=== PATIENT | male | born 1975 | race Asian ===

== ENCOUNTER 2018-01-18 01:51 | Emergency (ER) | payer OTHER ==
--- OUTSIDE RECORDS SUMMARY | 2018-01-18 01:53 | XMS REPORT | Clinical Summary ---
:1975 Author Organization [facility] Address [address] [place] [address] Phone Care Team Providers Name Role Phone Unavailable Primary Care Provider Unavailable Allergies Not on File Current Medications Not on file Active Problems Not on file Encounters Date Type Specialty Care Team Description 05/14/2017 Abstract Transplant Leslie Barrera MA after 01/17/2017 Social History Tobacco Use Types Packs/Day Years Used Date Never Assessed Sex Assigned at Date Recorded Not on file Last Filed Vital Signs Not on file Plan of Treatment Not on file Results Not on fileafter 01/17/2017
--- OUTSIDE RECORDS SUMMARY | 2018-01-18 01:54 | XMS REPORT ---
:1975 Author Organization [facility] Address [address] [place] [phone] Phone Allergies, Adverse Reactions, Alerts Allergy Name Reaction Description Start Date Severity Status Provider [id number] NEGATIVE Critical No Longer Fred Root MD Active [id number] NEGATIVE Critical Inactive Fred Root MD Conditions or Problems Problem Name Problem Onset Status Entry Provider Comment Standard Annotate Code Date Date Description Balanitis 607.1 Active Fred Balanoposthitis 12/14 12/14 Ivett MCADAMS Folliculitis 704.8 Active Fred Other specified 12/14 12/14 Ivett diseases of MD hair and hair follicles Preventive V70.0 Active Fred Routine general health care 11/30 11/30 Ivett medical examination at a health care facility Allergic 692.9 Active Fred Contact dermatitis 04/28 04/28 Ivett dermatitis and MD other eczema, unspecified cause Dietary V65.3 Active Anibal Dietary surveillance 12/08 12/[address] and counseling counseling SEBACEOUS 706.2 Active Fred Sebaceous cyst left CYST 11/07 11/07 Ivett occipital scalp BLEPHARITIS 373.00 Active Jose S Blepharitis, 09/26 09/26 Brandon MCADAMS unspecified 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 Jose 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, unspecified History of 305.90 01/23/ Active Randy Other, mixed, Ecstasy SUBSTANCE 2010 Kwan or unspecified ABUSE drug abuse, unspecified use DEPRESSION 311 01/08/ Active Shari Depressive change in 2011 0/12 Mckenzie disorder, not sleep, elsewhere loss of classified interest HEPATITIS C 070.51 12/2010 Active Fred Acute hepatitis GENOTYPE 1A 10/10 Ivett C without MD mention of hepatic coma History of 097.9 12/2010 Active Shari Syphilis, SYPHILIS 0 Mckenzie unspecified HIV 042 12/2010 Active Fred 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 HEPATITIS C 070.51 12/2010 Correction Shari Acute hepatitis 0 Mckenzie C without mention of hepatic coma HIV 042 12/2010 Correction Shari Human INFECTION Mckenzie immunodeficienc y virus [HIV] disease Pharyngitis 462 Inactive Fred Acute 10/11 12/14 Ivett pharyngitis Pharyngitis ICD-462 Inactive Fred Root MD 12/14 Penile ulcer ICD-607.89 Inactive Fred Root MD SPECIAL V73.89 Inactive Jose Omalley Screening SCREENING Brandon MCADAMS examination for EXAMINATION OTH other specified SPEC VIRAL DZ viral diseases SPECIAL SCREENING ICD-V73.89 Inactive Jose Omalley 2014 EXAMINATION OTH Brandon MCADAMS SPEC VIRAL DZ ASTIGMATISM 367.20 Inactive Fred Metz MD unspecified ASTIGMATISM ICD-367.20 Inactive Fred Root MD MYOPIA 367.1 Inactive Fred Root MD Myopia MYOPIA ICD-367.1 Inactive Fred Root MD HEALTH SCREENING ICD-V70.0 Inactive Fred Root CONJUNCTIVITIS ICD-372.30 Inactive Fred Root Penile ulcer 607.89 Resolved Fred rogers MD disorders of penis HEALTH SCREENING V70.0 Resolved Fred nunez MD medical examination at a health care facility CONJUNCTIVITIS 372.30 05/04/2012 Resolved Fred Conjunctivit ? Allergic Ivett is, - Prob unspecified Bacterial Medication List Medication Instructions Start Stop Generic NDC Status Provider Patient Date Date Name Instruction DOXYCYCLINE 1 by DOXYCYCLINE [id number] Active Fred Active HYCLATE 100 MG mouth HYCLATE [place] ORAL CAPSULE twice a MD day LOTRISONE apply to CLOTRIMAZOLE-B 65436172342 Active Fred Active 1-0.05 % affected ETAMETHASONE [place] EXTERNAL CREAM area twice a day TRIAMCINOLONE apply to TRIAMCINOLONE 87184485950 Active Fred Active ACETONIDE 0.1 % affected ACETONIDE [place] EXTERNAL CREAM area MD twice a day ISENTRESS 400 1 By RALTEGRAVIR 01228239865 Active Nadia Active MG ORAL TABLET Mouth POTASSIUM Abreu Twice a Day NORVIR 100 MG 1 By RITONAVIR 39111469565 Active Nadia Active ORAL TABLET Mouth Abreu Every Day PREZISTA 800 MG 1 by DARUNAVIR 16820824920 Active Nadia Active ORAL TABLET mouth ETHANOLATE Abreu once a day with food TRUVADA 200-300 1 by EMTRICITABINE- [id number] Active Nadia Active MG ORAL TABLET mouth TENOFOVIR Abreu daily ZITHROMAX 250 2 by ZITHROMAX [id number] AZITHROMYCIN Inactive MG ORAL mouth 250 MG ORAL TABLET now, TABLET then 1 by mouth every day for 4 more days HARVONI Take 1 HARVONI LEDIPASVIR-SO Inactive 90-400 MG tablet 90-400 MG FOSBUVIR ORAL TABLET orally ORAL TABLET once daily VALTREX 1 GM 1 by VALTREX 1 GM 956255 VALACYCLOVIR Inactive ORAL TABLET mouth 2 ORAL TABLET HCL times a day for 7 days AUGMENTIN 1 by AUGMENTIN 015280 AMOXICILLIN-P Inactive 875-125 MG mouth 875-125 MG OT ORAL TABLET twice a ORAL TABLET CLAVULANATE day for 1 week PREDNISOLONE 1 drop PREDNISOLONE 4037016 PREDNISOLONE Inactive ACETATE 1 % in both ACETATE 1 % ACETATE OPHTHALMIC eyes OPHTHALMIC SUSPENSION Four SUSPENSION Times a Day for 7 days ATRIPLA 1 tablet ATRIPLA EFAVIRENZ-EMT Inactive 600-200-300 by mouth 600-200-300 RICITAB-TENOF MG ORAL at MG ORAL OVIR TABLET bedtime TABLET on empty stomach ZITHROMAX 2 by AZITHROMYCIN 79461884564 No Fred Active 250 MG mouth Longer Nem[place] ORAL now, Active MD TABLET then 1 by mouth every day for 4 more days HARVONI Take 1 LEDIPASVIR-SO 08502166233 No Kitty Active 90-400 MG tablet FOSBUVIR Longer Hunter ORAL orally Active h MD TABLET once daily VALTREX 1 1 by VALACYCLOVIR 81272496211 No Fred Active GM ORAL mouth HCL Longer [place] TABLET 2 Active MD times a day for 7 days AUGMENTIN 1 by AMOXICILLIN-P 73839520848 No Fred Active 875-125 MG mouth OT Longer Nemecek ORAL twice CLAVULANATE Active MD TABLET a day for 1 week PREDNISOLO 1 drop PREDNISOLONE 82559064382 No Jose Inman NE ACETATE in ACETATE Longer Taylor 1 % both Active MD OPHTHALMIC eyes SUSPENSION Four Times a Day for 7 days ATRIPLA 1 EFAVIRENZ-EMT 33975917316 No Fred Active 600-200-30 tablet RICITAB-TENOF Longer Nemecek 0 MG ORAL by OVIR Active MD TABLET mouth at bedtim e on empty stomac h Advance Directives Directive Description Start Date DISCUSSED - NO DECISION MADE Immunizations Vaccine Administration Date Value Standard Description influenza immunization given influenza virus (Flu Vax) has been vaccine, unspecified administered formulation pneumococcal given pneumococcal immunization polysaccharide administered vaccine, 23 valent influenza immunization given influenza virus (Flu Vax) has been vaccine, unspecified administered formulation influenza immunization given elsewhere influenza virus (Flu Vax) has been vaccine, unspecified administered formulation PEDIATRIC PNEUMOCOCCAL given pneumococcal conjugate VACCINE ([id number]) #2 vaccine, 13 valent influenza immunization given influenza virus (Flu Vax) has been vaccine, unspecified administered formulation TB-PPD, interpretation negative of results influenza immunization given influenza virus (Flu Vax) has been vaccine, unspecified administered formulation influenza immunization transcribed from influenza virus (Flu Vax) has been official record vaccine, unspecified administered formulation dT (Diphtheria and transcribed from Td(adult) unspecified Tetanus) immunization official record formulation for children, #1 PEDIATRIC PNEUMOCOCCAL transcribed from pneumococcal conjugate VACCINE ([id number]) #1 official record vaccine, 13 valent pneumococcal given pneumococcal immunization polysaccharide administered vaccine, 23 valent Vital Signs Date Name Value Unit Range Description blood pressure, diastolic 87 mm[Hg] BP mauro blood pressure, systolic 132 mm[Hg] BP sys height E&M 67 [in_us] Bdy height pulse rate E&M 68 /min Heart rate respiratory rate E&M 16 /min Resp rate temperature E&M 97.1 [degF] Body temperature weight E&M 168 [lb_av] Weight Measured blood pressure, diastolic 87 mm[Hg] BP mauro blood pressure, systolic 125 mm[Hg] BP sys height E&M 67 [in_us] Bdy height pulse rate E&M 69 /min Heart rate respiratory rate E&M 16 /min Resp rate temperature E&M 97 [degF] Body temperature weight E&M 168 [lb_av] Weight Measured blood pressure, diastolic 83 mm[Hg] BP mauro blood pressure, systolic 111 mm[Hg] BP sys height E&M 67 [in_us] Bdy height pulse rate E&M 74 /min Heart rate respiratory rate E&M 16 /min Resp rate temperature E&M 98.1 [degF] Body temperature weight E&M 173 [lb_av] Weight Measured blood pressure, diastolic 82 mm[Hg] BP mauro blood pressure, systolic 131 mm[Hg] BP sys height E&M 67 [in_us] Bdy height pulse rate E&M 78 /min Heart rate respiratory rate E&M 16 /min Resp rate temperature E&M 98.2 [degF] Body temperature weight E&M 167 [lb_av] Weight Measured Diagnostic Results Date Name Value Unit Range Description Lab Report: CD4/CD8 Ratio Profile, Comp. Metabolic Panel (14), Lipid Wu ... - Serology hepatitis C antibody, serum >11.0 0.0-0.9 Lab Report: CD4/CD8 Ratio Profile, Comp. Metabolic Panel (14), HCV RT-PC ... - Hematology lymphocyte count, blood, automated 3.3 X10E3/UL 10*3/mm3 0.7- 3.1 Lab Report: CD4/CD8 Ratio Profile, Comp. Metabolic Panel (14), HCV RT-PC ... - Chemistry urea nitrogen, blood 21 mg/dL 6-24 Lab Report: Iron and TIBC, Ferritin, Serum, Written Authorization - Chemistry ferritin, serum 306 ng/mL 30-400 Lab Report: CD4/CD8 Ratio Profile, Comp. Metabolic Panel (14), HCV RT-PC ... - Hematology T-helper cells (CD4) as percent of blood lymphocytes 28.1 % 30.8 -58.5 Lab Report: CD4/CD8 Ratio Profile, Comp. Metabolic Panel (14), HCV RT-PC ... - Serology HIV-1RNA, serum, by PCR, quantitative 50 {Copies}/mL Office Visit: Adult Followup #13 - Toxicology tricyclic antidrepressants, urine Negative Lab Report: CD4/CD8 Ratio Profile, Comp. Metabolic Panel (14), HCV RT-PC ... - Chemistry creatinine, serum 1.06 mg/dL 0.76-1.27 chloride, serum 101 mmol/L 96-106 Lab Report: CD4/CD8 Ratio Profile, Comp. Metabolic Panel (14), HCV RT-PC ... - Hematology mean corpuscular volume, RBC 91 fL 79-97 Lab Report: CD4/CD8 Ratio Profile, Comp. Metabolic Panel (14), Lipid Wu ... - Chemistry triglyceride, serum, fasting 108 mg/dL 0-149 Lab Report: CD4/CD8 Ratio Profile, Comp. Metabolic Panel (14), HCV RT-PC ... - Hematology erythrocyte (RBC) count 4.94 X10E6/UL 10*6/mm3 4.14-5.80 Lab Report: CD4/CD8 Ratio Profile, Comp. Metabolic Panel (14), HCV RT-PC ... - Chemistry Estimated Glomerular Filtration Rate (calc) 85 mL/min/1.73m2 &gt ;59 Lab Report: CD4/CD8 Ratio Profile, Comp. Metabolic Panel (14), HCV RT-PC ... - Hematology platelet count 175 X10E3/UL 10*3/mm3 180-467 6987/01/08 red blood cell distribution width 13.3 % 12.3-15.4 Lab Report: CD4/CD8 Ratio Profile, Comp. Metabolic Panel (14), Lipid Wu ... - Lab Treponema pallidum antibodies, by particle Positive Negative agglutination Lab Report: CD4/CD8 Ratio Profile, Comp. Metabolic Panel (14), HCV RT-PC ... - Chemistry protein, total, serum 7.1 g/dL 6.0-8.5 Lab Report: CD4/CD8 Ratio Profile, Comp. Metabolic Panel (14), HCV RT-PC ... - Serology Hepatitis C virus (HCV) RNA, PCR, HCV Not Detected IU/mL [iU]/mL quantitative Lab Report: CD4/CD8 Ratio Profile, Comp. Metabolic Panel (14), Lipid Wu ... - Chemistry HDL cholesterol, serum 36 mg/dL >39 Lab Report: CD4/CD8 Ratio Profile, Comp. Metabolic Panel (14), Lipid Wu ... - Microbiology hepatitis A antibody, total Positive Negative Lab Report: HSV Culture and Typing - Microbiology HERPES SIMPLEX VIRUS IDENTIFIED (PT; XXX; QL; ) HSVN Lab Report: CD4/CD8 Ratio Profile, Comp. Metabolic Panel (14), HCV RT-PC ... - Chemistry albumin/globulin ratio, serum 1.5 1.2-2.2 Lab Report: CD4/CD8 Ratio Profile, Comp. Metabolic Panel (14), HCV RT-PC ... - Hematology eosinophils as percent of blood leukocytes 2 % Not Estab. Lab Report: CD4/CD8 Ratio Profile, Comp. Metabolic Panel (14), HCV RT-PC ... - Chemistry Absolute Neutrophils 3.4 X10E3/UL 10*3/uL 1.4-7.0 Lab Report: [id number] 7+Alc-Unbund - Toxicology amphetamine screen, urine Negative [id number] Lab Report: CD4/CD8 Ratio Profile, Comp. Metabolic Panel (14), HCV RT-PC ... - Hematology basophil count, absolute 0.0 x10E3/uL 0.0-0.2 Lab Report: CD4/CD8 Ratio Profile, Comp. Metabolic Panel (14), Lipid Wu ... - Chemistry hepatitis B surface antigen Negative Negative Lab Report: Iron and TIBC, Ferritin, Serum, Written Authorization - Chemistry iron saturation percent, serum 41 % 15-55 Lab Report: CD4/CD8 Ratio Profile, Comp. Metabolic Panel (14), HCV RT-PC ... - Chemistry alanine aminotransferase (SGPT), serum 28 U/L 0-44 Lab Report: CD4/CD8 Ratio Profile, Comp. Metabolic Panel (14), Lipid Wu ... - Chemistry LDL cholesterol, serum 97 mg/dL 0-99 Office Visit: Adult Followup #13 - Toxicology phencyclidine screen, urine Negative ng/mL Lab Report: CD4/CD8 Ratio Profile, Comp. Metabolic Panel (14), HCV RT-PC ... - Hematology monocytes as percent of blood leukocytes 4 % Not Estab. Lab Report: [id number] 7+Alc-Unbund - Toxicology opiate screen, urine Negative [id number] Lab Report: CD4/CD8 Ratio Profile, Comp. Metabolic Panel (14), HCV RT-PC ... - Chemistry CD4/CD8 ratio 0.84 0.92-3.72 Office Visit: Adult Followup #13 - Urinalysis morphine drug screen, urine Negative Lab Report: CD4/CD8 Ratio Profile, Comp. Metabolic Panel (14), Lipid Wu ... - Chemistry cholesterol, serum 155 mg/dL 100-199 Lab Report: CD4/CD8 Ratio Profile, Comp. Metabolic Panel (14), HCV RT-PC ... - Hematology mean corpuscular hemoglobin 35.0 G/DL % 31.5-35.7 concentration, RBC hemoglobin, blood 15.7 g/dL 13.0-17.7 leukocyte count, blood 7.1 X10E3/UL 10*3/mm3 3.4-10.8 Lab Report: CD4/CD8 Ratio Profile, Comp. Metabolic Panel (14), RNA, Real ... - Hematology Quantiferon Gold TB blood test for tuberculosis Negative Negative screening Office Visit: Adult Followup #13 - Urinalysis Oxycodone urine screening Negative Lab Report: CD4/CD8 Ratio Profile, Comp. Metabolic Panel (14), HCV RT-PC ... - Hematology hematocrit, blood 44.9 % 37.5-51.0 T-suppressor cells (CD8) as percent of blood 33.3 % 12.0-35.5 lymphocytes Lab Report: CD4/CD8 Ratio Profile, Comp. Metabolic Panel (14), HCV RT-PC ... - Chemistry globulin, serum 2.8 1.5-4.5 Office Visit: Adult Followup #13 - Toxicology barbiturates screen, urine Negative Lab Report: CD4/CD8 Ratio Profile, Comp. Metabolic Panel (14), HCV RT-PC ... - Chemistry albumin, serum 4.3 g/dL 3.5-5.5 Office Visit: Adult Followup #13 - Urinalysis Ecstasy (MDMA) Screen, urine Negative Internal Correspondence: Pre-Visit Planning=Latia 01/15/15 @ 10:45am CONFIRMED - Other List of providers caring for Christopher Bridges MD, Fred Root MD, patient Raimundo Mandel NP-C, Rachel Chambers MA, Christian Lvoelace MA, Maame Pacheco M.A, Darlin Lagos CTA, Lab Report: CD4/CD8 Ratio Profile, Comp. Metabolic Panel (14), Lipid Wu ... - Chemistry very low density lipoproteins 22 mg/dL 5-40 Lab Report: CD4/CD8 Ratio Profile, Comp. Metabolic Panel (14), HCV RT-PC ... - Chemistry calcium, serum 9.1 mg/dL 8.7-10.2 Lab Report: CD4/CD8 Ratio Profile, Comp. Metabolic Panel (14), HCV RT-PC ... - Hematology basophils as percent of blood leukocytes 0 % Not Estab. 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 Metabolic Panel (14), HCV RT-PC ... - Chemistry immature granulocytes, percentage of total cells, blood 0 % Not Estab. urea nitrogen/creatinine ratio, serum 20 9-20 Lab Report: Iron and TIBC, Ferritin, Serum, Written Authorization - Chemistry iron, serum 121 ug/dL 40-155 Lab Report: CD4/CD8 Ratio Profile, Comp. Metabolic Panel (14), HCV RT-PC ... - Genetics/fertility eGFR if 98 mL/min/1.73m2 >59 Lab Report: Iron and TIBC, Ferritin, Serum, Written Authorization - Chemistry iron binding capacity, total 296 ug/dL 250-450 Office Visit: Adult Followup #13 - Toxicology opiates, urine, semiquantitative Negative Lab Report: CD4/CD8 Ratio Profile, Comp. Metabolic Panel (14), HCV RT-PC ... - Hematology lymphocytes as percent of blood leukocytes 46 % Not Estab. Lab Report: CD4/CD8 Ratio Profile, Comp. Metabolic Panel (14), HCV RT-PC ... - Chemistry carbon dioxide, venous blood 26 mmol/L 18-29 Lab Report: RPR, Rfx Qn RPR/Confirm TP - Serology rapid plasma reagin antibody, serum Non Reactive Non Reactive Office Visit: Adult Followup tx room - Serology HIV genotype result done Lab Report: Chlamydia/GC Amplification - Lab chlamydia DNA probe Negative Negative Lab Report: Chlamydia/GC Amplification - Microbiology Neisseria gonorrhoeae DNA probe Negative Negative Lab Report: CD4/CD8 Ratio Profile, Comp. Metabolic Panel (14), HCV RT-PC ... - Chemistry sodium, serum 138 mmol/L 134-144 Lab Report: CD4/CD8 Ratio Profile, Comp. Metabolic Panel (14), Lipid Wu ... - Serology hepatitis B core antibody, total Positive Negative Lab Report: Iron and TIBC, Ferritin, Serum, Written Authorization - Chemistry iron binding capacity, unsaturated 175 ug/dL 150-375 Lab Report: CD4/CD8 Ratio Profile, Comp. Metabolic Panel (14), HCV RT-PC ... - Chemistry alkaline phosphatase, serum 78 U/L 39-117 Office Visit: Adult Followup #13 - Urinalysis Methadone screen, urine Negative Lab Report: CD4/CD8 Ratio Profile, Comp. Metabolic Panel (14), HCV RT-PC ... - Hematology Eosinophil Absolute Count 0.1 X10E3/UL 10*3/uL 0.0-0.4 Lab Report: Anal(Rectal) Cytology, LBP - Chemistry source ANAL Lab Report: CD4/CD8 Ratio Profile, Comp. Metabolic Panel (14), Lipid Wu ... - Coagulation prothrombin time (patient) 10.6 s 9.1-12.0 Lab Report: CD4/CD8 Ratio Profile, Comp. Metabolic Panel (14), HCV RT-PC ... - Hematology T-helper cells (CD4) count 927 /UL uL [phone] Office Visit: Adult Followup #13 - Toxicology benzodiazepine screen, urine Negative Office Visit: Adult Followup #13 - Chemistry cannabinoid screen, urine Negative ng/mL Lab Report: CD4/CD8 Ratio Profile, Comp. Metabolic Panel (14), HCV RT-PC ... - Hematology mean corpuscular hemoglobin, RBC 31.8 pg 26.6-33.0 Lab Report: CD4/CD8 Ratio Profile, Comp. Metabolic Panel (14), HCV RT-PC ... - Chemistry bilirubin, serum, total 0.3 mg/dL 0.0-1.2 Lab Report: CD4/CD8 Ratio Profile, Comp. Metabolic Panel (14), HCV RT-PC ... - Hematology neutrophils as percent of blood leukocytes 48 % Not Estab. Office Visit: Adult Followup - Serology human leukocyte antigen B57 negative Lab Report: RNA, Real Time PCR (Graph) - Chemistry HIV-1 RNA (log 10) 1.699 ufz26kiow/mL Lab Report: CD4/CD8 Ratio Profile, Comp. Metabolic Panel (14), Lipid Wu ... - Coagulation international normalized ratio (INR) 1.0 0.8-1.2 Lab Report: CD4/CD8 Ratio Profile, Comp. Metabolic Panel (14), HCV RT-PC ... - Chemistry blood glucose, random 106 mg/dL 65-99 potassium, serum 4.2 mmol/L 3.5-5.2 Lab Report: HCV RT-PCR, Quant (Graph), HCV RNA (International Units), HC ... - Serology hepatitis C virus, RNA, quantitative See Final Results IU/mL [iU] /mL Lab Report: CD4/CD8 Ratio Profile, Comp. Metabolic Panel (14), Lipid Wu ... - Serology hepatitis B surface antibody Reactive Lab Report: [id number] 7+Alc-Unbund - Urinalysis Ethanol screen urine Negative Cutoff=0.020 Lab Report: CD4/CD8 Ratio Profile, Comp. Metabolic Panel (14), Lipid Uw ... - Serology toxoplasma gondii antibody, IgG <6.5 (0.0-6.4) Lab Report: CD4/CD8 Ratio Profile, Comp. Metabolic Panel (14), HCV RT-PC ... - Chemistry aspartate aminotransferase (SGOT), serum 28 U/L 0-40 absolute CD8 [phone] Encounters Date Encounter Provider Code Facility Ofc Vst, Est Level Fred Root MD [facility]-[id number] [facility] 09:08:14 CDT IV Ofc Vst, Est Level Fred Root MD [facility]-35869 [facility] 11:46:20 [facility] IV Ofc Vst, Est Level Fred Root MD [facility]-[id number] [facility] 11:00:51 CDT IV Ofc Vst, Est Level Fred Root MD [facility]-07011 [facility] 11:34:05 CDT IV Ofc Vst, Est Level Fred Root MD [facility]-06350 [facility] 12:23:30 CDT IV Ofc Vst, Est Level Fred Root MD [facility]-29704 [facility] 11:26:42 [facility] IV Est Patient Detailed Kitty Wu MD [facility]-51249 [facility] 09:33:42 [facility] - 08537 Est Patient Exp Kitty Wu MD [facility]-64309 [facility] 13:14:53 CDT Problem - 84450 Est Patient Exp Kitty Wu MD [facility]-15913 [facility] 11:20:05 CDT Problem - 36010 Ofc Vst, Est Level Fred Root MD CPT-63915 [facility] 11:57:49 CDT IV Ofc Vst, Est Level Fred Root MD CPT-12511 [facility] 09:06:01 CDT IV Ofc Vst, Est Level Fred Root MD CPT-26509 [facility] 10:04:07 CDT III Ofc Vst, Est Level Fred Root MD CPT-59229 [facility] 12:51:10 CDT III Ofc Vst, Est Level Fred Root MD CPT-29043 [facility] 14:14:02 [facility] III Est Patient Exp Fred Root MD CPT-48580 [facility] 11:57:31 [facility] Problem - 76607 Ofc Vst, Est Level Fred Root MD [facility]-27119 [facility] 09:55:12 CDT III Ofc Vst, Est Level Fred Root MD [facility]-82278 [facility] 11:11:26 CDT III Ofc Vst, Est Level Fred Root MD [facility]-73484 [facility] 09:20:06 [facility] III Ofc Vst, Est Level Fred Root MD [facility]-00421 [facility] 12:13:29 [facility] III Est Patient Nurse - Windy Ch RN [facility]-80765 [facility] 16:13:42 [facility] Only Visit - 52489 Ofc Vst, Est Level Fred Root MD CPT-73890 [facility] 14:31:48 CDT III Ofc Vst, Est Level Fred Root MD CPT-12704 [facility] 11:13:23 [facility] III Ofc Vst, Est Level Fred Root MD CPT-61159 [facility] 11:45:45 CDT III Ofc Vst, Est Level Fred Root MD CPT-75733 [facility] 12:51:50 CDT III Ofc Vst, Est Level Fred Root MD CPT-54750 [facility] 14:34:00 [facility] III Procedures Code Procedure Name Date Entry Date Standard Description CPT-61276 INFLUENZA VACCINE QUADRIVALENT 3 YRS PLUS IM 10:49:27 CDT CPT-14264 Pneumovax Vaccine PPSV23 12:22:28 CDT CPT-37635 Urine Drug Screen - In House 11:22:44 [facility] CPT-J0561 Injection, penicillin g benzathine, 1.2 mu 12:20:51 CDT CPT-27241 Nutrition Re-assessment Ind (15 Min) - 62262 07:55:35 CDT CPT-24722 Nutrition Initial Assessment Ind (15 Min) - 91852 07:55:41 CDT CPT-71696 Dispensing Visit (UNLIVSTED OPHTHALMOLOGICAL 14:38:07 CDT SERVICE/PROCEDURE) CPT-45014 Est Patient Intermediate Opt - 44549 09:29:54 CDT CPT-29840 New Patient Intermediate Opth - 94227 09:46:44 CDT CPT-01216 Prevnar (PCV13) IM 14:26:48 CDT CPT-64716 Handling of specimen for transfer 14:59:18 CDT CPT-51890 Venipuncture 14:59:18 CDT CPT-40234 Est Patient Intermediate Opth - 06843 12:13:39 [facility] CPT-81631 Influenza - Adult - Injection 11:09:23 [facility] CPT-73961 Influenza - Adult - Injection 14:28:30 [facility] CPT-93498 PPD - InHouse 14:28:30 [facility]
[2018-01-18] MEDS ORDERED: SILVER NITRATE 1 APPL TOP ONE ×3 (02:22→02:40)
--- NOTE | 2018-01-18 03:18 | EDPHYS ---
Physician Documentation [facility] Name: Clifford Age: 42 yrs Sex: Male : 1975 Arrival Date: 01/18/2018 Time: 01:55 Bed 8 Private MD: ED Physician Jeremías Moncada HPI: 01/18 03:06 This 42 yrs old Male presents to ER via Ambulatory with complaints of Post pkl Surgical Bleeding. 03:06 Bleeding from hair lutheran sites right occipital scalp. . Onset: The pkl symptoms/episode began/occurred just prior to arrival, 1 hour(s) ago. Patient hair lutheran done yesterday. has follow up appt. tomorrow. Historical: - Allergies: 02:07 No Known Allergies; aa1 - Home Meds: 02:07 None [Active]; aa1 - PMHx: 02:07 None; aa1 - PSHx: 02:07 None; aa1 - Immunization history:: Last tetanus immunization: unknown. - Social history:: Smoking status: Patient/guardian denies using tobacco. ROS: 03:06 Eyes: Negative for injury, pain, redness, and discharge, ENT: Negative for injury, pkl pain, and discharge, Neck: Negative for injury, pain, and swelling, Cardiovascular: Negative for chest pain, palpitations, and edema, Respiratory: Negative for shortness of breath, cough, wheezing, and pleuritic chest pain, Abdomen/GI: Negative for abdominal pain, nausea, vomiting, diarrhea, and constipation, Back: Negative for injury and pain, : Negative for injury, bleeding, discharge, and swelling, MS/Extremity: Negative for injury and deformity, Neuro: Negative for headache, weakness, numbness, tingling, and seizure. 03:06 Skin: Positive for bleeding from multiple hair lutheran sites ( 4 ) right occipital scalp.. Exam: 03:06 Head/face: Noted is Bleeding from hair lutheran sites ( 4 ) from right pkl occipital scalp. 03:06 Eyes: Exam is negative for acute changes. 03:06 ENT: Exam is negative for acute changes. 03:06 Neck: Exam negative for nuchal rigidity. 03:06 Chest/axilla: Exam negative for acute changes. 03:06 Cardiovascular: Rate: normal, Rhythm: regular. 03:06 Respiratory: Exam negative for acute changes, the patient does not display signs of respiratory distress, Respirations: normal. 03:06 Abdomen/GI: Bowel sounds: normal, Palpation: abdomen is soft and non-tender, in all quadrants. 03:06 Back: Exam negative for acute changes. 03:06 : Exam negative for acute changes. 03:06 Musculoskeletal/extremity: Exam is negative for acute changes. 03:06 Skin: Exam negative for rash. 03:06 Neuro: Orientation: is normal, Mentation: is normal, Cranial nerves: grossly normal, Motor: is normal. 03:18 Eyes: Pupils equal round and reactive to light, extra-ocular motions intact. Lids and pkl lashes normal. Conjunctiva and sclera are non-icteric and not injected. Cornea within normal limits. Periorbital areas with no swelling, redness, or edema. Vital Signs: 02:07 BP 147 / 99; Pulse 87; Resp 16; Temp 97.5; Pulse Ox 98% on R/A; Weight 73.48 kg; Height aa1 5 ft. 7 in. (170.18 cm); Pain 0/10; 02:48 BP 140 / 95; Pulse 86; Resp 16; Temp 97.5; Pulse Ox 98% on R/A; ak1 02:07 Body Mass Index 25.37 (73.48 kg, 170.18 cm) aa1 Procedures: 03:06 Bleeding sites right occipital scalp stopped using silver nitrate sticks. Area dressed pkl with surgicel.. MDM: 02:27 Patient medically screened. pkl 03:06 Data reviewed: vital signs, nurses notes. pkl Administered Medications: 02:45 Drug: Silver Nitrate Applicators 1 application {Note: verbal orders for a total of 6 ak1 sticks to control bleeding for ERP use..} Route: Topical; Site: scalp; Disposition: 01/18/18 03:18 Discharged to Home. Impression: Bleeding from hair lutheran sites right occipital scalp. - Condition is Stable. - Medication Reconciliation Form, Thank You Letter, Antibiotic Education, Prescription Opioid Use form. - Follow up: Private Physician; When: Tomorrow; Reason: Re-evaluation by your physician. - Problem is new. - Symptoms have improved. Signatures: Angle Pryor RN RN aa1 Jeremías Moncada MD MD pkl Ginna Covington RN RN ak1
--- NOTE | 2018-01-18 03:18 | ER ---
Nurse's Notes [facility] Name: Clifford Age: 42 yrs Sex: Male : 1975 Arrival Date: 01/18/2018 Time: 01:55 Bed 8 Private MD: Diagnosis: Bleeding from hair scientologist sites right occipital scalp Presentation: 01/18 02:03 Presenting complaint: Patient states: he had hair scientologist done yesterday and is now aa1 bleeding from the site his hair was harvested from. Transition of care: patient was not received from another setting of care. Onset of symptoms was January 18, 2018. Initial Sepsis Screen: Does the patient meet any 2 criteria? No. Patient's initial sepsis screen is negative. Does the patient have a suspected source of infection? No. Patient's initial sepsis screen is negative. Care prior to arrival: None. 02:03 Method Of Arrival: Ambulatory aa1 02:03 Acuity: WENDI 4 aa1 Triage Assessment: 02:07 General: Appears in no apparent distress. comfortable, Behavior is calm, cooperative, aa1 appropriate for age. Pain: Denies pain. Historical: - Allergies: 02:07 No Known Allergies; aa1 - Home Meds: 02:07 None [Active]; aa1 - PMHx: 02:07 None; aa1 - PSHx: 02:07 None; aa1 - Immunization history:: Last tetanus immunization: unknown. - Social history:: Smoking status: Patient/guardian denies using tobacco. Screenin:11 Abuse screen: Denies threats or abuse. Denies injuries from another. Nutritional ak1 screening: No deficits noted. Tuberculosis screening: No symptoms or risk factors identified. Fall Risk None identified. Assessment: 02:08 General: Appears in no apparent distress. Behavior is calm, cooperative. Pain: Denies ak1 pain. Neuro: No deficits noted. Cardiovascular: No deficits noted. Respiratory: No deficits noted. GI: No signs and/or symptoms were reported involving the gastrointestinal system. : No signs and/or symptoms were reported regarding the genitourinary system. EENT: No signs and/or symptoms were reported regarding the EENT system. Derm: pt with multiple hair harvest sites to scalp. pt with one harvest location to the right side that has continued bleeding even after leaving his doctor's office at 1700. wound sites are clean otherwise. Musculoskeletal: No signs and/or symptoms reported regarding the musculoskeletal system. 02:24 Reassessment: bleeding uncontrolled with surgisil. ERP notified and silver nitrate at ak1 the bedside for ERP use. 02:46 Reassessment: bleeding controlled with 6 silver nitrate sticks used by ERP. pt head ak1 wrapped with non adherent 4X4's and Kerlix dressing as what was applied [employer]. pt verbalized understanding to follow up with his doctor first thing Wednesday. . 03:09 Reassessment: ERP notified bleeding is controlled.. ak1 Vital Signs: 02:07 BP 147 / 99; Pulse 87; Resp 16; Temp 97.5; Pulse Ox 98% on R/A; Weight 73.48 kg; Height aa1 5 ft. 7 in. (170.18 cm); Pain 0/10; 02:48 BP 140 / 95; Pulse 86; Resp 16; Temp 97.5; Pulse Ox 98% on R/A; ak1 02:07 Body Mass Index 25.37 (73.48 kg, 170.18 cm) aa1 ED Course: 01:55 Patient arrived in ED. al2 02:07 Triage completed. aa1 02:07 Arm band placed on right wrist. Patient placed in an exam room, on a stretcher. aa1 02:11 Patient has correct armband on for positive identification. Bed in low position. Call ak1 light in reach. Side rails up X 1. Pulse ox on. NIBP on. 02:23 Ginna Covington RN is Primary Nurse. ak1 02:27 Jeremías Moncada MD is Attending Physician. pkl 02:46 silver nitrate application and wound bandage. Patient did not have IV access during ak1 this emergency room visit. Administered Medications: 02:45 Drug: Silver Nitrate Applicators 1 application {Note: verbal orders for a total of 6 ak1 sticks to control bleeding for ERP use..} Route: Topical; Site: scalp; Outcome: 03:18 Discharge ordered by . pksincere 03:20 Discharged to home ambulatory. ak1 03:20 Condition: good 03:20 Discharge instructions given to patient, Instructed on discharge instructions, follow up and referral plans. Demonstrated understanding of instructions, follow-up care. 03:21 Patient left the ED. ak1 Signatures: Angle Pryor RN RN aa1 Jeremías Moncada MD MD pksincere Covington Ginna, RN RN ak1 Millicent Renae
== END 2018-01-18 03:21 | disposition home or self-care (01) ==
LOC: ER 01:51
DX: L76.22 Postprocedural hemorrhage of skin and subcutaneous tissue following other procedure (principal); Y83.8 Other surgical procedures as the cause of abnormal reaction of the patient, or of later complication, without mention of misadventure at the time of the procedure; Y92.9 Unspecified place or not applicable
CPT/HCPCS: 99283

== ENCOUNTER 2022-10-28 20:13 | Emergency (ER) | payer OTHER ==
[2022-10-28] MEDS ORDERED: NA CHLORIDE 0.9% 1,000 ML ONE ×4 (20:47→23:21)
[2022-10-28 21:04] LABS: Absolute Lymphocytes (CBC) 5.7 K/uL (0.7-4.9); Hematocrit 41.6 % (39.6-49.0); Lymphocytes % 42.3 % (15.3-44.8); MPV 8.3 fL (7.6-11.3); RBC Red Blood Cell Count 4.47 M/uL (4.33-5.43)
--- OUTSIDE RECORDS SUMMARY | 2022-10-28 21:15 | XMS REPORT | Continuity of Care Document ---
:1975 Author Organization [facility] t Address [address] [place] [address] Care Team Providers Name Role Phone .[email or web address] Attending Clinician Unavailable Jovanny Vogel Attending Clinician [phone] Millicent Hsu Attending Clinician Unavailable Jose Taylor Attending Clinician [phone] Mis Loza Attending Clinician Unavailable Millicent Barker Attending Clinician Unavailable Fred Root Attending Clinician [phone] Chayito Rodríguez Attending Clinician Unavailable Latia Mai Attending Clinician Unavailable Angel Hendrickson Attending Clinician Unavailable Latia Mai Attending Clinician Unavailable Marilee Pope Attending Clinician Unavailable Chayito Rodríguez Attending Clinician Unavailable Angel Hendrickson Attending Clinician Unavailable Ariel Fagan Attending Clinician [phone] Tracy Santiago Attending Clinician Unavailable Danika Cordero Attending Clinician Unavailable Rosa Hodges Attending Clinician Unavailable Millicent Hsu Attending Clinician Unavailable Mis Loza Attending Clinician Unavailable Ami Meadows Attending Clinician Unavailable Long Wagner Attending Clinician Unavailable Deniz Black Attending Clinician Unavailable Xiomara Kate Attending Clinician Unavailable Maria Guadalupe Shah Attending Clinician Unavailable Luiza Dickinson Attending Clinician Unavailable Desktop, [facility] Coordination Attending Clinician UnavailRaffaele Mckinney Attending Clinician Unavailable Kelsie MedAdherence,, Nadia Attending Clinician Unavailable Dianne MedHailey Beach Attending Clinician UnavailNaya Enamorado Attending Clinician Unavailable Nadia Abreu Attending Clinician Unavailable Miguel Yu Attending Clinician Unavailable Clarita Carmona Attending Clinician Unavailable Edda Tello Attending Clinician Unavailable Renata Cabrera Attending Clinician Unavailable Rosa Trejo Attending Clinician Unavailable Cherelle Modi Attending Clinician [phone] Kathryn Chapman Attending Clinician Unavailable Kitty Wu Attending Clinician [phone] Yulisa Starks Attending Clinician Unavailable Aditi Kim Attending Clinician Unavailable Danika Worthington Attending Clinician Unavailable Magdalena Kim Attending Clinician Unavailable Kathryn Jiménez Attending Clinician Unavailable Desktop, Referrals [facility] Attending Clinician Unavailable Ricardo Casanova Attending Clinician Unavailable Carlos Enrique Finch Attending Clinician Unavailable Svetlana Kim Attending Clinician Unavailable Cecilia Tee Attending Clinician [phone] Mo Jackson Attending Clinician Unavailable Teetee Ward Attending Clinician Unavailable Jonelle Mejia Attending Clinician Unavailable Nehal Hodges Attending Clinician [phone] Anibal Triana Attending Clinician Unavailable Elysia Ortiz Attending Clinician [phone] Clifton Cisneros Attending Clinician Unavailable Kassandra Barrientos Attending Clinician Unavailable Shaun Almonte Attending Clinician Unavailable Rachel Chambers Attending Clinician Unavailable Darlin Galdamez Attending Clinician Unavailable Sveta Siegel Attending Clinician [phone] Nadia Rivas Attending Clinician Unavailable Angélica Franz Attending Clinician [phone] Alisa Dillon Attending Clinician Unavailable Windy Ch Attending Clinician Unavailable Dorie Ochoa Attending Clinician Unavailable Alisson Hudson Attending Clinician Unavailable Dallin Marin Attending Clinician Unavailable Haydee Gutierrez Attending Clinician Unavailable Mariza Meade Attending Clinician [phone] Ame Castillo Attending Clinician Unavailable Franca Smith Attending Clinician [phone] Lindsay Rodriguez Attending Clinician [phone] Josefina Xiao Attending Clinician [phone] Norma Guerra Attending Clinician Unavailable Danika Levine Attending Clinician Unavailable Randy Kwan Attending Clinician [phone] Shari Mckenzie Attending Clinician Unavailable Acosta Alaniz Attending Clinician [phone] Brandon MCADAMS, Jose Porras Unavailable [phone] Fred Root MD Unavailable [phone] Ariel Coy Unavailable [phone] Unavailable Unavailable Jaspreet OD, Jovanny Unavailable [phone] Payers Payer Name Policy Type Policy Number Effective Date Expiration Date S indiana VUMINERVA [id number] 2020 TPLACE 00:00:00 PEDRO 11 [id number] 2011 2017 Legacy TPLACE 00:00:00 00:00:00 [facility] [id number] 2014 2016 [facility] TPLACE 00:00:00 00:00:00 [facility] [id number] 2014 2015 [facility] TPLACE 00:00:00 00:00:00 [facility] Problems Condition Condition Condition Status Onset Resolution Last Treating Co mments Source Name Details Category Date Date Treatment Clinician Date VITREOUS Condition Active 2022-04-15 VIJAY Taylor FLOATERS 04-15 20:02:26 Jose Porras Adul t 00:00: Medicin 00 e Screening, Condition Active 2022-04-01 VIJAY Root colon 7 12:40:48 Fred Adult cancer 00:00: Medicin 00 e Vitamin D Condition Active 2019-092020-09-04 EKATERINA RootC deficiency 11-05 22:03:21 Fred Adul ruth 00:00: Medicin 00 e Hand pain, Condition Active 2019-092021-03-19 EKATERINA Root right 11-05 12:28:35 Fred Adult 00:00: Medicin 00 e Arthralgia Condition Active 2019-092020-09-04 [facility], [facility] 0 11:11:05 Ariel Adult 00:00: Medicin 00 e Chest wall Condition Active 2019-092020-09-04 [facility], [facility] pain 0 11:11:05 Ariel Adult 00:00: Medicin 00 e NONSPEC Condition Active 2022-04-01 [facility] RXN CMI 1- 12:36:35 Fred Adult MSR G-IFN 00:00: Medicin ANTIG RSPN 00 e NO ACT TB Screening Condition Active 2017-092020-09-04 [facility] for 0 11:21:26 Fred Adult hyperlipid 00:00: Medici n emia 00 e Preventive Condition Active 2022-04-01 [facility] health 11-30 12:36:35 Fred Adult care 00:00: Medicin 00 e Allergic Condition Active 2020-09-04 [facility] dermatitis 04-28 11:11:05 Fred Adul t 00:00: Medicin 00 e Hepatitis Hepatitis Disease Active Saleem ris C virus C virus 03-02 Health infection infection 00:00: without without 00 hepatic hepatic coma coma Human Human Disease Active [facility] immunodefi 03-02 He alth ciency ciency 00:00: virus virus 00 (HIV) (HIV) disease disease Dietary Condition [facility] 12-08 11:52:52 Anibal miranda ce and 00:00: Medicin counseling 00 e SEBACEOUS Condition Active 2013-092016-05-11 Ivett, left [facility] CYST 11-07 11:52:51 Fred occipital Adult 00:00: scalp Medicin 00 e DRY EYE Condition Active 2016-05-11 Shelby Taylor [facility] SYNDROME 09-26 11:52:52 Jose S Adul t 00:00: Medicin 00 e BLEPHARITI Condition Active 2016-05-11 Brandon [facility] S 09-26 11:52:52 Jose S Adult 00:00: Medicin 00 e CONJUNCTIV Condition Inactiv 2012-09-27 Ivett, [facility] ITIS e 16:07:53 Fred Allergic Adult - Prob Medicin Bacterial e HIV Condition Active 2022-04-01 Shelby Root [facility] INFECTION 12:36:35 Fred Adult A2 Medicin e Encounter Condition Active 2019-092020-09-04 2022-04-15 VIJAY Vogel for exam 0-07 00:00:00 13:15:51 Jovanny Adul t of eyes 00:00: Medicin and 00 e vision- abnormal findings Presbyopia Condition Active 2019-092020-09-04 2022-04-15 VIJAY Vogel - OU 0-07 00:00:00 13:15:51 Jovanny Adult 00:00: Medicin 00 e Regular Condition Active 2019-092020-09-04 2022-04-15 VIJAY Vogel astigmatis 0-07 00:00:00 13:15:51 Jovanny Ad ult m, 00:00: Medicin bilateral 00 e History of Past Illness Condition Condition Condition Status Onset Resolution Last Treating Co mments Source Name Details Category Date Date Treatment Clinician Date Myopia - Condition Inactiv 2019-092020-09-04 2020-09-04 VIJAY Root OU e 0-07 00:00:00 11:27:37 Fred Adult 00:00: Medicin 00 e VITREOUS Condition Inactiv 2019-092020-09-04 2020-09-04 VIJAY Root FLOATERS e 0-07 00:00:00 11:27:37 Fred Adul t 00:00: Medicin 00 e Folliculit Condition Inactiv 2018-07-11 2018-07-11 EKATERINA Root is e 12-14 00:00:00 11:55:49 Fred Adult 00:00: Medicin 00 e Balanitis Condition Inactiv 2018-07-11 2018-07-11 EKATERINA Root e 12-14 00:00:00 11:55:49 Fred Adult 00:00: Medicin 00 e Pharyngiti Condition Inactiv 2017-12-14 2017-12-14 VIJAY Root s e 10-11 00:00:00 09:09:12 Fred Adult 00:00: Medicin 00 e Penile Condition Inactiv 2017-07-19 2017-07-19 VIJAY Root ulcer e 04-28 00:00:00 11:39:14 Fred Adult 00:00: Medicin 00 e MYOPIA Condition Inactiv 2015-01-15 2015-01-15 [place], [facility] e 12-14 00:00:00 11:11:43 Fred Adult 00:00: Medicin 00 e ASTIGMATIS Condition Inactiv 2015-01-15 2015-01-15 [facility] M e 12-14 00:00:00 11:11:43 Fred Adult 00:00: Medicin 00 e SPECIAL Condition Inactiv 2014-12-19 2014-12-17 Brandon [facility] SCREENING e 12-17 00:00:00 09:29:44 Jose sadler EXAMINATIO 00:00: Medici n N OTH SPEC 00 e VIRAL DZ HEALTH Condition Inactiv 2013-092014-09-06 2014-09-06 Ivett, [facility] SCREENING e 11-06 00:00:00 12:13:49 Fred Didier lt 00:00: Medicin 00 e Allergies, Adverse Reactions, Alerts Allergy Allergy Status Severity Reaction(s) Onset Inactive Treating Comm ents Source Name Type Date Date Clinician [id number] Drug Inactiv High NEGATIVE [facility] allergy e Criticali Adult (disorde ty Medicin r) e Family History Family Member Diagnosis Comments Start Date Stop Date Source Natural father Hypertension [facility] Social History Social Habit Start Date Stop Date Quantity Comments Source albumin, serum 2022-07-29 2022-07-29 4.5 g/dL [facility] 13:00:00 13:00:00 Health sexual orientation 2022-04-15 2022-04-15 [facility] 13:19:30 13:19:30 Health time of call 2022-04-14 2022-04-14 04/14/2022 10:00 [facility] 10:00:21 10:00:21 AM Health drug use 2022-04-01 2022-04-01 Previously [facility] 12:20:36 12:20:36 Health alcohol use 2022-04-01 2022-04-01 Currently [facility] 12:20:36 12:20:36 Health passive cigarette 2022-04-01 2022-04-01 No [facility] smoke exposure 12:20:36 12:20:36 Health if the patient is 2022-04-01 2022-04-01 No [facility] using/has used a 12:20:36 12:20:36 Health vaping item, Current, Former, Never Used, Not asked social history 2022-04-01 2022-04-01 reviewed today [facility] reviewed E&M 12:20:36 12:20:36 Health social history E&M 2022-04-01 2022-04-01 Single. Not [facility] 12:20:36 12:20:36 homeless. Born in [facility]. 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 Highest education level: high school graduate . Gender of partner(s): male. Age of first sexual intercourse: 17. Sexually Active: Yes. Sex at : male. drove is there any chance 2022-04-01 2022-04-01 No [facility] that you could be 12:20:36 12:20:36 Health ? assessment of health 2022-04-01 2022-04-01 Adequate [facility] literacy (NCQA [facility] 12:20:36 12[facility]20:[facility] Standards, 3C10) PHQ2 Questionairre 2022-04-01 2022-04-01 [facility] Score 12:20:36 12:20:36 Health Alcohol intake 2022-01-14 2022-01-14 Current drinker Morelia porras Health 00:00:00 00:00:00 of alcohol (finding) alcohol use, 2012-09-27 2012-09-27 few times per [facility] frequency 14:07:22 14:07:22 month Health Occupation #1 2012-09-27 2012-09-27 Hairstyle [facility] 14:07:22 14:07:22 Health What type of drug 2012-09-27 2012-09-27 ecstasy [facility] was used 14:07:22 14:07:22 Health patient considered 2012-09-27 2012-09-27 No [facility] to be homeless 14:07:22 14:07:22 Health Sex [birth year] At [birth year] [place] alth 00:00:00 00:00:00 Smoking Status Start Date Stop Date Source Never smoked tobacco (finding) [facility] Medications Ordered Filled Start Stop Current Ordering Indication Dosage Frequency Signature Comments Components Source Medication Medication Date Date Medication? Clinician (SIG) Name Name NICOLE 2019-09 No Ariel 1{Capsu [id number] one By [facility] (ERGOCALCIF 03-19 Cupit le} Mouth Adult ARPAN) 1.25 00:00: 00:00 weekly Medi yobani MG ( 00 :00 e UT) CAPS IBUPROFEN 2019-09- No 1 1 by mouth [facility] 600 MG TABS 04-01 every Adult 00:00: 00:00 eight Medicin 00 :00 hours as e needed BIKTARVY Yes Fred 1{Table 1xD Take 1 [facility] (BICTEGRAVI 10-10 Ivett MCADAMS t} tablet by Adult R-EMTRICITA 00:00: mouth once Medicin B-TENOFOV) 00 a day e 50-200-25 MG TABS (PYRIDOXINE 2020- No Fred 1{Table 1xD 1 By Mouth [facility] HCL) 50 MG 10-10 Nemyonis t} Every Day Adult TABS 00:00: 00:00 Medicin 00 :00 e (ISONIAZID) 2019- No Fred 1{Table 1xD one tablet [facility] 300 MG TABS 10-10 Ivett MCADAMS t} by mouth Adult 00:00: 00:00 daily Medicin 00 :00 e LOTRISONE 2021- No Fred Apply [facility] 1-0.05 % 12-14 Nemecek twice a Adul t EXTERNAL 00:00: 00:00 day Medicin CREAM 00 :00 e (DOXYCYCLIN 2018- No 1 by mouth [facility] E HYCLATE) 12-14 06-04 twice a Adult 100 MG CAPS 00:00: 00:00 day Medic in 00 :00 e ZITHROMAX 2018- No 2 by mouth [facility] (AZITHROMYC 10-11 now, then Ad ult IN) 250 MG 00:00: 00:00 1 by mouth Medicin TABS 00 :00 every day e for 4 more days emtricitabi Yes 1{tbl} QD Take 1 Pena rris ne-tenofovi 3-13 tablet by [facility] radhika (TRUVADA) 15:08: mouth 200-300 mg 58 daily. per tablet RITONavir Yes 100mg QD Take 100 Saleem ris (NORVIR) 3-13 mg by Health 100 mg Tab 15:08: mouth 58 daily. raltegravir Yes 400mg Q.5D Take 400 H arris (ISENTRESS) 3-13 mg by Health 400 mg 15:08: mouth 2 tablet 58 times daily. HARVONI 2015- No Kitty Take 1 [facility] (LEDIPASVIR 06-08 Shrikanth tablet Adult -SOFOSBUVIR 00:00: 00:00 MD orally Med icin ) 90-400 MG 00 :00 once daily e TABS (TRIAMCINOL Yes Fred Apply [facility] ONE 04-28 [place] twice a Adult ACETONIDE) 00:00: day Medicin 0.1 % CREA 00 e VALTREX 2015- No 1 by mouth [facility] (VALACYCLOV 04-28 2 times a Ad ult IR HCL) 1 00:00: 00:00 day for 7 Me dicin GM TABS 00 :00 days e ISENTRESS 2020- No Fred 1 By Mouth [facility] (RALTEGRAVI 10-28 Ivett MCADAMS Twice a Adult R 00:00: 00:00 Day Medicin POTASSIUM) 00 :00 e 400 MG TABS PREZISTA 2020- No Fred 1 by mouth LM C (DARUNAVIR) 10-02 Ivett MCADAMS once a day Adult 800 MG TABS 00:00: 00:00 with food Medicin 00 :00 e NORVIR 2020- No Fred 1 By Mouth [facility] (RITONAVIR) 10-02 Ivett MCADAMS Every Day Adult 100 MG TABS 00:00: 00:00 Medic in 00 :00 e TRUVADA 2020- No Fred 1 by mouth [facility] (EMTRICITAB 10-02 Ivett MCADAMS daily Adult INE-TENOFOV 00:00: 00:00 Medic in IR DF) 00 :00 e 200-300 MG TABS AUGMENTIN 2013-09 2015- No 1 by mouth [facility] 875-125 MG 11-07 twice a Adult ORAL TABLET 00:00: 00:00 day for 1 Medicin 00 :00 week e (PREDNISOLO 2013- No Jose S 1 drop in [facility] NE ACETATE) 09-26 Brandon MCADAMS both eyes Adult 1 % SUSP 00:00: 00:00 Four Times Me dicin 00 :00 a Day for e 7 days ATRIPLA 2014- No 1 tablet [facility] (EFAVIRENZ- 09-27 by mouth Didier lt EMTRICITAB- 00:00: 00:00 at bedtime Medicin TENOFOVIR) 00 :00 on empty e 600-200-300 stomach MG TABS Immunizations Ordered Immunization Filled Immunization Date Status Commen ts Source Name Name Adacel IM 2021-07-09 Completed [facility] [id number] 12:41:00 Health Fluzone Quadrivalent 2021-07-09 Completed [facility] IM Prefilled Syringe 12:40:00 Heal th 0.5 ML (PF) [id number] Pfizer COVID-19 2021-07-04 Completed [facility] Dinesh-sucrose 30 00:00:00 Health mcg/0.3 mL Dose 2 Pfizer COVID-19 2021-06-06 Completed [facility] Dinesh-sucrose 30 00:00:00 Health mcg/0.3 mL Dose 1 influenza, 2020-06-04 Completed [facility] unspecified 00:00:00 Health formulation flu vax 2018-07-07 Completed [facility] 14:37:04 Health flu vax 2017-07-19 Completed [facility] 10:36:45 Health pneumovax 2016-11-30 Completed [facility] 11:55:22 Health flu vax 2016-06-23 Completed [facility] 12:42:14 Health flu vax 2015-06-20 Completed [facility] 11:40:01 Health pneumped2 2014-04-18 Completed [facility] 14:10:11 Health flu vax 2013-08-23 Completed [facility] 10:53:50 Health flu vax 2012-09-27 Completed [facility] 14:07:22 Health flu vax 2011-06-16 Completed [facility] 12:40:18 Health pneumovax 2011-01-23 Completed [facility] 15:53:05 [facility] td #[facility] 12[facility] pneumped1 2011-01-23 [facility] 12:[facility] Health Vital Signs Vital Name Observation Time Observation Value Comments Source blood pressure, 2022-04-15 13:19:30 73 mm[Hg] [facility] blood pressure, 2022-04-15 13:19:30 128 mm[Hg] [facility] systolic Health pulse rate 2022-04-15 13:19:30 78 /min [facility] blood pressure, 2022-04-15 13:05:44 73 mm[Hg] [facility] Health blood pressure, 2022-04-15 13:05:44 128 mm[Hg] [facility] systolic Health pulse rate 2022-04-15 13:05:44 78 /min [facility] blood pressure, 2022-04-01 12:20:36 80 mm[Hg] [facility] diastolic, second Health observation blood pressure, 2022-04-01 12:20:36 118 mm[Hg] [facility] systolic, second Health observation oxygen saturation, 2022-04-01 12:20:36 97 /min [facility] oximetry Health respiratory rate E&M 2022-04-01 12:20:36 16 /min [facility] pulse rate 2022-04-01 12:20:36 75 /min [facility] temperature E&M 2022-04-01 12:20:36 98.0 [degF] [facility] temperature site 2022-04-01 12:20:36 oral Lega [facility] weight E&M 2022-04-01 12:20:36 180 [lb_av] [facility] weight in kilograms 2022-04-01 12:20:36 81.[facility] height in 2022-04-01 12:20:36 [facility] temperature site 2022-04-01 12:20:36 oral Lega [facility] Health BMI (body mass 2022-04-01 12:20:36 n/a [facility] index) percentile Health Body Mass Index 2022-04-01 12:20:36 28.29 kg/m2 [facility] (Ratio) Health blood pressure, 2021-11-19 11:39:24 76 mm[Hg] [facility] diastolic, second Health observation blood pressure, 2021-11-19 11:39:24 110 mm[Hg] [facility] systolic, second Health observation oxygen saturation, 2021-11-19 11:39:24 98 /min [facility] oximetry Health pulse rate 2021-11-19 11:39:24 80 /min [facility] Health temperature E&M 2021-11-19 11:39:24 98.1 [degF] [facility] Health weight E&M 2021-11-19 11:39:24 181 [lb_av] [facility] Health weight in kilograms 2021-11-19 11:39:24 82.27 kg L [facility] E&M Health height in 2021-11-19 11:39:24 170.18 cm [facility] centimeters E&M Health BMI (body mass 2021-11-19 11:39:24 n/a [facility] index) percentile Health Body Mass Index 2021-11-19 11:39:24 28.45 kg/m2 [facility] (Ratio) Health oxygen saturation, 2021-07-09 11:58:44 98 /min [facility] oximetry Health blood pressure, 2021-07-09 11:58:44 70 mm[Hg] [facility] diastolic Health blood pressure, 2021-07-09 11:58:44 119 mm[Hg] [facility] systolic Health pulse rate 2021-07-09 11:58:44 81 /min [facility] temperature E&M 2021-07-09 11:58:44 97.1 [degF] [facility] Health weight E&M 2021-07-09 11:58:44 180.60 [lb_av] [facility] weight in kilograms 2021-07-09 11:58:44 82.09 kg L [facility] E&M Health height in 2021-07-09 11:58:44 170.18 cm [facility] centimeters E&M Health BMI (body mass 2021-07-09 11:58:44 n/a [facility] index[facility] percentile Health Body Mass Index 2021-07-09 11:58:44 28.39 kg/m2 [facility] (Ratio[facility] Health BMI (body mass 2021-03-19 09:05:41 n[facility]a [facility] index[facility] percentile Health Body Mass Index 2021-03-19 09:05:41 27.98 kg/m2 [facility] temperature site 2021-03-19 09:05:41 oral [facility] blood pressure, 2021-03-19 09:05:41 78 mm[Hg] [facility] diastolic Health blood pressure, 2021-03-19 09:05:41 120 mm[Hg] [facility] systolic Health pulse rate 2021-03-19 09:05:41 67 /min [facility] Health oxygen saturation, 2021-03-19 09:05:41 96 /min [facility] oximetry Health temperature E&M 2021-03-19 09:05:41 98.0 [degF] [facility] Health weight E&M 2021-03-19 09:05:41 178 [lb_av] [facility] weight in kilograms 2021-03-19 09:05:41 80.91 kg L [facility] E&M [facility] temperature site 2021-03-19 09:05:41 oral Lega cy [facility] height in 2021-03-19 09:05:41 170.18 cm [facility] centimeters E&M Health oxygen saturation, 2020-09-04 10:59:07 98 /min [facility] blood pressure, 2020-09-04 10:59:07 97 mm[Hg] [facility] diastolic Health blood pressure, 2020-09-04 10:59:07 142 mm[Hg] [facility] systolic Health pulse rate 2020-09-04 10:59:07 78 /min [facility] Health temperature E&M 2020-09-04 10:59:07 98.7 [degF] [facility] weight E&M 2020-09-04 10:59:07 184 [lb_av] [facility] Health weight in kilograms 2020-09-04 10:59:07 83.64 kg L [facility] E& Health height in 2020-09-04 10:59:[address] [facility] centimeters E&M Health temperature site 2020-09-04 10:59:07 oral Lega cy [facility] BMI (body mass 2020-09-04 10:59:07 n/a [facility] index) percentile Health Body Mass Index 2020-09-04 10:59:07 28.92 kg/m2 [facility] (Ratio[facility] temperature site 2020-09-04 10:59:07 oral Lega cy [facility] respiratory rate E&M 2020-07-17 15:30:41 20 /min [facility] blood pressure, 2020-07-17 15:30:41 80 mm[Hg] [facility] diastolic [facility] blood pressure, 2020-07-17 15:30:41 135 mm[Hg] [facility] systolic Health oxygen saturation, 2020-07-17 15:30:41 96 /min [facility] oximetry Health pulse rate 2020-07-17 15:30:41 87 /min [facility] Health temperature E&M 2020-07-17 15:30:41 98.5 [degF] [facility] Health weight E&M 2020-07-17 15:30:41 184.13 [lb_av] [facility] weight in kilograms 2020-07-17 15:30:41 83.70 kg L [facility] E& Health height in 2020-07-17 15:30:41 170.18 cm [facility] centimeters E&M [facility] temperature site 2020-07-17 15:30:41 oral Lega cy [facility] BMI (body mass 2020-07-17 15:30:41 n/a [facility] index) percentile Health Body Mass Index 2020-07-17 15:30:41 28.94 kg/m2 [facility] (Ratio) [facility] site 2020-07-17 15:30:41 oral Lega cy [facility] oxygen saturation, 2020-02-14 10:00:13 98 /min [facility] oximetry Health blood pressure, 2020-02-14 10:00:13 81 mm[Hg] [facility] diastolic Health blood pressure, 2020-02-14 10:00:13 136 mm[Hg] [facility] systolic Health respiratory rate E&M 2020-02-14 10:00:13 16 /min [facility] pulse rate 2020-02-14 10:00:13 80 [facility] 2020-02-14 10:00:13 98.4 [facility]degF] [facility] 2020-02-14 10:00:13 175 [facility]lb_av] [facility] weight in kilograms 2020-02-14 10:00:13 79.55 kg L [facility] E&M Health height in 2020-02-14 10:00:[address] [facility] centimeters E&M Health Body Mass Index 2020-02-14 10:00:13 27.51 kg[facility]2 [facility] BMI (body mass 2020-02-14 10:00:13 n[facility]a [facility] Health temperature site 2020-02-14 10:00:13 oral Lega [facility] temperature site 2020-02-14 10:00:13 oral Lega [facility] Health oxygen saturation, 2019-10-10 11:19:25 97 /min [facility] oximetry Health blood pressure, 2019-10-10 11:19:25 90 mm[Hg] [facility] diastolic Health blood pressure, 2019-10-10 11:19:25 142 mm[Hg] [facility] systolic Health respiratory rate E&M 2019-10-10 11:19:25 12 /min [facility] Health pulse rate 2019-10-10 11:19:25 71 /min [facility] Health temperature E&M 2019-10-10 11:19:25 98.5 [degF] [facility] weight E&M 2019-10-10 11:19:25 170 [lb_av] [facility] weight in kilograms 2019-10-10 11:19:25 77.27 kg L [facility] E& Health height in 2019-10-10 11:19:25 [address] [facility] om[facility]ity centimeters E&M Health Body Mass Index 2019-10-10 11:19:25 26.72 kg/m2 [facility] BMI (body mass 2019-10-10 11:19:25 n/a [facility] index) percentile Health blood pressure, 2019-06-19 08:41:14 78 mm[Hg] [facility] diastolic, second Health observation blood pressure, 2019-06-19 08:41:14 120 mm[Hg] [facility] systolic, second Health observation oxygen saturation, 2019-06-19 08:41:14 94 /min [facility] oximetry Health respiratory rate E&M 2019-06-19 08:41:14 12 /min [facility] Health weight E&M 2019-06-19 08:41:14 164.25 [lb_av] [facility] Health pulse rate 2019-06-19 08:41:14 72 /[facility] temperature E&M 2019-06-19 08:41:14 98.4 [degF] [facility] weight in kilograms 2019-06-19 08:41:14 74.66 kg L [facility] E&M Health height in 2019-06-19 08:41:14 170.18 cm [facility] centimeters E&M Health BMI (body mass 2019-06-19 08:41:14 n/a [facility] index) percentile Health Body Mass Index 2019-06-19 08:41:14 25.82 kg/m2 [facility] ([facility] Health temperature site 2019-06-19 08:41:14 oral Lega [facility] Health temperature site 2019-06-19 08:41:14 oral Lega [facility] Health blood pressure, 2018-12-05 10:31:19 86 mm[Hg] [facility] diastolic Health blood pressure, 2018-12-05 10:31:19 128 mm[Hg] [facility] systolic Health oxygen saturation, 2018-12-05 10:31:19 97 /min [facility] oximetry Health pulse rate 2018-12-05 10:31:19 63 /min [facility] Health temperature E&M 2018-12-05 10:31:19 98.0 [degF] [facility] E&M 2018-12-05 10:31:19 172 [lb_av] [facility] weight in kilograms 2018-12-05 10:31:19 78.18 kg L [facility] E&M Health height in 2018-12-05 10:31:19 170.18 [facility] centimeters E&M Health BMI (body mass 2018-12-05 10:31:19 n[facility] index[facility] percentile Health Body Mass Index 2018-12-05 10:31:19 27.04 kg/m2 [facility] ([facility] temperature site 2018-12-05 10:31:19 oral Lega [facility] temperature site 2018-12-05 10:31:19 oral Lega [facility] Health blood pressure, 2018-07-11 11:27:37 89 mm[Hg] [facility] diastolic Health blood pressure, 2018-07-11 11:27:37 138 mm[Hg] [facility] systolic Health oxygen saturation, 2018-07-11 11:27:37 96 /min [facility] oximetry Health respiratory rate E&M 2018-07-11 11:27:37 16 /min [facility] pulse rate 2018-07-11 11:27:37 90 /[facility] E&M 2018-07-11 11:27:37 97.1 [degF] [facility] weight E&M 2018-07-11 11:27:37 172 [lb_av] [facility] weight in kilograms 2018-07-11 11:27:37 78.18 kg L [facility] E&M Health height in 2018-07-11 11:27:37 170.18 cm [facility] centimeters E&M Health Body Mass Index 2018-07-11 11:27:37 27.04 kg/m2 [facility] ([facility]) [facility] site 2018-07-11 11:27:37 oral Lega [facility] temperature site 2018-07-11 11:27:37 oral Lega [facility] Health oxygen saturation, 2018-02-21 10:16:25 98 /min [facility] oximetry Health blood pressure, 2018-02-21 10:16:25 89 mm[Hg] [facility] diastolic Health blood pressure, 2018-02-21 10:16:25 138 mm[Hg] [facility] systolic Health respiratory rate E&M 2018-02-21 10:16:25 16 /min [facility] Health pulse rate 2018-02-21 10:16:25 78 /min [facility] temperature E&M 2018-02-21 10:16:25 98.5 [degF] [facility] Health weight E&M 2018-02-21 10:16:25 166 [lb_av] [facility] Health weight in kilograms 2018-02-21 10:16:25 75.45 kg L [facility] E& Health height in 2018-02-21 10:16:25 170.18 cm [facility] centimeters E&M Health Body Mass Index 2018-02-21 10:16:25 26.09 kg/m2 [facility] ([facility]) Health temperature site 2018-02-21 10:16:25 tympanic Lega [facility] temperature site 2018-02-21 10:16:25 tympanic Lega [facility] Health oxygen saturation, 2017-12-14 08:15:45 98 /min [facility] oximetry Health blood pressure, 2017-12-14 08:15:45 87 mm[Hg] [facility] blood pressure, 2017-12-14 08:15:45 132 mm[Hg] [facility] systolic Health respiratory rate E&M 2017-12-14 08:15:45 16 /min [facility] Health pulse rate 2017-12-14 08:15:45 68 /min [facility] temperature E&M 2017-12-14 08:15:45 97.1 [degF] [facility] weight E&M 2017-12-14 08:15:45 168 [lb_av] [facility] Health weight in kilograms 2017-12-14 08:15:45 76.36 kg L [facility] E& Health height in 2017-12-14 08:15:45 170.18 cm [facility] centimeters E&M Health Body Mass Index 2017-12-14 08:15:45 26.41 kg/m2 [facility] ([facility]) Health temperature site 2017-12-14 08:15:45 tympanic Lega [facility] temperature site 2017-12-14 08:15:45 tympanic Lega [facility] Health pulse rate 2017-10-11 10:54:27 69 /min [facility] Health blood pressure, 2017-10-11 10:54:27 87 mm[Hg] [facility] diastolic Health blood pressure, 2017-10-11 10:54:27 125 mm[Hg] [facility] systolic Health respiratory rate E&M 2017-10-11 10:54:27 16 /min [facility] oxygen saturation, 2017-10-11 10:54:27 98 /min [facility] oximetry Health temperature E&M 2017-10-11 10:54:27 97 [degF] [facility] Health weight E&M 2017-10-11 10:54:27 168 [lb_av] [facility] weight in kilograms 2017-10-11 10:54:27 76.36 kg L [facility] E&M Health height in 2017-10-11 10:54:27 170.18 cm [facility] centimeters E&M Health Body Mass Index 2017-10-11 10:54:27 26.41 kg/m2 [facility] Health temperature site 2017-10-11 10:54:27 tympanic Lega [facility] Health temperature site 2017-10-11 10:54:27 tympanic Lega [facility] Health blood pressure, 2017-07-19 10:36:45 83 mm[Hg] [facility] diastolic Health blood pressure, 2017-07-19 10:36:45 111 mm[Hg] [facility] systolic Health pulse rate 2017-07-19 10:36:45 74 /min [facility] respiratory rate E&M 2017-07-19 10:36:45 16 /min [facility] oxygen saturation, 2017-07-19 10:36:45 95 /[facility] 2017-07-19 10:36:45 98.1 [degF] [facility] Health weight E&M 2017-07-19 10:36:45 173 [lb_av] [facility] Health weight in kilograms 2017-07-19 10:36:45 78.64 kg L [facility] E& Health height in 2017-07-19 10:36:45 170.18 cm [facility] centimeters E&M Health Body Mass Index 2017-07-19 10:36:45 27.19 kg/m2 [facility] ([facility]) Health temperature site 2017-07-19 10:36:45 tympanic Lega cy [facility] Health temperature site 2017-07-19 10:36:45 tympanic Lega [facility] Health blood pressure, 2017-03-08 10:58:13 82 mm[Hg] [facility] diastolic Health blood pressure, 2017-03-08 10:58:13 131 mm[Hg] [facility] systolic Health pulse rate 2017-03-08 10:58:13 78 /min [facility] Health respiratory rate E&M 2017-03-08 10:58:13 16 /min [facility] oxygen saturation, 2017-03-08 10:58:13 97 /min [facility] oximetry Health temperature E&M 2017-03-08 10:58:13 98.2 [degF] [facility] weight E&M 2017-03-08 10:58:13 167 [lb_av] [facility] weight in kilograms 2017-03-08 10:58:13 75.[facility] height in 2017-03-08 10:58:13 170.18 cm [facility] centimeters E&M Health Body Mass Index 2017-03-08 10:58:13 26.25 kg/m2 [facility] ([facility]) [facility] temperature site 2017-03-08 10:58:13 tympanic Lega [facility] temperature site 2017-03-08 10:58:13 tympanic Lega [facility] Health pulse rate 2016-11-30 11:55:22 75 /min [facility] Health blood pressure, 2016-11-30 11:55:22 92 mm[Hg] [facility] diastolic Health blood pressure, 2016-11-30 11:55:22 132 mm[Hg] [facility] systolic Health oxygen saturation, 2016-11-30 11:55:22 98 /min [facility] oximetry Health temperature E&M 2016-11-30 11:55:22 97.6 [degF] [facility] weight E&M 2016-11-30 11:55:22 167.50 [lb_av] [facility] Health weight in kilograms 2016-11-30 11:55:22 76.14 kg L [facility] E& Health height in 2016-11-30 11:55:22 170.18 cm [facility] centimeters E&M Health Body Mass Index 2016-11-30 11:55:22 26.33 kg/m2 [facility] ([facility]) [facility] temperature site 2016-11-30 11:55:22 tympanic Lega cy [facility] temperature site 2016-11-30 11:55:22 tympanic Lega [facility] Health blood pressure, 2016-10-19 10:57:42 81 mm[Hg] [facility] diastolic Health blood pressure, 2016-10-19 10:57:42 132 mm[Hg] [facility] systolic Health pulse rate 2016-10-19 10:57:42 70 /min [facility] oxygen saturation, 2016-10-19 10:57:42 98 /min [facility] oximetry Health temperature E&M 2016-10-19 10:57:42 97.6 [degF] [facility] Health weight E&M 2016-10-19 10:57:42 167 [lb_av] [facility] Health weight in kilograms 2016-10-19 10:57:42 75.91 kg L [facility] E& Health height in 2016-10-19 10:57:42 170.18 cm [facility] centimeters E&M Health Body Mass Index 2016-10-19 10:57:42 26.25 kg/m2 [facility] ([facility]) [facility] temperature site 2016-10-19 10:57:42 tympanic Lega [facility] temperature site 2016-10-19 10:57:42 tympanic Lega [facility] Health blood pressure, 2016-10-08 08:55:49 91 mm[Hg] [facility] diastolic Health blood pressure, 2016-10-08 08:55:49 131 mm[Hg] [facility] systolic Health oxygen saturation, 2016-10-08 08:55:49 98 /min [facility] oximetry Health pulse rate 2016-10-08 08:55:49 85 /min [facility] Health temperature E&M 2016-10-08 08:55:49 96.7 [degF] [facility] Health weight E&M 2016-10-08 08:55:49 169.13 [lb_av] [facility] Health weight in kilograms 2016-10-08 08:55:49 76.88 kg L [facility] E& Health height in 2016-10-08 08:55:[address] [facility] centimeters E&M Health Body Mass Index 2016-10-08 08:55:49 26.59 kg/m2 [facility] ([facility]) [facility] temperature site 2016-10-08 08:55:49 tympanic Lega cy [facility] temperature site 2016-10-08 08:55:49 tympanic Lega [facility] Health weight E&M 2016-07-06 12:34:02 166.13 [lb_av] [facility] Health weight in kilograms 2016-07-06 12:34:02 75.51 kg L [facility] E& Health blood pressure, 2016-07-06 12:34:02 77 mm[Hg] [facility] diastolic Health blood pressure, 2016-07-06 12:34:02 122 mm[Hg] [facility] systolic Health oxygen saturation, 2016-07-06 12:34:02 98 /min [facility] oximetry Health pulse rate 2016-07-06 12:34:02 72 /min [facility] temperature E&M 2016-07-06 12:34:02 95.9 [degF] [facility] Health height in 2016-07-06 12:34:02 170.18 [facility] Body Mass Index 2016-07-06 12:34:02 26.11 kg/m2 [facility] ([facility]) [facility] site 2016-07-06 12:34:02 tympanic Lega cy [facility] temperature site 2016-07-06 12:34:02 tympanic Lega [facility] Health blood pressure, 2016-06-08 10:29:32 88 mm[Hg] [facility] diastolic Health blood pressure, 2016-06-08 10:29:32 162 mm[Hg] [facility] systolic Health oxygen saturation, 2016-06-08 10:29:32 95 /min [facility] oximetry Health pulse rate 2016-06-08 10:29:32 84 /min [facility] Health temperature E&M 2016-06-08 10:29:32 96.4 [degF] [facility] weight E&M 2016-06-08 10:29:32 164 [lb_av] [facility] Health weight in kilograms 2016-06-08 10:29:32 74.55 kg L [facility] E&M Health height in 2016-06-08 10:29:32 170.18 cm [facility] centimeters E&M Health Body Mass Index 2016-06-08 10:29:32 25.78 kg/m2 [facility] ([facility]) Health temperature site 2016-06-08 10:29:32 tympanic Lega cy [facility] Health temperature site 2016-06-08 10:29:32 tympanic Lega [facility] Health blood pressure, 2016-05-11 11:33:26 82 mm[Hg] [facility] diastolic Health blood pressure, 2016-05-11 11:33:26 131 mm[Hg] [facility] systolic Health pulse rate 2016-05-11 11:33:26 80 /min [facility] Health oxygen saturation, 2016-05-11 11:33:26 98 /min [facility] oximetry Health temperature E&M 2016-05-11 11:33:26 96.6 [degF] [facility] weight E&M 2016-05-11 11:33:26 164 [lb_av] [facility] Health weight in kilograms 2016-05-11 11:33:26 74.55 kg L [facility] E&M Health height in 2016-05-11 11:33:26 170.18 cm [facility] centimeters E&M Health Body Mass Index 2016-05-11 11:33:26 25.78 kg/m2 [facility] ([facility]) Health temperature site 2016-05-11 11:33:26 tympanic Lega cy [facility] Health temperature site 2016-05-11 11:33:26 tympanic Lega cy [facility] Health blood pressure, 2016-04-28 08:34:45 80 mm[Hg] [facility] diastolic Health blood pressure, 2016-04-28 08:34:45 119 mm[Hg] [facility] systolic Health pulse rate 2016-04-28 08:34:45 79 /min [facility] Health oxygen saturation, 2016-04-28 08:34:45 96 /min [facility] oximetry Health temperature E&M 2016-04-28 08:34:45 96.9 [degF] [facility] weight E&M 2016-04-28 08:34:45 164 [lb_av] [facility] Health weight in kilograms 2016-04-28 08:34:45 74.55 kg L [facility] E&M Health height in 2016-04-28 08:34:45 170.18 cm [facility] centimeters [facility]M Health Body Mass Index 2016-04-28 08:34:45 25.78 kg/m2 [facility] ([facility]) Health temperature site 2016-04-28 08:34:45 tympanic Lega [facility] Health temperature site 2016-04-28 08:34:45 tympanic Lega [facility] Health height in 2016-03-09 12:57:47 170.18 cm [facility] centimeters E&M Health weight E&M 2016-03-09 12:57:47 159.40 [lb_av] [facility] weight [facility] 2016-03-09 12:57:47 72.45 kg L [facility] E& Health Body Mass Index 2016-03-09 12:57:47 25.06 kg/m2 [facility] ([facility]) Health blood pressure, 2016-03-04 09:26:36 74 mm[Hg] [facility] diastolic Health blood pressure, 2016-03-04 09:26:36 110 mm[Hg] [facility] pulse rate 2016-03-04 09:26:36 89 /min [facility] Health temperature E&M 2016-03-04 09:26:36 96.8 [degF] [facility] Health oxygen saturation, 2016-03-04 09:26:36 98 /min [facility] oximetry Health weight E&M 2016-03-04 09:26:36 162.40 [lb_av] [facility] weight in [facility] 2016-03-04 09:26:36 73.82 kg L [facility] E&M Health height in 2016-03-04 09:26:36 170.18 cm [facility] centimeters E&M Health Body Mass Index 2016-03-04 09:26:36 25.53 kg/m2 [facility] ([facility]) Health temperature site 2016-03-04 09:26:36 tympanic Lega cy [facility] Health temperature site 2016-03-04 09:26:36 tympanic Lega [facility] Health blood pressure, 2016-01-13 11:45:36 75 mm[Hg] [facility] diastolic Health blood pressure, 2016-01-13 11:45:36 109 mm[Hg] [facility] systolic Health pulse rate 2016-01-13 11:45:36 73 /min [facility] temperature E&M 2016-01-13 11:45:36 97.3 [degF] [facility], 2016-01-13 11:45:36 97 /min [facility] oximetry Health weight E&M 2016-01-13 11:45:36 163.60 [lb_av] [facility] Health weight in kilograms 2016-01-13 11:45:36 74.36 kg L [facility] E&M Health height in 2016-01-13 11:45:36 170.18 cm [facility] ommunity centimeters E&M Health Body Mass Index 2016-01-13 11:45:36 25.72 kg/m2 [facility] ([facility]) Health temperature site 2016-01-13 11:45:36 tympanic Lega cy [facility] temperature site 2016-01-13 11:45:36 tympanic Lega [facility] Health weight E&M 2015-12-09 13:19:17 162.40 [lb_av] [facility] Health weight in kilograms 2015-12-09 13:19:17 73.82 kg L [facility] E& Health height in 2015-12-09 13:19:17 170.18 cm [facility] ommunity centimeters E&M Health Body Mass Index 2015-12-09 13:19:17 25.53 kg/m2 [facility] ([facility]) Health blood pressure, 2015-10-28 13:51:29 83 mm[Hg] [facility] diastolic Health blood pressure, 2015-10-28 13:51:29 131 mm[Hg] [facility] systolic Health pulse rate 2015-10-28 13:51:29 73 /min [facility] temperature E&M 2015-10-28 13:51:29 98.9 [degF] [facility] oxygen saturation, 2015-10-28 13:51:29 98 /min [facility] oximetry Health weight E&M 2015-10-28 13:51:29 166 [lb_av] [facility] weight in kilograms 2015-10-28 13:51:29 75.45 kg L [facility] E& Health height in 2015-10-28 13:51:29 170.18 cm [facility] E[facility]M [facility] temperature site 2015-10-28 13:51:29 tympanic Lega [facility] Body Mass Index 2015-10-28 13:51:29 26.09 kg/m2 [facility] (Ratio) [facility] temperature site 2015-10-28 13:51:29 tympanic Lega [facility] Health blood pressure, 2015-08-26 11:35:01 79 mm[Hg] [facility] Health blood pressure, 2015-08-26 11:35:01 123 mm[Hg] [facility] systolic Health pulse rate 2015-08-26 11:35:01 82 /min [facility] temperature E&M 2015-08-26 11:35:01 97.6 [degF] [facility] oxygen saturation, 2015-08-26 11:35:01 97 /min [facility] oximetry Health weight E&M 2015-08-26 11:35:01 166.80 [lb_av] [facility] Health weight in kilograms 2015-08-26 11:35:01 75.82 kg L [facility] E& Health height in 2015-08-26 11:35:01 170.18 cm [facility] E& Health Body Mass Index 2015-08-26 11:35:01 26.22 kg/m2 [facility] ([facility]) Health temperature site 2015-08-26 11:35:01 tympanic Lega [facility] temperature site 2015-08-26 11:35:01 tympanic Lega [facility] Health blood pressure, 2015-04-23 09:28:30 86 mm[Hg] [facility] diastolic Health blood pressure, 2015-04-23 09:28:30 128 mm[Hg] [facility] systolic Health temperature E&M 2015-04-23 09:28:30 96.9 [degF] [facility] Health pulse rate 2015-04-23 09:28:30 80 /min [facility], 2015-04-23 09:28:30 98 /min [facility] oximetry Health weight E&M 2015-04-23 09:28:30 164 [lb_av] [facility] weight in kilograms 2015-04-23 09:28:30 74.55 kg L [facility] E&M Health height in 2015-04-23 09:28:[address] [facility] centimeters E&M Health Body Mass Index 2015-04-23 09:28:30 25.78 kg/m2 [facility] ([facility]) Health temperature site 2015-04-23 09:28:30 oral Lega cy [facility] Health temperature site 2015-04-23 09:28:30 oral Lega [facility] Health blood pressure, 2015-01-15 10:42:23 80 mm[Hg] [facility] diastolic Health blood pressure, 2015-01-15 10:42:23 114 mm[Hg] [facility] No.1 systolic Health temperature E&M 2015-01-15 10:42:23 97.4 [degF] [facility] saturation, 2015-01-15 10:42:23 98 /min [facility] oximetry Health pulse rate 2015-01-15 10:42:23 78 /min [facility] weight E&M 2015-01-15 10:42:23 161.40 [lb_av] [facility] weight in kilograms 2015-01-15 10:42:23 73.36 kg L [facility] E&M Health height in 2015-01-15 10:42:[address] [facility] centimeters E& Health Body Mass Index 2015-01-15 10:42:23 25.37 kg/m2 [facility] Health temperature site 2015-01-15 10:42:23 oral Lega [facility] Health temperature site 2015-01-15 10:42:23 oral Lega [facility] Health blood pressure, 2014-10-02 09:01:02 78 mm[Hg] [facility] diastolic Health blood pressure, 2014-10-02 09:01:02 112 mm[Hg] Legac y [facility] systolic Health oxygen saturation, 2014-10-02 09:01:02 97 /min [facility] oximetry Health pulse rate 2014-10-02 09:01:02 103 /[facility] E&M 2014-10-02 09:01:02 97.7 [degF] [facility] Health weight E&M 2014-10-02 09:01:02 168 [lb_av] [facility] weight in kilograms 2014-10-02 09:01:02 76.36 kg L [facility] E&M Health height in 2014-10-02 09:01:02 170.18 [facility] centimeters E&M Health Body Mass Index 2014-10-02 09:01:02 26.41 kg/m2 [facility] temperature site 2014-10-02 09:01:02 oral Lega cy [facility] temperature site 2014-10-02 09:01:02 oral Lega [facility] Health blood pressure, 2014-09-06 11:49:47 68 mm[Hg] [facility] diastolic Health blood pressure, 2014-09-06 11:49:47 112 mm[Hg] Leg[facility] systolic Health oxygen saturation, 2014-09-06 11:49:47 97 /min [facility] oximetry Health pulse rate 2014-09-06 11:49:47 89 /min [facility] temperature E&M 2014-09-06 11:49:47 97.9 [degF] [facility] weight E&M 2014-09-06 11:49:47 166.20 [lb_av] [facility] weight in kilograms 2014-09-06 11:49:47 75.55 kg L [facility] E&M Health height in 2014-09-06 11:49:47 170.18 [facility] centimeters E& Health Body Mass Index 2014-09-06 11:49:47 26.12 kg/m2 [facility] temperature site 2014-09-06 11:49:47 oral Lega [facility] temperature site 2014-09-06 11:49:47 oral Lega [facility] Health blood pressure, 2014-04-18 14:10:11 64 mm[Hg] Legac y [facility] diastolic Health blood pressure, 2014-04-18 14:10:11 102 mm[Hg] Leg[facility] systolic Health oxygen saturation, 2014-04-18 14:10:11 97 /min [facility] oximetry Health pulse rate 2014-04-18 14:10:11 95 /min [facility] temperature E&M 2014-04-18 14:10:11 98.6 [degF] Leg[facility] Health weight E&M 2014-04-18 14:10:11 164.60 [lb_av] [facility] Health weight in kilograms 2014-04-18 14:10:11 74.82 kg L [facility] E&M Health height in 2014-04-18 14:10:11 170.18 cm [facility] E[facility]M Health Body Mass Index 2014-04-18 14:10:11 25.87 kg/m2 [facility] temperature site 2014-04-18 14:10:11 tympanic Lega [facility] temperature site 2014-04-18 14:10:11 tympanic Lega [facility] Health blood pressure, 2013-08-23 10:53:50 80 mm[Hg] Leg[facility] diastolic Health blood pressure, 2013-08-23 10:53:50 110 mm[Hg] Leg[facility] systolic Health oxygen saturation, 2013-08-23 10:53:50 97 /min [facility] oximetry Health pulse rate 2013-08-23 10:53:50 97 /min [facility] Health temperature E&M 2013-08-23 10:53:50 98.7 [degF] [facility] weight E&M 2013-08-23 10:53:50 166.20 [lb_av] [facility] Health weight in kilograms 2013-08-23 10:53:50 75.55 kg L [facility] E&M Health height in 2013-08-23 10:53:50 170.18 cm [facility] E[facility]M Health Body Mass Index 2013-08-23 10:53:50 26.12 kg/m2 [facility] Health temperature site 2013-08-23 10:53:50 oral Lega cy [facility] temperature site 2013-08-23 10:53:50 oral Lega cy [facility] Health blood pressure, 2013-05-10 10:49:47 84 mm[Hg] Legac y [facility] diastolic Health blood pressure, 2013-05-10 10:49:47 122 mm[Hg] Legac y [facility] systolic Health oxygen saturation, 2013-05-10 10:49:47 95 /min [facility] oximetry Health pulse rate 2013-05-10 10:49:47 101 /[facility] Health temperature E&M 2013-05-10 10:49:47 97.9 [degF] Leg[facility] Health weight E&M 2013-05-10 10:49:47 166.20 [lb_av] [facility] weight in kilograms 2013-05-10 10:49:47 75.55 kg L [facility] E&M Health height in 2013-05-10 10:49:47 170.18 cm [facility] centimeters E&M Health Body Mass Index 2013-05-10 10:49:47 26.12 kg/m2 [facility] ([facility]) [facility] site 2013-05-10 10:49:47 oral Lega cy [facility] temperature site 2013-05-10 10:49:47 oral Lega [facility] Health oxygen saturation, 2013-02-23 12:28:56 97 /min [facility] oximetry Health blood pressure, 2013-02-23 12:28:56 80 mm[Hg] Legac y [facility] diastolic Health blood pressure, 2013-02-23 12:28:56 124 mm[Hg] Legac y [facility] systolic Health pulse rate 2013-02-23 12:28:56 82 /min [facility] temperature E&M 2013-02-23 12:28:56 99.1 [degF] Leg[facility] Health weight E&M 2013-02-23 12:28:56 168.25 [lb_av] [facility] Health weight in kilograms 2013-02-23 12:28:56 76.48 kg L [facility] E&M Health height in 2013-02-23 12:28:56 170.18 cm [facility] centimeters E&M Health Body Mass Index 2013-02-23 12:28:56 26.45 kg/m2 [facility] Health temperature site 2013-02-23 12:28:56 oral Lega cy [facility] Health temperature site 2013-02-23 12:28:56 oral Lega cy [facility] Health blood pressure, 2012-09-27 14:07:22 78 mm[Hg] Leg[facility] diastolic Health blood pressure, 2012-09-27 14:07:22 120 mm[Hg] Legac y [facility] systolic Health oxygen saturation, 2012-09-27 14:07:22 99 /min [facility] oximetry Health pulse rate 2012-09-27 14:07:22 113 /min [facility] Health temperature E&M 2012-09-27 14:07:22 98.1 [degF] Leg[facility] Health weight E&M 2012-09-27 14:07:22 167.38 [lb_av] [facility] Health weight in kilograms 2012-09-27 14:07:22 76.08 kg [facility] E[facility]M Health height in 2012-09-27 14:07:22 170.18 cm [facility] centimeters E&M Health Body Mass Index 2012-09-27 14:07:22 26.31 kg/m2 [facility] ([facility]) [facility] temperature site 2012-09-27 14:07:22 oral Lega cy [facility] temperature site 2012-09-27 14:07:22 oral Lega cy [facility] Health oxygen saturation, 2012-05-27 10:41:24 97 /min [facility] oximetry Health pulse rate 2012-05-27 10:41:24 79 /min [facility] Health temperature E&M 2012-05-27 10:41:24 97.7 [degF] Legac y [facility] Health blood pressure, 2012-05-27 10:41:24 78 mm[Hg] Legac [facility] diastolic Health blood pressure, 2012-05-27 10:41:24 108 mm[Hg] Legac [facility] systolic Health weight E&M 2012-05-27 10:41:24 166 [lb_av] [facility] height E&M 2012-05-27 10:41:24 67 [in_i] [facility] Health Body Mass Index 2012-05-27 10:41:24 26 kg/m2 [facility] (Ratio) Health oxygen saturation, 2011-06-16 12:39:18 98 /min [facility] pulse rate 2011-06-16 12:39:18 91 /min [facility] Health blood pressure, 2011-06-16 12:39:18 82 mm[Hg] [facility] diastolic Health blood pressure, 2011-06-16 12:39:18 116 mm[Hg] [facility] systolic Health weight E&M 2011-06-16 12:38:48 164 [lb_av] [facility] Health height E&M 2011-06-16 12:38:48 67 [in_i] [facility] Health Body Mass Index 2011-06-16 12:38:48 26 kg/m2 [facility] Procedures Procedure Date / Time Performing Clinician Source Performed Est Patient Comprehensive 2022-04-15 13:45:49 Jose Taylor [facility] Opt - [id number] Health Routine ophthalmological 2022-04-15 13:13:36 Jovanny Vogel [facility] examination including Health refraction; established patient Addl Ix admin via ID IM or 2021-07-09 12:39:01 Fred Root [facility] jet injects with counseling Heal th by physician for adult Adacel Intramuscular 2021-07-09 12:39:01 [facility] Suspension 5-2-15.5 Health First Ix admin via ID IM or 2021-07-09 12:39:01 Fred Root [facility] jet injects with counseling Heal th by physician for adult Fluzone Quadrivalent IM 2021-07-09 12:39:01 Fred Root [facility] Prefilled Syringe 0.5 mL Health (PF) Vaccines Ordered - Print 2021-07-09 12:18:48 Fred Root [facility] Consent/Declination Forms Health Spherocyl, SV, plano to +/- 2020-06-26 16:20:34 Aim [facility] 4.00d sphere, 0.12 to 2.00d Heal th cyl, per lens Frames, purchases 2020-06-26 16:20:19 Dori Amiisreal Yates [facility] munity Health Est Patient Comprehensive 2020-06-26 14:05:41 Jose Taylor [facility] [id number] Health Routine ophthalmological 2020-06-26 13:21:22 Jovanny Vogel [facility] examination including Health refraction; new patient Urine Drug Screen - In 2016-10-19 11:22:18 Fred Root y [facility] House Health Injection, penicillin g 2016-05-11 12:13:37 Fred Root [facility] benzathine, 1.2 mu Health Nutrition Re-assessment Ind 2016-03-10 07:54:30 Anibal Triana [facility] (15 Min) 04995 Health Nutrition - Internal 2015-12-10 08:32:10 Fred Root [facility] Nutrition Initial 2015-12-10 07:53:33 Anibal Triana [facility] munity Assessment Ind (15 Min) - Health 00186 Nutrition - Internal 2015-12-09 13:47:44 Anibal Triana [facility] Health Dispensing Visit (UNLIVSTED 2014-12-31 14:38:07 Sveta Siegel [facility] OPHTHALMOLOGICAL Health SERVICE/PROCEDURE) Frames, purchases 2014-12-18 08:52:45 Sveta Siegel [facility] Spherocyl, SV, plano to +/- 2014-12-18 08:52:45 Sveta Siegel [facility] 4.00d sphere, 0.12 to 2.00d Heal th cyl, per lens Est Patient Intermediate 2014-12-17 09:28:54 [facility] [address] Health New Patient Intermediate 2014-12-14 09:46:[address] [facility] [address] [facility] Primary Care Medical Case 2014-09-10 10:50:08 [facility] Health Primary Care - 2014-09-10 08:58:38 Angélica Franz [facility] Assesment-Brief - [facility] Primary Care Service 2014-09-10 08:58:38 Angélica Franz [facility] Linkage Health Venipuncture 2014-04-04 14:58:48 Fred Root [facility] Est Patient Intermediate 2013-09-26 12:12:09 Jose Taylor [facility] [address] [facility] 2012-09-27 14:28:30 Ivett Fred Mansoorrahel [facility] Plan of Care Planned Activity Planned Date Details Comments Source Future Scheduled Test 2022-06-20 00:00:00 IMM Influenza [facility] Seasonal (>/= 19 yrs) [code = IMM Influenza Seasonal (>/= 19 yrs)] Future Scheduled Test 1976-01-29 00:00:00 COVID-19 Vaccine (#1) [facility] [code = COVID-19 Vaccine (#1)] Encounters Start End Encounter Admission Attending Care Care Encounter Source Date/Time Date/Time Type Type Clinicians Facility Department ID 2022-08-20 Outpatient angelika [facility] [id number] - [facility] 10:51:02 [id number] On license of [facility] 2022-08-04 Outpatient angelika [facility] [id number] - [facility] 10:13:02 [id number] On license of [facility] 2022-04-15 2022-04-15 Office Jovanny Vogel [facility] Encoun ter/ [facility] 00:00:00 00:00:00 Visit Millicent Hsu [id number] Communi [id number] [facility] 2022-04-15 2022-04-15 Office Jose Taylor [facility] E ncounter/ [facility] 00:00:00 00:00:00 Visit Mis Loza [id number] Communi [id number] [facility] 2022-04-15 2022-04-15 In-person Jovanny Vogel [facility] Vision 1 [id number] [facility] 00:00:00 00:00:00 encounter Millicent Hsu [id number] On license of [facility] 2022-04-01 2022-04-01 Office Fred Root [facility] Enco unter/ [facility] 00:00:00 00:00:00 Visit Chayito Rodríguez [id number] Communi [id number] [facility] 2022-04-01 2022-04-01 In-person Fred Root [facility] Adult [id number] Legacy 00:00:00 00:00:00 encounter Jory Ahmadi Medicine [id number] [facility] Chayito Rodríguez Health 2021-11-19 2021-11-19 [facility] [id number] [facility] 00:00:00 00:00:00 encounter Latia Mai Medicine 203 02 Angel Dudley Health 2021-11-19 2021-11-19 Office Fred Root Enco unter/ [facility] 00:00:00 00:00:00 Visit PauLatia [id number] [facility] [id number] [facility] 2021-07-09 2021-07-09 Office Fred Root Isidoroo unter/ [facility] 00:00:00 00:00:00 Visit Latia Mai [id number] [facility] [id number] [facility] 2021-07-09 2021-07-09 [facility] [id number] [facility] 00:00:00 00:00:00 encounter Latia Mai Medicine [id number] On license of [facility] 2021-03-19 2021-03-19 [facility]-person [facility] Adult [id number] [facility] 00:00:00 00:00:00 encounter Chayito Rodríguez Medicine [id number] On license of [facility] 2021-03-19 2021-03-19 Office Fred Root Enco unter/ [facility] 00:00:00 00:00:00 Visit Chayito Rodríguez [id number] [facility] [id number] Health 2020-09-10 2020-09-10 Office Speedy Maiucena [facility] En counter/ [facility] 00:00:00 00:00:00 Visit Marilee Pope [id number] [facility] Chayito Rodríguez [id number] Health 2020-09-04 2020-09-04 Office TYRESE Root Encounter / [facility] 00:00:00 00:00:00 Visit Fred [id number] [facility] alicia [id number] Health 2020-09-04 2020-09-04 Office Fred Root Enco unter/ [facility] 00:00:00 00:00:00 Visit Angel Hendrickson [id number] Chayito Sanchez 019819 ty Health 2020-09-04 2020-09-04 Office Fred Root Enco unter/ [facility] 00:00:00 00:00:00 Visit Angel Hendrickson [id number] Communi 249431 ty Health 2020-09-04 2020-09-04 Office NemTYRESE somers Encounter / [facility] 00:00:00 00:00:00 Visit Fred [id number] Com alicia 788421 ty Health 2020-09-04 2020-09-04 In-person Fred Root [facility] Adult [id number] [facility] 00:00:00 00:00:00 encounter Angel Hendrickson Medicine 97068 Chayito Sanchez ty Health 2020-08-07 2020-08-07 Office TYRESE Root Encounter / [facility] 00:00:00 00:00:00 Visit Fred [id number] Com alicia 478131 ty Health 2020-07-18 2020-07-18 Office TYRESE Fagan Encounter/ [facility] 00:00:00 00:00:00 Visit Ariel [id number] Com alicia 605001 ty Health 2020-07-18 2020-07-18 Office Tracy Santiago En counter/ [facility] 00:00:00 00:00:00 Visit Ariel Fagan [id number] Communi 243389 ty Health 2020-07-18 2020-07-18 Office Danika CorderoH Encounter/ [facility] 00:00:00 00:00:00 Visit Ariel Fagan [id number] 2 Rosa Meade 40500 0 ty Health 2020-07-17 2020-07-18 In-person Ariel Fagan LM Adult 1 [id number] [facility] 00:00:00 00:00:00 encounter Tracy Santiago 010 28 Communi ty Health 2020-07-17 2020-07-17 Office TYRESE Fagan Encounter/ [facility] 00:00:00 00:00:00 Visit Ariel [id number] Com alicia 790891 ty Health 2020-07-17 2020-07-17 Office Rylan [facility] Encounter/ [facility] 00:00:00 00:00:00 Visit Ariel [id number] Com alicia 311532 ty Health 2020-07-17 2020-07-17 Office Rylan [facility] Encounter/ [facility] 00:00:00 00:00:00 Visit Ariel [id number] Com alicia 069466 ty Health 2020-07-17 2020-07-17 Office Ariel Fagan [facility] Encou nter/ [facility] 00:00:00 00:00:00 Visit JackTracy [id number] Communi 225049 ty Health 2020-07-10 2020-07-10 Office Shadi [facility] Encounter/ [facility] 00:00:00 00:00:00 Visit Millicent [id number] Co mmuni 541456 ty Health 2020-07-10 2020-07-10 Office Jovanny Vogel [facility] Encoun ter/ Legacy 00:00:00 00:00:00 Visit [id number] Com alicia 847692 ty Health 2020-07-09 2020-07-09 Office Shadi [facility] Encounter/ [facility] 00:00:00 00:00:00 Visit Millicent [id number] Co mmuni 214197 ty Health 2020-06-26 2020-06-26 Office Jose Taylor [facility] E ncounter/ Legacy 00:00:00 00:00:00 Visit Mis Loza [id number] Communi 959158 ty Health 2020-06-26 2020-06-26 Office Jovanny Vogel [facility] Encoun ter/ Legacy 00:00:00 00:00:00 Visit [id number] Com alicia 745725 ty Health 2020-06-26 2020-06-26 Office Jovanny Vogel [facility] Encoun ter/ [facility] 00:00:00 00:00:00 Visit [id number] Com alicia 553666 ty Health 2020-06-26 2020-06-26 Office Jovanny Vogel [facility] Encoun ter/ [facility] 00:00:00 00:00:00 Visit [id number] Com alicia 163841 ty Health 2020-06-26 2020-06-26 [facility] 00:00:00 00:00:00 Visit Ami Meadows [id number] Communi 825129 ty Health 2020-06-26 2020-06-26 Office TYRESE Taylor Encounter/ [facility] 00:00:00 00:00:00 Visit Jose Porras [id number] Co mmuni 531460 ty Health 2020-06-26 2020-06-26 Office TYRESE Taylor Encounter/ [facility] 00:00:00 00:00:00 Visit Jose Porras [id number] Co mmuni 621009 ty Health 2020-06-26 2020-06-26 Office TYRESE Meadows Encounter / [facility] 00:00:00 00:00:00 Visit Ami [id number] Com alicia 791375 ty Health 2020-06-26 2020-06-26 In-person Jovanny Vogel [facility] Vision 1 [id number] Legacy 00:00:00 00:00:00 encounter Ami Meadows 0100 7 Communi ty Health 2020-06-12 2020-06-[address] [facility] Encounter / [facility] 00:00:00 00:00:00 Visit Fred [id number] Com alicia 011757 ty Health 2020-02-14 2020-02-[address] [facility] Encounter / Legacy 00:00:00 00:00:00 Visit Fred [id number] Com alicia 886137 ty Health 2020-02-14 2020-02-14 Office Fred Root [facility] Enco unter/ Legacy 00:00:00 00:00:00 Visit Latia Mai [id number] Communi 479998 ty Health 2020-02-14 2020-02-14 In-person Fred Root [facility] Adult [id number] Legacy 00:00:00 00:00:00 encounter Latia Mai Medicine 005 27 Communi ty Health 2020-02-13 2020-02-13 Office TYRESE Wagner Encounter/ [facility] 00:00:00 00:00:00 Visit Long Miller [id number] Com alicia 413713 ty Health 2020-02-06 2020-02-06 Office JENNIFER RootH LCMissy Encounter / [facility] 00:00:00 00:00:00 Visit Fred [id number] Com alicia 610803 ty Health 2019-10-10 2019-10-10 Office Ivett TYRESE RODRIGUEZMissy Encounter / [facility] 00:00:00 00:00:00 Visit Fred [id number] Com alicia 947711 ty Health 2019-10-10 2019-10-10 Office Fred Root JENNIFERMissy JENNIFERMissy Enco unter/ [facility] 00:00:00 00:00:00 Visit Angel Hendrickson [id number] Communi 248390 ty Health 2019-10-10 2019-10-10 Office Nemyonis JENNIFERMissy JENNIFER Encounter / [facility] 00:00:00 00:00:00 Visit Fred [id number] Com alicia 013488 ty Health 2019-10-10 2019-10-10 Office Fred Root JENNIFERMissy JENNIFER Enco unter/ [facility] 00:00:00 00:00:00 Visit Angel Hendrickson [id number] Tracy Patel 010446 ty Health 2019-10-10 2019-10-10 In-person Nemyonis [facility] [id number] [facility] 00:00:00 00:00:00 encounter Angel Hendrickson Medicine 07040 Tracy Patel ty Health 2019-09-29 2019-09-29 Office Nemyonis TYRESE RODRIGUEZMissy Encounter / [facility] 00:00:00 00:00:00 Visit Fred [id number] Com alicia 001861 ty Health 2019-09-26 2019-09-26 Office Nemyonis TYRESE RODRIGUEZ Encounter / [facility] 00:00:00 00:00:00 Visit Fred [id number] Com alicia 149277 ty Health 2019-09-26 2019-09-26 Office Nemyonis JENNIFERMissy JENNIFERMissy Encounter / [facility] 00:00:00 00:00:00 Visit Fred [id number] Com alicia 905680 ty Health 2019-06-19 2019-06-19 Office TYRESE Root JENNIFERMissy Encounter / [facility] 00:00:00 00:00:00 Visit Fred [id number] Com alicia 852617 ty Health 2019-06-19 2019-06-19 Office Fred Root Enco unter/ [facility] 00:00:00 00:00:00 Visit Deniz Black [id number] Xiomara Danielle 585488 ty Health 2019-06-19 2019-06-19 In-person Fred Root [facility] Adult [id number] Legacy 00:00:00 00:00:00 encounter Deniz Black [facility] 17[address] Xiomara Danielle ty Health 2019-06-12 2019-06-12 Office Deniz Black Enco unter/ [facility] 00:00:00 00:00:00 Visit Maria Guadalupe Shah [id number] [facility] 352440 ty Health 2019-04-11 2019-04-11 Office TYRESE Root Encounter / [facility] 00:00:00 00:00:00 Visit Fred [id number] Com alicia 043389 ty Health 2019-03-20 2019-03-20 Office TYRESE Root Encounter / [facility] 00:00:00 00:00:00 Visit Fred [id number] Com alicia 153868 ty Health 2019-03-20 2019-03-20 Office TYRESE Root Encounter / [facility] 00:00:00 00:00:00 Visit Fred [id number] Com alicia 369278 ty Health 2019-02-03 2019-02-03 Office DickinsonTYRESE moran Encounte r/ [facility] 00:00:00 00:00:00 Visit Luiza [id number] Com alicia 077749 ty Health 2018-12-05 2018-12-05 Office TYRESE Root Encounter / [facility] 00:00:00 00:00:00 Visit Fred [id number] Com alicia 989779 ty Health 2018-12-05 2018-12-05 Office TYRESE Root Encounter / [facility] 00:00:00 00:00:00 Visit Fred [id number] Com alicia 476166 ty Health 2018-12-05 2018-12-05 Office Fred Root Enco unter/ [facility] 00:00:00 00:00:00 Visit Deniz Black [id number] [address] [place], [place] [address]i 344559 Health 2018-12-05 2018-12-05 In-person Fred Root LM Adult [id number] [facility] 00:00:00 00:00:00 encounter Deniz Black [facility] [address] [facility] 2018-11-28 2018-11-28 Office Desktop, [facility] Care Coordination [facility] Encounter/ [facility] 00:00:00 00:00:00 Visit Raffaele Berumen [id number] 990 [facility] Darshanberna MedAdherence,, Nadia 821577 ty Health 2018-10-24 2018-10-24 Office MartligiaJENNIFER fernandez JENNIFER Encounter / [facility] 00:00:00 00:00:00 Visit Fred [id number] Com alicia [id number] ty Health 2018-10-24 2018-10-24 Office Kelsie MedAdherence,, Nad[facility] Encounter/ Legacy 00:00:00 00:00:00 Visit Hailey Mendoza [id number] [facility] [id number] Health 2018-08-24 2018-08-24 Office EscimeldaJENNIFER [facility] Encounter / Legacy 00:00:00 00:00:00 Visit Naya [id number] Com alicia 796993 ty Health 2018-07-11 2018-07-11 Office TYRESE Root Encounter / Legacy 00:00:00 00:00:00 Visit Fred [id number] Com alicia 745219 Health 2018-07-11 2018-07-[address] [facility] Enco unter/ Legacy 00:00:00 00:00:00 Visit Latia Mai [id number] [facility] [id number] Health 2018-07-11 2018-07-11 In-person Fred Root [facility] Adult [id number] Legacy 00:00:00 00:00:00 encounter Latia Mai Medicine 810 22 Communi ty Health 2018-06-20 2018-06-20 Office TYRESE Root Encounter / Legacy 00:00:00 00:00:00 Visit Fred [id number] Com alicia 410334 ty Health 2018-06-20 2018-06-20 Office Nemyonis TYRESE LC Encounter / Legacy 00:00:00 00:00:00 Visit Fred [id number] Com alicia 974826 ty Health 2018-02-21 2018-02-21 Office Nemyonis TYRESE LC Encounter / Legacy 00:00:00 00:00:00 Visit Fred [id number] Com alicia 924841 ty Health 2018-02-21 2018-02-21 Office VíctorFred fernandez Enco unter/ Legacy 00:00:00 00:00:00 Visit Latia Mai [id number] 7411 Communi 535570 ty Health 2018-02-21 2018-02-21 In-person Fred Root [facility] Adult [id number] Legacy 00:00:00 00:00:00 encounter Latia Mai Medicine 806 04 Communi ty Health 2018-02-07 2018-02-07 Office IvettTYRESE Encounter / Legacy 00:00:00 00:00:00 Visit Fred [id number] Com alicia 844560 ty Health 2018-02-07 2018-02-07 Office Nemyonis JENNIFER LC Encounter / Legacy 00:00:00 00:00:00 Visit Fred [id number] Com alicia 078798 ty Health 2018-02-07 2018-02-07 Office NemyonisTYRESE LC Encounter / Legacy 00:00:00 00:00:00 Visit Fred [id number] Com alicia 081236 ty Health 2017-12-14 2017-12-14 Office NemyonisTYRESE Encounter / Legacy 00:00:00 00:00:00 Visit Fred [id number] Com alicia 512241 ty Health 2017-12-14 2017-12-14 Office NemyonisTYRESE Encounter / Legacy 00:00:00 00:00:00 Visit Fred [id number] Com alicia 314403 ty Health 2017-12-14 2017-12-14 Office MartFred somers Enco unter/ Legacy 00:00:00 00:00:00 Visit Latia Mai 775429 4332 Communi 114414 ty Health 2017-12-14 2017-12-14 In-person Fred RootH [facility] Adult [id number] Legacy 00:00:00 00:00:00 encounter Latia Mai Medicine 803 27 On license of [facility] 2017-12-06 2017-12-06 Office NemJENNIFER [facility] Encounter / Legacy 00:00:00 00:00:00 Visit Fred [id number] Com alicia [id number] [facility] 2017-10-13 2017-10-13 Office Nemligiak, Fred [facility] Enco unter/ Legacy 00:00:00 00:00:00 Visit Nadia Abreu [id number] Miguel Conde 212204 [facility] 2017-10-11 2017-10-11 Office Nemyonis, Fred [facility] Enco unter/ Legacy 00:00:00 00:00:00 Visit Nadia Abreu [id number] Clarita Amezquita [id number] Miguel Yu [facility] 2017-10-11 2017-10-11 Office Nemecek [facility] Encounter / Legacy 00:00:00 00:00:00 Visit Fred [id number] Com alicia [id number] [facility] 2017-10-11 2017-10-11 Office Nemyonis, Fred [facility] Enco unter/ Legacy 00:00:00 00:00:00 Visit Latia Mai [id number] 8875 [facility] Omer Edda 979351 [facility] 2017-10-11 2017-10-11 Office Nemyonis, Fred [facility] Enco unter/ Legacy 00:00:00 00:00:00 Visit Nadia Abreu [id number] [facility] [id number] [facility] 2017-10-11 2017-10-11 In-person Nemyonis, Fred [facility] [id number] Legacy 00:00:00 00:00:00 encounter Latia Mai Medicine 801 22 [facility] 2017-09-28 2017-09-28 Office [place], Fred [facility] Enco unter/ Legacy 00:00:00 00:00:00 Visit Nadia Abreu [id number] Miguel Conde [id number] [facility] 2017-09-27 2017-09-27 Office TYRESE Root JENNIFER Encounter / Legacy 00:00:00 00:00:00 Visit Fred [id number] Com alicia 572064 ty Health 2017-07-19 2017-07-19 Office TYRESE Root JENNIFER Encounter / Legacy 00:00:00 00:00:00 Visit Fred [id number] Com alicia 664498 ty Health 2017-07-19 2017-07-19 Office JENNIFER Root LC Encounter / Legacy 00:00:00 00:00:00 Visit Fred [id number] Com alicia 589025 ty Health 2017-07-19 2017-07-19 Office Fred Root JENNIFER JENNIFER Enco unter/ Legacy 00:00:00 00:00:00 Visit Latia Mai [id number] 9905 Communi 594677 Health 2017-07-19 2017-07-19 In-person Fred Root [facility] [id number] Legacy 00:00:00 00:00:00 encounter Latia Mai Medicine 710 30 Communi ty Health 2017-07-05 2017-07-05 Office Ivett JENNIFERMissy JENNIFER Encounter / Legacy 00:00:00 00:00:00 Visit Fred [id number] Com alicia 904815 ty Health 2017-03-30 2017-03-30 Office Pau Latia EJNNIFER [facility] En counter/ Legacy 00:00:00 00:00:00 Visit Renata Cabrera [id number] Communi 931670 ty Health 2017-03-08 2017-03-08 Office Ivett TYRESE RODRIGUEZ Encounter / Legacy 00:00:00 00:00:00 Visit Fred [id number] Com alicia 286173 ty Health 2017-03-08 2017-03-08 Office Fred Root JENNIFER JENNIFER Enco unter/ Legacy 00:00:00 00:00:00 Visit Latia Mai [id number] 9583 Communi 829492 ty Health 2017-03-08 2017-03-08 In-person Fred Root [facility] [id number] Legacy 00:00:00 00:00:00 encounter Latia Mai Medicine 706 19 Communi ty Health 2017-02-23 2017-02-23 Office Pau Latia [facility] En counter/ Legacy 00:00:00 00:00:00 Visit Trejo Rosa 29854 80675 Communi 031222 ty Health 2017-02-22 2017-02-22 Office VíctorTYRESE fernandez Encounter / Legacy 00:00:00 00:00:00 Visit Fred [id number] Com alicia 852156 ty Health 2017-02-04 2017-02-04 Office MartJENNIFER somers JENNIFER Encounter / Legacy 00:00:00 00:00:00 Visit Fred [id number] Com alicia 261857 ty Health 2017-02-01 2017-02-01 Office TYRESE Modi Encounter/ Legacy 00:00:00 00:00:00 Visit Cherelle [id number] Com alicia 502339 ty Health 2016-11-30 2016-11-30 Office TYRESE Root Encounter / Legacy 00:00:00 00:00:00 Visit Fred [id number] Com alicia 204013 ty Health 2016-11-30 2016-11-30 Office JENNIFER Root JENNIFER Encounter / Legacy 00:00:00 00:00:00 Visit Fred [id number] Com alicia 545167 ty Health 2016-11-30 2016-11-30 Office Fred Root JENNIFER Enco unter/ Legacy 00:00:00 00:00:00 Visit Kathryn Chapman 26327 59329 Communi 972029 ty Health 2016-11-30 2016-11-30 [facility] [id number] Legacy 00:00:00 00:00:00 encounter Kathryn Chapman Medicine 70 313 Communi ty Health 2016-10-19 2016-10-19 Office TYRESE Wu Encount er/ Legacy 00:00:00 00:00:00 Visit Kitty [id number] Com alicia 848183 ty Health 2016-10-19 2016-10-19 Office Kitty Wu Encounter/ Legacy 00:00:00 00:00:00 Visit Yulisa Starks [id number] 59 [facility] Aditi Kim 87251 0 ty Health 2016-10-19 2016-10-19 Office TYRESE Root Encounter / Legacy 00:00:00 00:00:00 Visit Fred [id number] Com alicia 957065 ty Health 2016-10-19 2016-10-19 Office MartligiajimTYRESE Encounter / Legacy 00:00:00 00:00:00 Visit Fred [id number] Com alicia 829584 ty Health 2016-10-19 2016-10-19 [facility] Enco unter/ Legacy 00:00:00 00:00:00 Visit Latia Mai 099020 2111 Communi 409552 Health 2016-10-19 2016-10-19 [facility] Adult [id number] Legacy 00:00:00 00:00:00 encounter Latia Mai Medicine 701 30 [facility] Health 2016-10-08 2016-10-[address] [facility] Encount er/ Legacy 00:00:00 00:00:00 Visit Kitty [id number] Com alicia 027704 ty Health 2016-10-08 2016-10-[address] [facility] Encounter / Legacy 00:00:00 00:00:00 Visit Danika [id number] Com alicia 843907 ty Health 2016-10-08 2016-10-08 Office TYRESE Wu Encount er/ Legacy 00:00:00 00:00:00 Visit Kitty [id number] Com alicia 731504 ty Health 2016-10-08 2016-10-[address] [facility] Encounter/ Legacy 00:00:00 00:00:00 Visit Magdalena Kim 1800 124049 Communi 374460 ty Health 2016-10-08 2016-10-08 [facility]-person [facility] A dult [id number] Legacy 00:00:00 00:00:00 encounter Magdalena Kim Medicine 7 0119 [facility] ty Health 2016-10-01 2016-10-01 Office [facility]/ Legacy 00:00:00 00:00:00 Visit Kathryn Jiménez 91600 45924 Communi 416671 ty Health 2016-08-20 2016-08-20 Office TYRESE Starks Encounter/ Legacy 00:00:00 00:00:00 Visit Yulisa [id number] Com alicia 563136 ty Health 2016-07-06 2016-07-10 In-person Kitty Wu [facility] A dult [id number] Legacy 00:00:00 00:00:00 encounter Magdalena Kim [facility] 6 1017 Communi ty Health 2016-07-06 2016-07-06 Office TYRESE Wu Encoun er/ Legacy 00:00:00 00:00:00 Visit Kitty [id number] Com alicia 971377 ty Health 2016-07-06 2016-07-06 Office [facility]/ Legacy 00:00:00 00:00:00 Visit Magdalena Kim 1792 [id number] Communi 255119 ty Health 2016-07-06 2016-07-06 Office [facility]IF[facility] En[facility] / Legacy 00:00:00 00:00:00 Visit Fred [id number] Com alicia 218042 ty Health 2016-06-22 2016-06-22 Office [facility] Encounter/ Legacy 00:00:00 00:00:00 Visit Yulisa Starks [id number] Communi 887655 Health 2016-06-18 2016-06-18 Office Desktop, [facility] Encounter/ Legacy 00:00:00 00:00:00 Visit Fred Root [id number] 78 Communi Kitty Wu 85490 0 ty Ricardo Casanova Marlon Cupit, David Burney, Rosaria 2016-06-12 2016-06-12 Office [facility] Encounter / Legacy 00:00:00 00:00:00 Visit Fred [id number] Com alicia 826314 ty Health 2016-06-10 2016-06-10 Office TYRESE KimMissy Encount er/ Legacy 00:00:00 00:00:00 Visit Svetlana [id number] Com alicia 941146 ty Health 2016-06-09 2016-06-09 Office [facility] Encounter/ Legacy 00:00:00 00:00:00 Visit Cecilia Tee 39347 36699 Communi 250421 ty Health 2016-06-08 2016-06-09 [facility]-person [facility] A dult [id number] Legacy 00:00:00 00:00:00 encounter Magdalena Kim [facility] 6 19 [facility] ty Health 2016-06-08 2016-06-[address] [facility] Encount er/ Legacy 00:00:00 00:00:00 Visit Kitty [id number] Com alicia 251867 ty Health 2016-06-08 2016-06-08 Office TYRESE Wu Encount er/ Legacy 00:00:00 00:00:00 Visit Kitty [id number] Com alicia 433898 ty Health 2016-06-08 2016-06-08 Office [facility] Encount er/ Legacy 00:00:00 00:00:00 Visit Kitty [id number] Com alicia 736529 ty Health 2016-06-08 2016-06-[address] [facility] Encounter/ Legacy 00:00:00 00:00:00 Visit Latia [id number] Com alicia 299088 ty Health 2016-06-08 2016-06-[address] [facility] Encount er/ Legacy 00:00:00 00:00:00 Visit Kitty [id number] Com alicia 983486 ty Health 2016-06-08 2016-06-08 Office [facility] Encounter/ Legacy 00:00:00 00:00:00 Visit Magdalena Kim [id number] Communi 404727 ty Health 2016-06-02 2016-06-[address] [facility] Encounter / Legacy 00:00:00 00:00:00 Visit Mo [id number] Com alicia 611953 ty Health 2016-05-27 2016-05-27 Office EdTYRESE Encount er/ Legacy 00:00:00 00:00:00 Visit Teetee [id number] Com alicia 740633 ty Health 2016-05-18 2016-05-18 Office BryceTYRESE Encount er/ Legacy 00:00:00 00:00:00 Visit Kitty [id number] Com alicia 642574 ty Health 2016-05-11 2016-05-11 Office TYRESE Root Encounter / Legacy 00:00:00 00:00:00 Visit Fred [id number] Com alicia 980759 ty Health 2016-05-11 2016-05-11 Office TYRESE Root Encounter / Legacy 00:00:00 00:00:00 Visit Fred [id number] Com alicia 607200 ty Health 2016-05-11 2016-05-11 Office Fred Root Enco unter/ Legacy 00:00:00 00:00:00 Visit Latia Mai 076685 1860 [facility] 383540 ty Health 2016-05-11 2016-05-11 [facility] Adult [id number] Legacy 00:00:00 00:00:00 encounter Latia Mai [facility] 608 22 [facility] Health 2016-05-05 2016-05-05 Office JulioTYRESE Encount er/ Legacy 00:00:00 00:00:00 Visit Magdalena [id number] Com alicia 111807 ty Health 2016-04-30 2016-04-30 Office TYRESE Mejia Encounter / Legacy 00:00:00 00:00:00 Visit Jonelle [id number] Com alicia 783876 ty Health 2016-04-28 2016-04-28 Office TYRESE Root Encounter / Legacy 00:00:00 00:00:00 Visit Fred [id number] Com alicia 874097 ty Health 2016-04-28 2016-04-28 Office TYRESE Root Encounter / Legacy 00:00:00 00:00:00 Visit Fred [id number] Com alicia 844303 ty Health 2016-04-28 2016-04-28 Office Fred Root Enco unter/ Legacy 00:00:00 00:00:00 Visit Latia Mai [id number] 6648 Communi 728406 ty Health 2016-04-28 2016-04-28 In-person Fred Root [facility] Adult [id number] Legacy 00:00:00 00:00:00 encounter Latia Mai [facility] 608 09 Communi ty Health 2016-04-27 2016-04-27 Office TYRESE Root Encounter / Legacy 00:00:00 00:00:00 Visit Fred [id number] Com alicia 320636 ty Health 2016-04-27 2016-04-27 Office TYRESE Root Encounter / Legacy 00:00:00 00:00:00 Visit Fred [id number] Com alicia 108892 ty Health 2016-04-27 2016-04-27 Office TYRESE Hodges Encounte r/ Legacy 00:00:00 00:00:00 Visit Nehal [id number] Com alicia 439807 ty Health 2016-03-10 2016-03-10 Office TYRESE Triana Encounter / Legacy 00:00:00 00:00:00 Visit Anibal [id number] Com alicia 091124 ty Health 2016-03-09 2016-03-09 Office TYRESE Triana Encounter / Legacy 00:00:00 00:00:00 Visit Anibal [id number] Com alicia 782528 ty Health 2016-03-09 2016-03-09 Office Anibal Triana Enco unter/ Legacy 00:00:00 00:00:00 Visit Mo Jackson [id number] 670 Communi 510007 ty Health 2016-03-04 2016-03-04 Office TYRESE Root Encounter / Legacy 00:00:00 00:00:00 Visit Fred [id number] Com alicia 361147 ty Health 2016-03-04 2016-03-04 Office Fred Root Enco unter/ Legacy 00:00:00 00:00:00 Visit Latia Mai 485238 1210 Communi 573325 ty Health 2016-03-04 2016-03-04 In-person Fred Root TYRESE [facility] Adult [id number] Legacy 00:00:00 00:00:00 encounter Mai, Latia Medicine 606 15 Communi Health 2016-01-13 2016-01-13 Office MartligiajimTYRESE Encounter / Legacy 00:00:00 00:00:00 Visit Fred [id number] Com alicia 562933 Health 2016-01-13 2016-01-[address] [facility] Enco unter/ Legacy 00:00:00 00:00:00 Visit Mai, Latia 622717 5827 [facility] Elysia [id number] [facility] 2016-01-13 2016-01-13 In-person Fred Root [facility] [id number] Legacy 00:00:00 00:00:00 encounter Mai, Latia Medicine 604 25 [facility] 2016-01-09 2016-01-09 Office Roberto [facility] Encounter / Legacy 00:00:00 00:00:00 Visit Jonelle [id number] Com alicia 883994 Health 2015-12-30 2015-12-30 Office TYRESE Root Encounter / Legacy 00:00:00 00:00:00 Visit Fred [id number] Com alicia 793580 Health 2015-12-10 2015-12-[address] [facility] Enco unter/ Legacy 00:00:00 00:00:00 Visit Anibal Triana [id number] Communi 554858 Health 2015-12-09 2015-12-09 Office TYRESE Triana Encounter / Legacy 00:00:00 00:00:00 Visit Anibal [id number] Com alicia 224206 Health 2015-12-09 2015-12-[address] [facility] Enco unter/ Legacy 00:00:00 00:00:00 Visit Fred Root [id number] Communi 880404 Health 2015-11-29 2015-11-29 Office Rian, [facility] Encounter/ Legacy 00:00:00 00:00:00 Visit Cherelle [id number] Com alicia 804053 ty Health 2015-11-28 2015-11-28 Office Ivett Fred RODRIGUEZ Enco unter/ Legacy 00:00:00 00:00:00 Visit Nadia Abreu [id number] Communi 808916 ty Health 2015-11-28 2015-11-28 Office Fred Root TYRESE RODRIGUEZ Enco unter/ Legacy 00:00:00 00:00:00 Visit Nadia Abreu [id number] Communi 129266 ty Health 2015-11-28 2015-11-28 Office Ivett Fred RODRIGUEZ JENNIFER Enco unter/ Legacy 00:00:00 00:00:00 Visit Nadia Abreu [id number] Communi 803083 ty Health 2015-11-28 2015-11-28 Office [place] RODRIGUEZ JENNIFER Enco unter/ Legacy 00:00:00 00:00:00 Visit Nadia Abreu [id number] Communi 269295 ty Health 2015-11-28 2015-11-28 Office [place] RODRIGUEZ JENNIFER Enco unter/ Legacy 00:00:00 00:00:00 Visit Nadia Abreu [id number] Communi 436725 ty Health 2015-11-28 2015-11-28 Office [place]o [place] RODRIGUEZ Enco unter/ Legacy 00:00:00 00:00:00 Visit Krista Abreui [id number] Communi 423201 ty Health 2015-10-28 2015-10-28 Office CisnerosTYRESE Encounte r/ Legacy 00:00:00 00:00:00 Visit Clifton [id number] Com alicia 622369 ty Health 2015-10-28 2015-10-28 Office TYRESE Root Encounter / Legacy 00:00:00 00:00:00 Visit Fred [id number] Com alicia 127213 ty Health 2015-10-28 2015-10-28 Office TYRESE Root Encounter / Legacy 00:00:00 00:00:00 Visit Fred [id number] Com alicia 687047 ty Health 2015-10-28 2015-10-28 Office Fred [facility] Enco unter/ Legacy 00:00:00 00:00:00 Visit Latia Mai 266297 9498 Communi 733986 ty Health 2015-10-28 2015-10-28 In-person Fred Root [facility] [id number] Legacy 00:00:00 00:00:00 encounter Speedy Maiucena Medicine 602 08 Commun ty Health 2015-10-02 2015-10-02 Office Fred Root [facility] Enco unter/ Legacy 00:00:00 00:00:00 Visit Nadia Abreu [id number] Markus Renata Cabrera 31634 0 ty Health 2015-10-02 2015-10-[address] [facility] Encount er/ Legacy 00:00:00 00:00:00 Visit Kassandra Barrientos [id number] [facility] 2015-08-26 2015-08-26 Office Ivett [facility] Encounter / Legacy 00:00:00 00:00:00 Visit Fred [id number] Com alicia 107319 ty Health 2015-08-26 2015-08-[address] [facility] Encounter / Legacy 00:00:00 00:00:00 Visit Fred [id number] Com alicia 163269 ty Health 2015-08-26 2015-08-[address] [facility] Encounter / Legacy 00:00:00 00:00:00 Visit Fred [id number] Com alicia 924527 ty Health 2015-08-26 2015-08-26 Office Fred Root [facility] Enco unter/ Legacy 00:00:00 00:00:00 Visit MaiSpeedy diazucena 649493 9312 Communi 305970 ty Health 2015-08-26 2015-08-26 Office Gage [facility] Encounter / Legacy 00:00:00 00:00:00 Visit Shaun [id number] Co mmuni 162419 ty Health 2015-08-26 2015-08-26 In-person Fred Root [facility] [id number] Legacy 00:00:00 00:00:00 encounter Mai, Latia Medicine 512 07 [facility] Health 2015-08-23 2015-08-23 Office Roberto TYRESE RODRIGUEZ Encounter / Legacy 00:00:00 00:00:00 Visit Jonelle [id number] Com alicia 340123 ty Health 2015-08-06 2015-08-06 Office MartligiajimTYRESE Encounter / Legacy 00:00:00 00:00:00 Visit Fred [id number] Com alicia 336391 ty Health 2015-05-15 2015-05-15 Office Víctorjim JENNIFER JENNIFER Encounter / Legacy 00:00:00 00:00:00 Visit Fred [id number] Com alicia 119244 ty Health 2015-04-23 2015-04-23 Office MartJENNIFER somers JENNIFER Encounter / Legacy 00:00:00 00:00:00 Visit Fred [id number] Com alicia 942663 ty Health 2015-04-23 2015-04-23 Office Fred Root Enco unter/ Legacy 00:00:00 00:00:00 Visit Mai, Latia 491691 6173 Communi 938232 ty Health 2015-04-23 2015-04-23 In-person Fred Root [facility] Adult [id number] Legacy 00:00:00 00:00:00 encounter Mai, Latia Medicine 508 04 [facility] Health 2015-04-08 2015-04-08 Office TYRESE Root Encounter / Legacy 00:00:00 00:00:00 Visit Fred [id number] Com alicia 419567 ty Health 2015-04-08 2015-04-08 Office Ivett JENNIFER JENNIFER Encounter / Legacy 00:00:00 00:00:00 Visit Fred [id number] Com alicia 494679 ty Health 2015-01-15 2015-01-15 Office Fred Root JENNIFER Enco unter/ Legacy 00:00:00 00:00:00 Visit Rachel Chambers 085074 9486 Communi 447106 ty Health 2015-01-15 2015-01-15 [facility] Adult [id number] Legacy 00:00:00 00:00:00 encounter Rachel Chambers 504 28 Communi ty Health 2015-01-09 2015-01-09 Office T[facility]q [facility]/ Legacy 00:00:00 00:00:00 Visit Darlin dwyer [id number] Co mmuni 555216 ty Health 2015-01-01 2015-01-01 Office JENNIFER Root JENNIFER Encounter / Legacy 00:00:00 00:00:00 Visit Fred [id number] Com alicia 861238 ty Health 2015-01-01 2015-01-01 Office JENNIFER Root JENNIFER Encounter / Legacy 00:00:00 00:00:00 Visit Fred [id number] Com alicia 654393 ty Health 2014-12-31 2014-12-31 Office Jovanny Vogel [facility] Encoun ter/ Legacy 00:00:00 00:00:00 Visit [id number] Com alicia 237432 ty Health 2014-12-31 2014-12-[address] [facility] Encounter / Legacy 00:00:00 00:00:00 Visit Sveta [id number] Com alicia 508633 ty Health 2014-12-17 2014-12-17 Office Jose Taylor [facility] E ncounter/ Legacy 00:00:00 00:00:00 Visit Sveta Siegel 05359 04888 Communi 722835 ty Health 2014-12-17 2014-12-17 Office TYRESE Rivas Encounter/ Legacy 00:00:00 00:00:00 Visit Nadia [id number] Com alicia 608123 ty Health 2014-12-17 2014-12-[address] [facility] Encounter/ Legacy 00:00:00 00:00:00 Visit Nadia [id number] Com alicia 051794 ty Health 2014-12-17 2014-12-17 In-person Jose Taylor [facility] Vis ion [id number] Legacy 00:00:00 00:00:00 encounter Sveta Siegel 503 30 [facility] ty Health 2014-12-14 2014-12-[address] [facility] Encounter / Legacy 00:00:00 00:00:00 Visit Sveta [id number] Com alicia [id number] [facility] 2014-12-14 2014-12-14 Office Jovanny Vogel [facility] Encoun ter/ Legacy 00:00:00 00:00:00 Visit [id number] Com alicia [id number] [facility] 2014-12-14 2014-12-14 Office Jovanny Vogel [facility] Encoun ter/ Legacy 00:00:00 00:00:00 Visit Sveta Siegel 84680 21929 Commun [id number] [facility] 2014-12-14 2014-12-14 In-person Jovanny Vogel [facility] Vision 1 [id number] Legacy 00:00:00 00:00:00 encounter Sveta Siegel 503 27 On license of [facility] 2014-10-02 2014-10-02 [facility] / Legacy 00:00:00 00:00:00 Visit Fred [id number] Com alicia [id number] [facility] 2014-10-02 2014-10-02 Office Fred Root [facility] Enco unter/ Legacy 00:00:00 00:00:00 Visit Rachel Chambers [id number] 4553 Communi 910333 [facility] 2014-10-02 2014-10-02 In-person Fred Root [facility] Adult [id number] Legacy 00:00:00 00:00:00 encounter Rachel Chambers Medicine 501 13 On license of [facility] 2014-10-01 2014-10-01 [facility] / Legacy 00:00:00 00:00:00 Visit Fred [id number] Com alicia [id number] [facility] 2014-09-27 2014-09-27 Office Tariq [facility] Encoun ter/ Legacy 00:00:00 00:00:00 Visit Darlin dwyer [id number] Co mmuni [id number] Health 2014-09-27 2014-09-27 Office [facility]/ Legacy 00:00:00 00:00:00 Visit Darlin dwyer [id number] Co mmuni [id number] [facility] 2014-09-10 2014-09-10 [facility] [facility] Encounter / Legacy 00:00:00 00:00:00 Visit Angélica [id number] C ommuni [id number] ty Health 2014-09-10 2014-09-10 Office Santana TYRESE XIONG Encounter / Legacy 00:00:00 00:00:00 Visit Alisa [id number] Com alicia [id number] ty Health 2014-09-06 2014-09-06 Office Ivett TYRESE XIONG Encounter / Legacy 00:00:00 00:00:00 Visit Fred [id number] Com alicia [id number] ty Health 2014-09-06 2014-09-06 Office Maria M JENNIFERMissy JENNIFER Encounter / Legacy 00:00:00 00:00:00 Visit Angélica [id number] C ommuni [id number] ty Health 2014-09-06 2014-09-06 Office MartFred somers Enco unter/ Legacy 00:00:00 00:00:00 Visit Rachel Chambers [id number] Communi [id number] ty Health 2014-09-06 2014-09-06 In-person Fred Root [facility] Adult [id number] Legacy 00:00:00 00:00:00 encounter Rachel Chambers Medicine 412 18 Communi ty Health 2014-09-05 2014-09-05 Office Dima TYRESE XIONG Encounte r/ Legacy 00:00:00 00:00:00 Visit Windy [id number] Com alicia [id number] ty Health 2014-08-10 2014-08-10 Office MartTYRESE somers Encounter / Legacy 00:00:00 00:00:00 Visit Fred [id number] Com alicia [id number] ty Health 2014 2014 Office MartTYRESE somers Encounter / Legacy 00:00:00 00:00:00 Visit Fred [id number] Com alicia [id number] ty Health 2014 2014 Office TYRESE Root Encounter / Legacy 00:00:00 00:00:00 Visit Fred [id number] Com alicia [id number] ty Health 2014 2014 Office TYRESE Root Encounter / Legacy 00:00:00 00:00:00 Visit Fred [id number] Com alicia 887045 ty Health 2014 2014 Office Ivett JENNIFERMissy JENNIFER Encounter / Legacy 00:00:00 00:00:00 Visit Fred [id number] Com alicia 979382 ty Health 2014 2014 Office Ivett JENNIFERMissy JENNIFER Encounter / Legacy 00:00:00 00:00:00 Visit Fred [id number] Com alicia [id number] ty Health 2014-07-20 2014-07-20 Office Gabriela TYRESE RODRIGUEZ Encounter/ Legacy 00:00:00 00:00:00 Visit Dorie [id number] Co mmuni [id number] ty Health 2014-04-18 2014-04-18 Office Ivett TYRESE RODRIGUEZ Encounter / Legacy 00:00:00 00:00:00 Visit Fred [id number] Com alicia [id number] ty Health 2014-04-18 2014-04-18 Office Ivett JENNIFERMissy JENNIFER Encounter / Legacy 00:00:00 00:00:00 Visit Fred [id number] Com alicia [id number] ty Health 2014-04-18 2014-04-18 Office Fred Root JENNIFERMissy JENNIFER Enco unter/ Legacy 00:00:00 00:00:00 Visit Rachel Chambers [id number] Communi [id number] ty Health 2014-04-18 2014-04-18 Office Ivett TYRESE RODRIGUEZ Encounter / Legacy 00:00:00 00:00:00 Visit Fred [id number] Com alicia 987645 ty Health 2014-04-18 2014-04-18 In-person Fred Root TY[facility]E [facility] Adult [id number] Legacy 00:00:00 00:00:00 encounter Rachel Chambers Medicine 407 30 Communi ty Health 2014-04-16 2014-04-16 Office MaiLatia En counter/ Legacy 00:00:00 00:00:00 Visit Alisson Hudson [id number] Communi [id number] ty Health 2014-04-04 2014-04-04 Office VíctorTYRESE fernandezH Encounter / Legacy 00:00:00 00:00:00 Visit Fred [id number] Com alicia 866799 ty Health 2014-04-04 2014-04-04 Office TYRESE Root Encounter / Legacy 00:00:00 00:00:00 Visit Fred [id number] Com alicia [id number] ty Health 2014-04-04 2014-04-04 Office Fred Root Enco unter/ Legacy 00:00:00 00:00:00 Visit Dallin Marin [id number] Communi 495364 ty Health 2014-04-04 2014-04-04 Office TYRESE Root Encounter / Legacy 00:00:00 00:00:00 Visit Fred [id number] Com alicia 933054 ty Health 2014-02-23 2014-02-23 Office JENNIFER Cisneros JENNIFER Encounte r/ Legacy 00:00:00 00:00:00 Visit Clifton [id number] Com alicia [id number] ty Health 2013-12-11 2013-12-11 Office TYRESE Root Encounter / Legacy 00:00:00 00:00:00 Visit Fred [id number] Com alicia [id number] ty Health 2013-12-11 2013-12-11 Office TYRESE Root Encounter / Legacy 00:00:00 00:00:00 Visit Fred [id number] Com alicia [id number] ty Health 2013-12-11 2013-12-11 Office TYRESE Root Encounter / Legacy 00:00:00 00:00:00 Visit Fred [id number] Com alicia 998027 ty Health 2013-12-11 2013-12-[address] [facility] Encounter / Legacy 00:00:00 00:00:00 Visit Fred [id number] Com alicia 474733 ty Health 2013-12-07 2013-12-07 Office TYRESE Cisneros JENNIFER Encounte r/ Legacy 00:00:00 00:00:00 Visit Clifton [id number] Com alicia [id number] ty Health 2013-11-17 2013-11-17 Office Fred Root JENNIFER Enco unter/ Legacy 00:00:00 00:00:00 Visit Haydee Gutierrez [id number] [facility] [id number] Health 2013-11-15 2013-11-15 Office Pollo Starkslie [facility] Enco unter/ Legacy 00:00:00 00:00:00 Visit Fred Root [id number] [address] [place] [address] Haydee Gutierrez 739191 Health 2013-09-26 2013-09-26 [facility] Legacy 00:00:00 00:00:00 Visit Jose Shahram [id number] Co mmuni [id number] Health 2013-09-26 2013-09-26 Office Jose Taylor [facility] E ncounter/ Legacy 00:00:00 00:00:00 Visit Mariza Meade [id number] [facility] [id number] Health 2013-09-26 2013-09-26 In-person Jose Taylor [facility] Vis ion [id number] Legacy 00:00:00 00:00:00 encounter MeadeMariza juan [id number] On license of [facility] 2013-08-23 2013-08-23 [facility] / Legacy 00:00:00 00:00:00 Visit Fred [id number] Com alicia [id number] Health 2013-08-23 2013-08-23 [facility]co unter/ Legacy 00:00:00 00:00:00 Visit Ame Castillo [id number] [facility] [id number] [facility] 2013-08-23 2013-08-23 In-person Fred Root [facility] Adult [id number] Legacy 00:00:00 00:00:00 encounter Ame Castillo Medicine 312 04 On license of [facility] 2013-08-09 2013-08-09 [facility] / Legacy 00:00:00 00:00:00 Visit Fred [id number] Com alicia [id number] [facility] 2013-08-09 2013-08-09 Office TYRESE Root Encounter / Legacy 00:00:00 00:00:00 Visit Fred [id number] Com alicia [id number] Health 2013-05-12 2013-05-[address] [facility] Encounte r/ Legacy 00:00:00 00:00:00 Visit Rachel [id number] Com alicia [id number] Health 2013-05-10 2013-05-[address] [facility] Enco unter/ Legacy 00:00:00 00:00:00 Visit Rachel Chambers [id number] [facility] [id number] Health 2013-05-10 2013-05-10 In-person Fred Root [facility] Adult [id number] Legacy 00:00:00 00:00:00 encounter Rachel Chambers Medicine 308 21 On license of [facility] 2013-04-25 2013-04-25 Office TYRESE Root Encounter / Legacy 00:00:00 00:00:00 Visit Fred [id number] Com alicia [id number] Health 2013-04-25 2013-04-25 Office TYRESE Root Encounter / Legacy 00:00:00 00:00:00 Visit Fred [id number] Com alicia [id number] [facility] 2013-03-16 2013-03-16 Office Franca Smith JENNIFER Enc ounter/ Legacy 00:00:00 00:00:00 Visit Lindsay Rodriguez [id number] [facility] DameonJosefina 755636 Health 2013-02-23 2013-02-23 Office TYRESE Root Encounter / Legacy 00:00:00 00:00:00 Visit Fred [id number] Com alicia [id number] Health 2013-02-23 2013-02-23 Office Fred Root Enco unter/ Legacy 00:00:00 00:00:00 Visit Norma Guerra [id number] [facility] [id number] Health 2013-02-23 2013-02-23 [facility] [id number] Legacy 00:00:00 00:00:00 encounter Norma Guerra Medicine 3060 6 On license of [facility] 2012-12-26 2012-12-26 Office TYRESE Root Encounter / Legacy 00:00:00 00:00:00 Visit Fred [id number] Com alicia [id number] Health 2012-12-26 2012-12-26 Office TYRESE Root Encounter / Legacy 00:00:00 00:00:00 Visit Fred [id number] Com alicia [id number] ty Health 2012-12-26 2012-12-26 Office TYRESE Root Encounter / Legacy 00:00:00 00:00:00 Visit Fred [id number] Com alicia 703268 ty Health 2012-09-29 2012-09-29 Office Abner TYRESE RODRIGUEZMissy Encounter/ Legacy 00:00:00 00:00:00 Visit Danika [id number] Com alicia [id number] ty Health 2012-09-27 2012-09-27 Office TYRESE Root Encounter / Legacy 00:00:00 00:00:00 Visit Fred [id number] Com alicia [id number] Health 2012-09-27 2012-09-27 Office Fred Root Enco unter/ Legacy 00:00:00 00:00:00 Visit Norma Guerra [id number] Danika Nelson [id number] [facility] 2012-09-27 2012-09-27 Office TYRESE Root Encounter / Legacy 00:00:00 00:00:00 Visit Fred [id number] Com alicia [id number] Health 2012-09-27 2012-09-27 In-person Fred Root JENNIFERMissy [facility] Adult [id number] Legacy 00:00:00 00:00:00 encounter Norma Guerra [facility] [phone] Danika Nelson [facility] 2012-09-16 2012-09-16 Office Fred Root Enco unter/ Legacy 00:00:00 00:00:00 Visit Yulisa Starks [id number] Communi [id number] Health 2012-09-15 2012-09-15 Office Tereza TYRESE RODRIGUEZ Encounter/ Legacy 00:00:00 00:00:00 Visit Yulisa [id number] Com alicia [id number] ty Health 2012-08-30 2012-08-30 Office TYRESE Root JENNIFER Encounter / Legacy 00:00:00 00:00:00 Visit Fred [id number] Com alicia 906625 ty Health 2012-08-30 2012-08-30 Office TYRESE Root LC Encounter / Legacy 00:00:00 00:00:00 Visit Fred [id number] Com alicia 677999 ty Health 2012-08-30 2012-08-30 Office TYRESE Root LC Encounter / Legacy 00:00:00 00:00:00 Visit Fred [id number] Com alicia 705076 ty Health 2012-08-30 2012-08-30 Office Fred Root Enco unter/ Legacy 00:00:00 00:00:00 Visit Danika Levine [id number] 361 Communi 465357 ty Health 2012-07-15 2012-07-15 Office Aquiles TYRESE RODRIGUEZ Encounter / Legacy 00:00:00 00:00:00 Visit Randy [id number] Com alicia [id number] ty Health 2012-05-04 2012-05-04 Office TYRESE Taylor LC Encounter/ Legacy 00:00:00 00:00:00 Visit Jose Porras [id number] Co mmuni 833322 ty Health 2012-01-04 2012-01-04 Office TYRESE Root LC Encounter / Legacy 00:00:00 00:00:00 Visit Fred [id number] Com alicia 070883 ty Health 2012-01-04 2012-01-04 Office TYRESE Root LC Encounter / Legacy 00:00:00 00:00:00 Visit Fred [id number] Com alicia 545985 ty Health 2011-09-15 2011-09-15 Office TYRESE Root LC Encounter / Legacy 00:00:00 00:00:00 Visit Fred [id number] Com alicia 424896 ty Health 2011-09-15 2011-09-15 Office TYRESE Root LC Encounter / Legacy 00:00:00 00:00:00 Visit Fred [id number] Com alicia 432111 ty Health 2011-07-01 2011-07-01 Office Shari Mckenzie JENNIFER LC Enco unter/ Legacy 00:00:00 00:00:00 Visit Randy Kwan [id number] 212 Communi 815247 ty Health 2011-06-02 2011-06-[address] [facility] Encounter / Legacy 00:00:00 00:00:00 Visit Fred [id number] Com alicia [id number] Health 2011-06-02 2011-06-[address] [facility] Encounter / Legacy 00:00:00 00:00:00 Visit Fred [id number] Com alicia [id number] Health 2011-02-12 2011-02-[address] [facility] Encounter / Legacy 00:00:00 00:00:00 Visit Fred [id number] Com alicia 920604 ty Health 2011-01-23 2011-01-[address] [facility] Encounter/ Legacy 00:00:00 00:00:00 Visit Acosta [id number] Com alicia [id number] Health 2011-01-23 2011-01-[address] [facility] Encounter/ Legacy 00:00:00 00:00:00 Visit Acosta [id number] Com alicia [id number] Health 2011-01-23 2011-01-[address] [facility] Encounter/ Legacy 00:00:00 00:00:00 Visit Acosta [id number] Com alicia [id number] Health 2011-01-23 2011-01-[address] [facility] Encounter/ Legacy 00:00:00 00:00:00 Visit Acosta [id number] Com alicia [id number] [facility] 2011-01-23 2011-01-[address] [facility] Encounter/ Legacy 00:00:00 00:00:00 Visit Acosta [id number] Com laicia [id number] [facility] 2011-01-08 2011-01-[address] [facility] Encounter/ Legacy 00:00:00 00:00:00 Visit Acosta [id number] Com alicia [id number] [facility] 2011-01-08 2011-01-[address] [facility] Encounter/ Legacy 00:00:00 00:00:00 Visit Acosta [id number] Com alicia [id number] [facility] Results Test Description Test Time Test Comments Results Result Comments Source rapid plasma reagin antibody, serum 2022-07-29 13:00:00 Test Item Value Reference Range Interpretation Comme nts rapid plasma reagin antibody, serum (test code = NON-REACTIVE NON-R EACTIVE N 5291-0) [facility], serum, by PCR, [id number] 13:00:00 Test Item Value Reference Range Interpretation Comments HIV-1RNA, serum, by PCR, NOT DETECTED NOT DETECTED N quantitative (test code = copies/mL 19783-3) [facility] Healthbasophils as percent of blood [id number] 13:00:00 Test Item Value Reference Range Interpretation Comments basophils as percent of blood 1.0 % N leukocytes (test code = 707-0) [facility] Healtheosinophils as percent of blood [id number] 13:00:00 Test Item Value Reference Range Interpretation Comments eosinophils as percent of blood 4.6 % N leukocytes (test code = 714-6) [facility] Healthmonocytes as percent of blood [id number] 13:00:00 Test Item Value Reference Range Interpretation Comments monocytes as percent of blood 6.8 % N leukocytes (test code = 5905-5) [facility] as percent of blood [id number] 13:00:00 Test Item Value Reference Range Interpretation Comments lymphocytes as percent of blood 36.2 % N leukocytes (test code = 736-9) [facility]rophils as percent of blood [id number] 13:00:00 Test Item Value Reference Range Interpretation Comments neutrophils as percent of blood 51.4 % N leukocytes (test code = 770-8) [facility]ee[facility]ophil count, [id number] 13:00:00 Test Item Value Reference Range Interpretation Comments basophil count, absolute (test 80 cells/uL 0-200 N code = 08233-5) [facility] Eosinophil [id number] 13:00:00 Test Item Value Reference Range Interpretation Comments Absolute Eosinophil count (test 368 cells/mcL 15-500 N code = 28052-2) [facility] Monocyte [id number] 13:00:00 Test Item Value Reference Range Interpretation Comments Absolute Monocyte count (test 544 cells/mcL 200-950 N code = 37020-3) [facility] Neutrophil [id number] 13:00:00 Test Item Value Reference Range Interpretation Comments Absolute Neutrophil count 4112 cells/mcL 0948-3807 N (test code = 03556-9) [facility] platelet [id number] 13:00:00 Test Item Value Reference Range Interpretation Comments mean platelet volume (test code = 10.3 fL 7.5-12.5 N 776-5) [facility]ee[facility]let [id number] 13:00:00 Test Item Value Reference Range Interpretation Comments platelet count (test code = 249 THOUSAND/UL 140-400 N 777-3) [facility] blood cell distribution [id number] 13:00:00 Test Item Value Reference Range Interpretation Comments red blood cell distribution width 12.2 % 11.0-15.0 N (test code = 788-0) [facility] corpuscular hemoglobin concentration, [id number] 13:00:00 Test Item Value Reference Range Interpretation Comments mean corpuscular hemoglobin 35.8 G/DL 32.0-36.0 N concentration, RBC (test code = 786-4) [facility] corpuscular hemoglobin, [id number] 13:00:00 Test Item Value Reference Range Interpretation Comments mean corpuscular hemoglobin, RBC 32.1 pg 27.0-33.0 N (test code = 785-6) [facility] corpuscular volume, [id number] 13:00:00 Test Item Value Reference Range Interpretation Comments mean corpuscular volume, RBC (test 89.9 fL 80.0-100.0 N code = 787-2) [facility]eehematocrit, [id number] 13:00:00 Test Item Value Reference Range Interpretation Comments hematocrit, blood (test code = 4544-3) 45.3 % 38.5-50.0 N [facility]eehemoglobin, [id number] 13:00:00 Test Item Value Reference Range Interpretation Comments hemoglobin, blood (test code = 16.2 g/dL 13.2-17.1 N 718-7) [facility]eeerythrocyte (RBC) [id number] 13:00:00 Test Item Value Reference Range Interpretation Comments erythrocyte (RBC) count (test 5.04 MILLION/UL 4.20-5.80 N code = 789-8) [facility]eeleukocyte count, [id number] 13:00:00 Test Item Value Reference Range Interpretation Comments leukocyte count, blood (test 8.0 THOUSAND/UL 3.8-10.8 N code = 6690-2) [facility]ardeelymphocytes, [id number] 13:00:00 Test Item Value Reference Range Interpretation Comments lymphocytes, absolute (test 2896 CELLS/UL 850-3900 N code = 25368-8) [facility]eeCD4/CD8 [id number] 13:00:00 Test Item Value Reference Range Interpretation Comments CD4/CD8 ratio (test code 0.97 (unknown unit) 0.86-5.00 N = 12406) [facility]eeabsolute [id number] 13:00:00 Test Item Value Reference Range Interpretation Comments absolute CD8 (test code = 884 (unknown unit) 180-1170 N 41371) [facility]eeT-suppressor cells (CD8) as percent of blood lymphocytes 2022-07-29 13:00:00 Test Item Value Reference Range Interpretation Comments T-suppressor cells (CD8) as percent of 29 % 12-42 N blood lymphocytes (test code = 3517) [facility]eeT-helper cells (CD4) [id number] 13:00:00 Test Item Value Reference Range Interpretation Comments T-helper cells (CD4) count (test 861 CELLS/UL 490-1740 N code = 00894-5) [facility]eeT-helper cells (CD4) as percent of blood lymphocytes 2022-07-29 13:00:00 Test Item Value Reference Range Interpretation Comments T-helper cells (CD4) as percent of 28 % 30-61 L blood lymphocytes (test code = 8123-2) [facility]ee[facility] aminotransferase (SGPT), [id number] 13:00:00 Test Item Value Reference Range Interpretation Comments alanine aminotransferase (SGPT), serum 29 1/L 9-46 N (test code = 1742-6) [facility]eeaspartate aminotransferase (SGOT), [id number] 13:00:00 Test Item Value Reference Range Interpretation Comments aspartate aminotransferase (SGOT), 26 1/L 10-40 N serum (test code = 1920-8) [facility]eealkaline phosphatase, [id number] 13:00:00 Test Item Value Reference Range Interpretation Comments alkaline phosphatase, serum (test code 77 1/L 36-130 N = 1783-0) [facility]bilirubin, serum, [id number] 13:00:00 Test Item Value Reference Range Interpretation Comments bilirubin, serum, total (test code 0.5 mg/dL 0.2-1.2 N = 1975-2) [facility]eealbumin/globulin ratio, [id number] 13:00:00 Test Item Value Reference Range Interpretation Comments albumin/globulin ratio, serum 1.6 (calc) 1.0-2.5 N (test code = 1759-0) [facility]eglobulins, serum, [id number] 13:00:00 Test Item Value Reference Range Interpretation Comments globulins, serum, total (test 2.9 G/DL (CALC) 1.9-3.7 N code = 2336-6) [facility]eealbumin, [id number] 13:00:00 Test Item Value Reference Range Interpretation Comments albumin, serum (test code = 1751-7) 4.5 g/dL 3.6-5.1 N [facility]ardeeprotein, total, [id number] 13:00:00 Test Item Value Reference Range Interpretation Comments protein, total, serum (test code = 7.4 g/dL 6.1-8.1 N 2885-2) [facility]ardeecalcium, [id number] 13:00:00 Test Item Value Reference Range Interpretation Comments calcium, serum (test code = 1999-8) 9.9 mg/dL 8.6-10.3 N [facility]ardeecarbon dioxide, venous [id number] 13:00:00 Test Item Value Reference Range Interpretation Comments carbon dioxide, venous blood (test 27 mmol/L 20-32 N code = 2026-1) [facility]ardeechloride, [id number] 13:00:00 Test Item Value Reference Range Interpretation Comments chloride, serum (test code = 100 mmol/L 98-110 N 5-0) [facility]ardeepotassium, [id number] 13:00:00 Test Item Value Reference Range Interpretation Comments potassium, serum (test code = 4.4 mmol/L 3.5-5.3 N 2823-3) [facility]ardeesodium, [id number] 13:00:00 Test Item Value Reference Range Interpretation Comments sodium, serum (test code = 2951-2) 138 mmol/L 135-146 N [facility] Pardeeurea nitrogen/creatinine ratio, [id number] 13:00:00 Test Item Value Reference Range Interpretation Comments urea nitrogen/creatinine ratio, 25 (calc) 6-22 H serum (test code = 3097-3) [facility]ardeeEstimated Glomerular Filtration Rate (calc)2022-07-29 13:00:00 Test Item Value Reference Range Interpretation Comments Estimated Glomerular 89 See_Comment N [Autom ated message] Filtration Rate mL/min/{1.73 The system w hich (calc) (test code = m2} generate d this 82396-9) result transmit pepe reference range : > OR = 60. The reference range was not used to interpret this result as normal/abnormal . [facility]ardeecreatinine, [id number] 13:00:00 Test Item Value Reference Range Interpretation Comments creatinine, serum (test code = 1.04 mg/dL 0.60-1.29 N 2160-0) [facility]eeurea nitrogen, [id number] 13:00:00 Test Item Value Reference Range Interpretation Comments urea nitrogen, blood (test code = 26 mg/dL 7-25 H 3094-0) [facility]eeblood glucose, [id number] 13:00:00 Test Item Value Reference Range Interpretation Comments blood glucose, random (test code = 101 mg/dL 65-99 H 2339-0) [facility] Pardeerapid plasma reagin antibody, [id number] 12:25:00 Test Item Value Reference Range Interpretation Comments rapid plasma reagin antibody, Non Reactive Non Reactive serum (test code = 5291-0) [facility]eeHIV-1RNA, serum, by PCR, [id number] 12:25:00 Test Item Value Reference Range Interpretation Comments HIV-1RNA, serum, by PCR, quantitative 30 /mL (test code = 07100) [facility]eealanine aminotransferase (SGPT), [id number] 12:25:00 Test Item Value Reference Range Interpretation Comments alanine aminotransferase (SGPT), serum 34 1/L 0-44 (test code = 1742-6) [facility]eeaspartate aminotransferase (SGOT), [id number] 12:25:00 Test Item Value Reference Range Interpretation Comments aspartate aminotransferase (SGOT), 28 1/L 0-40 serum (test code = 1920-8) [facility]eealkaline phosphatase, [id number] 12:25:00 Test Item Value Reference Range Interpretation Comments alkaline phosphatase, serum (test code 79 1/L 44-121 = 1783-0) [facility]eebilirubin, serum, [id number] 12:25:00 Test Item Value Reference Range Interpretation Comments bilirubin, serum, total (test code 0.5 mg/dL 0.0-1.2 = 1975-2) [facility] Healthalbumin/globulin ratio, [id number] 12:25:00 Test Item Value Reference Range Interpretation Comments albumin/globulin ratio, 1.9 (unknown unit) 1.2-2.2 serum (test code = 1759-0) [facility] Healthglobulin, [id number] 12:25:00 Test Item Value Reference Range Interpretation Comments globulin, serum (test code 2.6 (unknown unit) 1.5-4.5 = 2336-6) [facility] Healthalbumin, [id number] 12:25:00 Test Item Value Reference Range Interpretation Comments albumin, serum (test code = 1751-7) 4.9 g/dL 4.0-5.0 [facility]eprotein, total, [id number] 12:25:00 Test Item Value Reference Range Interpretation Comments protein, total, serum (test code = 7.5 g/dL 6.0-8.5 2885-2) [facility]ecal[facility], [id number] 12:25:00 Test Item Value Reference Range Interpretation Comments calcium, serum (test code = 1999-8) 9.6 mg/dL 8.7-10.2 [facility]ecar[facility] dioxide, venous [id number] 12:25:00 Test Item Value Reference Range Interpretation Comments carbon dioxide, venous blood (test 25 mmol/L 20-29 code = 2026-1) [facility] Healthchloride, [id number] 12:25:00 Test Item Value Reference Range Interpretation Comments chloride, serum (test code = 96 mmol/L 96-106 2075-0) [facility] Healthpotassium, [id number] 12:25:00 Test Item Value Reference Range Interpretation Comments potassium, serum (test code = 4.3 mmol/L 3.5-5.2 2823-3) [facility]eesodium, [id number] 12:25:00 Test Item Value Reference Range Interpretation Comments sodium, serum (test code = 2951-2) 137 mmol/L 134-144 [facility] Healthurea nitrogen/creatinine ratio, [id number] 12:25:00 Test Item Value Reference Range Interpretation Comments urea nitrogen/creatinine 21 (unknown unit) 9-20 H ratio, serum (test code = 3097-3) [facility]eeEstimated Glomerular Filtration Rate (calc)2022-03-18 12:25:00 Test Item Value Reference Range Interpretation Comments Estimated Glomerular 90 mL/min/{1.73 m2} >59 Filtration Rate (calc) (test code = 12849-2) [facility]ecreatinine, mliur4059-10-86 12:25:00 Test Item Value Reference Range Interpretation Comments creatinine, serum (test code = 1.03 mg/dL 0.76-1.27 2160-0) [facility] nitrogen, [id number] 12:25:00 Test Item Value Reference Range Interpretation Comments urea nitrogen, blood (test code = 22 mg/dL 6-24 3094-0) [facility] glucose, [id number] 12:25:00 Test Item Value Reference Range Interpretation Comments blood glucose, random (test code = 90 mg/dL 65-99 2339-0) [facility]eeimmature granulocytes, percentage of total cells, blood 2022-03-18 12:25:00 Test Item Value Reference Range Interpretation Comments immature granulocytes, percentage of 0 % total cells, blood (test code = 13820-9) [facility]eebasophil count, [id number] 12:25:00 Test Item Value Reference Range Interpretation Comments basophil count, absolute (test 0.0 x10E3/uL 0.0-0.2 code = 97659-9) [facility] HealthEosinophil Absolute Aacso2017-20-98 12:25:00 Test Item Value Reference Range Interpretation Comments Eosinophil Absolute Count (test 0.1 X10E3/UL 0.0-0.4 code = 86796-2) [facility] Healthmonocyte count, blood, jmtfikylh2710-01-98 12:25:00 Test Item Value Reference Range Interpretation Comments monocyte count, blood, automated 0.6 X10E3/UL 0.1-0.9 (test code = 742-7) [facility] Healthlymphocyte count, blood, hgzboqyys8931-18-37 12:25:00 Test Item Value Reference Range Interpretation Comments lymphocyte count, blood, 3.1 X10E3/UL 0.7-3.1 automated (test code = 731-0) [facility] HealthAbsolute Fienpmxbyqw7268-84-57 12:25:00 Test Item Value Reference Range Interpretation Comments Absolute Neutrophils (test code 3.6 X10E3/UL 1.4-7.0 = 66541-3) [facility] Healthbasophils as percent of blood slsmnrkypj6721-15-52 12:25:00 Test Item Value Reference Range Interpretation Comments basophils as percent of blood 0 % leukocytes (test code = 707-0) [facility] Healtheosinophils as percent of blood ceoshdkpve0371-71-66 12:25:00 Test Item Value Reference Range Interpretation Comments eosinophils as percent of blood 1 % leukocytes (test code = 713-8) [facility] Healthmonocytes as percent of blood yefqnpxidb8984-15-58 12:25:00 Test Item Value Reference Range Interpretation Comments monocytes as percent of blood 9 % leukocytes (test code = 5905-5) [facility] Healthlymphocytes as percent of blood pumuibifrp9847-66-40 12:25:00 Test Item Value Reference Range Interpretation Comments lymphocytes as percent of blood 41 % leukocytes (test code = 736-9) [facility] Healthneutrophils as percent of blood kqhhwsntvj7326-98-13 12:25:00 Test Item Value Reference Range Interpretation Comments neutrophils as percent of blood 49 % leukocytes (test code = 770-8) [facility] Healthplatelet kjiyb0888-97-32 12:25:00 Test Item Value Reference Range Interpretation Comments platelet count (test code = 244 X10E3/UL 150-450 777-3) [facility] cell distribution eqtbg9138-28-58 12:25:00 Test Item Value Reference Range Interpretation Comments red blood cell distribution width 12.0 % 11.6-15.4 (test code = 788-0) [facility] corpuscular hemoglobin concentration, [id number] 12:25:00 Test Item Value Reference Range Interpretation Comments mean corpuscular hemoglobin 33.9 G/DL 31.5-35.7 concentration, RBC (test code = 786-4) [facility] corpuscular hemoglobin, [id number] 12:25:00 Test Item Value Reference Range Interpretation Comments mean corpuscular hemoglobin, RBC 29.9 pg 26.6-33.0 (test code = 785-6) [facility] corpuscular volume, [id number] 12:25:00 Test Item Value Reference Range Interpretation Comments mean corpuscular volume, RBC (test code 88 fL 79-97 = 787-2) [facility]eehematocrit, jlmpx3388-26-34 12:25:00 Test Item Value Reference Range Interpretation Comments hematocrit, blood (test code = 4544-3) 47.5 % 37.5-51.0 [facility]eehemoglobin, [id number] 12:25:00 Test Item Value Reference Range Interpretation Comments hemoglobin, blood (test code = 16.1 g/dL 13.0-17.7 718-7) [facility]eeerythrocyte (RBC) [id number] 12:25:00 Test Item Value Reference Range Interpretation Comments erythrocyte (RBC) count (test 5.39 X10E6/UL 4.14-5.80 code = 789-8) [facility]eeleukocyte count, jvbrz1916-60-57 12:25:00 Test Item Value Reference Range Interpretation Comments leukocyte count, blood (test 7.5 X10E3/UL 3.4-10.8 code = 6690-2) [facility]eeCD4/CD8 spvwz9774-59-45 12:25:00 Test Item Value Reference Range Interpretation Comments CD4/CD8 ratio (test code 0.94 (unknown unit) 0.92-3.72 = 70380) [facility]eeT-suppressor cells (CD8) as percent of blood lymphocytes 2022-03-18 12:25:00 Test Item Value Reference Range Interpretation Comments T-suppressor cells (CD8) as percent of 29.7 % 12.0-35.5 blood lymphocytes (test code = 3517) [facility]eeabsolute [id number] 12:25:00 Test Item Value Reference Range Interpretation Comments absolute CD8 (test code = 921 (unknown unit) 109-897 H 90671) [facility]eeT-helper cells (CD4) as percent of blood lymphocytes 2022-03-18 12:25:00 Test Item Value Reference Range Interpretation Comments T-helper cells (CD4) as percent of 28.0 % 30.8-58.5 L blood lymphocytes (test code = 8123-2) [facility]eeT-helper cells (CD4) fkmro2729-50-61 12:25:00 Test Item Value Reference Range Interpretation Comments T-helper cells (CD4) count (test code 868 /UL 359-1519 = 74650-3) [facility]eeHIV-1RNA, serum, by PCR, iotvlvvkwyfg4850-31-28 12:25:00 Test Item Value Reference Range Interpretation Comments HIV-1RNA, serum, by PCR, quantitative 30 /mL (test code = 66874-0) [facility]eeCD4/CD8 arfnp4743-52-43 12:25:00 Test Item Value Reference Range Interpretation Comments CD4/CD8 ratio (test code 0.94 (unknown unit) 0.92-3.72 = 98119) [facility]eeT-suppressor cells (CD8) as percent of blood lymphocytes 2022-03-18 12:25:00 Test Item Value Reference Range Interpretation Comments T-suppressor cells (CD8) as percent of 29.7 % 12.0-35.5 blood lymphocytes (test code = 3517) [facility]ab[facility] [id number] 12:25:00 Test Item Value Reference Range Interpretation Comments absolute CD8 (test code = 921 (unknown unit) 109-897 H 54212) [facility]erapid plasma reagin antibody, [id number] 11:42:00 Test Item Value Reference Range Interpretation Comments rapid plasma reagin antibody, Non Reactive Non Reactive serum (test code = 5291-0) [facility]eeHIV-1RNA, serum, by PCR, pbcqhebffjjw6658-82-04 11:42:00 Test Item Value Reference Range Interpretation Comments HIV-1RNA, serum, by PCR, <20 copies/mL quantitative (test code = 90166) [facility]eeHepatitis C virus (HCV) RNA, PCR, xftzbglziudw6351-43-84 11:42:00 Test Item Value Reference Range Interpretation Comments Hepatitis C virus (HCV) HCV Not Detected RNA, PCR, quantitative IU/mL (test code = 77762) [facility]eealanine aminotransferase (SGPT), ynqsu8220-71-02 11:42:00 Test Item Value Reference Range Interpretation Comments alanine aminotransferase (SGPT), serum 30 1/L 0-44 (test code = 1742-6) [facility]eeaspartate aminotransferase (SGOT), wnuwx3045-32-23 11:42:00 Test Item Value Reference Range Interpretation Comments aspartate aminotransferase (SGOT), 24 1/L 0-40 serum (test code = 1920-8) [facility]eealkaline phosphatase, [id number] 11:42:00 Test Item Value Reference Range Interpretation Comments alkaline phosphatase, serum (test code 78 1/L 44-121 = 1783-0) [facility]eebilirubin, serum, [id number] 11:42:00 Test Item Value Reference Range Interpretation Comments bilirubin, serum, total (test code 0.4 mg/dL 0.0-1.2 = 1975-2) [facility]eealbumin/globulin ratio, tslzv7878-44-56 11:42:00 Test Item Value Reference Range Interpretation Comments albumin/globulin ratio, 1.7 (unknown unit) 1.2-2.2 serum (test code = 1759-0) [facility] Healthglobulin, ceeos2280-70-03 11:42:00 Test Item Value Reference Range Interpretation Comments globulin, serum (test code 2.7 (unknown unit) 1.5-4.5 = 2336-6) [facility]eealbumin, [id number] 11:42:00 Test Item Value Reference Range Interpretation Comments albumin, serum (test code = 1751-7) 4.6 g/dL 4.0-5.0 [facility] Healthprotein, total, lardh4733-67-60 11:42:00 Test Item Value Reference Range Interpretation Comments protein, total, serum (test code = 7.3 g/dL 6.0-8.5 2885-2) [facility]ecalcium, [id number] 11:42:00 Test Item Value Reference Range Interpretation Comments calcium, serum (test code = 2000-04) 9.7 mg/dL 8.7-10.2 [facility]ecarbon dioxide, venous hmrcb6259-47-76 11:42:00 Test Item Value Reference Range Interpretation Comments carbon dioxide, venous blood (test 21 mmol/L - code = 7-1) [facility]eechloride, olomf9232-39-83 11:42:00 Test Item Value Reference Range Interpretation Comments chloride, serum (test code = 99 mmol/L 96-106 2075-0) [facility]epotassium, qxbmu9253-88-04 11:42:00 Test Item Value Reference Range Interpretation Comments potassium, serum (test code = 4.1 mmol/L 3.5-5.2 2823-3) [facility]eesodium, lmgut2149-53-31 11:42:00 Test Item Value Reference Range Interpretation Comments sodium, serum (test code = 2951-2) 137 mmol/L 134-144 [facility]eeurea nitrogen/creatinine ratio, hvfqm7890-93-72 11:42:00 Test Item Value Reference Range Interpretation Comments urea nitrogen/creatinine 31 (unknown unit) 9-20 H ratio, serum (test code = 3097-3) [facility] HealtheGFR if Hfrpidux3216-78-77 11:42:00 Test Item Value Reference Range Interpretation Comments eGFR if 121 mL/min/{1.73 m2} >59 (test code = 10406-4) [facility]eeEstimated Glomerular Filtration Rate (calc)2021-11-05 11:42:00 Test Item Value Reference Range Interpretation Comments Estimated Glomerular 105 mL/min/{1.73 m2} >59 Filtration Rate (calc) (test code = 05381-9) [facility]ecreatinine, [id number] 11:42:00 Test Item Value Reference Range Interpretation Comments creatinine, serum (test code = 0.81 mg/dL 0.76-1.27 2160-0) [facility]eeurea nitrogen, [id number] 11:42:00 Test Item Value Reference Range Interpretation Comments urea nitrogen, blood (test code = 25 mg/dL 6-24 H 3094-0) [facility]eeblood glucose, [id number] 11:42:00 Test Item Value Reference Range Interpretation Comments blood glucose, random (test code = 87 mg/dL 65-99 2339-0) [facility]eeimmature granulocytes, percentage of total cells, blood 2021-11-05 11:42:00 Test Item Value Reference Range Interpretation Comments immature granulocytes, percentage of 0 % total cells, blood (test code = 41382-2) [facility]eebasophil count, kosxujdh1988-69-30 11:42:00 Test Item Value Reference Range Interpretation Comments basophil count, absolute (test 0.0 x10E3/uL 0.0-0.2 code = 58381-4) [facility]eeEosinophil Absolute Sxyrc6906-27-52 11:42:00 Test Item Value Reference Range Interpretation Comments Eosinophil Absolute Count (test 0.1 X10E3/UL 0.0-0.4 code = 57248-8) [facility]ardeemonocyte count, blood, nizzcezki1926-13-83 11:42:00 Test Item Value Reference Range Interpretation Comments monocyte count, blood, automated 0.5 X10E3/UL 0.1-0.9 (test code = 742-7) [facility]ardeelymphocyte count, blood, ihukezyqb9199-16-31 11:42:00 Test Item Value Reference Range Interpretation Comments lymphocyte count, blood, 3.1 X10E3/UL 0.7-3.1 automated (test code = 731-0) [facility]Absolute Fhllxmanwfm5610-84-20 11:42:00 Test Item Value Reference Range Interpretation Comments Absolute Neutrophils (test code 3.9 X10E3/UL 1.4-7.0 = 26363-0) [facility]eebasophils as percent of blood jqgnmwmcll0746-00-61 11:42:00 Test Item Value Reference Range Interpretation Comments basophils as percent of blood 1 % leukocytes (test code = 707-0) [facility]eeeosinophils as percent of blood xgtiktlswr9346-95-25 11:42:00 Test Item Value Reference Range Interpretation Comments eosinophils as percent of blood 1 % leukocytes (test code = 713-8) [facility] Healthmonocytes as percent of blood xlysjpoqut3114-24-01 11:42:00 Test Item Value Reference Range Interpretation Comments monocytes as percent of blood 7 % leukocytes (test code = 5905-5) [facility]ardeelymphocytes as percent of blood hplzxiaasc4889-43-84 11:42:00 Test Item Value Reference Range Interpretation Comments lymphocytes as percent of blood 41 % leukocytes (test code = 736-9) [facility]ardeeneutrophils as percent of blood rkqtjtwuye1037-12-81 11:42:00 Test Item Value Reference Range Interpretation Comments neutrophils as percent of blood 50 % leukocytes (test code = 770-8) [facility]ardeeplatelet vfrys8448-04-29 11:42:00 Test Item Value Reference Range Interpretation Comments platelet count (test code = 231 X10E3/UL 150-450 777-3) [facility] blood cell distribution faaal4638-32-49 11:42:00 Test Item Value Reference Range Interpretation Comments red blood cell distribution width 12.7 % 11.6-15.4 (test code = 788-0) [facility] corpuscular hemoglobin concentration, [id number] 11:42:00 Test Item Value Reference Range Interpretation Comments mean corpuscular hemoglobin 35.0 G/DL 31.5-35.7 concentration, RBC (test code = 786-4) [facility] corpuscular hemoglobin, [id number] 11:42:00 Test Item Value Reference Range Interpretation Comments mean corpuscular hemoglobin, RBC 31.0 pg 26.6-33.0 (test code = 785-6) [facility] corpuscular volume, [id number] 11:42:00 Test Item Value Reference Range Interpretation Comments mean corpuscular volume, RBC (test code 89 fL 79-97 = 787-2) [facility]eehematocrit, znhdk6761-01-07 11:42:00 Test Item Value Reference Range Interpretation Comments hematocrit, blood (test code = 4544-3) 46.0 % 37.5-51.0 [facility]eehemoglobin, [id number] 11:42:00 Test Item Value Reference Range Interpretation Comments hemoglobin, blood (test code = 16.1 g/dL 13.0-17.7 718-7) [facility]eeerythrocyte (RBC) nmpcz9659-23-61 11:42:00 Test Item Value Reference Range Interpretation Comments erythrocyte (RBC) count (test 5.20 X10E6/UL 4.14-5.80 code = 789-8) [facility]eeleukocyte count, ebzry2344-00-64 11:42:00 Test Item Value Reference Range Interpretation Comments leukocyte count, blood (test 7.6 X10E3/UL 3.4-10.8 code = 6690-2) [facility]eeCD4/CD8 etggr0961-00-28 11:42:00 Test Item Value Reference Range Interpretation Comments CD4/CD8 ratio (test code 0.88 (unknown unit) 0.92-3.72 L = 95788) [facility]eeT-suppressor cells (CD8) as percent of blood lymphocytes 2021-11-05 11:42:00 Test Item Value Reference Range Interpretation Comments T-suppressor cells (CD8) as percent of 32.4 % 12.0-35.5 blood lymphocytes (test code = 3517) [facility]eeabsolute [id number] 11:42:00 Test Item Value Reference Range Interpretation Comments absolute CD8 (test code = 1004 (unknown unit) 109-897 H 26666) [facility]eeT-helper cells (CD4) as percent of blood lymphocytes 2021-11-05 11:42:00 Test Item Value Reference Range Interpretation Comments T-helper cells (CD4) as percent of 28.5 % 30.8-58.5 L blood lymphocytes (test code = 8123-2) [facility]eeT-helper cells (CD4) qpyui8128-23-19 11:42:00 Test Item Value Reference Range Interpretation Comments T-helper cells (CD4) count (test code 884 /UL 359-1519 = 32825-6) [facility]eeHIV-1RNA, serum, by PCR, dponoltxxneo3813-77-77 11:42:00 Test Item Value Reference Range Interpretation Comments HIV-1RNA, serum, by PCR, <20 copies/mL quantitative (test code = 90909-8) [facility]eeHepatitis C virus (HCV) RNA, PCR, yjwquhvprlha9925-35-26 11:42:00 Test Item Value Reference Range Interpretation Comments Hepatitis C virus (HCV) HCV Not Detected RNA, PCR, quantitative IU/mL (test code = 01461-3) [facility]eeCD4/CD8 iutoa2530-16-65 11:42:00 Test Item Value Reference Range Interpretation Comments CD4/CD8 ratio (test code 0.88 (unknown unit) 0.92-3.72 L = 51574) [facility]eeT-suppressor cells (CD8) as percent of blood lymphocytes 2021-11-05 11:42:00 Test Item Value Reference Range Interpretation Comments T-suppressor cells (CD8) as percent of 32.4 % 12.0-35.5 blood lymphocytes (test code = 3517) [facility]eeabsolute [id number] 11:42:00 Test Item Value Reference Range Interpretation Comments absolute CD8 (test code = 1004 (unknown unit) 109-897 H 09175) [facility]erapid plasma reagin antibody, vnnxb2537-69-85 11:15:00 Test Item Value Reference Range Interpretation Comments rapid plasma reagin antibody, Non Reactive Non Reactive serum (test code = 5291-0) [facility]eeHIV-1RNA, serum, by PCR, oxylwojrtmjf5997-05-57 11:15:00 Test Item Value Reference Range Interpretation Comments HIV-1RNA, serum, by PCR, quantitative 300 /mL (test code = 01932) [facility]eealanine aminotransferase (SGPT), [id number] 11:15:00 Test Item Value Reference Range Interpretation Comments alanine aminotransferase (SGPT), serum 26 1/L 0-44 (test code = 1742-6) [facility]eeaspartate aminotransferase (SGOT), droya1770-24-20 11:15:00 Test Item Value Reference Range Interpretation Comments aspartate aminotransferase (SGOT), 23 1/L 0-40 serum (test code = 1920-8) [facility]eealkaline phosphatase, [id number] 11:15:00 Test Item Value Reference Range Interpretation Comments alkaline phosphatase, serum (test code 79 1/L 44-121 = 1783-0) [facility] Healthbilirubin, serum, pwgkv3535-60-43 11:15:00 Test Item Value Reference Range Interpretation Comments bilirubin, serum, total (test code 0.4 mg/dL 0.0-1.2 = 1975-2) [facility] Healthalbumin/globulin ratio, [id number] 11:15:00 Test Item Value Reference Range Interpretation Comments albumin/globulin ratio, 1.8 (unknown unit) 1.2-2.2 serum (test code = 1759-0) [facility] Healthglobulin, phudb4790-18-90 11:15:00 Test Item Value Reference Range Interpretation Comments globulin, serum (test code 2.7 (unknown unit) 1.5-4.5 = 2336-6) [facility] Healthalbumin, ucpfw0751-16-45 11:15:00 Test Item Value Reference Range Interpretation Comments albumin, serum (test code = 1751-7) 4.8 g/dL 4.0-5.0 [facility]ardeeprotein, total, [id number] 11:15:00 Test Item Value Reference Range Interpretation Comments protein, total, serum (test code = 7.5 g/dL 6.0-8.5 2885-2) [facility]ardeecalcium, kuknf5429-65-31 11:15:00 Test Item Value Reference Range Interpretation Comments calcium, serum (test code = 1999-8) 9.7 mg/dL 8.7-10.2 [facility]ardeecarbon dioxide, venous dzfml0559-19-03 11:15:00 Test Item Value Reference Range Interpretation Comments carbon dioxide, venous blood (test 23 mmol/L 20-29 code = 7-1) [facility]eechloride, hqcuc2836-71-80 11:15:00 Test Item Value Reference Range Interpretation Comments chloride, serum (test code = 97 mmol/L 96-106 5-0) [facility]epotassium, bszyl9949-74-54 11:15:00 Test Item Value Reference Range Interpretation Comments potassium, serum (test code = 4.4 mmol/L 3.5-5.2 2823-3) [facility]eesodium, vsmyp6313-80-67 11:15:00 Test Item Value Reference Range Interpretation Comments sodium, serum (test code = 2951-2) 136 mmol/L 134-144 [facility]eeurea nitrogen/creatinine ratio, ihrim8262-57-50 11:15:00 Test Item Value Reference Range Interpretation Comments urea nitrogen/creatinine 29 (unknown unit) 9-20 H ratio, serum (test code = 3097-3) [facility] HealtheGFR if Mgwtrksp2249-78-58 11:15:00 Test Item Value Reference Range Interpretation Comments eGFR if 120 mL/min/{1.73 m2} >59 (test code = 33786-6) [facility]eeEstimated Glomerular Filtration Rate (calc)2021-07-02 11:15:00 Test Item Value Reference Range Interpretation Comments Estimated Glomerular 104 mL/min/{1.73 m2} >59 Filtration Rate (calc) (test code = 18723-8) [facility]ecreatinine, clcwd6980-40-63 11:15:00 Test Item Value Reference Range Interpretation Comments creatinine, serum (test code = 0.85 mg/dL 0.76-1.27 2160-0) [facility]eeurea nitrogen, pilrz9757-71-66 11:15:00 Test Item Value Reference Range Interpretation Comments urea nitrogen, blood (test code = 25 mg/dL 6-24 H 3094-0) [facility]eeblood glucose, ayrojw0943-41-69 11:15:00 Test Item Value Reference Range Interpretation Comments blood glucose, random (test code = 90 mg/dL 65-99 2339-0) [facility]eeimmature granulocytes, percentage of total cells, blood 2021-07-02 11:15:00 Test Item Value Reference Range Interpretation Comments immature granulocytes, percentage of 0 % total cells, blood (test code = 22385-6) [facility]eebasophil count, tthsikrl6156-90-86 11:15:00 Test Item Value Reference Range Interpretation Comments basophil count, absolute (test 0.0 x10E3/uL 0.0-0.2 code = 30432-2) [facility]eeEosinophil Absolute [id number] 11:15:00 Test Item Value Reference Range Interpretation Comments Eosinophil Absolute Count (test 0.1 X10E3/UL 0.0-0.4 code = 20200-3) [facility]ardeemonocyte count, blood, ydnauolts7611-30-70 11:15:00 Test Item Value Reference Range Interpretation Comments monocyte count, blood, automated 0.6 X10E3/UL 0.1-0.9 (test code = 742-7) [facility]ardeelymphocyte count, blood, nxjmkefze6308-74-97 11:15:00 Test Item Value Reference Range Interpretation Comments lymphocyte count, blood, 3.2 X10E3/UL 0.7-3.1 H automated (test code = 731-0) [facility]eeAbsolute Oxaujlutlie4199-87-53 11:15:00 Test Item Value Reference Range Interpretation Comments Absolute Neutrophils (test code 4.4 X10E3/UL 1.4-7.0 = 70015-9) [facility]eebasophils as percent of blood hrayhgbobt0338-35-61 11:15:00 Test Item Value Reference Range Interpretation Comments basophils as percent of blood 1 % leukocytes (test code = 707-0) [facility]eeeosinophils as percent of blood thbhjmvbhm0653-90-25 11:15:00 Test Item Value Reference Range Interpretation Comments eosinophils as percent of blood 1 % leukocytes (test code = 713-8) [facility] Healthmonocytes as percent of blood bpbenhasjk5158-14-91 11:15:00 Test Item Value Reference Range Interpretation Comments monocytes as percent of blood 7 % leukocytes (test code = 5905-5) [facility]ardeelymphocytes as percent of blood wehdfilevk6649-90-97 11:15:00 Test Item Value Reference Range Interpretation Comments lymphocytes as percent of blood 38 % leukocytes (test code = 736-9) [facility]ardeeneutrophils as percent of blood szqjuunheq9290-93-89 11:15:00 Test Item Value Reference Range Interpretation Comments neutrophils as percent of blood 53 % leukocytes (test code = 770-8) [facility]ardeeplatelet imgad0183-93-45 11:15:00 Test Item Value Reference Range Interpretation Comments platelet count (test code = 257 X10E3/UL 150-450 777-3) [facility] cell distribution tlfpc1020-45-90 11:15:00 Test Item Value Reference Range Interpretation Comments red blood cell distribution width 12.5 % 11.6-15.4 (test code = 788-0) [facility] corpuscular hemoglobin concentration, [id number] 11:15:00 Test Item Value Reference Range Interpretation Comments mean corpuscular hemoglobin 35.7 G/DL 31.5-35.7 concentration, RBC (test code = 786-4) [facility] corpuscular hemoglobin, [id number] 11:15:00 Test Item Value Reference Range Interpretation Comments mean corpuscular hemoglobin, RBC 31.8 pg 26.6-33.0 (test code = 785-6) [facility] corpuscular volume, [id number] 11:15:00 Test Item Value Reference Range Interpretation Comments mean corpuscular volume, RBC (test code 89 fL 79-97 = 787-2) [facility]eehematocrit, mahjb0795-75-45 11:15:00 Test Item Value Reference Range Interpretation Comments hematocrit, blood (test code = 4544-3) 46.0 % 37.5-51.0 [facility]eehemoglobin, [id number] 11:15:00 Test Item Value Reference Range Interpretation Comments hemoglobin, blood (test code = 16.4 g/dL 13.0-17.7 718-7) [facility] [id number] 11:15:00 Test Item Value Reference Range Interpretation Comments erythrocyte (RBC) count (test 5.16 X10E6/UL 4.14-5.80 code = 789-8) [facility]leukocyte count, [id number] 11:15:00 Test Item Value Reference Range Interpretation Comments leukocyte count, blood (test 8.3 X10E3/UL 3.4-10.8 code = 6690-2) [facility]eeCD4/CD8 [id number] 11:15:00 Test Item Value Reference Range Interpretation Comments CD4/CD8 ratio (test code 0.74 (unknown unit) 0.92-3.72 L = 09516) [facility]eeT-suppressor cells (CD8) as percent of blood lymphocytes 2021-07-02 11:15:00 Test Item Value Reference Range Interpretation Comments T-suppressor cells (CD8) as percent of 34.3 % 12.0-35.5 blood lymphocytes (test code = 3517) [facility]eeabsolute [id number] 11:15:00 Test Item Value Reference Range Interpretation Comments absolute CD8 (test code = 1098 (unknown unit) 109-897 H 01328) [facility]eeT-helper cells (CD4) as percent of blood lymphocytes 2021-07-02 11:15:00 Test Item Value Reference Range Interpretation Comments T-helper cells (CD4) as percent of 25.5 % 30.8-58.5 L blood lymphocytes (test code = 8123-2) [facility]eeT-helper cells (CD4) [id number] 11:15:00 Test Item Value Reference Range Interpretation Comments T-helper cells (CD4) count (test code 816 /UL 359-4579 = 91294-7) [facility]eeHIV-1RNA, serum, by PCR, [id number] 11:15:00 Test Item Value Reference Range Interpretation Comments HIV-1RNA, serum, by PCR, quantitative 300 /mL (test code = 02644-3) [facility] HealthCD4/CD8 [id number] 11:15:00 Test Item Value Reference Range Interpretation Comments CD4/CD8 ratio (test code 0.74 (unknown unit) 0.92-3.72 L = 19930) [facility]ressor cells (CD8) as percent of blood lymphocytes 2021-07-02 11:15:00 Test Item Value Reference Range Interpretation Comments T-suppressor cells (CD8) as percent of 34.3 % 12.0-35.5 blood lymphocytes (test code = 3517) [facility]absolute [id number] 11:15:00 Test Item Value Reference Range Interpretation Comments absolute CD8 (test code = 1098 (unknown unit) 109-897 H 28596) [facility]HIV-1RNA, serum, by PCR, vuwuedelqbnf9965-69-84 11:12:00 Test Item Value Reference Range Interpretation Comments HIV-1RNA, serum, by PCR, quantitative 70 /mL (test code = 82091-4) [facility] HealthCD4/CD8 [id number] 11:12:00 Test Item Value Reference Range Interpretation Comments CD4/CD8 ratio (test code 0.93 (unknown unit) 0.92-3.72 = 74266) [facility]T-suppressor cells (CD8) as percent of blood lymphocytes 2021-02-26 11:12:00 Test Item Value Reference Range Interpretation Comments T-suppressor cells (CD8) as percent of 29.8 % 12.0-35.5 blood lymphocytes (test code = 3517) [facility] Healthabsolute [id number] 11:12:00 Test Item Value Reference Range Interpretation Comments absolute CD8 (test code = 924 (unknown unit) 109-897 H 54140) [facility]erapid plasma reagin antibody, [id number] 11:12:00 Test Item Value Reference Range Interpretation Comments rapid plasma reagin antibody, Non Reactive Non Reactive serum (test code = 5291-0) [facility]HIV-1RNA, serum, by PCR, kqionqjdozye7495-48-65 11:12:00 Test Item Value Reference Range Interpretation Comments HIV-1RNA, serum, by PCR, quantitative 70 /mL (test code = 19400) [facility]eeLDL cholesterol, [id number] 11:12:00 Test Item Value Reference Range Interpretation Comments LDL cholesterol, serum (test code = 112 mg/dL 0-99 H 2088-1) [facility]eevery low density lkpjwehmhvam3832-07-17 11:12:00 Test Item Value Reference Range Interpretation Comments very low density lipoproteins (test 60 mg/dL 5-40 H code = 2090-7) [facility]eeHDL cholesterol, [id number] 11:12:00 Test Item Value Reference Range Interpretation Comments HDL cholesterol, serum (test code = 45 mg/dL >39 2084-9) [facility]etriglyceride, serum, [id number] 11:12:00 Test Item Value Reference Range Interpretation Comments triglyceride, serum, fasting (test 345 mg/dL 0-149 H code = 2571-8) [facility]eecholesterol, [id number] 11:12:00 Test Item Value Reference Range Interpretation Comments cholesterol, serum (test code = 217 mg/dL 100-199 H 3-3) [facility]eealanine aminotransferase (SGPT), [id number] 11:12:00 Test Item Value Reference Range Interpretation Comments alanine aminotransferase (SGPT), serum 31 1/L 0-44 (test code = 1742-6) [facility] Healthaspartate aminotransferase (SGOT), epyim3928-14-76 11:12:00 Test Item Value Reference Range Interpretation Comments aspartate aminotransferase (SGOT), 24 1/L 0-40 serum (test code = 1920-8) [facility]eealkaline phosphatase, [id number] 11:12:00 Test Item Value Reference Range Interpretation Comments alkaline phosphatase, serum (test code 75 1/L 48-121 = 1783-0) [facility]eebilirubin, serum, [id number] 11:12:00 Test Item Value Reference Range Interpretation Comments bilirubin, serum, total (test code 0.4 mg/dL 0.0-1.2 = 1975-2) [facility] Healthalbumin/globulin ratio, [id number] 11:12:00 Test Item Value Reference Range Interpretation Comments albumin/globulin ratio, 1.6 (unknown unit) 1.2-2.2 serum (test code = 1759-0) [facility] Healthglobulin, [id number] 11:12:00 Test Item Value Reference Range Interpretation Comments globulin, serum (test code 3.0 (unknown unit) 1.5-4.5 = 2336-6) [facility] Healthalbumin, [id number] 11:12:00 Test Item Value Reference Range Interpretation Comments albumin, serum (test code = 1751-7) 4.8 g/dL 4.0-5.0 [facility] Healthprotein, total, [id number] 11:12:00 Test Item Value Reference Range Interpretation Comments protein, total, serum (test code = 7.8 g/dL 6.0-8.5 2885-2) [facility] Healthcalcium, [id number] 11:12:00 Test Item Value Reference Range Interpretation Comments calcium, serum (test code = 10.2 mg/dL 8.7-10.2 1999-8) [facility]ecarbon dioxide, venous [id number] 11:12:00 Test Item Value Reference Range Interpretation Comments carbon dioxide, venous blood (test 25 mmol/L 20-29 code = 2027-1) [facility]eechloride, [id number] 11:12:00 Test Item Value Reference Range Interpretation Comments chloride, serum (test code = 100 mmol/L 96-106 2075-0) [facility] Healthpotassium, rakar1401-88-24 11:12:00 Test Item Value Reference Range Interpretation Comments potassium, serum (test code = 4.5 mmol/L 3.5-5.2 2823-3) [facility]eesodium, [id number] 11:12:00 Test Item Value Reference Range Interpretation Comments sodium, serum (test code = 2951-2) 139 mmol/L 134-144 [facility]eeurea nitrogen/creatinine ratio, ucmkl8216-02-65 11:12:00 Test Item Value Reference Range Interpretation Comments urea nitrogen/creatinine 28 (unknown unit) 9-20 H ratio, serum (test code = 3097-3) [facility] HealtheGFR if Rjwalqlx7348-01-59 11:12:00 Test Item Value Reference Range Interpretation Comments eGFR if 118 mL/min/{1.73 m2} >59 (test code = 66528-1) [facility]eeEstimated Glomerular Filtration Rate (calc)2021-02-26 11:12:00 Test Item Value Reference Range Interpretation Comments Estimated Glomerular 102 mL/min/{1.73 m2} >59 Filtration Rate (calc) (test code = 37902-9) [facility]ecreatinine, [id number] 11:12:00 Test Item Value Reference Range Interpretation Comments creatinine, serum (test code = 0.88 mg/dL 0.76-1.27 2160-0) [facility]eeurea nitrogen, bzaeh0505-14-18 11:12:00 Test Item Value Reference Range Interpretation Comments urea nitrogen, blood (test code = 25 mg/dL 6-24 H 3094-0) [facility]eeblood glucose, ejdees1360-41-09 11:12:00 Test Item Value Reference Range Interpretation Comments blood glucose, random (test code = 91 mg/dL 65-99 2339-0) [facility]eeimmature granulocytes, percentage of total cells, blood 2021-02-26 11:12:00 Test Item Value Reference Range Interpretation Comments immature granulocytes, percentage of 0 % total cells, blood (test code = 81073-3) [facility] Healthbasophil count, pgdxshvh9033-92-60 11:12:00 Test Item Value Reference Range Interpretation Comments basophil count, absolute (test 0.0 x10E3/uL 0.0-0.2 code = 20131-1) [facility] HealthEosinophil Absolute Deykl4185-14-30 11:12:00 Test Item Value Reference Range Interpretation Comments Eosinophil Absolute Count (test 0.1 X10E3/UL 0.0-0.4 code = 46364-5) [facility] Healthmonocyte count, blood, wvgmxyrjw7263-07-25 11:12:00 Test Item Value Reference Range Interpretation Comments monocyte count, blood, automated 0.5 X10E3/UL 0.1-0.9 (test code = 742-7) [facility]elymphocyte count, blood, whfyqiesm2923-93-49 11:12:00 Test Item Value Reference Range Interpretation Comments lymphocyte count, blood, 3.1 X10E3/UL 0.7-3.1 automated (test code = 731-0) [facility]Absolute Rxfhcaxhlpt7502-05-67 11:12:00 Test Item Value Reference Range Interpretation Comments Absolute Neutrophils (test code 3.6 X10E3/UL 1.4-7.0 = 10836-6) [facility] Healthbasophils as percent of blood rmigysvqrr6360-06-61 11:12:00 Test Item Value Reference Range Interpretation Comments basophils as percent of blood 1 % leukocytes (test code = 707-0) [facility] Healtheosinophils as percent of blood ijhyucsrbw3776-97-26 11:12:00 Test Item Value Reference Range Interpretation Comments eosinophils as percent of blood 1 % leukocytes (test code = 713-8) [facility] Healthmonocytes as percent of blood yilboipaus0532-84-09 11:12:00 Test Item Value Reference Range Interpretation Comments monocytes as percent of blood 7 % leukocytes (test code = 5905-5) [facility]elymphocytes as percent of blood qwmcnafbhy2098-69-51 11:12:00 Test Item Value Reference Range Interpretation Comments lymphocytes as percent of blood 42 % leukocytes (test code = 736-9) [facility]ardeeneutrophils as percent of blood cwenrngfbm9686-38-27 11:12:00 Test Item Value Reference Range Interpretation Comments neutrophils as percent of blood 49 % leukocytes (test code = 770-8) [facility]eeplatelet fqinu2458-43-11 11:12:00 Test Item Value Reference Range Interpretation Comments platelet count (test code = 209 X10E3/UL 150-450 777-3) [facility] blood cell distribution nizdo5725-97-32 11:12:00 Test Item Value Reference Range Interpretation Comments red blood cell distribution width 12.8 % 11.6-15.4 (test code = 788-0) [facility] corpuscular hemoglobin concentration, [id number] 11:12:00 Test Item Value Reference Range Interpretation Comments mean corpuscular hemoglobin 37.0 G/DL 31.5-35.7 H concentration, RBC (test code = 786-4) [facility] corpuscular hemoglobin, [id number] 11:12:00 Test Item Value Reference Range Interpretation Comments mean corpuscular hemoglobin, RBC 32.5 pg 26.6-33.0 (test code = 785-6) [facility] corpuscular volume, [id number] 11:12:00 Test Item Value Reference Range Interpretation Comments mean corpuscular volume, RBC (test code 88 fL 79-97 = 787-2) [facility]eehematocrit, [id number] 11:12:00 Test Item Value Reference Range Interpretation Comments hematocrit, blood (test code = 4544-3) 44.6 % 37.5-51.0 [facility]eehemoglobin, vzsva3341-09-43 11:12:00 Test Item Value Reference Range Interpretation Comments hemoglobin, blood (test code = 16.5 g/dL 13.0-17.7 718-7) [facility]eeerythrocyte (RBC) qppef6112-84-42 11:12:00 Test Item Value Reference Range Interpretation Comments erythrocyte (RBC) count (test 5.07 X10E6/UL 4.14-5.80 code = 789-8) [facility]eeleukocyte count, [id number] 11:12:00 Test Item Value Reference Range Interpretation Comments leukocyte count, blood (test 7.4 X10E3/UL 3.4-10.8 code = 6690-2) [facility]eeCD4/CD8 krwaf4855-09-56 11:12:00 Test Item Value Reference Range Interpretation Comments CD4/CD8 ratio (test code 0.93 (unknown unit) 0.92-3.72 = 09357) [facility]eeT-suppressor cells (CD8) as percent of blood lymphocytes 2021-02-26 11:12:00 Test Item Value Reference Range Interpretation Comments T-suppressor cells (CD8) as percent of 29.8 % 12.0-35.5 blood lymphocytes (test code = 3517) [facility] Healthabsolute [id number] 11:12:00 Test Item Value Reference Range Interpretation Comments absolute CD8 (test code = 924 (unknown unit) 109-897 H 91503) [facility]eeT-helper cells (CD4) as percent of blood lymphocytes 2021-02-26 11:12:00 Test Item Value Reference Range Interpretation Comments T-helper cells (CD4) as percent of 27.7 % 30.8-58.5 L blood lymphocytes (test code = 8123-2) [facility]eeT-helper cells (CD4) ctybo4696-28-10 11:12:00 Test Item Value Reference Range Interpretation Comments T-helper cells (CD4) count (test code 859 /UL 359-1519 = 47593-4) [facility]etriglyceride, serum, czzuxag2461-10-96 11:35:00 Test Item Value Reference Range Interpretation Comments triglyceride, serum, fasting (test 200 mg/dL 0-149 H code = 2571-8) [facility]eecholesterol, [id number] 11:35:00 Test Item Value Reference Range Interpretation Comments cholesterol, serum (test code = 242 mg/dL 100-199 H 2093-3) [facility]eealanine aminotransferase (SGPT), pelay5337-12-63 11:35:00 Test Item Value Reference Range Interpretation Comments alanine aminotransferase (SGPT), serum 30 1/L 0-44 (test code = 1742-6) [facility]eeaspartate aminotransferase (SGOT), ssgch1618-60-43 11:35:00 Test Item Value Reference Range Interpretation Comments aspartate aminotransferase (SGOT), 28 1/L 0-40 serum (test code = 1920-8) [facility]eealkaline phosphatase, fjlhv4189-34-59 11:35:00 Test Item Value Reference Range Interpretation Comments alkaline phosphatase, serum (test code 77 1/L 39-117 = 1783-0) [facility] Healthbilirubin, serum, [id number] 11:35:00 Test Item Value Reference Range Interpretation Comments bilirubin, serum, total (test code 0.5 mg/dL 0.0-1.2 = 1975-2) [facility] Healthalbumin/globulin ratio, [id number] 11:35:00 Test Item Value Reference Range Interpretation Comments albumin/globulin ratio, 1.7 (unknown unit) 1.2-2.2 serum (test code = 1759-0) [facility] Healthglobulin, gxiyx2573-09-69 11:35:00 Test Item Value Reference Range Interpretation Comments globulin, serum (test code 2.9 (unknown unit) 1.5-4.5 = 2336-6) [facility] Healthalbumin, wrrfu6780-78-78 11:35:00 Test Item Value Reference Range Interpretation Comments albumin, serum (test code = 1751-7) 4.9 g/dL 4.0-5.0 [facility]eprotein, total, rikos0104-00-88 11:35:00 Test Item Value Reference Range Interpretation Comments protein, total, serum (test code = 7.8 g/dL 6.0-8.5 2885-2) [facility]ardeecalcium, [id number] 11:35:00 Test Item Value Reference Range Interpretation Comments calcium, serum (test code = 1999-8) 9.7 mg/dL 8.7-10.2 [facility]ecarbon dioxide, venous buioy4444-37-90 11:35:00 Test Item Value Reference Range Interpretation Comments carbon dioxide, venous blood (test 26 mmol/L 20-29 code = 7-1) [facility]eechloride, uvjqv5563-62-07 11:35:00 Test Item Value Reference Range Interpretation Comments chloride, serum (test code = 96 mmol/L 96-106 5-0) [facility]ardeepotassium, eryxs7863-95-06 11:35:00 Test Item Value Reference Range Interpretation Comments potassium, serum (test code = 4.2 mmol/L 3.5-5.2 2823-3) [facility]eesodium, [id number] 11:35:00 Test Item Value Reference Range Interpretation Comments sodium, serum (test code = 2951-2) 138 mmol/L 134-144 [facility]eeurea nitrogen/creatinine ratio, utkqz9932-31-69 11:35:00 Test Item Value Reference Range Interpretation Comments urea nitrogen/creatinine 21 (unknown unit) 9-20 H ratio, serum (test code = 3097-3) [facility] HealtheGFR if Hlummmou6570-86-40 11:35:00 Test Item Value Reference Range Interpretation Comments eGFR if 102 mL/min/{1.73 m2} >59 (test code = 78133-0) [facility]eeEstimated Glomerular Filtration Rate (calc)2021-01-01 11:35:00 Test Item Value Reference Range Interpretation Comments Estimated Glomerular 88 mL/min/{1.73 m2} >59 Filtration Rate (calc) (test code = 81697-3) [facility]ecreatinine, [id number] 11:35:00 Test Item Value Reference Range Interpretation Comments creatinine, serum (test code = 1.01 mg/dL 0.76-1.27 2160-0) [facility]eeurea nitrogen, figwu6149-02-42 11:35:00 Test Item Value Reference Range Interpretation Comments urea nitrogen, blood (test code = 21 mg/dL 6-24 3094-0) [facility]eeblood glucose, qmjxqx9267-30-79 11:35:00 Test Item Value Reference Range Interpretation Comments blood glucose, random (test code = 102 mg/dL 65-99 H 2339-0) [facility]eeimmature granulocytes, percentage of total cells, blood 2021-01-01 11:35:00 Test Item Value Reference Range Interpretation Comments immature granulocytes, percentage of 0 % total cells, blood (test code = 54779-2) [facility]eebasophil count, gewsfldc8427-64-34 11:35:00 Test Item Value Reference Range Interpretation Comments basophil count, absolute (test 0.0 x10E3/uL 0.0-0.2 code = 38099-6) [facility]eeEosinophil Absolute Fuvjs1357-90-75 11:35:00 Test Item Value Reference Range Interpretation Comments Eosinophil Absolute Count (test 0.1 X10E3/UL 0.0-0.4 code = 40240-6) [facility] Healthmonocyte count, blood, lmigkrbtl2627-65-85 11:35:00 Test Item Value Reference Range Interpretation Comments monocyte count, blood, automated 0.6 X10E3/UL 0.1-0.9 (test code = 742-7) [facility]elymphocyte count, blood, xtivogzzw1631-08-82 11:35:00 Test Item Value Reference Range Interpretation Comments lymphocyte count, blood, 2.9 X10E3/UL 0.7-3.1 automated (test code = 731-0) [facility]Absolute Pfwmdyfloew6514-63-50 11:35:00 Test Item Value Reference Range Interpretation Comments Absolute Neutrophils (test code 3.1 X10E3/UL 1.4-7.0 = 16222-7) [facility]eebasophils as percent of blood vuhzjljhcs6585-90-70 11:35:00 Test Item Value Reference Range Interpretation Comments basophils as percent of blood 1 % leukocytes (test code = 707-0) [facility]eeeosinophils as percent of blood jtkxnjjznv0713-64-15 11:35:00 Test Item Value Reference Range Interpretation Comments eosinophils as percent of blood 2 % leukocytes (test code = 713-8) [facility] Healthmonocytes as percent of blood wflgrfmesn0948-40-96 11:35:00 Test Item Value Reference Range Interpretation Comments monocytes as percent of blood 9 % leukocytes (test code = 5905-5) [facility]elymphocytes as percent of blood gieujpwear4229-87-04 11:35:00 Test Item Value Reference Range Interpretation Comments lymphocytes as percent of blood 43 % leukocytes (test code = 736-9) [facility]eneutrophils as percent of blood mxdcpkimiw9410-60-98 11:35:00 Test Item Value Reference Range Interpretation Comments neutrophils as percent of blood 45 % leukocytes (test code = 770-8) [facility]eeplatelet fjfdf1638-85-22 11:35:00 Test Item Value Reference Range Interpretation Comments platelet count (test code = 223 X10E3/UL 150-450 777-3) [facility] cell distribution brqyp5051-93-34 11:35:00 Test Item Value Reference Range Interpretation Comments red blood cell distribution width 12.9 % 11.6-15.4 (test code = 788-0) [facility] corpuscular hemoglobin concentration, [id number] 11:35:00 Test Item Value Reference Range Interpretation Comments mean corpuscular hemoglobin 35.7 G/DL 31.5-35.7 concentration, RBC (test code = 786-4) [facility] corpuscular hemoglobin, [id number] 11:35:00 Test Item Value Reference Range Interpretation Comments mean corpuscular hemoglobin, RBC 31.3 pg 26.6-33.0 (test code = 785-6) [facility] corpuscular volume, [id number] 11:35:00 Test Item Value Reference Range Interpretation Comments mean corpuscular volume, RBC (test code 88 fL 79-97 = 787-2) [facility]eeHIV-1RNA, serum, by PCR, mqlbbqwkkvhm0082-14-70 11:35:00 Test Item Value Reference Range Interpretation Comments HIV-1RNA, serum, by PCR, <20 copies/mL quantitative (test code = 41188-7) [facility]eeCD4/CD8 pizpk9741-01-05 11:35:00 Test Item Value Reference Range Interpretation Comments CD4/CD8 ratio (test code 0.91 (unknown unit) 0.92-3.72 L = 91388) [facility]eeT-suppressor cells (CD8) as percent of blood lymphocytes 2021-01-01 11:35:00 Test Item Value Reference Range Interpretation Comments T-suppressor cells (CD8) as percent of 31.4 % 12.0-35.5 blood lymphocytes (test code = 3517) [facility]eeabsolute [id number] 11:35:00 Test Item Value Reference Range Interpretation Comments absolute CD8 (test code = 911 (unknown unit) 109-897 H 77852) [facility]eehematocrit, rtsku1101-51-27 11:35:00 Test Item Value Reference Range Interpretation Comments hematocrit, blood (test code = 4544-3) 47.1 % 37.5-51.0 [facility]eehemoglobin, [id number] 11:35:00 Test Item Value Reference Range Interpretation Comments hemoglobin, blood (test code = 16.8 g/dL 13.0-17.7 718-7) [facility]eeerythrocyte (RBC) aakbp1022-51-30 11:35:00 Test Item Value Reference Range Interpretation Comments erythrocyte (RBC) count (test 5.36 X10E6/UL 4.14-5.80 code = 789-8) [facility]eeleukocyte count, suozx3285-40-60 11:35:00 Test Item Value Reference Range Interpretation Comments leukocyte count, blood (test 6.8 X10E3/UL 3.4-10.8 code = 6690-2) [facility]eeCD4/CD8 tmvbn8622-41-91 11:35:00 Test Item Value Reference Range Interpretation Comments CD4/CD8 ratio (test code 0.91 (unknown unit) 0.92-3.72 L = 38232) [facility]eeT-suppressor cells (CD8) as percent of blood lymphocytes 2021-01-01 11:35:00 Test Item Value Reference Range Interpretation Comments T-suppressor cells (CD8) as percent of 31.4 % 12.0-35.5 blood lymphocytes (test code = 3517) [facility] Healthabsolute [id number] 11:35:00 Test Item Value Reference Range Interpretation Comments absolute CD8 (test code = 911 (unknown unit) 109-897 H 65865) [facility]eeT-helper cells (CD4) as percent of blood lymphocytes 2021-01-01 11:35:00 Test Item Value Reference Range Interpretation Comments T-helper cells (CD4) as percent of 28.7 % 30.8-58.5 L blood lymphocytes (test code = 8123-2) [facility]eeT-helper cells (CD4) jpaij1068-95-95 11:35:00 Test Item Value Reference Range Interpretation Comments T-helper cells (CD4) count (test code 832 /UL 359-1519 = 85464-3) [facility]eeerythrocyte sedimentation [id number] 11:35:00 Test Item Value Reference Range Interpretation Comments erythrocyte sedimentation rate (test 22 mm/h 0-15 H code = 4537-7) [facility]ardeevitamin D 25-hydroxy, dheym7010-84-02 11:35:00 Test Item Value Reference Range Interpretation Comments vitamin D 25-hydroxy, serum (test 23.6 ng/mL 30.0-100.0 L code = 75180-3) [facility] reagin antibody, jraiw4722-66-28 11:35:00 Test Item Value Reference Range Interpretation Comments rapid plasma reagin antibody, Non Reactive Non Reactive serum (test code = 5291-0) [facility]eeHIV-1RNA, serum, by PCR, hcirsqvuafll7303-58-08 11:35:00 Test Item Value Reference Range Interpretation Comments HIV-1RNA, serum, by PCR, <20 copies/mL quantitative (test code = 69744) [facility]eeLDL cholesterol, oxybq7895-15-17 11:35:00 Test Item Value Reference Range Interpretation Comments LDL cholesterol, serum (test code = 158 mg/dL 0-99 H 2088-09) [facility] low density khohzmydpixj2249-43-16 11:35:00 Test Item Value Reference Range Interpretation Comments very low density lipoproteins (test 37 mg/dL 5-40 code = 2090-) [facility]eeHDL cholesterol, [id number] 11:35:00 Test Item Value Reference Range Interpretation Comments HDL cholesterol, serum (test code = 47 mg/dL >39 2085-05) [facility] reagin antibody, [id number] 11:13:00 Test Item Value Reference Range Interpretation Comments rapid plasma reagin antibody, Non Reactive Non Reactive serum (test code = 5291-0) [facility], [id number] 11:13:00 Test Item Value Reference Range Interpretation Comments LDL cholesterol, serum (test code = 132 mg/dL 0-99 H 2088-09) [facility] pugjskjtztge5800-13-68 11:13:00 Test Item Value Reference Range Interpretation Comments very low density lipoproteins (test 57 mg/dL 5-40 H code = 2090-) [facility]HDL cholesterol, [id number] 11:13:00 Test Item Value Reference Range Interpretation Comments HDL cholesterol, serum (test code = 43 mg/dL >39 2085-05) [facility]etriglyceride, serum, vemdxoi5048-07-02 11:13:00 Test Item Value Reference Range Interpretation Comments triglyceride, serum, fasting (test 319 mg/dL 0-149 H code = 2571-8) [facility]eecholesterol, [id number] 11:13:00 Test Item Value Reference Range Interpretation Comments cholesterol, serum (test code = 232 mg/dL 100-199 H 2093-3) [facility] aminotransferase (SGPT), [id number] 11:13:00 Test Item Value Reference Range Interpretation Comments alanine aminotransferase (SGPT), serum 34 1/L 0-44 (test code = 1742-6) [facility]eeaspartate aminotransferase (SGOT), [id number] 11:13:00 Test Item Value Reference Range Interpretation Comments aspartate aminotransferase (SGOT), 27 1/L 0-40 serum (test code = 1920-8) [facility]eealkaline phosphatase, [id number] 11:13:00 Test Item Value Reference Range Interpretation Comments alkaline phosphatase, serum (test code 75 1/L 39-117 = 1783-0) [facility]irubin, serum, [id number] 11:13:00 Test Item Value Reference Range Interpretation Comments bilirubin, serum, total (test code 0.4 mg/dL 0.0-1.2 = 1975-2) [facility]in/globulin ratio, [id number] 11:13:00 Test Item Value Reference Range Interpretation Comments albumin/globulin ratio, 1.7 (unknown unit) 1.2-2.2 serum (test code = 1759-0) [facility] Healthglobulin, [id number] 11:13:00 Test Item Value Reference Range Interpretation Comments globulin, serum (test code 2.7 (unknown unit) 1.5-4.5 = 2336-6) [facility]albumin, gdfmr2589-69-08 11:13:00 Test Item Value Reference Range Interpretation Comments albumin, serum (test code = 1751-7) 4.5 g/dL 4.0-5.0 [facility]eprotein, total, [id number] 11:13:00 Test Item Value Reference Range Interpretation Comments protein, total, serum (test code = 7.2 g/dL 6.0-8.5 2885-2) [facility] Healthcalcium, gzrtu2081-15-54 11:13:00 Test Item Value Reference Range Interpretation Comments calcium, serum (test code = 1999-8) 9.8 mg/dL 8.7-10.2 [facility]ecarbon dioxide, venous [id number] 11:13:00 Test Item Value Reference Range Interpretation Comments carbon dioxide, venous blood (test 25 mmol/L 20-29 code = 2027-1) [facility] Healthchloride, [id number] 11:13:00 Test Item Value Reference Range Interpretation Comments chloride, serum (test code = 99 mmol/L 96-106 2075-0) [facility]epotassium, [id number] 11:13:00 Test Item Value Reference Range Interpretation Comments potassium, serum (test code = 4.5 mmol/L 3.5-5.2 2823-3) [facility]eesodium, [id number] 11:13:00 Test Item Value Reference Range Interpretation Comments sodium, serum (test code = 2951-2) 138 mmol/L 134-144 [facility]eeurea nitrogen/creatinine ratio, [id number] 11:13:00 Test Item Value Reference Range Interpretation Comments urea nitrogen/creatinine 24 (unknown unit) 9-20 H ratio, serum (test code = 3097-3) [facility] HealtheGFR if Ihovsbbu9550-25-60 11:13:00 Test Item Value Reference Range Interpretation Comments eGFR if 120 mL/min/{1.73 m2} >59 (test code = 16401-4) [facility]eeEstimated Glomerular Filtration Rate (calc)2020-08-07 11:13:00 Test Item Value Reference Range Interpretation Comments Estimated Glomerular 104 mL/min/{1.73 m2} >59 Filtration Rate (calc) (test code = 37307-2) [facility]ardeecreatinine, pirea6805-38-89 11:13:00 Test Item Value Reference Range Interpretation Comments creatinine, serum (test code = 0.85 mg/dL 0.76-1.27 2160-0) [facility]eeurea nitrogen, [id number] 11:13:00 Test Item Value Reference Range Interpretation Comments urea nitrogen, blood (test code = 20 mg/dL 6-24 3094-0) [facility]eeblood glucose, fhurzy4480-28-29 11:13:00 Test Item Value Reference Range Interpretation Comments blood glucose, random (test code = 90 mg/dL 65-99 2339-0) [facility]eeimmature granulocytes, percentage of total cells, blood 2020-08-07 11:13:00 Test Item Value Reference Range Interpretation Comments immature granulocytes, percentage of 0 % total cells, blood (test code = 19358-5) [facility] Healthbasophil count, [id number] 11:13:00 Test Item Value Reference Range Interpretation Comments basophil count, absolute (test 0.0 x10E3/uL 0.0-0.2 code = 86955-2) [facility] HealthEosinophil Absolute [id number] 11:13:00 Test Item Value Reference Range Interpretation Comments Eosinophil Absolute Count (test 0.1 X10E3/UL 0.0-0.4 code = 68583-7) [facility]ardeemonocyte count, blood, [id number] 11:13:00 Test Item Value Reference Range Interpretation Comments monocyte count, blood, automated 0.6 X10E3/UL 0.1-0.9 (test code = 742-7) [facility]ardeelymphocyte count, blood, svbynpxpf0776-73-77 11:13:00 Test Item Value Reference Range Interpretation Comments lymphocyte count, blood, 3.2 X10E3/UL 0.7-3.1 H automated (test code = 731-0) [facility]Absolute Ycnckzfcsmj8403-44-06 11:13:00 Test Item Value Reference Range Interpretation Comments Absolute Neutrophils (test code 2.9 X10E3/UL 1.4-7.0 = 06747-9) [facility]eebasophils as percent of blood fudmekrlqt9842-86-09 11:13:00 Test Item Value Reference Range Interpretation Comments basophils as percent of blood 0 % leukocytes (test code = 707-0) [facility] Healtheosinophils as percent of blood gqleqvqgbr4110-32-81 11:13:00 Test Item Value Reference Range Interpretation Comments eosinophils as percent of blood 1 % leukocytes (test code = 713-8) [facility] Healthmonocytes as percent of blood nbbtaatrxk7692-28-27 11:13:00 Test Item Value Reference Range Interpretation Comments monocytes as percent of blood 9 % leukocytes (test code = 5905-5) [facility]elymphocytes as percent of blood snydptxvqk3425-74-86 11:13:00 Test Item Value Reference Range Interpretation Comments lymphocytes as percent of blood 47 % leukocytes (test code = 736-9) [facility]ardeeneutrophils as percent of blood vtymavsdsq3913-60-68 11:13:00 Test Item Value Reference Range Interpretation Comments neutrophils as percent of blood 43 % leukocytes (test code = 770-8) [facility]eeplatelet vdrfy2012-21-55 11:13:00 Test Item Value Reference Range Interpretation Comments platelet count (test code = 239 X10E3/UL 150-450 777-3) [facility] blood cell distribution vaczs2949-90-51 11:13:00 Test Item Value Reference Range Interpretation Comments red blood cell distribution width 12.8 % 11.6-15.4 (test code = 788-0) [facility] corpuscular hemoglobin concentration, [id number] 11:13:00 Test Item Value Reference Range Interpretation Comments mean corpuscular hemoglobin 34.7 G/DL 31.5-35.7 concentration, RBC (test code = 786-4) [facility] corpuscular hemoglobin, [id number] 11:13:00 Test Item Value Reference Range Interpretation Comments mean corpuscular hemoglobin, RBC 31.1 pg 26.6-33.0 (test code = 785-6) [facility] corpuscular volume, [id number] 11:13:00 Test Item Value Reference Range Interpretation Comments mean corpuscular volume, RBC (test code 90 fL 79-97 = 787-2) [facility]eehematocrit, bjqfs1992-79-58 11:13:00 Test Item Value Reference Range Interpretation Comments hematocrit, blood (test code = 4544-3) 46.4 % 37.5-51.0 [facility]eehemoglobin, [id number] 11:13:00 Test Item Value Reference Range Interpretation Comments hemoglobin, blood (test code = 16.1 g/dL 13.0-17.7 718-7) [facility]eeerythrocyte (RBC) ihrgz2422-25-76 11:13:00 Test Item Value Reference Range Interpretation Comments erythrocyte (RBC) count (test 5.17 X10E6/UL 4.14-5.80 code = 789-8) [facility]eeleukocyte count, qvizw2716-03-43 11:13:00 Test Item Value Reference Range Interpretation Comments leukocyte count, blood (test 6.8 X10E3/UL 3.4-10.8 code = 6690-2) [facility]eeT-helper cells (CD4) as percent of blood lymphocytes 2020-08-07 11:13:00 Test Item Value Reference Range Interpretation Comments T-helper cells (CD4) as percent of 27.3 % 30.8-58.5 L blood lymphocytes (test code = 8123-2) [facility]eeT-helper cells (CD4) ttxzg3479-78-92 11:13:00 Test Item Value Reference Range Interpretation Comments T-helper cells (CD4) count (test code 874 /UL 359-1519 = 77727-1) [facility]eeHIV-1RNA, serum, by PCR, lxycpfaynwud9717-06-31 11:13:00 Test Item Value Reference Range Interpretation Comments HIV-1RNA, serum, by PCR, <20 copies/mL quantitative (test code = 07177-8) [facility]eeCD4/CD8 ehckr0005-55-89 11:13:00 Test Item Value Reference Range Interpretation Comments CD4/CD8 ratio (test code 0.83 (unknown unit) 0.92-3.72 L = 15552) [facility]eeT-suppressor cells (CD8) as percent of blood lymphocytes 2020-08-07 11:13:00 Test Item Value Reference Range Interpretation Comments T-suppressor cells (CD8) as percent of 33.0 % 12.0-35.5 blood lymphocytes (test code = 3517) [facility]eeabsolute [id number] 11:13:00 Test Item Value Reference Range Interpretation Comments absolute CD8 (test code = 1056 (unknown unit) 109-897 H 07042) [facility]eeHIV-1RNA, serum, by PCR, hradtfuhxkeh1113-33-92 11:13:00 Test Item Value Reference Range Interpretation Comments HIV-1RNA, serum, by PCR, <20 copies/mL quantitative (test code = 37323) [facility]eeCD4/CD8 jxrva6075-92-52 11:13:00 Test Item Value Reference Range Interpretation Comments CD4/CD8 ratio (test code 0.83 (unknown unit) 0.92-3.72 L = 19466) [facility]eeT-suppressor cells (CD8) as percent of blood lymphocytes 2020-08-07 11:13:00 Test Item Value Reference Range Interpretation Comments T-suppressor cells (CD8) as percent of 33.0 % 12.0-35.5 blood lymphocytes (test code = 3517) [facility]eeabsolute [id number] 11:13:00 Test Item Value Reference Range Interpretation Comments absolute CD8 (test code = 1056 (unknown unit) 109-897 H 48514) [facility]eeerythrocyte sedimentation sftu4869-19-84 16:24:00 Test Item Value Reference Range Interpretation Comments erythrocyte sedimentation rate (test 20 mm/h 0-15 H code = 4537-7) [facility]ardeevitamin D 25-hydroxy, zkofk1973 16:24:00 Test Item Value Reference Range Interpretation Comments vitamin D 25-hydroxy, serum (test 14.0 ng/mL 30.0-100.0 L code = 65090-3) [facility]ardeerapid plasma reagin antibody, [id number] 09:53:00 Test Item Value Reference Range Interpretation Comments rapid plasma reagin antibody, Non Reactive Non Reactive serum (test code = 5291-0) [facility]eeLDL cholesterol, ktzku0861-13-38 09:53:00 Test Item Value Reference Range Interpretation Comments LDL cholesterol, serum (test code = 132 mg/dL 0-99 H 2088-) [facility]eevery low density epiufqgilxaw8656-31-12 09:53:00 Test Item Value Reference Range Interpretation Comments very low density lipoproteins (test 41 mg/dL 5-40 H code = 2091-7) [facility]eeHDL cholesterol, [id number] 09:53:00 Test Item Value Reference Range Interpretation Comments HDL cholesterol, serum (test code = 45 mg/dL >39 2084-9) [facility]etriglyceride, serum, smkobvg9623-10-51 09:53:00 Test Item Value Reference Range Interpretation Comments triglyceride, serum, fasting (test 232 mg/dL 0-149 H code = 2571-8) [facility]eecholesterol, cpjzt7120-93-94 09:53:00 Test Item Value Reference Range Interpretation Comments cholesterol, serum (test code = 218 mg/dL 100-199 H 2093-3) [facility]eealanine aminotransferase (SGPT), dtfqq1311-74-24 09:53:00 Test Item Value Reference Range Interpretation Comments alanine aminotransferase (SGPT), serum 31 1/L 0-44 (test code = 1742-6) [facility]eeaspartate aminotransferase (SGOT), [id number] 09:53:00 Test Item Value Reference Range Interpretation Comments aspartate aminotransferase (SGOT), 28 1/L 0-40 serum (test code = 1920-8) [facility]eealkaline phosphatase, cgudm8512-05-71 09:53:00 Test Item Value Reference Range Interpretation Comments alkaline phosphatase, serum (test code 71 1/L 39-117 = 1783-0) [facility]eebilirubin, serum, [id number] 09:53:00 Test Item Value Reference Range Interpretation Comments bilirubin, serum, total (test code 0.5 mg/dL 0.0-1.2 = 1975-2) [facility]eealbumin/globulin ratio, [id number] 09:53:00 Test Item Value Reference Range Interpretation Comments albumin/globulin ratio, 2.0 (unknown unit) 1.2-2.2 serum (test code = 1759-0) [facility] Healthglobulin, zdzmi2166-09-32 09:53:00 Test Item Value Reference Range Interpretation Comments globulin, serum (test code 2.5 (unknown unit) 1.5-4.5 = 2336-6) [facility] Healthalbumin, bcrbp3836-01-78 09:53:00 Test Item Value Reference Range Interpretation Comments albumin, serum (test code = 1751-7) 5.0 g/dL 4.0-5.0 [facility]eprotein, total, [id number] 09:53:00 Test Item Value Reference Range Interpretation Comments protein, total, serum (test code = 7.5 g/dL 6.0-8.5 2885-2) [facility]ardeecalcium, xhito4142-00-16 09:53:00 Test Item Value Reference Range Interpretation Comments calcium, serum (test code = 2000-8) 9.7 mg/dL 8.7-10.2 [facility]ecarbon dioxide, venous ckqkx0164-30-17 09:53:00 Test Item Value Reference Range Interpretation Comments carbon dioxide, venous blood (test 24 mmol/L 20-29 code = 2027-1) [facility] Healthchloride, svqsh5497-37-64 09:53:00 Test Item Value Reference Range Interpretation Comments chloride, serum (test code = 101 mmol/L 96-106 2075-0) [facility] Healthpotassium, [id number] 09:53:00 Test Item Value Reference Range Interpretation Comments potassium, serum (test code = 4.2 mmol/L 3.5-5.2 2823-3) [facility]eesodium, dvbah9882-51-22 09:53:00 Test Item Value Reference Range Interpretation Comments sodium, serum (test code = 2951-2) 141 mmol/L 134-144 [facility]eeurea nitrogen/creatinine ratio, rummy3540-29-72 09:53:00 Test Item Value Reference Range Interpretation Comments urea nitrogen/creatinine 23 (unknown unit) 9-20 H ratio, serum (test code = 3097-3) [facility]eeeGFR if Jxncyumr3622-79-20 09:53:00 Test Item Value Reference Range Interpretation Comments eGFR if 111 mL/min/{1.73 m2} >59 (test code = 62462-3) [facility]eeEstimated Glomerular Filtration Rate (calc)2020-06-12 09:53:00 Test Item Value Reference Range Interpretation Comments Estimated Glomerular 96 mL/min/{1.73 m2} >59 Filtration Rate (calc) (test code = 42534-2) [facility]ardeecreatinine, mozby7234-72-87 09:53:00 Test Item Value Reference Range Interpretation Comments creatinine, serum (test code = 0.95 mg/dL 0.76-1.27 2160-0) [facility]eeurea nitrogen, rbozt7907-34-02 09:53:00 Test Item Value Reference Range Interpretation Comments urea nitrogen, blood (test code = 22 mg/dL 03-13 3094-0) [facility]eeblood glucose, pshyhf0125-19-90 09:53:00 Test Item Value Reference Range Interpretation Comments blood glucose, random (test code = 92 mg/dL 65-99 2339-0) [facility]eeimmature granulocytes, percentage of total cells, blood 2020-06-12 09:53:00 Test Item Value Reference Range Interpretation Comments immature granulocytes, percentage of 0 % total cells, blood (test code = 65652-8) [facility]eebasophil count, wxvvpfwv5462-15-35 09:53:00 Test Item Value Reference Range Interpretation Comments basophil count, absolute (test 0.0 x10E3/uL 0.0-0.2 code = 78179-9) [facility] HealthEosinophil Absolute Shkts4438-87-37 09:53:00 Test Item Value Reference Range Interpretation Comments Eosinophil Absolute Count (test 0.1 X10E3/UL 0.0-0.4 code = 79309-0) [facility]ardeemonocyte count, blood, qidjnothd8644-71-85 09:53:00 Test Item Value Reference Range Interpretation Comments monocyte count, blood, automated 0.4 X10E3/UL 0.1-0.9 (test code = 742-7) [facility]ardeelymphocyte count, blood, ynbaiknvh0484-79-65 09:53:00 Test Item Value Reference Range Interpretation Comments lymphocyte count, blood, 3.1 X10E3/UL 0.7-3.1 automated (test code = 731-0) [facility]Absolute Aajovsykhjf4650-58-11 09:53:00 Test Item Value Reference Range Interpretation Comments Absolute Neutrophils (test code 2.8 X10E3/UL 1.4-7.0 = 28424-0) [facility]eebasophils as percent of blood gzeeycmqju5587-70-39 09:53:00 Test Item Value Reference Range Interpretation Comments basophils as percent of blood 1 % leukocytes (test code = 707-0) [facility] Healtheosinophils as percent of blood rtudlgexdh8891-21-36 09:53:00 Test Item Value Reference Range Interpretation Comments eosinophils as percent of blood 1 % leukocytes (test code = 713-8) [facility] Healthmonocytes as percent of blood vqwmwjfnqk4275-08-79 09:53:00 Test Item Value Reference Range Interpretation Comments monocytes as percent of blood 6 % leukocytes (test code = 5905-5) [facility]elymphocytes as percent of blood lpexnhkvbn5293-70-71 09:53:00 Test Item Value Reference Range Interpretation Comments lymphocytes as percent of blood 49 % leukocytes (test code = 736-9) [facility]ardeeneutrophils as percent of blood qxtuazlqyf8381-43-09 09:53:00 Test Item Value Reference Range Interpretation Comments neutrophils as percent of blood 43 % leukocytes (test code = 770-8) [facility]eeplatelet nzjcr2501-53-73 09:53:00 Test Item Value Reference Range Interpretation Comments platelet count (test code = 239 X10E3/UL 150-450 777-3) [facility] cell distribution anbip2272-87-58 09:53:00 Test Item Value Reference Range Interpretation Comments red blood cell distribution width 12.9 % 11.6-15.4 (test code = 788-0) [facility] corpuscular hemoglobin concentration, [id number] 09:53:00 Test Item Value Reference Range Interpretation Comments mean corpuscular hemoglobin 34.7 G/DL 31.5-35.7 concentration, RBC (test code = 786-4) [facility] corpuscular hemoglobin, [id number] 09:53:00 Test Item Value Reference Range Interpretation Comments mean corpuscular hemoglobin, RBC 30.9 pg 26.6-33.0 (test code = 785-6) [facility] corpuscular volume, [id number] 09:53:00 Test Item Value Reference Range Interpretation Comments mean corpuscular volume, RBC (test code 89 fL 79-97 = 787-2) [facility]eehematocrit, pczzi4454-51-74 09:53:00 Test Item Value Reference Range Interpretation Comments hematocrit, blood (test code = 4544-3) 46.4 % 37.5-51.0 [facility]eehemoglobin, ftuuo8159-18-13 09:53:00 Test Item Value Reference Range Interpretation Comments hemoglobin, blood (test code = 16.1 g/dL 13.0-17.7 718-7) [facility]eeerythrocyte (RBC) pbled0538-89-00 09:53:00 Test Item Value Reference Range Interpretation Comments erythrocyte (RBC) count (test 5.21 X10E6/UL 4.14-5.80 code = 789-8) [facility]eeleukocyte count, plubm5253-86-21 09:53:00 Test Item Value Reference Range Interpretation Comments leukocyte count, blood (test 6.4 X10E3/UL 3.4-10.8 code = 6690-2) [facility]eeT-helper cells (CD4) as percent of blood lymphocytes 2020-06-12 09:53:00 Test Item Value Reference Range Interpretation Comments T-helper cells (CD4) as percent of 28.4 % 30.8-58.5 L blood lymphocytes (test code = 8123-2) [facility]eeT-helper cells (CD4) mgltj1948-50-99 09:53:00 Test Item Value Reference Range Interpretation Comments T-helper cells (CD4) count (test code 880 /UL 359-1519 = 94798-4) [facility]eeHIV-1RNA, serum, by PCR, jmfjurakpwlf6050-07-08 09:53:00 Test Item Value Reference Range Interpretation Comments HIV-1RNA, serum, by PCR, quantitative 30 /mL (test code = 19417-2) [facility]eeCD4/CD8 fyagm1792-50-35 09:53:00 Test Item Value Reference Range Interpretation Comments CD4/CD8 ratio (test code 0.83 (unknown unit) 0.92-3.72 L = 95526) [facility]eeT-suppressor cells (CD8) as percent of blood lymphocytes 2020-06-12 09:53:00 Test Item Value Reference Range Interpretation Comments T-suppressor cells (CD8) as percent of 34.2 % 12.0-35.5 blood lymphocytes (test code = 3517) [facility]eeabsolute [id number] 09:53:00 Test Item Value Reference Range Interpretation Comments absolute CD8 (test code = 1060 (unknown unit) 109-897 H 15364) [facility]eeHIV-1RNA, serum, by PCR, qwseiofvvztj7866-22-99 09:53:00 Test Item Value Reference Range Interpretation Comments HIV-1RNA, serum, by PCR, quantitative 30 /mL (test code = 50375) [facility]eeCD4/CD8 ukmdq6423-82-30 09:53:00 Test Item Value Reference Range Interpretation Comments CD4/CD8 ratio (test code 0.83 (unknown unit) 0.92-3.72 L = 72858) [facility]eeT-suppressor cells (CD8) as percent of blood lymphocytes 2020-06-12 09:53:00 Test Item Value Reference Range Interpretation Comments T-suppressor cells (CD8) as percent of 34.2 % 12.0-35.5 blood lymphocytes (test code = 3517) [facility] [id number] 09:53:00 Test Item Value Reference Range Interpretation Comments absolute CD8 (test code = 1060 (unknown unit) 109-897 H 66528) [facility]ardeerapid plasma reagin antibody, uxcpq9435-10-75 14:58:00 Test Item Value Reference Range Interpretation Comments rapid plasma reagin antibody, Non Reactive Non Reactive serum (test code = 5291-0) [facility]eeLDL cholesterol, stqmj2238-81-50 14:58:00 Test Item Value Reference Range Interpretation Comments LDL cholesterol, serum (test code = 71 mg/dL 0-99 2088-1) [facility]eevery low density jawbvjhuqnaf0335-05-82 14:58:00 Test Item Value Reference Range Interpretation Comments very low density lipoproteins (test 72 mg/dL 5-40 H code = 2090-7) [facility]eeHDL cholesterol, ghvyo9666-41-78 14:58:00 Test Item Value Reference Range Interpretation Comments HDL cholesterol, serum (test code = 39 mg/dL >39 L 2084-9) [facility]etriglyceride, serum, vxdziei2100-62-80 14:58:00 Test Item Value Reference Range Interpretation Comments triglyceride, serum, fasting (test 358 mg/dL 0-149 H code = 2571-8) [facility]eecholesterol, tzrvm5438-35-71 14:58:00 Test Item Value Reference Range Interpretation Comments cholesterol, serum (test code = 182 mg/dL 481-559 5125-3) [facility]eealanine aminotransferase (SGPT), tduku1031-38-09 14:58:00 Test Item Value Reference Range Interpretation Comments alanine aminotransferase (SGPT), serum 26 1/L 0-44 (test code = 1742-6) [facility]ardeeaspartate aminotransferase (SGOT), [id number] 14:58:00 Test Item Value Reference Range Interpretation Comments aspartate aminotransferase (SGOT), 29 1/L 0-40 serum (test code = 1920-8) [facility]eealkaline phosphatase, yiixy9889-15-84 14:58:00 Test Item Value Reference Range Interpretation Comments alkaline phosphatase, serum (test code 76 1/L 39-117 = 1783-0) [facility]eebilirubin, serum, yviti5905-48-11 14:58:00 Test Item Value Reference Range Interpretation Comments bilirubin, serum, total (test code 0.3 mg/dL 0.0-1.2 = 1975-2) [facility] Healthalbumin/globulin ratio, bqndr7695-15-00 14:58:00 Test Item Value Reference Range Interpretation Comments albumin/globulin ratio, 1.8 (unknown unit) 1.2-2.2 serum (test code = 1759-0) [facility] Healthglobulin, [id number] 14:58:00 Test Item Value Reference Range Interpretation Comments globulin, serum (test code 2.5 (unknown unit) 1.5-4.5 = 2336-6) [facility] Healthalbumin, yqoiz0633-22-59 14:58:00 Test Item Value Reference Range Interpretation Comments albumin, serum (test code = 1751-7) 4.6 g/dL 4.0-5.0 [facility]ardeeprotein, total, [id number] 14:58:00 Test Item Value Reference Range Interpretation Comments protein, total, serum (test code = 7.1 g/dL 6.0-8.5 2885-2) [facility], [id number] 14:58:00 Test Item Value Reference Range Interpretation Comments calcium, serum (test code = 1999-8) 9.3 mg/dL 8.7-10.2 [facility]ardeecarbon dioxide, venous ulihu7830-63-52 14:58:00 Test Item Value Reference Range Interpretation Comments carbon dioxide, venous blood (test 23 mmol/L 20-29 code = 7-1) [facility]eechloride, [id number] 14:58:00 Test Item Value Reference Range Interpretation Comments chloride, serum (test code = 100 mmol/L 96-106 2075-0) [facility] Healthpotassium, [id number] 14:58:00 Test Item Value Reference Range Interpretation Comments potassium, serum (test code = 4.0 mmol/L 3.5-5.2 2823-3) [facility]ardeesodium, [id number] 14:58:00 Test Item Value Reference Range Interpretation Comments sodium, serum (test code = 2951-2) 140 mmol/L 134-144 [facility]eeurea nitrogen/creatinine ratio, ucszs1004-32-12 14:58:00 Test Item Value Reference Range Interpretation Comments urea nitrogen/creatinine 25 (unknown unit) 9-20 H ratio, serum (test code = 3097-3) [facility] HealtheGFR if Hwzpomsj5053-52-50 14:58:00 Test Item Value Reference Range Interpretation Comments eGFR if 116 mL/min/{1.73 m2} >59 (test code = 89998-8) [facility]eeEstimated Glomerular Filtration Rate (calc)2020-02-06 14:58:00 Test Item Value Reference Range Interpretation Comments Estimated Glomerular 101 mL/min/{1.73 m2} >59 Filtration Rate (calc) (test code = 13200-5) [facility]ardeecreatinine, ptlkc2869-52-86 14:58:00 Test Item Value Reference Range Interpretation Comments creatinine, serum (test code = 0.91 mg/dL 0.76-1.27 2160-0) [facility]ee[facility]a nitrogen, gmmcb1146-85-29 14:58:00 Test Item Value Reference Range Interpretation Comments urea nitrogen, blood (test code = 23 mg/dL 6-24 3094-0) [facility]eeblood glucose, [id number] 14:58:00 Test Item Value Reference Range Interpretation Comments blood glucose, random (test code = 75 mg/dL 65-99 2339-0) [facility]eeimmature granulocytes, percentage of total cells, blood 2020-02-06 14:58:00 Test Item Value Reference Range Interpretation Comments immature granulocytes, percentage of 0 % total cells, blood (test code = 34789-3) [facility]eebasophil count, rkzaopcm4256-11-07 14:58:00 Test Item Value Reference Range Interpretation Comments basophil count, absolute (test 0.0 x10E3/uL 0.0-0.2 code = 58709-1) [facility] HealthEosinophil Absolute Exrte2756-81-45 14:58:00 Test Item Value Reference Range Interpretation Comments Eosinophil Absolute Count (test 0.1 X10E3/UL 0.0-0.4 code = 22705-9) [facility] Healthmonocyte count, blood, qbwijothz6761-34-39 14:58:00 Test Item Value Reference Range Interpretation Comments monocyte count, blood, automated 0.6 X10E3/UL 0.1-0.9 (test code = 742-7) [facility]ardeelymphocyte count, blood, teajmojbr8671-38-81 14:58:00 Test Item Value Reference Range Interpretation Comments lymphocyte count, blood, 3.2 X10E3/UL 0.7-3.1 H automated (test code = 731-0) [facility] HealthAbsolute Ecuxkmktaag0012-16-57 14:58:00 Test Item Value Reference Range Interpretation Comments Absolute Neutrophils (test code 3.8 X10E3/UL 1.4-7.0 = 94730-8) [facility] Healthbasophils as percent of blood dnxjnuughu3480-79-92 14:58:00 Test Item Value Reference Range Interpretation Comments basophils as percent of blood 1 % leukocytes (test code = 707-0) [facility] Healtheosinophils as percent of blood gfghvbbagq5649-54-66 14:58:00 Test Item Value Reference Range Interpretation Comments eosinophils as percent of blood 1 % leukocytes (test code = 713-8) [facility] Healthmonocytes as percent of blood rupeveldgt6511-71-57 14:58:00 Test Item Value Reference Range Interpretation Comments monocytes as percent of blood 8 % leukocytes (test code = 5905-5) [facility]ardeelymphocytes as percent of blood eeexobeytg4803-78-59 14:58:00 Test Item Value Reference Range Interpretation Comments lymphocytes as percent of blood 41 % leukocytes (test code = 736-9) [facility]ardeeneutrophils as percent of blood ssclzlvdgg2428-16-10 14:58:00 Test Item Value Reference Range Interpretation Comments neutrophils as percent of blood 49 % leukocytes (test code = 770-8) [facility]ardeeplatelet gijtz0173-37-40 14:58:00 Test Item Value Reference Range Interpretation Comments platelet count (test code = 227 X10E3/UL 150-450 777-3) [facility] cell distribution vamvz5561-39-03 14:58:00 Test Item Value Reference Range Interpretation Comments red blood cell distribution width 12.4 % 11.6-15.4 (test code = 788-0) [facility] corpuscular hemoglobin concentration, [id number] 14:58:00 Test Item Value Reference Range Interpretation Comments mean corpuscular hemoglobin 32.7 G/DL 31.5-35.7 concentration, RBC (test code = 786-4) [facility] corpuscular hemoglobin, [id number] 14:58:00 Test Item Value Reference Range Interpretation Comments mean corpuscular hemoglobin, RBC 30.2 pg 26.6-33.0 (test code = 785-6) [facility] corpuscular volume, [id number] 14:58:00 Test Item Value Reference Range Interpretation Comments mean corpuscular volume, RBC (test code 92 fL 79-97 = 787-2) [facility]eehematocrit, ojehs7356-44-58 14:58:00 Test Item Value Reference Range Interpretation Comments hematocrit, blood (test code = 4544-3) 48.6 % 37.5-51.0 [facility]eehemoglobin, wspww6500-22-51 14:58:00 Test Item Value Reference Range Interpretation Comments hemoglobin, blood (test code = 15.9 g/dL 13.0-17.7 718-7) [facility]eeerythrocyte (RBC) moxsx6223-79-10 14:58:00 Test Item Value Reference Range Interpretation Comments erythrocyte (RBC) count (test 5.26 X10E6/UL 4.14-5.80 code = 789-8) [facility]eeleukocyte count, bnwcw6193-99-06 14:58:00 Test Item Value Reference Range Interpretation Comments leukocyte count, blood (test 7.7 X10E3/UL 3.4-10.8 code = 6690-2) [facility] HealthT-helper cells (CD4) as percent of blood lymphocytes 2020-02-06 14:58:00 Test Item Value Reference Range Interpretation Comments T-helper cells (CD4) as percent of 27.3 % 30.8-58.5 L blood lymphocytes (test code = 8123-2) [facility] HealthT-helper cells (CD4) yufql5998-35-77 14:58:00 Test Item Value Reference Range Interpretation Comments T-helper cells (CD4) count (test code 874 /UL 359-1519 = 55959-1) [facility] HealthHIV-1RNA, serum, by PCR, nwhwbdafrish8532-95-81 14:58:00 Test Item Value Reference Range Interpretation Comments HIV-1RNA, serum, by PCR, quantitative 20 /mL (test code = 04178-2) [facility] HealthCD4/CD8 mnqcm9678-41-89 14:58:00 Test Item Value Reference Range Interpretation Comments CD4/CD8 ratio (test code 0.85 (unknown unit) 0.92-3.72 L = 01039) [facility] HealthT-suppressor cells (CD8) as percent of blood lymphocytes 2020-02-06 14:58:00 Test Item Value Reference Range Interpretation Comments T-suppressor cells (CD8) as percent of 32.2 % 12.0-35.5 blood lymphocytes (test code = 3517) [facility] Healthabsolute [id number] 14:58:00 Test Item Value Reference Range Interpretation Comments absolute CD8 (test code = 1030 (unknown unit) 109-897 H 76457) [facility] HealthHIV-1RNA, serum, by PCR, xauolndqmcll8904-01-96 14:58:00 Test Item Value Reference Range Interpretation Comments HIV-1RNA, serum, by PCR, quantitative 20 /mL (test code = 84954) [facility] HealthCD4/CD8 aasiz3080-69-32 14:58:00 Test Item Value Reference Range Interpretation Comments CD4/CD8 ratio (test code 0.85 (unknown unit) 0.92-3.72 L = 23674) [facility] HealthT-suppressor cells (CD8) as percent of blood lymphocytes 2020-02-06 14:58:00 Test Item Value Reference Range Interpretation Comments T-suppressor cells (CD8) as percent of 32.2 % 12.0-35.5 blood lymphocytes (test code = 3517) [facility]eeabsolute [id number] 14:58:00 Test Item Value Reference Range Interpretation Comments absolute CD8 (test code = 1030 (unknown unit) 109-897 H 20440) [facility]eeQuantiferon Gold TB blood test for tuberculosis screening 2019-09-26 10:19:00 Test Item Value Reference Range Interpretation Comments Quantiferon Gold TB blood test for Positive Negative A tuberculosis screening (test code = 90823-7) [facility]ardeerapid plasma reagin antibody, inuvw1374-30-66 10:17:00 Test Item Value Reference Range Interpretation Comments rapid plasma reagin antibody, Non Reactive Non Reactive serum (test code = 5291-0) [facility]eealanine aminotransferase (SGPT), wolbq8771-41-95 10:17:00 Test Item Value Reference Range Interpretation Comments alanine aminotransferase (SGPT), serum 29 1/L 0-44 (test code = 1742-6) [facility]eeaspartate aminotransferase (SGOT), etbbd7139-14-30 10:17:00 Test Item Value Reference Range Interpretation Comments aspartate aminotransferase (SGOT), 26 1/L 0-40 serum (test code = 1920-8) [facility]eealkaline phosphatase, esdyg3468-43-21 10:17:00 Test Item Value Reference Range Interpretation Comments alkaline phosphatase, serum (test code 90 1/L 39-117 = 1783-0) [facility]eebilirubin, serum, bworg6409-72-03 10:17:00 Test Item Value Reference Range Interpretation Comments bilirubin, serum, total (test code 0.3 mg/dL 0.0-1.2 = 1975-2) [facility]eealbumin/globulin ratio, jifmp0903-82-88 10:17:00 Test Item Value Reference Range Interpretation Comments albumin/globulin ratio, 1.7 (unknown unit) 1.2-2.2 serum (test code = 1759-0) [facility]ardeeglobulin, rosvr8789-25-30 10:17:00 Test Item Value Reference Range Interpretation Comments globulin, serum (test code 2.7 (unknown unit) 1.5-4.5 = 2336-6) [facility]eealbumin, [id number] 10:17:00 Test Item Value Reference Range Interpretation Comments albumin, serum (test code = 1751-7) 4.5 g/dL 3.5-5.5 [facility] Healthprotein, total, [id number] 10:17:00 Test Item Value Reference Range Interpretation Comments protein, total, serum (test code = 7.2 g/dL 6.0-8.5 2885-2) [facility]ecalcium, zfxkp1317-87-10 10:17:00 Test Item Value Reference Range Interpretation Comments calcium, serum (test code = 1999-) 9.5 mg/dL 8.7-10.2 [facility]ecarbon dioxide, venous awuvn5423-79-62 10:17:00 Test Item Value Reference Range Interpretation Comments carbon dioxide, venous blood (test 26 mmol/L code = 2026-1) [facility]eechloride, qaiqc6592-17-73 10:17:00 Test Item Value Reference Range Interpretation Comments chloride, serum (test code = 101 mmol/L 96-106 5-0) [facility]ardeepotassium, bgdks9931-10-23 10:17:00 Test Item Value Reference Range Interpretation Comments potassium, serum (test code = 4.2 mmol/L 3.5-5.2 2823-3) [facility]eesodium, skiru2795-09-86 10:17:00 Test Item Value Reference Range Interpretation Comments sodium, serum (test code = 2951-2) 139 mmol/L 134-144 [facility]eeurea nitrogen/creatinine ratio, dpfpf2961-04-31 10:17:00 Test Item Value Reference Range Interpretation Comments urea nitrogen/creatinine 18 (unknown unit) 9-20 ratio, serum (test code = 3097-3) [facility] HealtheGFR if Uuyetaom2652-35-30 10:17:00 Test Item Value Reference Range Interpretation Comments eGFR if 111 mL/min/{1.73 m2} >59 (test code = 65508-1) [facility]eeEstimated Glomerular Filtration Rate (calc)2019-09-26 10:17:00 Test Item Value Reference Range Interpretation Comments Estimated Glomerular 96 mL/min/{1.73 m2} >59 Filtration Rate (calc) (test code = 92150-2) [facility]ecreatinine, [id number] 10:17:00 Test Item Value Reference Range Interpretation Comments creatinine, serum (test code = 0.95 mg/dL 0.76-1.27 2160-0) [facility] Healthurea nitrogen, ihsjx3219-85-02 10:17:00 Test Item Value Reference Range Interpretation Comments urea nitrogen, blood (test code = 17 mg/dL 6-24 3094-0) [facility]eeblood glucose, hlppnp6031-09-49 10:17:00 Test Item Value Reference Range Interpretation Comments blood glucose, random (test code = 97 mg/dL 65-99 2339-0) [facility]eeimmature granulocytes, percentage of total cells, blood 2019-09-26 10:17:00 Test Item Value Reference Range Interpretation Comments immature granulocytes, percentage of 0 % total cells, blood (test code = 39161-2) [facility]eebasophil count, tmqqjett8102-81-17 10:17:00 Test Item Value Reference Range Interpretation Comments basophil count, absolute (test 0.0 x10E3/uL 0.0-0.2 code = 36818-7) [facility]eeEosinophil Absolute Agavn5707-85-27 10:17:00 Test Item Value Reference Range Interpretation Comments Eosinophil Absolute Count (test 0.1 X10E3/UL 0.0-0.4 code = 36009-9) [facility]ardeemonocyte count, blood, mrsdouzah2413-62-33 10:17:00 Test Item Value Reference Range Interpretation Comments monocyte count, blood, automated 0.3 X10E3/UL 0.1-0.9 (test code = 742-7) [facility]ardeelymphocyte count, blood, rmzjamllp7361-06-23 10:17:00 Test Item Value Reference Range Interpretation Comments lymphocyte count, blood, 2.1 X10E3/UL 0.7-3.1 automated (test code = 731-0) [facility]eeAbsolute Pbhzfmuzxin5304-33-82 10:17:00 Test Item Value Reference Range Interpretation Comments Absolute Neutrophils (test code 3.0 X10E3/UL 1.4-7.0 = 25954-4) [facility]eebasophils as percent of blood qugqifaxyv7804-13-51 10:17:00 Test Item Value Reference Range Interpretation Comments basophils as percent of blood 0 % leukocytes (test code = 707-0) [facility] Healtheosinophils as percent of blood ebqkklobsr6908-27-44 10:17:00 Test Item Value Reference Range Interpretation Comments eosinophils as percent of blood 1 % leukocytes (test code = 713-8) [facility] Healthmonocytes as percent of blood cemjvlcplu4742-42-92 10:17:00 Test Item Value Reference Range Interpretation Comments monocytes as percent of blood 5 % leukocytes (test code = 5905-5) [facility]ardeelymphocytes as percent of blood intdlrxbya7409-56-67 10:17:00 Test Item Value Reference Range Interpretation Comments lymphocytes as percent of blood 38 % leukocytes (test code = 736-9) [facility]ardeeneutrophils as percent of blood vwopxgknki2800-67-10 10:17:00 Test Item Value Reference Range Interpretation Comments neutrophils as percent of blood 56 % leukocytes (test code = 770-8) [facility]ardeeplatelet jodiy2244-44-51 10:17:00 Test Item Value Reference Range Interpretation Comments platelet count (test code = 213 X10E3/UL 150-450 777-3) [facility] blood cell distribution wejmh0827-67-50 10:17:00 Test Item Value Reference Range Interpretation Comments red blood cell distribution width 12.5 % 11.6-15.4 (test code = 788-0) [facility] corpuscular hemoglobin concentration, [id number] 10:17:00 Test Item Value Reference Range Interpretation Comments mean corpuscular hemoglobin 34.3 G/DL 31.5-35.7 concentration, RBC (test code = 786-4) [facility] corpuscular hemoglobin, [id number] 10:17:00 Test Item Value Reference Range Interpretation Comments mean corpuscular hemoglobin, RBC 30.9 pg 26.6-33.0 (test code = 785-6) [facility] corpuscular volume, [id number] 10:17:00 Test Item Value Reference Range Interpretation Comments mean corpuscular volume, RBC (test code 90 fL 79-97 = 787-2) [facility]eehematocrit, rrmac0104-29-84 10:17:00 Test Item Value Reference Range Interpretation Comments hematocrit, blood (test code = 4544-3) 46.3 % 37.5-51.0 [facility]eehemoglobin, iekti7395-64-34 10:17:00 Test Item Value Reference Range Interpretation Comments hemoglobin, blood (test code = 15.9 g/dL 13.0-17.7 718-7) [facility]eeerythrocyte (RBC) vrfzm0150-75-47 10:17:00 Test Item Value Reference Range Interpretation Comments erythrocyte (RBC) count (test 5.14 X10E6/UL 4.14-5.80 code = 789-8) [facility]eeleukocyte count, rvuct5601-68-74 10:17:00 Test Item Value Reference Range Interpretation Comments leukocyte count, blood (test 5.5 X10E3/UL 3.4-10.8 code = 6690-2) [facility]ardeeT-helper cells (CD4) as percent of blood lymphocytes 2019-09-26 10:17:00 Test Item Value Reference Range Interpretation Comments T-helper cells (CD4) as percent of 30.9 % 30.8-58.5 blood lymphocytes (test code = 8123-2) [facility]ardeeT-helper cells (CD4) daizy8689-63-06 10:17:00 Test Item Value Reference Range Interpretation Comments T-helper cells (CD4) count (test code 649 /UL 359-1519 = 23135-8) [facility]ardeeCD4/CD8 sdcmu5120-09-62 10:17:00 Test Item Value Reference Range Interpretation Comments CD4/CD8 ratio (test code 0.90 (unknown unit) 0.92-3.72 L = 79910) [facility]ardeeT-suppressor cells (CD8) as percent of blood lymphocytes 2019-09-26 10:17:00 Test Item Value Reference Range Interpretation Comments T-suppressor cells (CD8) as percent of 34.5 % 12.0-35.5 blood lymphocytes (test code = 3517) [facility]eeabsolute [id number] 10:17:00 Test Item Value Reference Range Interpretation Comments absolute CD8 (test code = 725 (unknown unit) [phone]) [facility]eeCD4/CD8 aiymg6916-87-73 10:17:00 Test Item Value Reference Range Interpretation Comments CD4/CD8 ratio (test code 0.90 (unknown unit) 0.92-3.72 L = 64491) [facility]ardeeT-suppressor cells (CD8) as percent of blood lymphocytes 2019-09-26 10:17:00 Test Item Value Reference Range Interpretation Comments T-suppressor cells (CD8) as percent of 34.5 % 12.0-35.5 blood lymphocytes (test code = 3517) [facility]eeabsolute [id number] 10:17:00 Test Item Value Reference Range Interpretation Comments absolute CD8 (test code = 725 (unknown unit) 109-814 33207) [facility]eeHIV genotype xpviya5981-87-61 09:22:27 Test Item Value Reference Range Interpretation Comments HIV genotype result (test code = done 42264-2) [facility] kjmwon8206[facility]17 09:22:27 Test Item Value Reference Range Interpretation Comments HIV genotype result (test code = 32494) done [facility]eeLDL cholesterol, fqllg7460-59-10 08:27:00 Test Item Value Reference Range Interpretation Comments LDL cholesterol, serum (test code = 126 mg/dL 0-99 H 2088-1) [facility]eevery low density adswbkzzfnvz1055-45-70 08:27:00 Test Item Value Reference Range Interpretation Comments very low density lipoproteins (test 17 mg/dL 5-40 code = 2091-7) [facility]eeHDL cholesterol, voujb8740-49-66 08:27:00 Test Item Value Reference Range Interpretation Comments HDL cholesterol, serum (test code = 47 mg/dL >39 5-9) [facility]ardeetriglyceride, serum, jaxnwvp2088-55-49 08:27:00 Test Item Value Reference Range Interpretation Comments triglyceride, serum, fasting (test 86 mg/dL 0-149 code = 2571-8) [facility]eecholesterol, cglga2778-75-67 08:27:00 Test Item Value Reference Range Interpretation Comments cholesterol, serum (test code = 190 mg/dL 551-099 4899-3) [facility]erapid plasma reagin antibody, qqfzg3971-81-00 08:20:00 Test Item Value Reference Range Interpretation Comments rapid plasma reagin antibody, Non Reactive Non Reactive serum (test code = 5291-0) [facility]eealanine aminotransferase (SGPT), rrvjc8131-01-39 08:20:00 Test Item Value Reference Range Interpretation Comments alanine aminotransferase (SGPT), serum 32 1/L 0-44 (test code = 1742-6) [facility]eeaspartate aminotransferase (SGOT), [id number] 08:20:00 Test Item Value Reference Range Interpretation Comments aspartate aminotransferase (SGOT), 21 1/L 0-40 serum (test code = 1920-8) [facility]eealkaline phosphatase, tfgjx1353-48-75 08:20:00 Test Item Value Reference Range Interpretation Comments alkaline phosphatase, serum (test code 61 1/L 39-117 = 1783-0) [facility]eebilirubin, serum, imefv5219-90-49 08:20:00 Test Item Value Reference Range Interpretation Comments bilirubin, serum, total (test code 0.4 mg/dL 0.0-1.2 = 1975-2) [facility] Healthalbumin/globulin ratio, aadhm8061-33-99 08:20:00 Test Item Value Reference Range Interpretation Comments albumin/globulin ratio, 1.6 (unknown unit) 1.2-2.2 serum (test code = 1759-0) [facility] Healthglobulin, aopvi4252-24-30 08:20:00 Test Item Value Reference Range Interpretation Comments globulin, serum (test code 2.5 (unknown unit) 1.5-4.5 = 2336-6) [facility] Healthalbumin, kxhke5963-05-62 08:20:00 Test Item Value Reference Range Interpretation Comments albumin, serum (test code = 1751-7) 4.1 g/dL 3.5-5.5 [facility]ardeeprotein, total, [id number] 08:20:00 Test Item Value Reference Range Interpretation Comments protein, total, serum (test code = 6.6 g/dL 6.0-8.5 2885-2) [facility]ecalcium, qwiku5149-73-15 08:20:00 Test Item Value Reference Range Interpretation Comments calcium, serum (test code = 1999-8) 9.0 mg/dL 8.7-10.2 [facility]ecarbon dioxide, venous olccd8044-77-42 08:20:00 Test Item Value Reference Range Interpretation Comments carbon dioxide, venous blood (test 25 mmol/L code = 2027-1) [facility] Healthchloride, bidyd5516-08-00 08:20:00 Test Item Value Reference Range Interpretation Comments chloride, serum (test code = 103 mmol/L 96-106 2075-0) [facility] Healthpotassium, ljann5782-95-56 08:20:00 Test Item Value Reference Range Interpretation Comments potassium, serum (test code = 4.1 mmol/L 3.5-5.2 2823-3) [facility] Healthsodium, uuxud7452-67-19 08:20:00 Test Item Value Reference Range Interpretation Comments sodium, serum (test code = 2951-2) 141 mmol/L 134-144 [facility]eeurea nitrogen/creatinine ratio, apwds7968-18-10 08:20:00 Test Item Value Reference Range Interpretation Comments urea nitrogen/creatinine 16 (unknown unit) 9-20 ratio, serum (test code = 3097-3) [facility] HealtheGFR if Jdzeiqmd8409-91-43 08:20:00 Test Item Value Reference Range Interpretation Comments eGFR if 82 mL/min/{1.73 m2} >59 (test code = 87518-3) [facility]eeEstimated Glomerular Filtration Rate (calc)2019-03-20 08:20:00 Test Item Value Reference Range Interpretation Comments Estimated Glomerular 71 mL/min/{1.73 m2} >59 Filtration Rate (calc) (test code = 76818-9) [facility]ardeecreatinine, [id number] 08:20:00 Test Item Value Reference Range Interpretation Comments creatinine, serum (test code = 1.22 mg/dL 0.76-1.27 2160-0) [facility]eeurea nitrogen, lgydz3362-84-97 08:20:00 Test Item Value Reference Range Interpretation Comments urea nitrogen, blood (test code = 19 mg/dL 6-24 3094-0) [facility]eeblood glucose, mdsese8384-61-48 08:20:00 Test Item Value Reference Range Interpretation Comments blood glucose, random (test code = 110 mg/dL 65-99 H 2339-0) [facility]eeimmature granulocytes, percentage of total cells, blood 2019-03-20 08:20:00 Test Item Value Reference Range Interpretation Comments immature granulocytes, percentage of 0 % total cells, blood (test code = 71248-9) [facility]eebasophil count, jzofldzr2105-05-68 08:20:00 Test Item Value Reference Range Interpretation Comments basophil count, absolute (test 0.0 x10E3/uL 0.0-0.2 code = 18511-5) [facility] HealthEosinophil Absolute [id number] 08:20:00 Test Item Value Reference Range Interpretation Comments Eosinophil Absolute Count (test 0.0 X10E3/UL 0.0-0.4 code = 54314-9) [facility] Healthmonocyte count, blood, ugpbfkzqp9725-20-09 08:20:00 Test Item Value Reference Range Interpretation Comments monocyte count, blood, automated 0.3 X10E3/UL 0.1-0.9 (test code = 742-7) [facility]ardeelymphocyte count, blood, siwdwifcg3163-25-71 08:20:00 Test Item Value Reference Range Interpretation Comments lymphocyte count, blood, 2.0 X10E3/UL 0.7-3.1 automated (test code = 731-0) [facility] HealthAbsolute Ipisoamzvbp5949-29-38 08:20:00 Test Item Value Reference Range Interpretation Comments Absolute Neutrophils (test code 4.4 X10E3/UL 1.4-7.0 = 30842-2) [facility]eebasophils as percent of blood mthuscfsdx5901-33-70 08:20:00 Test Item Value Reference Range Interpretation Comments basophils as percent of blood 0 % leukocytes (test code = 707-0) [facility] Healtheosinophils as percent of blood wakmxubnxk0895-58-40 08:20:00 Test Item Value Reference Range Interpretation Comments eosinophils as percent of blood 1 % leukocytes (test code = 713-8) [facility] Healthmonocytes as percent of blood ikundkejah7624-45-49 08:20:00 Test Item Value Reference Range Interpretation Comments monocytes as percent of blood 4 % leukocytes (test code = 5905-5) [facility] percent of blood oivbnqfqry0880-19-78 08:20:00 Test Item Value Reference Range Interpretation Comments lymphocytes as percent of blood 30 % leukocytes (test code = 736-9) [facility]ardeeneutrophils as percent of blood qizhdxcxdm8001-92-89 08:20:00 Test Item Value Reference Range Interpretation Comments neutrophils as percent of blood 65 % leukocytes (test code = 770-8) [facility]eeplatelet imyuj4080-87-21 08:20:00 Test Item Value Reference Range Interpretation Comments platelet count (test code = 175 X10E3/UL 150-450 777-3) [facility] cell distribution [id number] 08:20:00 Test Item Value Reference Range Interpretation Comments red blood cell distribution width 14.6 % 12.3-15.4 (test code = 788-0) [facility] corpuscular hemoglobin concentration, [id number] 08:20:00 Test Item Value Reference Range Interpretation Comments mean corpuscular hemoglobin 33.2 G/DL 31.5-35.7 concentration, RBC (test code = 786-4) [facility] corpuscular hemoglobin, [id number] 08:20:00 Test Item Value Reference Range Interpretation Comments mean corpuscular hemoglobin, RBC 31.8 pg 26.6-33.0 (test code = 785-6) [facility] corpuscular volume, [id number] 08:20:00 Test Item Value Reference Range Interpretation Comments mean corpuscular volume, RBC (test code 96 fL 79-97 = 787-2) [facility]ee[facility]ocrit, vczhq5123-21-81 08:20:00 Test Item Value Reference Range Interpretation Comments hematocrit, blood (test code = 4544-3) 45.2 % 37.5-51.0 [facility]eehemoglobin, [id number] 08:20:00 Test Item Value Reference Range Interpretation Comments hemoglobin, blood (test code = 15.0 g/dL 13.0-17.7 718-7) [facility]eeerythrocyte (RBC) fzzco6206-87-85 08:20:00 Test Item Value Reference Range Interpretation Comments erythrocyte (RBC) count (test 4.72 X10E6/UL 4.14-5.80 code = 789-8) [facility]eeleukocyte count, [id number] 08:20:00 Test Item Value Reference Range Interpretation Comments leukocyte count, blood (test 6.7 X10E3/UL 3.4-10.8 code = 6690-2) [facility]eeT-helper cells (CD4) as percent of blood lymphocytes 2019-03-20 08:20:00 Test Item Value Reference Range Interpretation Comments T-helper cells (CD4) as percent of 29.7 % 30.8-58.5 L blood lymphocytes (test code = 8123-2) [facility]eeT-helper cells (CD4) xlmbr1890-60-26 08:20:00 Test Item Value Reference Range Interpretation Comments T-helper cells (CD4) count (test code 594 /UL 359-1519 = 36849-0) [facility]eeHIV-1RNA, serum, by PCR, dxjwgnabubnu3846-29-70 08:20:00 Test Item Value Reference Range Interpretation Comments HIV-1RNA, serum, by PCR, <20 copies/mL quantitative (test code = 12254-2) [facility], reaflqflttpv7069-69-79 08:20:00 Test Item Value Reference Range Interpretation Comments Hepatitis C virus (HCV) HCV Not Detected RNA, PCR, quantitative IU/mL (test code = 09505-7) [facility]eeCD4/CD8 [id number] 08:20:00 Test Item Value Reference Range Interpretation Comments CD4/CD8 ratio (test code 0.86 (unknown unit) 0.92-3.72 L = 11300) [facility]eeT-suppressor cells (CD8) as percent of blood lymphocytes 2019-03-20 08:20:00 Test Item Value Reference Range Interpretation Comments T-suppressor cells (CD8) as percent of 34.5 % 12.0-35.5 blood lymphocytes (test code = 3517) [facility]absolute [id number] 08:20:00 Test Item Value Reference Range Interpretation Comments absolute CD8 (test code = 690 (unknown unit) [phone]) [facility]eeHIV-1RNA, serum, by PCR, zazrcsawhaei8548-46-78 08:20:00 Test Item Value Reference Range Interpretation Comments HIV-1RNA, serum, by PCR, <20 copies/mL quantitative (test code = 69458) [facility]eeHepatitis C virus (HCV) RNA, PCR, qxrkwlcjzmtk9001-54-52 08:20:00 Test Item Value Reference Range Interpretation Comments Hepatitis C virus (HCV) HCV Not Detected RNA, PCR, quantitative IU/mL (test code = 37258) [facility]eeCD4/CD8 iepby3637-09-37 08:20:00 Test Item Value Reference Range Interpretation Comments CD4/CD8 ratio (test code 0.86 (unknown unit) 0.92-3.72 L = 40511) [facility]eeT-suppressor cells (CD8) as percent of blood lymphocytes 2019-03-20 08:20:00 Test Item Value Reference Range Interpretation Comments T-suppressor cells (CD8) as percent of 34.5 % 12.0-35.5 blood lymphocytes (test code = 3517) [facility]absolute [id number] 08:20:00 Test Item Value Reference Range Interpretation Comments absolute CD8 (test code = 690 (unknown unit) 109-751 03407) [facility]erapid plasma reagin antibody, [id number] 09:31:00 Test Item Value Reference Range Interpretation Comments rapid plasma reagin antibody, Non Reactive Non Reactive serum (test code = 5291-0) [facility]eealanine aminotransferase (SGPT), cvcbf6971-00-92 09:31:00 Test Item Value Reference Range Interpretation Comments alanine aminotransferase (SGPT), serum 29 1/L 0-44 (test code = 1742-6) [facility]eeaspartate aminotransferase (SGOT), hmavb2259-22-78 09:31:00 Test Item Value Reference Range Interpretation Comments aspartate aminotransferase (SGOT), 28 1/L 0-40 serum (test code = 1920-8) [facility]eealkaline phosphatase, wtfrr5989-38-65 09:31:00 Test Item Value Reference Range Interpretation Comments alkaline phosphatase, serum (test code 85 1/L 39-117 = 1783-0) [facility]eebilirubin, serum, [id number] 09:31:00 Test Item Value Reference Range Interpretation Comments bilirubin, serum, total (test code 0.3 mg/dL 0.0-1.2 = 1975-2) [facility]eealbumin/globulin ratio, [id number] 09:31:00 Test Item Value Reference Range Interpretation Comments albumin/globulin ratio, 1.7 (unknown unit) 1.2-2.2 serum (test code = 1759-0) [facility] Healthglobulin, xqgje7860-20-94 09:31:00 Test Item Value Reference Range Interpretation Comments globulin, serum (test code 2.7 (unknown unit) 1.5-4.5 = 2336-6) [facility] Healthalbumin, [id number] 09:31:00 Test Item Value Reference Range Interpretation Comments albumin, serum (test code = 1751-7) 4.6 g/dL 3.5-5.5 [facility] Healthprotein, total, [id number] 09:31:00 Test Item Value Reference Range Interpretation Comments protein, total, serum (test code = 7.3 g/dL 6.0-8.5 2885-2) [facility] Healthcalcium, qaxxd9967-78-12 09:31:00 Test Item Value Reference Range Interpretation Comments calcium, serum (test code = 1999-8) 9.4 mg/dL 8.7-10.2 [facility]ardeecarbon dioxide, venous dwqlj0358-85-49 09:31:00 Test Item Value Reference Range Interpretation Comments carbon dioxide, venous blood (test 22 mmol/L 20-29 code = 2026-1) [facility] Healthchloride, [id number] 09:31:00 Test Item Value Reference Range Interpretation Comments chloride, serum (test code = 99 mmol/L 96-106 2075-0) [facility]ardeepotassium, dways7782-28-12 09:31:00 Test Item Value Reference Range Interpretation Comments potassium, serum (test code = 4.3 mmol/L 3.5-5.2 2823-3) [facility] Healthsodium, [id number] 09:31:00 Test Item Value Reference Range Interpretation Comments sodium, serum (test code = 2951-2) 139 mmol/L 134-144 [facility]eeurea nitrogen/creatinine ratio, [id number] 09:31:00 Test Item Value Reference Range Interpretation Comments urea nitrogen/creatinine 23 (unknown unit) 9-20 H ratio, serum (test code = 3097-3) [facility] HealtheGFR if Xkuyvnqi3585-89-84 09:31:00 Test Item Value Reference Range Interpretation Comments eGFR if 88 mL/min/{1.73 m2} >59 (test code = 60385-0) [facility]eeEstimated Glomerular Filtration Rate (calc)2018-10-24 09:31:00 Test Item Value Reference Range Interpretation Comments Estimated Glomerular 76 mL/min/{1.73 m2} >59 Filtration Rate (calc) (test code = 99350-1) [facility]ardeecreatinine, [id number] 09:31:00 Test Item Value Reference Range Interpretation Comments creatinine, serum (test code = 1.15 mg/dL 0.76-1.27 2160-0) [facility]eeurea nitrogen, acwsp9175-06-06 09:31:00 Test Item Value Reference Range Interpretation Comments urea nitrogen, blood (test code = 27 mg/dL 6-24 H 3094-0) [facility]eeblood glucose, [id number] 09:31:00 Test Item Value Reference Range Interpretation Comments blood glucose, random (test code = 104 mg/dL 65-99 H 2339-0) [facility]eeimmature granulocytes, percentage of total cells, blood 2018-10-24 09:31:00 Test Item Value Reference Range Interpretation Comments immature granulocytes, percentage of 0 % total cells, blood (test code = 27276-3) [facility]eebasophil count, djdckuys7994-52-07 09:31:00 Test Item Value Reference Range Interpretation Comments basophil count, absolute (test 0.0 x10E3/uL 0.0-0.2 code = 69734-7) [facility]eeEosinophil Absolute [id number] 09:31:00 Test Item Value Reference Range Interpretation Comments Eosinophil Absolute Count (test 0.1 X10E3/UL 0.0-0.4 code = 00875-4) [facility]ardeemonocyte count, blood, fvqnywohh0205-65-32 09:31:00 Test Item Value Reference Range Interpretation Comments monocyte count, blood, automated 0.3 X10E3/UL 0.1-0.9 (test code = 742-7) [facility]ardeelymphocyte count, blood, ixlayotkp3499-68-94 09:31:00 Test Item Value Reference Range Interpretation Comments lymphocyte count, blood, 2.3 X10E3/UL 0.7-3.1 automated (test code = 731-0) [facility]eeAbsolute Znfkztmhrlf1991-47-09 09:31:00 Test Item Value Reference Range Interpretation Comments Absolute Neutrophils (test code 3.4 X10E3/UL 1.4-7.0 = 35992-7) [facility]eebasophils as percent of blood ybblwajwwn0729-60-06 09:31:00 Test Item Value Reference Range Interpretation Comments basophils as percent of blood 1 % leukocytes (test code = 707-0) [facility]eeeosinophils as percent of blood sutuffezbb5508-06-09 09:31:00 Test Item Value Reference Range Interpretation Comments eosinophils as percent of blood 2 % leukocytes (test code = 713-8) [facility] Healthmonocytes as percent of blood meyubpcoci2938-48-44 09:31:00 Test Item Value Reference Range Interpretation Comments monocytes as percent of blood 5 % leukocytes (test code = 5905-5) [facility]ardeelymphocytes as percent of blood butmmvrqac5671-37-68 09:31:00 Test Item Value Reference Range Interpretation Comments lymphocytes as percent of blood 37 % leukocytes (test code = 736-9) [facility]ardeeneutrophils as percent of blood onapyyuzer0885-80-24 09:31:00 Test Item Value Reference Range Interpretation Comments neutrophils as percent of blood 55 % leukocytes (test code = 770-8) [facility]eeplatelet sjnmk9752-54-68 09:31:00 Test Item Value Reference Range Interpretation Comments platelet count (test code = 193 X10E3/UL 150-379 777-3) [facility] blood cell distribution moslw8815-80-44 09:31:00 Test Item Value Reference Range Interpretation Comments red blood cell distribution width 13.7 % 12.3-15.4 (test code = 788-0) [facility], [id number] 09:31:00 Test Item Value Reference Range Interpretation Comments mean corpuscular hemoglobin 34.8 G/DL 31.5-35.7 concentration, RBC (test code = 786-4) [facility] hemoglobin, [id number] 09:31:00 Test Item Value Reference Range Interpretation Comments mean corpuscular hemoglobin, RBC 31.6 pg 26.6-33.0 (test code = 785-6) [facility]ardeemean corpuscular volume, [id number] 09:31:00 Test Item Value Reference Range Interpretation Comments mean corpuscular volume, RBC (test code 91 fL 79-97 = 787-2) [facility]eehematocrit, zonri0299-11-84 09:31:00 Test Item Value Reference Range Interpretation Comments hematocrit, blood (test code = 4544-3) 46.0 % 37.5-51.0 [facility]eehemoglobin, pkjiz6425-90-57 09:31:00 Test Item Value Reference Range Interpretation Comments hemoglobin, blood (test code = 16.0 g/dL 13.0-17.7 718-7) [facility]eeerythrocyte (RBC) woxag2031-81-19 09:31:00 Test Item Value Reference Range Interpretation Comments erythrocyte (RBC) count (test 5.06 X10E6/UL 4.14-5.80 code = 789-8) [facility]eeleukocyte count, joitb4235-83-72 09:31:00 Test Item Value Reference Range Interpretation Comments leukocyte count, blood (test 6.1 X10E3/UL 3.4-10.8 code = 6690-2) [facility]eeT-helper cells (CD4) as percent of blood lymphocytes 2018-10-24 09:31:00 Test Item Value Reference Range Interpretation Comments T-helper cells (CD4) as percent of 29.2 % 30.8-58.5 L blood lymphocytes (test code = 8123-2) [facility]eeT-helper cells (CD4) jqxnz2214-42-92 09:31:00 Test Item Value Reference Range Interpretation Comments T-helper cells (CD4) count (test code 672 /UL 359-1519 = 32367-7) [facility]eeHIV-1RNA, serum, by PCR, osukvkdeppfw3851-58-92 09:31:00 Test Item Value Reference Range Interpretation Comments HIV-1RNA, serum, by PCR, quantitative 60 /mL (test code = 47919-5) [facility]eeCD4/CD8 ctjtg9517-51-09 09:31:00 Test Item Value Reference Range Interpretation Comments CD4/CD8 ratio (test code 0.85 (unknown unit) 0.92-3.72 L = 36919) [facility]eeT-suppressor cells (CD8) as percent of blood lymphocytes 2018-10-24 09:31:00 Test Item Value Reference Range Interpretation Comments T-suppressor cells (CD8) as percent of 34.2 % 12.0-35.5 blood lymphocytes (test code = 3517) [facility] [id number] 09:31:00 Test Item Value Reference Range Interpretation Comments absolute CD8 (test code = 787 (unknown unit) 206-752 01973) [facility]eeHIV-1RNA, serum, by PCR, hrmsrzeqzewl9966-91-63 09:31:00 Test Item Value Reference Range Interpretation Comments HIV-1RNA, serum, by PCR, quantitative 60 /mL (test code = 36497) [facility]eeCD4/CD8 iriuc5166-44-72 09:31:00 Test Item Value Reference Range Interpretation Comments CD4/CD8 ratio (test code 0.85 (unknown unit) 0.92-3.72 L = 94402) [facility]eeT-suppressor cells (CD8) as percent of blood lymphocytes 2018-10-24 09:31:00 Test Item Value Reference Range Interpretation Comments T-suppressor cells (CD8) as percent of 34.2 % 12.0-35.5 blood lymphocytes (test code = 3517) [facility] [id number] 09:31:00 Test Item Value Reference Range Interpretation Comments absolute CD8 (test code = 787 (unknown unit) 259-575 18202) [facility]eeHIV-1 RNA (log 10)2018-06-20 09:11:00 Test Item Value Reference Range Interpretation Comments HIV-1 RNA (log 10) (test 1.46 Log copies/mL NOT DETECTED H code = 96482-7) [facility]eeHIV-1RNA, serum, by PCR, fzxrykmoqsmt9950-24-45 09:11:00 Test Item Value Reference Range Interpretation Comments HIV-1RNA, serum, by PCR, quantitative 29 /mL NOT DETECTED H (test code = 59613-1) [facility]eeHIV-1 RNA (log 10)2018-06-20 09:11:00 Test Item Value Reference Range Interpretation Comments HIV-1 RNA (log 10) (test 1.46 Log copies/mL NOT DETECTED H code = 19834) [facility]eeHIV-1RNA, serum, by PCR, zqzlgjawxjgk5018-11-20 09:11:00 Test Item Value Reference Range Interpretation Comments HIV-1RNA, serum, by PCR, quantitative 29 /mL NOT DETECTED H (test code = 82395) [facility]ardeepotassium, [id number] 09:10:00 Test Item Value Reference Range Interpretation Comments potassium, serum (test code = 4.5 mmol/L 3.5-5.3 N 2823-3) [facility]eesodium, qjyat0573-95-69 09:10:00 Test Item Value Reference Range Interpretation Comments sodium, serum (test code = 2951-2) 136 mmol/L 135-146 N [facility]eeurea nitrogen/creatinine ratio, ahisa5372-01-49 09:10:00 Test Item Value Reference Range Interpretation Comments urea NOT APPLICABLE (calc) 6-22 nitrogen/creatinine ratio, serum (test code = 3097-3) [facility]ardeeeGFR if Dozonuda7699-70-49 09:10:00 Test Item Value Reference Range Interpretation Comments eGFR if 102 See_Comment N [Automated message] Ghanaian (test mL/min/{1.73 The system ich code = 95471-5) m2} generated th is result transmitted ref erence range: > OR = 6 0. The reference range was not used to int erpret this result as normal/abnormal . [facility]ardeeEstimated Glomerular Filtration Rate (calc)2018-06-20 09:10:00 Test Item Value Reference Range Interpretation Comments Estimated Glomerular 88 See_Comment N [Autom ated message] Filtration Rate mL/min/{1.[address] [facility] (calc) (test code = m2} generate d this 87983-4) result transmit pepe reference range : > OR = 60. The reference range was not used to interpret this result as normal/abnormal . [facility] Pardeecreatinine, [id number] 09:10:00 Test Item Value Reference Range Interpretation Comments creatinine, serum (test code = 1.03 mg/dL 0.60-1.35 N 2160-0) [facility]eeurea nitrogen, nmonx0419-05-15 09:10:00 Test Item Value Reference Range Interpretation Comments urea nitrogen, blood (test code = 20 mg/dL 7-25 N 3094-0) [facility]eeblood glucose, jgyltd3656-89-61 09:10:00 Test Item Value Reference Range Interpretation Comments blood glucose, random (test code = 100 mg/dL 65-99 H 2339-0) [facility]eeCD4/CD8 ycaam4886-96-60 09:10:00 Test Item Value Reference Range Interpretation Comments CD4/CD8 ratio (test code 0.82 (unknown unit) 0.86-5.00 L = 85326) [facility]eeabsolute [id number] 09:10:00 Test Item Value Reference Range Interpretation Comments absolute CD8 (test code = 947 (unknown unit) 180-1170 N 39324) [facility]eeT-suppressor cells (CD8) as percent of blood lymphocytes 2018-06-20 09:10:00 Test Item Value Reference Range Interpretation Comments T-suppressor cells (CD8) as percent of 35 % 12-42 N blood lymphocytes (test code = 3517) [facility]eeCD4/CD8 ztnik4758-32-32 09:10:00 Test Item Value Reference Range Interpretation Comments CD4/CD8 ratio (test code 0.82 (unknown unit) 0.86-5.00 L = 00789) [facility] [id number] 09:10:00 Test Item Value Reference Range Interpretation Comments absolute CD8 (test code = 947 (unknown unit) 180-1170 N 39811) [facility]eeT-suppressor cells (CD8) as percent of blood lymphocytes 2018-06-20 09:10:00 Test Item Value Reference Range Interpretation Comments T-suppressor cells (CD8) as percent of 35 % 12-42 N blood lymphocytes (test code = 3517) [facility]erapid plasma reagin antibody, xxjpm0328-17-19 09:10:00 Test Item Value Reference Range Interpretation Comments rapid plasma reagin antibody, NON-REACTIVE NON-REACTIVE N serum (test code = 5291-0) [facility]eebasophils as percent of blood soutwucdxa0046-03-86 09:10:00 Test Item Value Reference Range Interpretation Comments basophils as percent of blood 0.7 % N leukocytes (test code = 707-0) [facility] Healtheosinophils as percent of blood esmmxbpxjn3704-29-62 09:10:00 Test Item Value Reference Range Interpretation Comments eosinophils as percent of blood 1.4 % N leukocytes (test code = 714-6) [facility] Healthmonocytes as percent of blood nqhwsedqtl5100-88-34 09:10:00 Test Item Value Reference Range Interpretation Comments monocytes as percent of blood 6.7 % N leukocytes (test code = 5905-5) [facility] Pardeelymphocytes as percent of blood xyxfrhtbxy6969-86-86 09:10:00 Test Item Value Reference Range Interpretation Comments lymphocytes as percent of blood 41.6 % N leukocytes (test code = 736-9) [facility]ardeeneutrophils as percent of blood cnniazottg0408-45-97 09:10:00 Test Item Value Reference Range Interpretation Comments neutrophils as percent of blood 49.6 % N leukocytes (test code = 770-8) [facility]eebasophil count, gvcbqocu1082-16-36 09:10:00 Test Item Value Reference Range Interpretation Comments basophil count, absolute (test 48 cells/uL 0-200 N code = 83893-1) [facility] Eosinophil yxaxj9812-20-92 09:10:00 Test Item Value Reference Range Interpretation Comments Absolute Eosinophil count (test 97 cells/mcL 15-500 N code = 41317-4) [facility] Monocyte ktmna9107-29-61 09:10:00 Test Item Value Reference Range Interpretation Comments Absolute Monocyte count (test 462 cells/mcL 200-950 N code = 79442-2) [facility]Absolute Neutrophil rabgr8614-91-50 09:10:00 Test Item Value Reference Range Interpretation Comments Absolute Neutrophil count 3422 cells/mcL 3400-6296 N (test code = 30747-0) [facility]ardeemean platelet moannv5393-79-23 09:10:00 Test Item Value Reference Range Interpretation Comments mean platelet volume (test code = 11.1 fL 7.5-12.5 N 776-5) [facility]ardeeplatelet zkgkc9762-85-57 09:10:00 Test Item Value Reference Range Interpretation Comments platelet count (test code = 199 THOUSAND/UL 140-400 N 777-3) [facility] cell distribution tbmfs3050-06-24 09:10:00 Test Item Value Reference Range Interpretation Comments red blood cell distribution width 12.6 % 11.0-15.0 N (test code = 788-0) [facility] corpuscular hemoglobin concentration, [id number] 09:10:00 Test Item Value Reference Range Interpretation Comments mean corpuscular hemoglobin 35.5 G/DL 32.0-36.0 N concentration, RBC (test code = 786-4) [facility] corpuscular hemoglobin, [id number] 09:10:00 Test Item Value Reference Range Interpretation Comments mean corpuscular hemoglobin, RBC 31.9 pg 27.0-33.0 N (test code = 785-6) [facility] corpuscular volume, [id number] 09:10:00 Test Item Value Reference Range Interpretation Comments mean corpuscular volume, RBC (test 89.8 fL 80.0-100.0 N code = 787-2) [facility]eehematocrit, erttc5630-44-23 09:10:00 Test Item Value Reference Range Interpretation Comments hematocrit, blood (test code = 4544-3) 46.5 % 38.5-50.0 N [facility]eehemoglobin, ngzie9713-42-11 09:10:00 Test Item Value Reference Range Interpretation Comments hemoglobin, blood (test code = 16.5 g/dL 13.2-17.1 N 718-7) [facility]eeerythrocyte (RBC) bzywt7854-86-25 09:10:00 Test Item Value Reference Range Interpretation Comments erythrocyte (RBC) count (test 5.18 MILLION/UL 4.20-5.80 N code = 789-8) [facility]eeleukocyte count, ldtxi8004-11-32 09:10:00 Test Item Value Reference Range Interpretation Comments leukocyte count, blood (test 6.9 THOUSAND/UL 3.8-10.8 N code = 6690-2) [facility]ardeelymphocytes, iuzhlsat1254-01-36 09:10:00 Test Item Value Reference Range Interpretation Comments lymphocytes, absolute (test 2870 CELLS/UL 850-3900 N code = 14117-1) [facility]eeT-helper cells (CD4) vthgb0176-45-74 09:10:00 Test Item Value Reference Range Interpretation Comments T-helper cells (CD4) count (test 774 CELLS/UL 490-1740 N code = 80075-1) [facility]eeT-helper cells (CD4) as percent of blood lymphocytes 2018-06-20 09:10:00 Test Item Value Reference Range Interpretation Comments T-helper cells (CD4) as percent of 29 % 30-61 L blood lymphocytes (test code = 8123-2) [facility]eealanine aminotransferase (SGPT), pluls9757-51-04 09:10:00 Test Item Value Reference Range Interpretation Comments alanine aminotransferase (SGPT), serum 27 1/L 9-46 N (test code = 1742-6) [facility]eeaspartate aminotransferase (SGOT), plhzw2621-64-35 09:10:00 Test Item Value Reference Range Interpretation Comments aspartate aminotransferase (SGOT), 24 1/L 10-40 N serum (test code = 1920-8) [facility]eealkaline phosphatase, bdbtx1290-24-68 09:10:00 Test Item Value Reference Range Interpretation Comments alkaline phosphatase, serum (test code 82 1/L 40-115 N = 1783-0) [facility]eebilirubin, serum, qrjun2269-16-00 09:10:00 Test Item Value Reference Range Interpretation Comments bilirubin, serum, total (test code 0.5 mg/dL 0.2-1.2 N = 1975-2) [facility]eealbumin/globulin ratio, airrl6225-09-54 09:10:00 Test Item Value Reference Range Interpretation Comments albumin/globulin ratio, serum 1.5 (calc) 1.0-2.5 N (test code = 1759-0) [facility]eg[facility]obulins[facility] serum, [id number] 09:10:00 Test Item Value Reference Range Interpretation Comments globulins, serum, total (test 2.9 G/DL (CALC) 1.9-3.7 N code = 2336-6) [facility]in, [id number] 09:10:00 Test Item Value Reference Range Interpretation Comments albumin, serum (test code = 1751-7) 4.4 g/dL 3.6-5.1 N [facility]eprotein, total, [id number] 09:10:00 Test Item Value Reference Range Interpretation Comments protein, total, serum (test code = 7.3 g/dL 6.1-8.1 N 2885-2) [facility]ecalcium, [id number] 09:10:00 Test Item Value Reference Range Interpretation Comments calcium, serum (test code = 1999-8) 9.4 mg/dL 8.6-10.3 N [facility]ecarbon dioxide, venous [id number] 09:10:00 Test Item Value Reference Range Interpretation Comments carbon dioxide, venous blood (test 29 mmol/L 20-32 N code = 7-1) [facility]eechloride, [id number] 09:10:00 Test Item Value Reference Range Interpretation Comments chloride, serum (test code = 101 mmol/L 98-110 N 5-0) [facility]eeQuantiferon Gold TB blood test for tuberculosis screening 2018-02-07 09:31:00 Test Item Value Reference Range Interpretation Comments Quantiferon Gold TB blood test for NEGATIVE NEGATIVE N tuberculosis screening (test code = 85207-1) [facility]erapid plasma reagin antibody, [id number] 09:31:00 Test Item Value Reference Range Interpretation Comments rapid plasma reagin antibody, NON-REACTIVE NON-REACTIVE N serum (test code = 5291-0) [facility]eebasophils as percent of blood xoxyogwcvu3053-35-60 09:31:00 Test Item Value Reference Range Interpretation Comments basophils as percent of blood 0.3 % N leukocytes (test code = 707-0) [facility]eeeosinophils as percent of blood hkuitzdxbm2215-18-30 09:31:00 Test Item Value Reference Range Interpretation Comments eosinophils as percent of blood 0.7 % N leukocytes (test code = 714-6) [facility] Healthmonocytes as percent of blood wnhzzqnpom3461-17-92 09:31:00 Test Item Value Reference Range Interpretation Comments monocytes as percent of blood 5.0 % N leukocytes (test code = 5905-5) [facility]ardeelymphocytes as percent of blood yjqydngkah8942-56-35 09:31:00 Test Item Value Reference Range Interpretation Comments lymphocytes as percent of blood 29.1 % N leukocytes (test code = 736-9) [facility]ardeeneutrophils as percent of blood dlatjviwxo2063-94-07 09:31:00 Test Item Value Reference Range Interpretation Comments neutrophils as percent of blood 64.9 % N leukocytes (test code = 770-8) [facility]eebasophil count, mqvngmah9568-52-34 09:31:00 Test Item Value Reference Range Interpretation Comments basophil count, absolute (test 22 cells/uL 0-200 N code = 99625-0) [facility] Eosinophil mqjef4650-04-29 09:31:00 Test Item Value Reference Range Interpretation Comments Absolute Eosinophil count (test 50 cells/mcL 15-500 N code = 45173-7) [facility] Monocyte [id number] 09:31:00 Test Item Value Reference Range Interpretation Comments Absolute Monocyte count (test 360 cells/mcL 200-950 N code = 42598-5) [facility] Neutrophil [id number] 09:31:00 Test Item Value Reference Range Interpretation Comments Absolute Neutrophil count 4673 cells/mcL 8348-5673 N (test code = 44087-9) [facility] platelet fwpwwp1908-31-90 09:31:00 Test Item Value Reference Range Interpretation Comments mean platelet volume (test code = 10.8 fL 7.5-12.5 N 776-5) [facility]eeplatelet wyzey0597-17-24 09:31:00 Test Item Value Reference Range Interpretation Comments platelet count (test code = 151 THOUSAND/UL 140-400 N 777-3) [facility] blood cell distribution beqil9182-27-64 09:31:00 Test Item Value Reference Range Interpretation Comments red blood cell distribution width 13.0 % 11.0-15.0 N (test code = 788-0) [facility] corpuscular hemoglobin concentration, [id number] 09:31:00 Test Item Value Reference Range Interpretation Comments mean corpuscular hemoglobin 34.3 G/DL 32.0-36.0 N concentration, RBC (test code = 786-4) [facility] corpuscular hemoglobin, [id number] 09:31:00 Test Item Value Reference Range Interpretation Comments mean corpuscular hemoglobin, RBC 31.9 pg 27.0-33.0 N (test code = 785-6) [facility]emean corpuscular volume, [id number] 09:31:00 Test Item Value Reference Range Interpretation Comments mean corpuscular volume, RBC (test 93.0 fL 80.0-100.0 N code = 787-2) [facility]eehematocrit, lajcs2774-79-32 09:31:00 Test Item Value Reference Range Interpretation Comments hematocrit, blood (test code = 4544-3) 44.9 % 38.5-50.0 N [facility]eehemoglobin, [id number] 09:31:00 Test Item Value Reference Range Interpretation Comments hemoglobin, blood (test code = 15.4 g/dL 13.2-17.1 N 718-7) [facility]eeerythrocyte (RBC) zffiz6334-21-31 09:31:00 Test Item Value Reference Range Interpretation Comments erythrocyte (RBC) count (test 4.83 MILLION/UL 4.20-5.80 N code = 789-8) [facility]eeleukocyte count, [id number] 09:31:00 Test Item Value Reference Range Interpretation Comments leukocyte count, blood (test 7.2 THOUSAND/UL 3.8-10.8 N code = 6690-2) [facility]ardeelymphocytes, hyfvsetl3731-82-77 09:31:00 Test Item Value Reference Range Interpretation Comments lymphocytes, absolute (test 2095 CELLS/UL 850-3900 N code = 77142-2) [facility]eeT-helper cells (CD4) amvhz5466-85-05 09:31:00 Test Item Value Reference Range Interpretation Comments T-helper cells (CD4) count (test 607 CELLS/UL 490-1740 N code = 91726-5) [facility]eeT-helper cells (CD4) as percent of blood lymphocytes 2018-02-07 09:31:00 Test Item Value Reference Range Interpretation Comments T-helper cells (CD4) as percent of 28 % 30-61 L blood lymphocytes (test code = 8123-2) [facility]eealanine aminotransferase (SGPT), [id number] 09:31:00 Test Item Value Reference Range Interpretation Comments alanine aminotransferase (SGPT), serum 26 1/L 9-46 N (test code = 1742-6) [facility]eeaspartate aminotransferase (SGOT), mctsm3722-17-95 09:31:00 Test Item Value Reference Range Interpretation Comments aspartate aminotransferase (SGOT), 21 1/L 10-40 N serum (test code = 1920-8) [facility]eealkaline phosphatase, [id number] 09:31:00 Test Item Value Reference Range Interpretation Comments alkaline phosphatase, serum (test code 75 1/L 40-115 N = 1783-0) [facility]eebilirubin, serum, marjm0369-11-97 09:31:00 Test Item Value Reference Range Interpretation Comments bilirubin, serum, total (test code 0.4 mg/dL 0.2-1.2 N = 1975-2) [facility]eealbumin/globulin ratio, [id number] 09:31:00 Test Item Value Reference Range Interpretation Comments albumin/globulin ratio, serum 1.4 (calc) 1.0-2.5 N (test code = 1759-0) [facility]eglobulins, serum, [id number] 09:31:00 Test Item Value Reference Range Interpretation Comments globulins, serum, total (test 3.0 G/DL (CALC) 1.9-3.7 N code = 2336-6) [facility] Healthalbumin, [id number] 09:31:00 Test Item Value Reference Range Interpretation Comments albumin, serum (test code = 1751-7) 4.1 g/dL 3.6-5.1 N [facility]eprotein, total, nuorb1877-87-62 09:31:00 Test Item Value Reference Range Interpretation Comments protein, total, serum (test code = 7.1 g/dL 6.1-8.1 N 2885-2) [facility]ecalcium, [id number] 09:31:00 Test Item Value Reference Range Interpretation Comments calcium, serum (test code = 2000-8) 9.4 mg/dL 8.6-10.3 N [facility]ecarbon dioxide, venous fbctk3970-79-91 09:31:00 Test Item Value Reference Range Interpretation Comments carbon dioxide, venous blood (test 31 mmol/L 20-31 N code = 7-1) [facility]eechloride, [id number] 09:31:00 Test Item Value Reference Range Interpretation Comments chloride, serum (test code = 103 mmol/L 98-110 N 2075-0) [facility]ardeepotassium, [id number] 09:31:00 Test Item Value Reference Range Interpretation Comments potassium, serum (test code = 4.4 mmol/L 3.5-5.3 N 2823-3) [facility]eesodium, [id number] 09:31:00 Test Item Value Reference Range Interpretation Comments sodium, serum (test code = 2951-2) 141 mmol/L 135-146 N [facility]ardeeurea nitrogen/creatinine ratio, qqjtk4420-43-14 09:31:00 Test Item Value Reference Range Interpretation Comments urea NOT APPLICABLE (calc) 6-22 nitrogen/creatinine ratio, serum (test code = 3097-3) [facility]eeeGFR if Eueabvdx7395-85-00 09:31:00 Test Item Value Reference Range Interpretation Comments eGFR if 100 See_Comment N [Automated message] Ghanaian (test mL/min/{1.73 The system wh ich code = 04423-5) m2} generated th is result transmitted ref erence range: > OR = 6 0. The reference range was not used to int erpret this result as normal/abnormal . [facility]ardeeEstimated Glomerular Filtration Rate (calc)2018-02-07 09:31:00 Test Item Value Reference Range Interpretation Comments Estimated Glomerular 86 See_Comment N [Autom ated message] Filtration Rate mL/min/{1.73 The system w [facility] (calc) (test code = m2} generate d this 95621-7) result transmit pepe reference range : > OR = 60. The reference range was not used to interpret this result as normal/abnormal . [facility]ardeecreatinine, [id number] 09:31:00 Test Item Value Reference Range Interpretation Comments creatinine, serum (test code = 1.05 mg/dL 0.60-1.35 N 2160-0) [facility]eeurea nitrogen, [id number] 09:31:00 Test Item Value Reference Range Interpretation Comments urea nitrogen, blood (test code = 20 mg/dL 7-25 N 3094-0) [facility]eeblood glucose, qkytoa4589-21-04 09:31:00 Test Item Value Reference Range Interpretation Comments blood glucose, random (test code = 112 mg/dL 65-99 H 2339-0) [facility]eeHIV-1 RNA (log 10)2018-02-07 09:31:00 Test Item Value Reference Range Interpretation Comments HIV-1 RNA (log 10) (test 1.65 Log copies/mL NOT DETECTED H code = 99436-2) [facility]eeHIV-1RNA, serum, by PCR, lvyisrswwiuo8001-99-05 09:31:00 Test Item Value Reference Range Interpretation Comments HIV-1RNA, serum, by PCR, quantitative 45 /mL NOT DETECTED H (test code = 28875-3) [facility]ardeeCD4/CD8 [id number] 09:31:00 Test Item Value Reference Range Interpretation Comments CD4/CD8 ratio (test code 0.85 (unknown unit) 0.86-5.00 L = 30725) [facility]eeabsolute [id number] 09:31:00 Test Item Value Reference Range Interpretation Comments absolute CD8 (test code = 716 (unknown unit) 180-1170 N 49671) [facility]eeT-suppressor cells (CD8) as percent of blood lymphocytes 2018-02-07 09:31:00 Test Item Value Reference Range Interpretation Comments T-suppressor cells (CD8) as percent of 33 % 12-42 N blood lymphocytes (test code = 3517) [facility]eeHIV-1 RNA (log 10)2018-02-07 09:31:00 Test Item Value Reference Range Interpretation Comments HIV-1 RNA (log 10) (test 1.65 Log copies/mL NOT DETECTED H code = 03026) [facility]eeHIV-1RNA, serum, by PCR, npflxfxszctu9725-54-08 09:31:00 Test Item Value Reference Range Interpretation Comments HIV-1RNA, serum, by PCR, quantitative 45 /mL NOT DETECTED H (test code = 18116) [facility]ardeeCD4/CD8 [id number] 09:31:00 Test Item Value Reference Range Interpretation Comments CD4/CD8 ratio (test code 0.85 (unknown unit) 0.86-5.00 L = 29392) [facility]eeabsolute [id number] 09:31:00 Test Item Value Reference Range Interpretation Comments absolute CD8 (test code = 716 (unknown unit) 180-1170 N 76126) [facility]eeT-suppressor cells (CD8) as percent of blood lymphocytes 2018-02-07 09:31:00 Test Item Value Reference Range Interpretation Comments T-suppressor cells (CD8) as percent of 33 % 12-42 N blood lymphocytes (test code = 3517) [facility]erapid plasma reagin antibody, [id number] 09:20:00 Test Item Value Reference Range Interpretation Comments rapid plasma reagin antibody, Non Reactive Non Reactive serum (test code = 5291-0) [facility]er[facility] plasma reagin antibody, [id number] 09:57:00 Test Item Value Reference Range Interpretation Comments rapid plasma reagin antibody, Non Reactive Non Reactive serum (test code = 5291-0) [facility]eealanine aminotransferase (SGPT), [id number] 09:57:00 Test Item Value Reference Range Interpretation Comments alanine aminotransferase (SGPT), serum 28 1/L 0-44 (test code = 1742-6) [facility]ardeeaspartate aminotransferase (SGOT), rfahw0723-18-72 09:57:00 Test Item Value Reference Range Interpretation Comments aspartate aminotransferase (SGOT), 28 1/L 0-40 serum (test code = 1920-8) [facility]eealkaline phosphatase, [id number] 09:57:00 Test Item Value Reference Range Interpretation Comments alkaline phosphatase, serum (test code 78 1/L 39-117 = 1783-0) [facility]eebilirubin, serum, [id number] 09:57:00 Test Item Value Reference Range Interpretation Comments bilirubin, serum, total (test code 0.3 mg/dL 0.0-1.2 = 1975-2) [facility]eealbumin/globulin ratio, [id number] 09:57:00 Test Item Value Reference Range Interpretation Comments albumin/globulin ratio, 1.5 (unknown unit) 1.2-2.2 serum (test code = 1759-0) [facility] Healthglobulin, [id number] 09:57:00 Test Item Value Reference Range Interpretation Comments globulin, serum (test code 2.8 (unknown unit) 1.5-4.5 = 2336-6) [facility] Healthalbumin, [id number] 09:57:00 Test Item Value Reference Range Interpretation Comments albumin, serum (test code = 1751-7) 4.3 g/dL 3.5-5.5 [facility]eprotein, total, [id number] 09:57:00 Test Item Value Reference Range Interpretation Comments protein, total, serum (test code = 7.1 g/dL 6.0-8.5 2885-2) [facility]ecalcium, [id number] 09:57:00 Test Item Value Reference Range Interpretation Comments calcium, serum (test code = 1999-8) 9.1 mg/dL 8.7-10.2 [facility]ecarbon dioxide, venous mnxif7559-20-87 09:57:00 Test Item Value Reference Range Interpretation Comments carbon dioxide, venous blood (test 26 mmol/L 18-29 code = 7-1) [facility]ardeechloride, sleie5121-42-22 09:57:00 Test Item Value Reference Range Interpretation Comments chloride, serum (test code = 101 mmol/L 96-106 2075-0) [facility]ardeepotassium, jtcch0823-86-28 09:57:00 Test Item Value Reference Range Interpretation Comments potassium, serum (test code = 4.2 mmol/L 3.5-5.2 2823-3) [facility]eesodium, [id number] 09:57:00 Test Item Value Reference Range Interpretation Comments sodium, serum (test code = 2951-2) 138 mmol/L 134-144 [facility]eeurea nitrogen/creatinine ratio, mnzxq9916-67-39 09:57:00 Test Item Value Reference Range Interpretation Comments urea nitrogen/creatinine 20 (unknown unit) 9-20 ratio, serum (test code = 3097-3) [facility] HealtheGFR if Xltznurv1467-11-15 09:57:00 Test Item Value Reference Range Interpretation Comments eGFR if 98 mL/min/{1.73 m2} >59 (test code = 90334-2) [facility]ardeeEstimated Glomerular Filtration Rate (calc)2017-09-27 09:57:00 Test Item Value Reference Range Interpretation Comments Estimated Glomerular 85 mL/min/{1.73 m2} >59 Filtration Rate (calc) (test code = 86685-4) [facility] Healthcreatinine, ucxwb0500-77-30 09:57:00 Test Item Value Reference Range Interpretation Comments creatinine, serum (test code = 1.06 mg/dL 0.76-1.27 2160-0) [facility]eeurea nitrogen, xxtdj1648-99-27 09:57:00 Test Item Value Reference Range Interpretation Comments urea nitrogen, blood (test code = 21 mg/dL 6-24 3094-0) [facility]eeblood glucose, dinsqp9473-05-17 09:57:00 Test Item Value Reference Range Interpretation Comments blood glucose, random (test code = 106 mg/dL 65-99 H 2339-0) [facility]ardeeimmature granulocytes, percentage of total cells, blood 2017-09-27 09:57:00 Test Item Value Reference Range Interpretation Comments immature granulocytes, percentage of 0 % total cells, blood (test code = 56337-8) [facility]eebasophil count, gzyahsfd5503-26-21 09:57:00 Test Item Value Reference Range Interpretation Comments basophil count, absolute (test 0.0 x10E3/uL 0.0-0.2 code = 66947-9) [facility]ardeeEosinophil Absolute Hkurm4682-07-67 09:57:00 Test Item Value Reference Range Interpretation Comments Eosinophil Absolute Count (test 0.1 X10E3/UL 0.0-0.4 code = 27349-2) [facility]ardeemonocyte count, blood, zcqbkiyzp7492-92-08 09:57:00 Test Item Value Reference Range Interpretation Comments monocyte count, blood, automated 0.3 X10E3/UL 0.1-0.9 (test code = 742-7) [facility]ardeelymphocyte count, blood, emrghwnns5739-45-83 09:57:00 Test Item Value Reference Range Interpretation Comments lymphocyte count, blood, 3.3 X10E3/UL 0.7-3.1 H automated (test code = 731-0) [facility]eeAbsolute Maryzngocvz7669-66-38 09:57:00 Test Item Value Reference Range Interpretation Comments Absolute Neutrophils (test code 3.4 X10E3/UL 1.4-7.0 = 98957-5) [facility] Healthbasophils as percent of blood mqgulbtath5148-99-88 09:57:00 Test Item Value Reference Range Interpretation Comments basophils as percent of blood 0 % leukocytes (test code = 707-0) [facility]eeeosinophils as percent of blood lnqtqlnpch5873-92-18 09:57:00 Test Item Value Reference Range Interpretation Comments eosinophils as percent of blood 2 % leukocytes (test code = 713-8) [facility] Healthmonocytes as percent of blood rmakroskqe6324-61-36 09:57:00 Test Item Value Reference Range Interpretation Comments monocytes as percent of blood 4 % leukocytes (test code = 5905-5) [facility]ardeelymphocytes as percent of blood fbanvfjyqt8251-10-15 09:57:00 Test Item Value Reference Range Interpretation Comments lymphocytes as percent of blood 46 % leukocytes (test code = 736-9) [facility]ardeeneutrophils as percent of blood zayarihyji0198-60-58 09:57:00 Test Item Value Reference Range Interpretation Comments neutrophils as percent of blood 48 % leukocytes (test code = 770-8) [facility]ardeeplatelet pxpgn2468-84-05 09:57:00 Test Item Value Reference Range Interpretation Comments platelet count (test code = 175 X10E3/UL 150-379 777-3) [facility] blood cell distribution bnkbh8580-16-72 09:57:00 Test Item Value Reference Range Interpretation Comments red blood cell distribution width 13.3 % 12.3-15.4 (test code = 788-0) [facility] corpuscular hemoglobin concentration, [id number] 09:57:00 Test Item Value Reference Range Interpretation Comments mean corpuscular hemoglobin 35.0 G/DL 31.5-35.7 concentration, RBC (test code = 786-4) [facility] hemoglobin, [id number] 09:57:00 Test Item Value Reference Range Interpretation Comments mean corpuscular hemoglobin, RBC 31.8 pg 26.6-33.0 (test code = 785-6) [facility] corpuscular volume, [id number] 09:57:00 Test Item Value Reference Range Interpretation Comments mean corpuscular volume, RBC (test code 91 fL 79-97 = 787-2) [facility]eehematocrit, jfgyd5979-46-22 09:57:00 Test Item Value Reference Range Interpretation Comments hematocrit, blood (test code = 4544-3) 44.9 % 37.5-51.0 [facility]eehemoglobin, kozar1503-78-90 09:57:00 Test Item Value Reference Range Interpretation Comments hemoglobin, blood (test code = 15.7 g/dL 13.0-17.7 718-7) [facility]eeerythrocyte (RBC) jhuex9957-63-09 09:57:00 Test Item Value Reference Range Interpretation Comments erythrocyte (RBC) count (test 4.94 X10E6/UL 4.14-5.80 code = 789-8) [facility]eeleukocyte count, tmekc7363-37-66 09:57:00 Test Item Value Reference Range Interpretation Comments leukocyte count, blood (test 7.1 X10E3/UL 3.4-10.8 code = 6690-2) [facility]eeT-helper cells (CD4) as percent of blood lymphocytes 2017-09-27 09:57:00 Test Item Value Reference Range Interpretation Comments T-helper cells (CD4) as percent of 28.1 % 30.8-58.5 L blood lymphocytes (test code = 8123-2) [facility]eeT-helper cells (CD4) edaya8743-93-99 09:57:00 Test Item Value Reference Range Interpretation Comments T-helper cells (CD4) count (test code 927 /UL 359-1519 = 32159-5) [facility]eeHIV-1RNA, serum, by PCR, lltxenucxhka5604-81-67 09:57:00 Test Item Value Reference Range Interpretation Comments HIV-1RNA, serum, by PCR, quantitative 50 /mL (test code = 94121-0) [facility]eeHepatitis C virus (HCV) RNA, PCR, qtbwcpdidnft6385-21-37 09:57:00 Test Item Value Reference Range Interpretation Comments Hepatitis C virus (HCV) HCV Not Detected RNA, PCR, quantitative IU/mL (test code = 99368-1) [facility]ardeeCD4/CD8 pnpro5069-31-83 09:57:00 Test Item Value Reference Range Interpretation Comments CD4/CD8 ratio (test code 0.84 (unknown unit) 0.92-3.72 L = 31837) [facility]ardeeT-suppressor cells (CD8) as percent of blood lymphocytes 2017-09-27 09:57:00 Test Item Value Reference Range Interpretation Comments T-suppressor cells (CD8) as percent of 33.3 % 12.0-35.5 blood lymphocytes (test code = 3517) [facility]ab[facility] [id number] 09:57:00 Test Item Value Reference Range Interpretation Comments absolute CD8 (test code = 1099 (unknown unit) 109-897 H 45987) [facility]eeHIV-1RNA, serum, by PCR, oqhuypbsgyca7190-33-93 09:57:00 Test Item Value Reference Range Interpretation Comments HIV-1RNA, serum, by PCR, quantitative 50 /mL (test code = 98745) [facility]eeHepatitis C virus (HCV) RNA, PCR, npzuydoredov5494-16-75 09:57:00 Test Item Value Reference Range Interpretation Comments Hepatitis C virus (HCV) HCV Not Detected RNA, PCR, quantitative IU/mL (test code = 60008) [facility]eeCD4/CD8 oeqlz2578-87-28 09:57:00 Test Item Value Reference Range Interpretation Comments CD4/CD8 ratio (test code 0.84 (unknown unit) 0.92-3.72 L = 99592) [facility]ardeeT-suppressor cells (CD8) as percent of blood lymphocytes 2017-09-27 09:57:00 Test Item Value Reference Range Interpretation Comments T-suppressor cells (CD8) as percent of 33.3 % 12.0-35.5 blood lymphocytes (test code = 3517) [facility] [id number] 09:57:00 Test Item Value Reference Range Interpretation Comments absolute CD8 (test code = 1099 (unknown unit) 109-897 H 60266) [facility]ardeeTreponema pallidum particle agglutination assay (TPPA test)2017-07-05 10:24:00 Test Item Value Reference Range Interpretation Comments Treponema pallidum particle Positive Negative A agglutination assay (TPPA test) (test code = 71642-9) [facility]ardeerapid plasma reagin antibody, [id number] 10:24:00 Test Item Value Reference Range Interpretation Comments rapid plasma reagin 1:1 See_Comment H [Automa pepe message] The antibody, serum (test system which generated code = 5291-0) this result t ransmitted reference range : NonRea<1:1. The reference range was not u sed to interpret this result as normal/abnormal . [facility]ardeeLDL cholesterol, [id number] 10:24:00 Test Item Value Reference Range Interpretation Comments LDL cholesterol, serum (test code = 97 mg/dL 0-99 2088-) [facility]ardeevery low density keiitqewqooy6123-92-58 10:24:00 Test Item Value Reference Range Interpretation Comments very low density lipoproteins (test 22 mg/dL 5-40 code = 2090-7) [facility]eeHDL cholesterol, fbgih7227-41-07 10:24:00 Test Item Value Reference Range Interpretation Comments HDL cholesterol, serum (test code = 36 mg/dL >39 L 2085-05) [facility]ardeetriglyceride, serum, fzvxwxw2994-35-34 10:24:00 Test Item Value Reference Range Interpretation Comments triglyceride, serum, fasting (test 108 mg/dL 0-149 code = 2571-8) [facility]eecholesterol, hflfy6720-99-07 10:24:00 Test Item Value Reference Range Interpretation Comments cholesterol, serum (test code = 155 mg/dL 231-825 8292-3) [facility]eealanine aminotransferase (SGPT), cvknd3757-58-38 10:24:00 Test Item Value Reference Range Interpretation Comments alanine aminotransferase (SGPT), serum 32 1/L 0-44 (test code = 1742-6) [facility]ardeeaspartate aminotransferase (SGOT), glwqh0435-76-17 10:24:00 Test Item Value Reference Range Interpretation Comments aspartate aminotransferase (SGOT), 30 1/L 0-40 serum (test code = 1920-8) [facility], [id number] 10:24:00 Test Item Value Reference Range Interpretation Comments alkaline phosphatase, serum (test code 95 1/L 39-117 = 1783-0) [facility], serum, dyjrb4794-79-16 10:24:00 Test Item Value Reference Range Interpretation Comments bilirubin, serum, total (test code 0.3 mg/dL 0.0-1.2 = 1975-2) [facility] Healthalbumin/globulin ratio, [id number] 10:24:00 Test Item Value Reference Range Interpretation Comments albumin/globulin ratio, 1.5 (unknown unit) 1.2-2.2 serum (test code = 1759-0) [facility] Healthglobulin, [id number] 10:24:00 Test Item Value Reference Range Interpretation Comments globulin, serum (test code 3.1 (unknown unit) 1.5-4.5 = 2336-6) [facility] Healthalbumin, [id number] 10:24:00 Test Item Value Reference Range Interpretation Comments albumin, serum (test code = 1751-7) 4.5 g/dL 3.5-5.5 [facility]eprotein, total, [id number] 10:24:00 Test Item Value Reference Range Interpretation Comments protein, total, serum (test code = 7.6 g/dL 6.0-8.5 2885-2) [facility] Healthcalcium, [id number] 10:24:00 Test Item Value Reference Range Interpretation Comments calcium, serum (test code = 1999-8) 9.4 mg/dL 8.7-10.2 [facility]ecarbon dioxide, venous [id number] 10:24:00 Test Item Value Reference Range Interpretation Comments carbon dioxide, venous blood (test 27 mmol/L 18-29 code = 2026-1) [facility]eechloride, reono0910-03-41 10:24:00 Test Item Value Reference Range Interpretation Comments chloride, serum (test code = 97 mmol/L 96-106 5-0) [facility] Healthpotassium, tsyei6800-45-88 10:24:00 Test Item Value Reference Range Interpretation Comments potassium, serum (test code = 4.4 mmol/L 3.5-5.2 2823-3) [facility]eesodium, [id number] 10:24:00 Test Item Value Reference Range Interpretation Comments sodium, serum (test code = 2951-2) 138 mmol/L 134-144 [facility]eeurea nitrogen/creatinine ratio, whtza6088-75-04 10:24:00 Test Item Value Reference Range Interpretation Comments urea nitrogen/creatinine 15 (unknown unit) 9-20 ratio, serum (test code = 3097-3) [facility] HealtheGFR if Zdxyjpgo0066-58-09 10:24:00 Test Item Value Reference Range Interpretation Comments eGFR if 101 mL/min/{1.73 m2} >59 (test code = 29880-9) [facility]Estimated Glomerular Filtration Rate (calc)2017-07-05 10:24:00 Test Item Value Reference Range Interpretation Comments Estimated Glomerular 88 mL/min/{1.73 m2} >59 Filtration Rate (calc) (test code = 84523-9) [facility]ecreatinine, [id number] 10:24:00 Test Item Value Reference Range Interpretation Comments creatinine, serum (test code = 1.04 mg/dL 0.76-1.27 2160-0) [facility]eeurea nitrogen, [id number] 10:24:00 Test Item Value Reference Range Interpretation Comments urea nitrogen, blood (test code = 16 mg/dL 03-13 3094-0) [facility] glucose, [id number] 10:24:00 Test Item Value Reference Range Interpretation Comments blood glucose, random (test code = 105 mg/dL 65-99 H 2339-0) [facility]eeimmature granulocytes, percentage of total cells, blood 2017-07-05 10:24:00 Test Item Value Reference Range Interpretation Comments immature granulocytes, percentage of 0 % total cells, blood (test code = 40774-2) [facility]eebasophil count, oykiixxs5098-30-62 10:24:00 Test Item Value Reference Range Interpretation Comments basophil count, absolute (test 0.0 x10E3/uL 0.0-0.2 code = 93349-6) [facility]eeEosinophil Absolute Eedde0514-63-90 10:24:00 Test Item Value Reference Range Interpretation Comments Eosinophil Absolute Count (test 0.1 X10E3/UL 0.0-0.4 code = 31870-7) [facility]ardeemonocyte count, blood, sulfmoppt2633-90-17 10:24:00 Test Item Value Reference Range Interpretation Comments monocyte count, blood, automated 0.4 X10E3/UL 0.1-0.9 (test code = 742-7) [facility]elymphocyte count, blood, oadpokzme9881-64-68 10:24:00 Test Item Value Reference Range Interpretation Comments lymphocyte count, blood, 2.8 X10E3/UL 0.7-3.1 automated (test code = 731-0) [facility]Absolute Otckgrwzjcm6689-34-50 10:24:00 Test Item Value Reference Range Interpretation Comments Absolute Neutrophils (test code 4.1 X10E3/UL 1.4-7.0 = 99470-7) [facility]eebasophils as percent of blood alhfyfcrln0294-38-36 10:24:00 Test Item Value Reference Range Interpretation Comments basophils as percent of blood 0 % leukocytes (test code = 707-0) [facility]eeeosinophils as percent of blood csqjlaajjt6633-73-88 10:24:00 Test Item Value Reference Range Interpretation Comments eosinophils as percent of blood 1 % leukocytes (test code = 713-8) [facility]emonocytes as percent of blood dqioetekga6024-11-27 10:24:00 Test Item Value Reference Range Interpretation Comments monocytes as percent of blood 5 % leukocytes (test code = 5905-5) [facility]elymphocytes as percent of blood sezilsjldx3278-83-85 10:24:00 Test Item Value Reference Range Interpretation Comments lymphocytes as percent of blood 38 % leukocytes (test code = 736-9) [facility]eneutrophils as percent of blood ssbefwgyle2124-18-24 10:24:00 Test Item Value Reference Range Interpretation Comments neutrophils as percent of blood 56 % leukocytes (test code = 770-8) [facility]eeplatelet jeehs6399-98-17 10:24:00 Test Item Value Reference Range Interpretation Comments platelet count (test code = 197 X10E3/UL 150-379 777-3) [facility] blood cell distribution hxpyh5310-92-38 10:24:00 Test Item Value Reference Range Interpretation Comments red blood cell distribution width 11.6 % 12.3-15.4 L (test code = 788-0) [facility]emean corpuscular hemoglobin concentration, [id number] 10:24:00 Test Item Value Reference Range Interpretation Comments mean corpuscular hemoglobin 35.4 G/DL 31.5-35.7 concentration, RBC (test code = 786-4) [facility]emean corpuscular hemoglobin, [id number] 10:24:00 Test Item Value Reference Range Interpretation Comments mean corpuscular hemoglobin, RBC 32.3 pg 26.6-33.0 (test code = 785-6) [facility]emean corpuscular volume, [id number] 10:24:00 Test Item Value Reference Range Interpretation Comments mean corpuscular volume, RBC (test code 91 fL 79-97 = 787-2) [facility]eehematocrit, [id number] 10:24:00 Test Item Value Reference Range Interpretation Comments hematocrit, blood (test code = 4544-3) 46.1 % 37.5-51.0 [facility]eehemoglobin, ffwhc9752-24-97 10:24:00 Test Item Value Reference Range Interpretation Comments hemoglobin, blood (test code = 16.3 g/dL 12.6-17.7 718-7) [facility]eeerythrocyte (RBC) dhegf6785-49-52 10:24:00 Test Item Value Reference Range Interpretation Comments erythrocyte (RBC) count (test 5.05 X10E6/UL 4.14-5.80 code = 789-8) [facility]eeleukocyte count, ldmqy1988-13-77 10:24:00 Test Item Value Reference Range Interpretation Comments leukocyte count, blood (test 7.4 X10E3/UL 3.4-10.8 code = 6690-2) [facility]eeT-helper cells (CD4) as percent of blood lymphocytes 2017-07-05 10:24:00 Test Item Value Reference Range Interpretation Comments T-helper cells (CD4) as percent of 27.8 % 30.8-58.5 L blood lymphocytes (test code = 8123-2) [facility]eeT-helper cells (CD4) bdwvh1597-34-90 10:24:00 Test Item Value Reference Range Interpretation Comments T-helper cells (CD4) count (test code 778 /UL 359-1519 = 93528-4) [facility]eeHIV-1RNA, serum, by PCR, kpwunqhvnsjb9112-67-63 10:24:00 Test Item Value Reference Range Interpretation Comments HIV-1RNA, serum, by PCR, quantitative 60 /mL (test code = 63165-5) [facility]eeCD4/CD8 yqbph1140-29-03 10:24:00 Test Item Value Reference Range Interpretation Comments CD4/CD8 ratio (test code 0.79 (unknown unit) 0.92-3.72 L = 65077) [facility]eeT-suppressor cells (CD8) as percent of blood lymphocytes 2017-07-05 10:24:00 Test Item Value Reference Range Interpretation Comments T-suppressor cells (CD8) as percent of 35.1 % 12.0-35.5 blood lymphocytes (test code = 3517) [facility] [id number] 10:24:00 Test Item Value Reference Range Interpretation Comments absolute CD8 (test code = 983 (unknown unit) 109-897 H 73617) [facility]eeHIV-1RNA, serum, by PCR, jbbxttjcnzrf9918-18-55 10:24:00 Test Item Value Reference Range Interpretation Comments HIV-1RNA, serum, by PCR, quantitative 60 /mL (test code = 59515) [facility]eeCD4/CD8 qswpq9991-24-46 10:24:00 Test Item Value Reference Range Interpretation Comments CD4/CD8 ratio (test code 0.79 (unknown unit) 0.92-3.72 L = 56616) [facility]eeT-suppressor cells (CD8) as percent of blood lymphocytes 2017-07-05 10:24:00 Test Item Value Reference Range Interpretation Comments T-suppressor cells (CD8) as percent of 35.1 % 12.0-35.5 blood lymphocytes (test code = 3517) [facility] [id number] 10:24:00 Test Item Value Reference Range Interpretation Comments absolute CD8 (test code = 983 (unknown unit) 109-897 H 24234) [facility] reagin antibody, [id number] 10:26:00 Test Item Value Reference Range Interpretation Comments rapid plasma reagin antibody, Non Reactive Non Reactive serum (test code = 5291-0) [facility]eeLDL cholesterol, yqnng7194-22-98 10:26:00 Test Item Value Reference Range Interpretation Comments LDL cholesterol, serum (test code = 97 mg/dL 0-99 2088-1) [facility]eevery low density jpmbdpphtbnu2940-77-60 10:26:00 Test Item Value Reference Range Interpretation Comments very low density lipoproteins (test 25 mg/dL 5-40 code = 209-7) [facility]eeHDL cholesterol, lcpww3682-77-96 10:26:00 Test Item Value Reference Range Interpretation Comments HDL cholesterol, serum (test code = 45 mg/dL >39 2084-9) [facility]etriglyceride, serum, nntvwzt8599-46-40 10:26:00 Test Item Value Reference Range Interpretation Comments triglyceride, serum, fasting (test 124 mg/dL 0-149 code = 2571-8) [facility]eecholesterol, sduwg0536-90-38 10:26:00 Test Item Value Reference Range Interpretation Comments cholesterol, serum (test code = 167 mg/dL 830-735 1251-3) [facility]eealanine aminotransferase (SGPT), dcwkw2036-52-96 10:26:00 Test Item Value Reference Range Interpretation Comments alanine aminotransferase (SGPT), 233 1/L 0-44 H serum (test code = 1742-6) [facility]eeaspartate aminotransferase (SGOT), mjgbn4935-62-58 10:26:00 Test Item Value Reference Range Interpretation Comments aspartate aminotransferase (SGOT), 89 1/L 0-40 H serum (test code = 1920-8) [facility]eealkaline phosphatase, zqrto7221-56-40 10:26:00 Test Item Value Reference Range Interpretation Comments alkaline phosphatase, serum (test code 89 1/L 39-117 = 1783-0) [facility]bilirubin, serum, [id number] 10:26:00 Test Item Value Reference Range Interpretation Comments bilirubin, serum, total (test code 0.4 mg/dL 0.0-1.2 = 1974-2) [facility]albumin/globulin ratio, rywln7951-18-49 10:26:00 Test Item Value Reference Range Interpretation Comments albumin/globulin ratio, 1.3 (unknown unit) 1.2-2.2 serum (test code = 1759-0) [facility]eglobulin, nwlln9082-75-98 10:26:00 Test Item Value Reference Range Interpretation Comments globulin, serum (test code 3.6 (unknown unit) 1.5-4.5 = 2336-6) [facility] Healthalbumin, jalth2541-75-66 10:26:00 Test Item Value Reference Range Interpretation Comments albumin, serum (test code = 1751-7) 4.5 g/dL 3.5-5.5 [facility]eprotein, total, skoth5422-92-48 10:26:00 Test Item Value Reference Range Interpretation Comments protein, total, serum (test code = 8.1 g/dL 6.0-8.5 2885-2) [facility]ardeecalcium, optyn3051-72-16 10:26:00 Test Item Value Reference Range Interpretation Comments calcium, serum (test code = 1999-8) 9.7 mg/dL 8.7-10.2 [facility]ecarbon dioxide, venous oxetq7507-49-95 10:26:00 Test Item Value Reference Range Interpretation Comments carbon dioxide, venous blood (test 28 mmol/L 18-29 code = 2026-1) [facility]eechloride, kyoir2823-18-99 10:26:00 Test Item Value Reference Range Interpretation Comments chloride, serum (test code = 99 mmol/L 96-106 2075-0) [facility]epotassium, mahza3729-58-84 10:26:00 Test Item Value Reference Range Interpretation Comments potassium, serum (test code = 4.5 mmol/L 3.5-5.2 2823-3) [facility]eesodium, talry6847-40-25 10:26:00 Test Item Value Reference Range Interpretation Comments sodium, serum (test code = 2951-2) 140 mmol/L 134-144 [facility]eeurea nitrogen/creatinine ratio, sdxcn9799-19-94 10:26:00 Test Item Value Reference Range Interpretation Comments urea nitrogen/creatinine 16 (unknown unit) 9-20 ratio, serum (test code = 3097-3) [facility]eeeGFR if Ejmowrqy8293-91-10 10:26:00 Test Item Value Reference Range Interpretation Comments eGFR if 106 mL/min/{1.73 m2} >59 (test code = 12560-6) [facility]eeEstimated Glomerular Filtration Rate (calc)2017-02-22 10:26:00 Test Item Value Reference Range Interpretation Comments Estimated Glomerular 92 mL/min/{1.73 m2} >59 Filtration Rate (calc) (test code = 05694-2) [facility] Healthcreatinine, rmsjt8611-81-44 10:26:00 Test Item Value Reference Range Interpretation Comments creatinine, serum (test code = 1.00 mg/dL 0.76-1.27 2160-0) [facility]eeurea nitrogen, zxzct5846-42-66 10:26:00 Test Item Value Reference Range Interpretation Comments urea nitrogen, blood (test code = 16 mg/dL 6-24 3094-0) [facility]eeblood glucose, vfvwpa1357-15-53 10:26:00 Test Item Value Reference Range Interpretation Comments blood glucose, random (test code = 96 mg/dL 65-99 2339-0) [facility]eeimmature granulocytes, percentage of total cells, blood 2017-02-22 10:26:00 Test Item Value Reference Range Interpretation Comments immature granulocytes, percentage of 0 % total cells, blood (test code = 33239-9) [facility]eebasophil count, efbojfhq8328-43-82 10:26:00 Test Item Value Reference Range Interpretation Comments basophil count, absolute (test 0.0 x10E3/uL 0.0-0.2 code = 35414-2) [facility]eeEosinophil Absolute Kkhfk2424-53-87 10:26:00 Test Item Value Reference Range Interpretation Comments Eosinophil Absolute Count (test 0.1 X10E3/UL 0.0-0.4 code = 88633-2) [facility]emonocyte count, blood, ddipyrcub2991-37-80 10:26:00 Test Item Value Reference Range Interpretation Comments monocyte count, blood, automated 0.4 X10E3/UL 0.1-0.9 (test code = 742-7) [facility]elymphocyte count, blood, wugpzgtzy8829-84-64 10:26:00 Test Item Value Reference Range Interpretation Comments lymphocyte count, blood, 3.0 X10E3/UL 0.7-3.1 automated (test code = 731-0) [facility]eeAbsolute Jyeupcpbpqb7514-15-33 10:26:00 Test Item Value Reference Range Interpretation Comments Absolute Neutrophils (test code 3.0 X10E3/UL 1.4-7.0 = 55424-3) [facility]eebasophils as percent of blood pfuacxetek5697-18-28 10:26:00 Test Item Value Reference Range Interpretation Comments basophils as percent of blood 0 % leukocytes (test code = 707-0) [facility]eeeosinophils as percent of blood zmnswpelmf6406-51-95 10:26:00 Test Item Value Reference Range Interpretation Comments eosinophils as percent of blood 1 % leukocytes (test code = 713-8) [facility] Healthmonocytes as percent of blood ljghkzeiyo7249-21-08 10:26:00 Test Item Value Reference Range Interpretation Comments monocytes as percent of blood 6 % leukocytes (test code = 5905-5) [facility]elymphocytes as percent of blood igcipgxwst7971-14-36 10:26:00 Test Item Value Reference Range Interpretation Comments lymphocytes as percent of blood 46 % leukocytes (test code = 736-9) [facility]eneutrophils as percent of blood rtptdmdesf8874-52-28 10:26:00 Test Item Value Reference Range Interpretation Comments neutrophils as percent of blood 47 % leukocytes (test code = 770-8) [facility]eeplatelet uskqs6032-96-82 10:26:00 Test Item Value Reference Range Interpretation Comments platelet count (test code = 192 X10E3/UL 150-379 777-3) [facility] cell distribution uldkw9953-21-01 10:26:00 Test Item Value Reference Range Interpretation Comments red blood cell distribution width 13.4 % 12.3-15.4 (test code = 788-0) [facility] corpuscular hemoglobin concentration, [id number] 10:26:00 Test Item Value Reference Range Interpretation Comments mean corpuscular hemoglobin 35.7 G/DL 31.5-35.7 concentration, RBC (test code = 786-4) [facility] corpuscular hemoglobin, [id number] 10:26:00 Test Item Value Reference Range Interpretation Comments mean corpuscular hemoglobin, RBC 33.7 pg 26.6-33.0 H (test code = 785-6) [facility] corpuscular volume, [id number] 10:26:00 Test Item Value Reference Range Interpretation Comments mean corpuscular volume, RBC (test code 95 fL 79-97 = 787-2) [facility]hematocrit, fgehb8857-35-75 10:26:00 Test Item Value Reference Range Interpretation Comments hematocrit, blood (test code = 4544-3) 48.5 % 37.5-51.0 [facility]eehemoglobin, dopdi1563-10-68 10:26:00 Test Item Value Reference Range Interpretation Comments hemoglobin, blood (test code = 17.3 g/dL 12.6-17.7 718-7) [facility]eeerythrocyte (RBC) rgato6505-14-05 10:26:00 Test Item Value Reference Range Interpretation Comments erythrocyte (RBC) count (test 5.13 X10E6/UL 4.14-5.80 code = 789-8) [facility]eeleukocyte count, oagcd6073-24-61 10:26:00 Test Item Value Reference Range Interpretation Comments leukocyte count, blood (test 6.6 X10E3/UL 3.4-10.8 code = 6690-2) [facility]eeT-helper cells (CD4) as percent of blood lymphocytes 2017-02-22 10:26:00 Test Item Value Reference Range Interpretation Comments T-helper cells (CD4) as percent of 28.5 % 30.8-58.5 L blood lymphocytes (test code = 8123-2) [facility]eeT-helper cells (CD4) nvpsq3690-73-68 10:26:00 Test Item Value Reference Range Interpretation Comments T-helper cells (CD4) count (test code 855 /UL 359-1519 = 30194-8) [facility]eeHIV-1RNA, serum, by PCR, jaowwdwogwqb4449-48-79 10:26:00 Test Item Value Reference Range Interpretation Comments HIV-1RNA, serum, by PCR, <20 copies/mL quantitative (test code = 13235-0) [facility]eeCD4/CD8 wgybz5593-13-86 10:26:00 Test Item Value Reference Range Interpretation Comments CD4/CD8 ratio (test code 0.83 (unknown unit) 0.92-3.72 L = 15632) [facility]eeT-suppressor cells (CD8) as percent of blood lymphocytes 2017-02-22 10:26:00 Test Item Value Reference Range Interpretation Comments T-suppressor cells (CD8) as percent of 34.5 % 12.0-35.5 blood lymphocytes (test code = 3517) [facility] [id number] 10:26:00 Test Item Value Reference Range Interpretation Comments absolute CD8 (test code = 1035 (unknown unit) 109-897 H 92983) [facility]eeHIV-1RNA, serum, by PCR, uvvqqdowkvsh8115-61-27 10:26:00 Test Item Value Reference Range Interpretation Comments HIV-1RNA, serum, by PCR, <20 copies/mL quantitative (test code = 78119) [facility]eeCD4/CD8 [id number] 10:26:00 Test Item Value Reference Range Interpretation Comments CD4/CD8 ratio (test code 0.83 (unknown unit) 0.92-3.72 L = 87214) [facility]eeT-suppressor cells (CD8) as percent of blood lymphocytes 2017-02-22 10:26:00 Test Item Value Reference Range Interpretation Comments T-suppressor cells (CD8) as percent of 34.5 % 12.0-35.5 blood lymphocytes (test code = 3517) [facility] [id number] 10:26:00 Test Item Value Reference Range Interpretation Comments absolute CD8 (test code = 1035 (unknown unit) 109-897 H 66627) [facility]eeopiates, urine, kegvmwdindskggno6745-89-64 10:57:42 Test Item Value Reference Range Interpretation Comments opiates, urine, semiquantitative Negative (test code = 3879-4) [facility]ardeecannabinoid screen, zkaxp1293-31-10 10:57:42 Test Item Value Reference Range Interpretation Comments cannabinoid screen, urine (test code Negative = 3426-4) [facility]ardeephencyclidine screen, ffvzo4605-27-45 10:57:42 Test Item Value Reference Range Interpretation Comments phencyclidine screen, urine (test Negative code = 3936-2) [facility]eeMethadone screen, dxtgb3161-84-43 10:57:42 Test Item Value Reference Range Interpretation Comments Methadone screen, urine (test code = Negative 25307-5) [facility]eebenzodiazepine screen, zadax5721-43-48 10:57:42 Test Item Value Reference Range Interpretation Comments benzodiazepine screen, urine (test Negative code = 3390-2) [facility] HealthOxycodone urine tyzzynbhn9776-75-09 10:57:42 Test Item Value Reference Range Interpretation Comments Oxycodone urine screening (test code Negative = 511881) [facility] Healthmorphine drug screen, ttbat6787-38-10 10:57:42 Test Item Value Reference Range Interpretation Comments morphine drug screen, urine (test Negative code = 18223) [facility]ardeetricyclic antidrepressants, qithi0160-45-72 10:57:42 Test Item Value Reference Range Interpretation Comments tricyclic antidrepressants, urine Negative (test code = 7393) [facility] HealthEcstasy (MDMA) Screen, juagx6268-00-83 10:57:42 Test Item Value Reference Range Interpretation Comments Ecstasy (MDMA) Screen, urine (test Negative code = 54990) [facility] Healthbarbiturates screen, gagpy3883-10-92 10:57:42 Test Item Value Reference Range Interpretation Comments barbiturates screen, urine (test Negative code = 2460) [facility]eeOxycodone urine uadstmvyb8766-20-94 10:57:42 Test Item Value Reference Range Interpretation Comments Oxycodone urine screening (test code Negative = 648537) [facility]ardeemorphine drug screen, irbzq5400-10-37 10:57:42 Test Item Value Reference Range Interpretation Comments morphine drug screen, urine (test Negative code = 93430) [facility]ardeetricyclic antidrepressants, dllnk9271-38-95 10:57:42 Test Item Value Reference Range Interpretation Comments tricyclic antidrepressants, urine Negative (test code = 7393) [facility] HealthEcstasy (MDMA) Screen, mzquh5045-04-13 10:57:42 Test Item Value Reference Range Interpretation Comments Ecstasy (MDMA) Screen, urine (test Negative code = 91459) [facility]eebarbiturates screen, avpvs0983-81-96 10:57:42 Test Item Value Reference Range Interpretation Comments barbiturates screen, urine (test Negative code = 2460) [facility]eeQuantiferon Gold TB blood test for tuberculosis screening 2016-10-08 09:58:00 Test Item Value Reference Range Interpretation Comments Quantiferon Gold TB blood test for Negative Negative tuberculosis screening (test code = 71267-9) [facility]eeTreponema pallidum particle agglutination assay (TPPA test)2016-10-08 09:58:00 Test Item Value Reference Range Interpretation Comments Treponema pallidum particle Positive Negative A agglutination assay (TPPA test) (test code = 03910-1) [facility]ardeerapid plasma reagin antibody, olzfr1416-11-92 09:58:00 Test Item Value Reference Range Interpretation Comments rapid plasma reagin 1:2 See_Comment H [Automa pepe message] The antibody, serum (test system which generated code = 5291-0) this result t ransmitted reference range : NonRea<1:1. The reference range was not u sed to interpret this result as normal/abnormal . [facility]eealanine aminotransferase (SGPT), iqqwn2960-15-10 09:58:00 Test Item Value Reference Range Interpretation Comments alanine aminotransferase (SGPT), 128 1/L 0-44 H serum (test code = 1742-6) [facility]eeaspartate aminotransferase (SGOT), ekije7960-74-88 09:58:00 Test Item Value Reference Range Interpretation Comments aspartate aminotransferase (SGOT), 67 1/L 0-40 H serum (test code = 1920-8) [facility]eealkaline phosphatase, ugrct0031-04-76 09:58:00 Test Item Value Reference Range Interpretation Comments alkaline phosphatase, serum (test code 99 1/L 39-117 = 1783-0) [facility]eebilirubin, serum, huzvf6770-49-13 09:58:00 Test Item Value Reference Range Interpretation Comments bilirubin, serum, total (test code 0.5 mg/dL 0.0-1.2 = 1975-2) [facility]eealbumin/globulin ratio, [id number] 09:58:00 Test Item Value Reference Range Interpretation Comments albumin/globulin ratio, 1.3 (unknown unit) 1.1-2.5 serum (test code = 1759-0) [facility]obulin, [id number] 09:58:00 Test Item Value Reference Range Interpretation Comments globulin, serum (test code 3.5 (unknown unit) 1.5-4.5 = 2336-6) [facility]albumin, vzpph6828-40-17 09:58:00 Test Item Value Reference Range Interpretation Comments albumin, serum (test code = 1751-7) 4.4 g/dL 3.5-5.5 [facility]eprotein, total, [id number] 09:58:00 Test Item Value Reference Range Interpretation Comments protein, total, serum (test code = 7.9 g/dL 6.0-8.5 2885-2) [facility]ecalcium, [id number] 09:58:00 Test Item Value Reference Range Interpretation Comments calcium, serum (test code = 1999-8) 9.5 mg/dL 8.7-10.2 [facility]ecarbon dioxide, venous sdrip6236-53-66 09:58:00 Test Item Value Reference Range Interpretation Comments carbon dioxide, venous blood (test 28 mmol/L -29 code = 7-1) [facility]eechloride, [id number] 09:58:00 Test Item Value Reference Range Interpretation Comments chloride, serum (test code = 99 mmol/L 96-106 5-0) [facility]epotassium, [id number] 09:58:00 Test Item Value Reference Range Interpretation Comments potassium, serum (test code = 4.2 mmol/L 3.5-5.2 2823-3) [facility]eesodium, [id number] 09:58:00 Test Item Value Reference Range Interpretation Comments sodium, serum (test code = 2951-2) 140 mmol/L 134-144 [facility]eeurea nitrogen/creatinine ratio, tdrfr3596-25-60 09:58:00 Test Item Value Reference Range Interpretation Comments urea nitrogen/creatinine 14 (unknown unit) 9-20 ratio, serum (test code = 3097-3) [facility] HealtheGFR if Gvkvkggv6295-27-60 09:58:00 Test Item Value Reference Range Interpretation Comments eGFR if 109 mL/min/{1.73 m2} >59 (test code = 14603-6) [facility]eeEstimated Glomerular Filtration Rate (calc)2016-10-08 09:58:00 Test Item Value Reference Range Interpretation Comments Estimated Glomerular 94 mL/min/{1.73 m2} >59 Filtration Rate (calc) (test code = 44893-0) [facility]ecreatinine, krhde7917-28-78 09:58:00 Test Item Value Reference Range Interpretation Comments creatinine, serum (test code = 0.98 mg/dL 0.76-1.27 2160-0) [facility]eeurea nitrogen, pnmqi7372-62-98 09:58:00 Test Item Value Reference Range Interpretation Comments urea nitrogen, blood (test code = 14 mg/dL 6-24 3094-0) [facility]eeblood glucose, uydevl5574-83-67 09:58:00 Test Item Value Reference Range Interpretation Comments blood glucose, random (test code = 89 mg/dL 65-99 2339-0) [facility]eeimmature granulocytes, percentage of total cells, blood 2016-10-08 09:58:00 Test Item Value Reference Range Interpretation Comments immature granulocytes, percentage of 0 % total cells, blood (test code = 83487-6) [facility]eebasophil count, [id number] 09:58:00 Test Item Value Reference Range Interpretation Comments basophil count, absolute (test 0.0 x10E3/uL 0.0-0.2 code = 47996-9) [facility]eeEosinophil Absolute Amldh3705-44-85 09:58:00 Test Item Value Reference Range Interpretation Comments Eosinophil Absolute Count (test 0.1 X10E3/UL 0.0-0.4 code = 92660-0) [facility]ardeemonocyte count, blood, jpwoexcpw7626-92-36 09:58:00 Test Item Value Reference Range Interpretation Comments monocyte count, blood, automated 0.4 X10E3/UL 0.1-0.9 (test code = 742-7) [facility]ardeelymphocyte count, blood, izouzijaz0217-85-25 09:58:00 Test Item Value Reference Range Interpretation Comments lymphocyte count, blood, 2.5 X10E3/UL 0.7-3.1 automated (test code = 731-0) [facility]eeAbsolute Gvqlfslwhhf8988-86-08 09:58:00 Test Item Value Reference Range Interpretation Comments Absolute Neutrophils (test code 2.9 X10E3/UL 1.4-7.0 = 38909-8) [facility]eebasophils as percent of blood bnxculxgwp6754-26-59 09:58:00 Test Item Value Reference Range Interpretation Comments basophils as percent of blood 0 % leukocytes (test code = 707-0) [facility] Healtheosinophils as percent of blood xcbururayl2114-45-87 09:58:00 Test Item Value Reference Range Interpretation Comments eosinophils as percent of blood 1 % leukocytes (test code = 713-8) [facility] Healthmonocytes as percent of blood qoosxjlylh2382-93-65 09:58:00 Test Item Value Reference Range Interpretation Comments monocytes as percent of blood 6 % leukocytes (test code = 5905-5) [facility]elymphocytes as percent of blood piadrwzhjr2278-78-95 09:58:00 Test Item Value Reference Range Interpretation Comments lymphocytes as percent of blood 43 % leukocytes (test code = 736-9) [facility]ardeeneutrophils as percent of blood iloiuyuvmy4214-44-27 09:58:00 Test Item Value Reference Range Interpretation Comments neutrophils as percent of blood 50 % leukocytes (test code = 770-8) [facility]eeplatelet vaoxx9423-51-25 09:58:00 Test Item Value Reference Range Interpretation Comments platelet count (test code = 192 X10E3/UL 150-379 777-3) [facility] blood cell distribution wxeic5456-33-74 09:58:00 Test Item Value Reference Range Interpretation Comments red blood cell distribution width 13.2 % 12.3-15.4 (test code = 788-0) [facility] corpuscular hemoglobin concentration, [id number] 09:58:00 Test Item Value Reference Range Interpretation Comments mean corpuscular hemoglobin 34.7 G/DL 31.5-35.7 concentration, RBC (test code = 786-4) [facility], [id number] 09:58:00 Test Item Value Reference Range Interpretation Comments mean corpuscular hemoglobin, RBC 32.4 pg 26.6-33.0 (test code = 785-6) [facility], [id number] 09:58:00 Test Item Value Reference Range Interpretation Comments mean corpuscular volume, RBC (test code 93 fL 79-97 = 787-2) [facility]eehematocrit, lzcsl9320-34-53 09:58:00 Test Item Value Reference Range Interpretation Comments hematocrit, blood (test code = 4544-3) 47.2 % 37.5-51.0 [facility]eehemoglobin, pjesl0961-02-71 09:58:00 Test Item Value Reference Range Interpretation Comments hemoglobin, blood (test code = 16.4 g/dL 12.6-17.7 718-7) [facility]eeerythrocyte (RBC) isgez2498-24-83 09:58:00 Test Item Value Reference Range Interpretation Comments erythrocyte (RBC) count (test 5.06 X10E6/UL 4.14-5.80 code = 789-8) [facility]eeleukocyte count, lvcuj4819-99-18 09:58:00 Test Item Value Reference Range Interpretation Comments leukocyte count, blood (test 5.8 X10E3/UL 3.4-10.8 code = 6690-2) [facility]eeT-helper cells (CD4) as percent of blood lymphocytes 2016-10-08 09:58:00 Test Item Value Reference Range Interpretation Comments T-helper cells (CD4) as percent of 28.3 % 30.8-58.5 L blood lymphocytes (test code = 8123-2) [facility]eeT-helper cells (CD4) cofro3953-85-13 09:58:00 Test Item Value Reference Range Interpretation Comments T-helper cells (CD4) count (test code 708 /UL 359-1519 = 61414-8) [facility]eeHIV-1RNA, serum, by PCR, iodrsswhxkog3730-34-98 09:58:00 Test Item Value Reference Range Interpretation Comments HIV-1RNA, serum, by PCR, <20 copies/mL quantitative (test code = 89889-5) [facility]eeCD4/CD8 covew8181-69-11 09:58:00 Test Item Value Reference Range Interpretation Comments CD4/CD8 ratio (test code 0.85 (unknown unit) 0.92-3.72 L = 18011) [facility]eeT-suppressor cells (CD8) as percent of blood lymphocytes 2016-10-08 09:58:00 Test Item Value Reference Range Interpretation Comments T-suppressor cells (CD8) as percent of 33.4 % 12.0-35.5 blood lymphocytes (test code = 3517) [facility]eeabsolute [id number] 09:58:00 Test Item Value Reference Range Interpretation Comments absolute CD8 (test code = 835 (unknown unit) 583-757 64398) [facility]eeHIV-1RNA, serum, by PCR, yttbsbdddvdh2078-92-17 09:58:00 Test Item Value Reference Range Interpretation Comments HIV-1RNA, serum, by PCR, <20 copies/mL quantitative (test code = 70890) [facility]eeCD4/CD8 btsbq2157-03-05 09:58:00 Test Item Value Reference Range Interpretation Comments CD4/CD8 ratio (test code 0.85 (unknown unit) 0.92-3.72 L = 10031) [facility]eeT-suppressor cells (CD8) as percent of blood lymphocytes 2016-10-08 09:58:00 Test Item Value Reference Range Interpretation Comments T-suppressor cells (CD8) as percent of 33.4 % 12.0-35.5 blood lymphocytes (test code = 3517) [facility] [id number] 09:58:00 Test Item Value Reference Range Interpretation Comments absolute CD8 (test code = 835 (unknown unit) 122-382 91461) [facility]ephencyclidine screen, [id number] 13:20:00 Test Item Value Reference Range Interpretation Comments phencyclidine screen, urine (test Negative Cutoff=25 code = 3936-2) [facility]ardeecannabinoid screen, hmvyv7280-08-08 13:20:00 Test Item Value Reference Range Interpretation Comments cannabinoid screen, urine (test code Negative Cutoff=50 = 3426-4) [facility]eebenzodiazepine screen, gfohy2843-17-06 13:20:00 Test Item Value Reference Range Interpretation Comments benzodiazepine screen, urine (test Negative Bcgbdo=335 code = 3390-2) [facility]eeamphetamine screen, sbali5837-19-90 13:20:00 Test Item Value Reference Range Interpretation Comments amphetamine screen, urine (test code Negative Wyuznb=3406 = 3349-8) [facility]eeEthanol screen oqnpq6471-01-51 13:20:00 Test Item Value Reference Range Interpretation Comments Ethanol screen urine (test code = Negative Cutoff=0.020 185539) [facility], kzzab3077-75-74 13:20:00 Test Item Value Reference Range Interpretation Comments opiate screen, urine (test code = Negative Mcaint=515 2521) [facility] Healthbarbiturates screen, kbqno2293-54-06 13:20:00 Test Item Value Reference Range Interpretation Comments barbiturates screen, urine (test Negative Mfzxaw=274 code = 2460) [facility] HealthEthanol screen bhmht6589-06-82 13:20:00 Test Item Value Reference Range Interpretation Comments Ethanol screen urine (test code = Negative Cutoff=0.020 022515) [facility] Healthopiate screen, xcjxa3137-71-92 13:20:00 Test Item Value Reference Range Interpretation Comments opiate screen, urine (test code = Negative Hyvmiq=671 2521) [facility]eebarbiturates screen, ndydu3105-82-14 13:20:00 Test Item Value Reference Range Interpretation Comments barbiturates screen, urine (test Negative Zlydjo=279 code = 2460) [facility]eealanine aminotransferase (SGPT), rjjul0117-29-29 12:22:00 Test Item Value Reference Range Interpretation Comments alanine aminotransferase (SGPT), serum 74 1/L 0-44 H (test code = 1742-6) [facility]eeaspartate aminotransferase (SGOT), wdgqj6291-40-61 12:22:00 Test Item Value Reference Range Interpretation Comments aspartate aminotransferase (SGOT), 47 1/L 0-40 H serum (test code = 1920-8) [facility]eealkaline phosphatase, rinvw9431-74-40 12:22:00 Test Item Value Reference Range Interpretation Comments alkaline phosphatase, serum (test code 92 1/L 39-117 = 1783-0) [facility]eebilirubin, serum, jgyfm0501-45-75 12:22:00 Test Item Value Reference Range Interpretation Comments bilirubin, serum, total (test code 0.5 mg/dL 0.0-1.2 = 1975-2) [facility]eealbumin/globulin ratio, nhwfn5770-83-67 12:22:00 Test Item Value Reference Range Interpretation Comments albumin/globulin ratio, 1.4 (unknown unit) 1.1-2.5 serum (test code = 1759-0) [facility]eglobulin, xoiir2994-66-43 12:22:00 Test Item Value Reference Range Interpretation Comments globulin, serum (test code 3.4 (unknown unit) 1.5-4.5 = 2336-6) [facility] Healthalbumin, tfzlg9211-46-84 12:22:00 Test Item Value Reference Range Interpretation Comments albumin, serum (test code = 1751-7) 4.7 g/dL 3.5-5.5 [facility] Healthprotein, total, aszhe2639-97-38 12:22:00 Test Item Value Reference Range Interpretation Comments protein, total, serum (test code = 8.1 g/dL 6.0-8.5 2885-2) [facility]ecalcium, scxbb0464-48-69 12:22:00 Test Item Value Reference Range Interpretation Comments calcium, serum (test code = 2000-8) 9.5 mg/dL 8.7-10.2 [facility]ecarbon dioxide, venous lhhev5434-18-02 12:22:00 Test Item Value Reference Range Interpretation Comments carbon dioxide, venous blood (test 27 mmol/L 18-29 code = 2026-1) [facility]eechloride, rqfsp2584-67-01 12:22:00 Test Item Value Reference Range Interpretation Comments chloride, serum (test code = 96 mmol/L 97-108 L 5-0) [facility]epotassium, zeysr2227-86-50 12:22:00 Test Item Value Reference Range Interpretation Comments potassium, serum (test code = 4.2 mmol/L 3.5-5.2 2823-3) [facility]eesodium, ugymw2596-45-18 12:22:00 Test Item Value Reference Range Interpretation Comments sodium, serum (test code = 2951-2) 139 mmol/L 134-144 [facility]eeurea nitrogen/creatinine ratio, jzipb5086-01-90 12:22:00 Test Item Value Reference Range Interpretation Comments urea nitrogen/creatinine 17 (unknown unit) 9-20 ratio, serum (test code = 3097-3) [facility] HealtheGFR if Nnunovek7091-28-90 12:22:00 Test Item Value Reference Range Interpretation Comments eGFR if 118 mL/min/{1.73 m2} >59 (test code = 29775-4) [facility]eeEstimated Glomerular Filtration Rate (calc)2016-06-08 12:22:00 Test Item Value Reference Range Interpretation Comments Estimated Glomerular 102 mL/min/{1.73 m2} >59 Filtration Rate (calc) (test code = 74448-4) [facility]ecreatinine, kgjrc9950-66-94 12:22:00 Test Item Value Reference Range Interpretation Comments creatinine, serum (test code = 0.92 mg/dL 0.76-1.27 2160-0) [facility]eeurea nitrogen, nrypy2802-90-89 12:22:00 Test Item Value Reference Range Interpretation Comments urea nitrogen, blood (test code = 16 mg/dL 6-24 3094-0) [facility]eeblood glucose, jyhppl5236-73-20 12:22:00 Test Item Value Reference Range Interpretation Comments blood glucose, random (test code = 98 mg/dL 65-99 2339-0) [facility]eeimmature granulocytes, percentage of total cells, blood 2016-06-08 12:22:00 Test Item Value Reference Range Interpretation Comments immature granulocytes, percentage of 0 % total cells, blood (test code = 53731-9) [facility]eebasophil count, ptwkvnna1649-76-65 12:22:00 Test Item Value Reference Range Interpretation Comments basophil count, absolute (test 0.0 x10E3/uL 0.0-0.2 code = 23942-7) [facility]eeEosinophil Absolute Tybfb6967-21-81 12:22:00 Test Item Value Reference Range Interpretation Comments Eosinophil Absolute Count (test 0.1 X10E3/UL 0.0-0.4 code = 63994-6) [facility]ardeemonocyte count, blood, zjjxaveqs7982-46-10 12:22:00 Test Item Value Reference Range Interpretation Comments monocyte count, blood, automated 0.5 X10E3/UL 0.1-0.9 (test code = 742-7) [facility]ardeelymphocyte count, blood, rwlrjefrj5549-36-03 12:22:00 Test Item Value Reference Range Interpretation Comments lymphocyte count, blood, 2.8 X10E3/UL 0.7-3.1 automated (test code = 731-0) [facility]eeAbsolute Tmoreickkiw8414-75-96 12:22:00 Test Item Value Reference Range Interpretation Comments Absolute Neutrophils (test code 2.9 X10E3/UL 1.4-7.0 = 41028-1) [facility] Healthbasophils as percent of blood txwlcmudea5367-71-30 12:22:00 Test Item Value Reference Range Interpretation Comments basophils as percent of blood 0 % leukocytes (test code = 707-0) [facility]eeeosinophils as percent of blood ujrwphisxh0966-16-50 12:22:00 Test Item Value Reference Range Interpretation Comments eosinophils as percent of blood 2 % leukocytes (test code = 713-8) [facility] Healthmonocytes as percent of blood pcsnoiuozg0275-96-91 12:22:00 Test Item Value Reference Range Interpretation Comments monocytes as percent of blood 9 % leukocytes (test code = 5905-5) [facility]ardeelymphocytes as percent of blood ouahvgymeu4797-56-03 12:22:00 Test Item Value Reference Range Interpretation Comments lymphocytes as percent of blood 44 % leukocytes (test code = 736-9) [facility]ardeeneutrophils as percent of blood pickykcyez3326-93-41 12:22:00 Test Item Value Reference Range Interpretation Comments neutrophils as percent of blood 45 % leukocytes (test code = 770-8) [facility]ardeeplatelet kqkss9884-91-26 12:22:00 Test Item Value Reference Range Interpretation Comments platelet count (test code = 184 X10E3/UL 150-379 777-3) [facility] blood cell distribution zlkjv7767-59-40 12:22:00 Test Item Value Reference Range Interpretation Comments red blood cell distribution width 13.7 % 12.3-15.4 (test code = 788-0) [facility] corpuscular hemoglobin concentration, [id number] 12:22:00 Test Item Value Reference Range Interpretation Comments mean corpuscular hemoglobin 34.5 G/DL 31.5-35.7 concentration, RBC (test code = 786-4) [facility], [id number] 12:22:00 Test Item Value Reference Range Interpretation Comments mean corpuscular hemoglobin, RBC 32.4 pg 26.6-33.0 (test code = 785-6) [facility] corpuscular volume, [id number] 12:22:00 Test Item Value Reference Range Interpretation Comments mean corpuscular volume, RBC (test code 94 fL 79-97 = 787-2) [facility]eehematocrit, yecwj8890-87-91 12:22:00 Test Item Value Reference Range Interpretation Comments hematocrit, blood (test code = 4544-3) 47.5 % 37.5-51.0 [facility]eehemoglobin, gpmud7297-44-20 12:22:00 Test Item Value Reference Range Interpretation Comments hemoglobin, blood (test code = 16.4 g/dL 12.6-17.7 718-7) [facility]eeerythrocyte (RBC) tukaa8867-05-29 12:22:00 Test Item Value Reference Range Interpretation Comments erythrocyte (RBC) count (test 5.06 X10E6/UL 4.14-5.80 code = 789-8) [facility]eeleukocyte count, sfbct9891-08-67 12:22:00 Test Item Value Reference Range Interpretation Comments leukocyte count, blood (test 6.3 X10E3/UL 3.4-10.8 code = 6690-2) [facility]eeHepatitis C virus (HCV) RNA, PCR, voixrdepdlca4730-29-43 12:22:00 Test Item Value Reference Range Interpretation Comments Hepatitis C virus (HCV) RNA, 21641 [iU]/mL PCR, quantitative (test code = 80611-3) [facility]eeHepatitis C virus (HCV) RNA, PCR, xcggrnhtmqkf7805-45-56 12:22:00 Test Item Value Reference Range Interpretation Comments Hepatitis C virus (HCV) RNA, 34633 [iU]/mL PCR, quantitative (test code = 39257) [facility]eeHERPES SIMPLEX VIRUS IDENTIFIED (PT; XXX; QL; )2016-04-28 11:10:00 Test Item Value Reference Range Interpretation Comments HERPES SIMPLEX VIRUS IDENTIFIED (PT; HSVN XXX; QL; ) (test code = 5859-4) [facility]HERPES SIMPLEX VIRUS IDENTIFIED (PT; XXX; QL; )2016-04-28 11:10:00 Test Item Value Reference Range Interpretation Comments HERPES SIMPLEX VIRUS IDENTIFIED (PT; HSVN XXX; QL; ) (test code = 3557) [facility]eeNeisseria gonorrhoeae DNA osygb7640-97-85 13:19:00 Test Item Value Reference Range Interpretation Comments Neisseria gonorrhoeae DNA probe Negative Negative (test code = 86074-5) [facility]eechlamydia DNA [id number] 13:19:00 Test Item Value Reference Range Interpretation Comments chlamydia DNA probe (test code = Negative Negative 14718-2) [facility]eeTreponema pallidum particle agglutination assay (TPPA test)2016-04-27 09:23:00 Test Item Value Reference Range Interpretation Comments Treponema pallidum particle Positive Negative A agglutination assay (TPPA test) (test code = 66353-5) [facility]ardeerapid plasma reagin antibody, nhqpr6542-09-25 09:23:00 Test Item Value Reference Range Interpretation Comments rapid plasma reagin 1:64 See_Comment H [Automa pepe message] The antibody, serum (test system which generated code = 5291-0) this result t ransmitted reference range : NonRea<1:1. The reference range was not u sed to interpret this result as normal/abnormal . [facility]eprothrombin time (patient)2016-04-27 09:23:00 Test Item Value Reference Range Interpretation Comments prothrombin time (patient) (test code 10.6 s 9.1-12.0 = 5902-2) [facility]eeinternational normalized ratio (INR)2016-04-27 09:23:00 Test Item Value Reference Range Interpretation Comments international normalized 1.0 (unknown unit) 0.8-1.2 ratio (INR) (test code = 6301-6) [facility]eeLDL cholesterol, dpumm2851-36-81 09:23:00 Test Item Value Reference Range Interpretation Comments LDL cholesterol, serum (test code = 93 mg/dL 0-99 9-1) [facility]eevery low density afbdllsqbjvh1994-16-09 09:23:00 Test Item Value Reference Range Interpretation Comments very low density lipoproteins (test 23 mg/dL 5-40 code = 2091-7) [facility]eeHDL cholesterol, rqlrj5529-15-10 09:23:00 Test Item Value Reference Range Interpretation Comments HDL cholesterol, serum (test code = 40 mg/dL >39 5-9) [facility]etriglyceride, serum, cfwuqkm5854-72-09 09:23:00 Test Item Value Reference Range Interpretation Comments triglyceride, serum, fasting (test 114 mg/dL 0-149 code = 2571-8) [facility]eecholesterol, xmhfc0313-68-26 09:23:00 Test Item Value Reference Range Interpretation Comments cholesterol, serum (test code = 156 mg/dL 284-145 5064-3) [facility]eealanine aminotransferase (SGPT), ixdkr7027-62-40 09:23:00 Test Item Value Reference Range Interpretation Comments alanine aminotransferase (SGPT), serum 41 1/L 0-44 (test code = 1742-6) [facility]eeaspartate aminotransferase (SGOT), hgsyq0031-27-65 09:23:00 Test Item Value Reference Range Interpretation Comments aspartate aminotransferase (SGOT), 33 1/L 0-40 serum (test code = 1920-8) [facility]eealkaline phosphatase, ryqij6785-21-73 09:23:00 Test Item Value Reference Range Interpretation Comments alkaline phosphatase, serum (test code 92 1/L 39-117 = 1783-0) [facility]eebilirubin, serum, ymwlo5206-82-51 09:23:00 Test Item Value Reference Range Interpretation Comments bilirubin, serum, total (test code 0.4 mg/dL 0.0-1.2 = 1975-2) [facility]eealbumin/globulin ratio, dlqfq0424-79-12 09:23:00 Test Item Value Reference Range Interpretation Comments albumin/globulin ratio, 1.2 (unknown unit) 1.1-2.5 serum (test code = 1759-0) [facility] Healthglobulin, yddqm8626-48-42 09:23:00 Test Item Value Reference Range Interpretation Comments globulin, serum (test code 3.7 (unknown unit) 1.5-4.5 = 2336-6) [facility] Healthalbumin, qtawi2831-51-69 09:23:00 Test Item Value Reference Range Interpretation Comments albumin, serum (test code = 1751-7) 4.5 g/dL 3.5-5.5 [facility]ardeeprotein, total, xcelt7886-78-22 09:23:00 Test Item Value Reference Range Interpretation Comments protein, total, serum (test code = 8.2 g/dL 6.0-8.5 2885-2) [facility]ardeecalcium, fzwhw9539-19-98 09:23:00 Test Item Value Reference Range Interpretation Comments calcium, serum (test code = 2000-8) 9.7 mg/dL 8.7-10.2 [facility]ardeecarbon dioxide, venous ggogd2886-30-82 09:23:00 Test Item Value Reference Range Interpretation Comments carbon dioxide, venous blood (test 26 mmol/L 18-29 code = 7-1) [facility] Healthchloride, qoqtr5464-45-14 09:23:00 Test Item Value Reference Range Interpretation Comments chloride, serum (test code = 96 mmol/L 97-108 L 5-0) [facility] Healthpotassium, jtkon6483-96-23 09:23:00 Test Item Value Reference Range Interpretation Comments potassium, serum (test code = 4.2 mmol/L 3.5-5.2 2823-3) [facility]eesodium, fdugi3207-61-83 09:23:00 Test Item Value Reference Range Interpretation Comments sodium, serum (test code = 2951-2) 140 mmol/L 134-144 [facility]ardeeurea nitrogen/creatinine ratio, myuvu5106-35-75 09:23:00 Test Item Value Reference Range Interpretation Comments urea nitrogen/creatinine 14 (unknown unit) 9-20 ratio, serum (test code = 3097-3) [facility] HealtheGFR if Zscvhfsf6012-40-18 09:23:00 Test Item Value Reference Range Interpretation Comments eGFR if 117 mL/min/{1.73 m2} >59 (test code = 51229-2) [facility]eeEstimated Glomerular Filtration Rate (calc)2016-04-27 09:23:00 Test Item Value Reference Range Interpretation Comments Estimated Glomerular 101 mL/min/{1.73 m2} >59 Filtration Rate (calc) (test code = 22268-6) [facility]ardeecreatinine, [id number] 09:23:00 Test Item Value Reference Range Interpretation Comments creatinine, serum (test code = 0.93 mg/dL 0.76-1.27 0-0) [facility] nitrogen, [id number] 09:23:00 Test Item Value Reference Range Interpretation Comments urea nitrogen, blood (test code = 13 mg/dL 6-24 3094-0) [facility] glucose, [id number] 09:23:00 Test Item Value Reference Range Interpretation Comments blood glucose, random (test code = 80 mg/dL 65-99 2339-0) [facility]eeimmature granulocytes, percentage of total cells, blood 2016-04-27 09:23:00 Test Item Value Reference Range Interpretation Comments immature granulocytes, percentage of 0 % total cells, blood (test code = 24512-0) [facility] Healthbasophil count, [id number] 09:23:00 Test Item Value Reference Range Interpretation Comments basophil count, absolute (test 0.0 x10E3/uL 0.0-0.2 code = 52989-5) [facility] HealthEosinophil Absolute Syagr0834-18-03 09:23:00 Test Item Value Reference Range Interpretation Comments Eosinophil Absolute Count (test 0.1 X10E3/UL 0.0-0.4 code = 10445-5) [facility]emonocyte count, blood, dwnbxqhmf4905-52-75 09:23:00 Test Item Value Reference Range Interpretation Comments monocyte count, blood, automated 0.5 X10E3/UL 0.1-0.9 (test code = 742-7) [facility]ardeelymphocyte count, blood, sdbunvieh7476-16-44 09:23:00 Test Item Value Reference Range Interpretation Comments lymphocyte count, blood, 2.9 X10E3/UL 0.7-3.1 automated (test code = 731-0) [facility]Absolute Cobrbevdcmj0039-55-58 09:23:00 Test Item Value Reference Range Interpretation Comments Absolute Neutrophils (test code 4.3 X10E3/UL 1.4-7.0 = 74071-8) [facility]ee[facility]ophils as percent of blood irrlpjutie5746-56-72 09:23:00 Test Item Value Reference Range Interpretation Comments basophils as percent of blood 0 % leukocytes (test code = 707-0) [facility] Healtheosinophils as percent of blood txgfhxdpoz5394-96-02 09:23:00 Test Item Value Reference Range Interpretation Comments eosinophils as percent of blood 1 % leukocytes (test code = 713-8) [facility]mon[facility] as percent of blood eroqrfplhm0570-88-44 09:23:00 Test Item Value Reference Range Interpretation Comments monocytes as percent of blood 6 % leukocytes (test code = 5905-5) [facility]elymphocytes as percent of blood tabgdvxdef4205-14-98 09:23:00 Test Item Value Reference Range Interpretation Comments lymphocytes as percent of blood 37 % leukocytes (test code = 736-9) [facility]ardeeneutrophils as percent of blood jyuotdbfai3699-63-84 09:23:00 Test Item Value Reference Range Interpretation Comments neutrophils as percent of blood 56 % leukocytes (test code = 770-8) [facility]eeplatelet sfpqm8179-59-77 09:23:00 Test Item Value Reference Range Interpretation Comments platelet count (test code = 208 X10E3/UL 150-379 777-3) [facility] cell distribution jrvgg6092-20-50 09:23:00 Test Item Value Reference Range Interpretation Comments red blood cell distribution width 13.5 % 12.3-15.4 (test code = 788-0) [facility] corpuscular hemoglobin concentration, [id number] 09:23:00 Test Item Value Reference Range Interpretation Comments mean corpuscular hemoglobin 34.1 G/DL 31.5-35.7 concentration, RBC (test code = 786-4) [facility] corpuscular hemoglobin, [id number] 09:23:00 Test Item Value Reference Range Interpretation Comments mean corpuscular hemoglobin, RBC 32.9 pg 26.6-33.0 (test code = 785-6) [facility] corpuscular volume, [id number] 09:23:00 Test Item Value Reference Range Interpretation Comments mean corpuscular volume, RBC (test code 97 fL 79-97 = 787-2) [facility]eehematocrit, ynfmv3443-02-83 09:23:00 Test Item Value Reference Range Interpretation Comments hematocrit, blood (test code = 4544-3) 48.1 % 37.5-51.0 [facility]eehemoglobin, [id number] 09:23:00 Test Item Value Reference Range Interpretation Comments hemoglobin, blood (test code = 16.4 g/dL 12.6-17.7 718-7) [facility]eeerythrocyte (RBC) ygadk9032-88-51 09:23:00 Test Item Value Reference Range Interpretation Comments erythrocyte (RBC) count (test 4.98 X10E6/UL 4.14-5.80 code = 789-8) [facility]eeleukocyte count, [id number] 09:23:00 Test Item Value Reference Range Interpretation Comments leukocyte count, blood (test 7.9 X10E3/UL 3.4-10.8 code = 6690-2) [facility]eeT-helper cells (CD4) as percent of blood lymphocytes 2016-04-27 09:23:00 Test Item Value Reference Range Interpretation Comments T-helper cells (CD4) as percent of 28.1 % 30.8-58.5 L blood lymphocytes (test code = 8123-2) [facility]eeT-helper cells (CD4) ashfr2803-32-92 09:23:00 Test Item Value Reference Range Interpretation Comments T-helper cells (CD4) count (test code 815 /UL 359-1519 = 76990-6) [facility]eeHIV-1RNA, serum, by PCR, tbnxxwgxypat6580-32-08 09:23:00 Test Item Value Reference Range Interpretation Comments HIV-1RNA, serum, by PCR, quantitative 80 /mL (test code = 94197-6) [facility]eeHepatitis C virus (HCV) RNA, PCR, qwoijkudwibc1035-82-68 09:23:00 Test Item Value Reference Range Interpretation Comments Hepatitis C virus (HCV) RNA, 4970 [iU]/mL PCR, quantitative (test code = 17042-5) [facility]eeCD4/CD8 zcwsh4042-29-55 09:23:00 Test Item Value Reference Range Interpretation Comments CD4/CD8 ratio (test code 0.79 (unknown unit) 0.92-3.72 L = 02185) [facility]eeT-suppressor cells (CD8) as percent of blood lymphocytes 2016-04-27 09:23:00 Test Item Value Reference Range Interpretation Comments T-suppressor cells (CD8) as percent of 35.5 % 12.0-35.5 blood lymphocytes (test code = 3517) [facility]eeabsolute [id number] 09:23:00 Test Item Value Reference Range Interpretation Comments absolute CD8 (test code = 1030 (unknown unit) 109-897 H 05561) [facility]eeHIV-1RNA, serum, by PCR, fboazehgxqir1187-78-25 09:23:00 Test Item Value Reference Range Interpretation Comments HIV-1RNA, serum, by PCR, quantitative 80 /mL (test code = 95787) [facility]eeHepatitis C virus (HCV) RNA, PCR, gfeyoldyhrfx8468-86-89 09:23:00 Test Item Value Reference Range Interpretation Comments Hepatitis C virus (HCV) RNA, 4970 [iU]/mL PCR, quantitative (test code = 65543) [facility]eeCD4/CD8 buvpq2467-64-30 09:23:00 Test Item Value Reference Range Interpretation Comments CD4/CD8 ratio (test code 0.79 (unknown unit) 0.92-3.72 L = 97801) [facility]eeT-suppressor cells (CD8) as percent of blood lymphocytes 2016-04-27 09:23:00 Test Item Value Reference Range Interpretation Comments T-suppressor cells (CD8) as percent of 35.5 % 12.0-35.5 blood lymphocytes (test code = 3517) [facility]eeabsolute [id number] 09:23:00 Test Item Value Reference Range Interpretation Comments absolute CD8 (test code = 1030 (unknown unit) 109-897 H 07699) [facility]erapid plasma reagin antibody, ehwqy2758-45-93 11:49:00 Test Item Value Reference Range Interpretation Comments rapid plasma reagin antibody, Non Reactive Non Reactive serum (test code = 5291-0) [facility]eeLDL cholesterol, [id number] 11:49:00 Test Item Value Reference Range Interpretation Comments LDL cholesterol, serum (test code = 91 mg/dL 0-99 2088-1) [facility]eevery low density rbzisaipcrcg0027-55-69 11:49:00 Test Item Value Reference Range Interpretation Comments very low density lipoproteins (test 25 mg/dL 5-40 code = 1-7) [facility]eeHDL cholesterol, cqpoh2897-58-97 11:49:00 Test Item Value Reference Range Interpretation Comments HDL cholesterol, serum (test code = 44 mg/dL >39 2084-9) [facility]etriglyceride, serum, [id number] 11:49:00 Test Item Value Reference Range Interpretation Comments triglyceride, serum, fasting (test 127 mg/dL 0-149 code = 2571-8) [facility]eecholesterol, [id number] 11:49:00 Test Item Value Reference Range Interpretation Comments cholesterol, serum (test code = 160 mg/dL 255-363 5555-3) [facility]eealanine aminotransferase (SGPT), ghdvy7593-92-48 11:49:00 Test Item Value Reference Range Interpretation Comments alanine aminotransferase (SGPT), 406 1/L 0-44 H serum (test code = 1742-6) [facility]eeaspartate aminotransferase (SGOT), vkmbp3984-55-98 11:49:00 Test Item Value Reference Range Interpretation Comments aspartate aminotransferase (SGOT), 198 1/L 0-40 H serum (test code = 1920-8) [facility]eealkaline phosphatase, fcvie1542-45-64 11:49:00 Test Item Value Reference Range Interpretation Comments alkaline phosphatase, serum (test code 94 1/L 39-117 = 1783-0) [facility]eebilirubin, serum, [id number] 11:49:00 Test Item Value Reference Range Interpretation Comments bilirubin, serum, total (test code 0.5 mg/dL 0.0-1.2 = 1975-2) [facility]eealbumin/globulin ratio, eitck9752-19-10 11:49:00 Test Item Value Reference Range Interpretation Comments albumin/globulin ratio, 1.2 (unknown unit) 1.1-2.5 serum (test code = 1759-0) [facility] Healthglobulin, ifocb7811-91-03 11:49:00 Test Item Value Reference Range Interpretation Comments globulin, serum (test code 3.5 (unknown unit) 1.5-4.5 = 2336-6) [facility]eealbumin, [id number] 11:49:00 Test Item Value Reference Range Interpretation Comments albumin, serum (test code = 1751-7) 4.2 g/dL 3.5-5.5 [facility]ardeeprotein, total, [id number] 11:49:00 Test Item Value Reference Range Interpretation Comments protein, total, serum (test code = 7.7 g/dL 6.0-8.5 2885-2) [facility] Healthcalcium, mogre1873-14-16 11:49:00 Test Item Value Reference Range Interpretation Comments calcium, serum (test code = 1999-8) 9.6 mg/dL 8.7-10.2 [facility]ecarbon dioxide, venous [id number] 11:49:00 Test Item Value Reference Range Interpretation Comments carbon dioxide, venous blood (test 26 mmol/L 18-29 code = 2026-1) [facility] Healthchloride, mrrkz5837-96-38 11:49:00 Test Item Value Reference Range Interpretation Comments chloride, serum (test code = 98 mmol/L 97-108 5-0) [facility] Healthpotassium, qflej6189-53-99 11:49:00 Test Item Value Reference Range Interpretation Comments potassium, serum (test code = 4.0 mmol/L 3.5-5.2 2823-3) [facility]eesodium, ntjga0115-92-51 11:49:00 Test Item Value Reference Range Interpretation Comments sodium, serum (test code = 2951-2) 141 mmol/L 134-144 [facility]eeurea nitrogen/creatinine ratio, aquzo9223-96-23 11:49:00 Test Item Value Reference Range Interpretation Comments urea nitrogen/creatinine 21 (unknown unit) 9-20 H ratio, serum (test code = 3097-3) [facility] HealtheGFR if Vexfehlj0533-81-55 11:49:00 Test Item Value Reference Range Interpretation Comments eGFR if 108 mL/min/{1.73 m2} >59 (test code = 84107-8) [facility]eeEstimated Glomerular Filtration Rate (calc)2015-12-30 11:49:00 Test Item Value Reference Range Interpretation Comments Estimated Glomerular 94 mL/min/{1.73 m2} >59 Filtration Rate (calc) (test code = 98388-8) [facility]ardeecreatinine, [id number] 11:49:00 Test Item Value Reference Range Interpretation Comments creatinine, serum (test code = 0.99 mg/dL 0.76-1.27 0-0) [facility]a nitrogen, cfbcu6384-07-76 11:49:00 Test Item Value Reference Range Interpretation Comments urea nitrogen, blood (test code = 21 mg/dL 6-24 3094-0) [facility]eeblood glucose, rldzvd7571-82-91 11:49:00 Test Item Value Reference Range Interpretation Comments blood glucose, random (test code = 81 mg/dL 65-99 2339-0) [facility]eeimmature granulocytes, percentage of total cells, blood 2015-12-30 11:49:00 Test Item Value Reference Range Interpretation Comments immature granulocytes, percentage of 0 % total cells, blood (test code = 63465-5) [facility]eebasophil count, souyhesi8730-56-58 11:49:00 Test Item Value Reference Range Interpretation Comments basophil count, absolute (test 0.0 x10E3/uL 0.0-0.2 code = 54286-0) [facility]eeEosinophil Absolute [id number] 11:49:00 Test Item Value Reference Range Interpretation Comments Eosinophil Absolute Count (test 0.1 X10E3/UL 0.0-0.4 code = 25758-1) [facility]ardeemonocyte count, blood, ppskrkums4091-26-70 11:49:00 Test Item Value Reference Range Interpretation Comments monocyte count, blood, automated 0.5 X10E3/UL 0.1-0.9 (test code = 742-7) [facility]ardeelymphocyte count, blood, acbckgqhj4798-69-25 11:49:00 Test Item Value Reference Range Interpretation Comments lymphocyte count, blood, 3.6 X10E3/UL 0.7-3.1 H automated (test code = 731-0) [facility]Absolute Uflrvelwywd5886-09-75 11:49:00 Test Item Value Reference Range Interpretation Comments Absolute Neutrophils (test code 4.4 X10E3/UL 1.4-7.0 = 44580-0) [facility]eebasophils as percent of blood ndlbzwsmco2805-60-15 11:49:00 Test Item Value Reference Range Interpretation Comments basophils as percent of blood 0 % leukocytes (test code = 707-0) [facility]eeeosinophils as percent of blood obsscdcmwx5365-42-89 11:49:00 Test Item Value Reference Range Interpretation Comments eosinophils as percent of blood 1 % leukocytes (test code = 713-8) [facility]ardeemonocytes as percent of blood cyqccmujuf9520-96-03 11:49:00 Test Item Value Reference Range Interpretation Comments monocytes as percent of blood 5 % leukocytes (test code = 5905-5) [facility]ardeelymphocytes as percent of blood ayeegibldr2594-91-77 11:49:00 Test Item Value Reference Range Interpretation Comments lymphocytes as percent of blood 42 % leukocytes (test code = 736-9) [facility]ardeeneutrophils as percent of blood mljfqlgkjo3085-36-94 11:49:00 Test Item Value Reference Range Interpretation Comments neutrophils as percent of blood 52 % leukocytes (test code = 770-8) [facility]eeplatelet vaquu4334-42-01 11:49:00 Test Item Value Reference Range Interpretation Comments platelet count (test code = 214 X10E3/UL 150-379 777-3) [facility] blood cell distribution kppus3076-93-88 11:49:00 Test Item Value Reference Range Interpretation Comments red blood cell distribution width 13.8 % 12.3-15.4 (test code = 788-0) [facility] corpuscular hemoglobin concentration, [id number] 11:49:00 Test Item Value Reference Range Interpretation Comments mean corpuscular hemoglobin 34.5 G/DL 31.5-35.7 concentration, RBC (test code = 786-4) [facility] corpuscular hemoglobin, [id number] 11:49:00 Test Item Value Reference Range Interpretation Comments mean corpuscular hemoglobin, RBC 32.9 pg 26.6-33.0 (test code = 785-6) [facility] corpuscular volume, [id number] 11:49:00 Test Item Value Reference Range Interpretation Comments mean corpuscular volume, RBC (test code 96 fL 79-97 = 787-2) [facility]eehematocrit, tojbw8658-67-04 11:49:00 Test Item Value Reference Range Interpretation Comments hematocrit, blood (test code = 4544-3) 48.7 % 37.5-51.0 [facility]eehemoglobin, rfeem9492-08-79 11:49:00 Test Item Value Reference Range Interpretation Comments hemoglobin, blood (test code = 16.8 g/dL 12.6-17.7 718-7) [facility]eeerythrocyte (RBC) pmbmd4745-11-70 11:49:00 Test Item Value Reference Range Interpretation Comments erythrocyte (RBC) count (test 5.10 X10E6/UL 4.14-5.80 code = 789-8) [facility]eeleukocyte count, hvybz5649-60-80 11:49:00 Test Item Value Reference Range Interpretation Comments leukocyte count, blood (test 8.7 X10E3/UL 3.4-10.8 code = 6690-2) [facility]eeT-helper cells (CD4) as percent of blood lymphocytes 2015-12-30 11:49:00 Test Item Value Reference Range Interpretation Comments T-helper cells (CD4) as percent of 24.3 % 30.8-58.5 L blood lymphocytes (test code = 8123-2) [facility]eeT-helper cells (CD4) kbfkx5081-45-23 11:49:00 Test Item Value Reference Range Interpretation Comments T-helper cells (CD4) count (test code 875 /UL 359-1519 = 37345-1) [facility]eeHIV-1RNA, serum, by PCR, trqbcfsikghu0304-87-66 11:49:00 Test Item Value Reference Range Interpretation Comments HIV-1RNA, serum, by PCR, quantitative 60 /mL (test code = 90023-3) [facility]eeCD4/CD8 tpzla3387-78-87 11:49:00 Test Item Value Reference Range Interpretation Comments CD4/CD8 ratio (test code 0.71 (unknown unit) 0.92-3.72 L = 81226) [facility]eeT-suppressor cells (CD8) as percent of blood lymphocytes 2015-12-30 11:49:00 Test Item Value Reference Range Interpretation Comments T-suppressor cells (CD8) as percent of 34.2 % 12.0-35.5 blood lymphocytes (test code = 3517) [facility]eeabsolute [id number] 11:49:00 Test Item Value Reference Range Interpretation Comments absolute CD8 (test code = 1231 (unknown unit) 109-897 H 77148) [facility]eeHIV-1RNA, serum, by PCR, nlmvazrymhnh5520-09-52 11:49:00 Test Item Value Reference Range Interpretation Comments HIV-1RNA, serum, by PCR, quantitative 60 /mL (test code = 12795) [facility]eeCD4/CD8 tlahi3184-75-03 11:49:00 Test Item Value Reference Range Interpretation Comments CD4/CD8 ratio (test code 0.71 (unknown unit) 0.92-3.72 L = 57707) [facility]eeT-suppressor cells (CD8) as percent of blood lymphocytes 2015-12-30 11:49:00 Test Item Value Reference Range Interpretation Comments T-suppressor cells (CD8) as percent of 34.2 % 12.0-35.5 blood lymphocytes (test code = 3517) [facility]eeabsolute [id number] 11:49:00 Test Item Value Reference Range Interpretation Comments absolute CD8 (test code = 1231 (unknown unit) 109-897 H 50865) [facility]erapid plasma reagin antibody, clyji6198-53-34 11:43:00 Test Item Value Reference Range Interpretation Comments rapid plasma reagin antibody, Non Reactive Non Reactive serum (test code = 5291-0) [facility]eeLDL cholesterol, vqbwr7520-77-45 11:43:00 Test Item Value Reference Range Interpretation Comments LDL cholesterol, serum (test code = 88 mg/dL 0-99 2088-1) [facility]eevery low density shurvshjpwoc9044-18-69 11:43:00 Test Item Value Reference Range Interpretation Comments very low density lipoproteins (test 21 mg/dL 5-40 code = 2091-7) [facility]eeHDL cholesterol, jlfii7235-62-79 11:43:00 Test Item Value Reference Range Interpretation Comments HDL cholesterol, serum (test code = 51 mg/dL >39 2084-9) [facility]etriglyceride, serum, rawrwxd6644-37-57 11:43:00 Test Item Value Reference Range Interpretation Comments triglyceride, serum, fasting (test 107 mg/dL 0-149 code = 2571-8) [facility]eecholesterol, nzctv8293-11-13 11:43:00 Test Item Value Reference Range Interpretation Comments cholesterol, serum (test code = 160 mg/dL 102-647 7706-3) [facility]eealanine aminotransferase (SGPT), ibffq5829-18-30 11:43:00 Test Item Value Reference Range Interpretation Comments alanine aminotransferase (SGPT), 274 1/L 0-44 H serum (test code = 1742-6) [facility] Healthaspartate aminotransferase (SGOT), nwiwb5506-47-77 11:43:00 Test Item Value Reference Range Interpretation Comments aspartate aminotransferase (SGOT), 113 1/L 0-40 H serum (test code = 1920-8) [facility]eealkaline phosphatase, ptkbk2108-62-86 11:43:00 Test Item Value Reference Range Interpretation Comments alkaline phosphatase, serum (test 107 1/L 39-117 code = 1783-0) [facility]eebilirubin, serum, [id number] 11:43:00 Test Item Value Reference Range Interpretation Comments bilirubin, serum, total (test code 0.6 mg/dL 0.0-1.2 = 1975-2) [facility] Healthalbumin/globulin ratio, yzpsv8238-78-41 11:43:00 Test Item Value Reference Range Interpretation Comments albumin/globulin ratio, 1.3 (unknown unit) 1.1-2.5 serum (test code = 1759-0) [facility] Healthglobulin, dryxk4026-77-72 11:43:00 Test Item Value Reference Range Interpretation Comments globulin, serum (test code 3.3 (unknown unit) 1.5-4.5 = 2336-6) [facility] Healthalbumin, klkkt9795-22-51 11:43:00 Test Item Value Reference Range Interpretation Comments albumin, serum (test code = 1751-7) 4.3 g/dL 3.5-5.5 [facility]ardeeprotein, total, ifpgr0050-34-84 11:43:00 Test Item Value Reference Range Interpretation Comments protein, total, serum (test code = 7.6 g/dL 6.0-8.5 2885-2) [facility]ardeecalcium, [id number] 11:43:00 Test Item Value Reference Range Interpretation Comments calcium, serum (test code = 1999-8) 9.6 mg/dL 8.7-10.2 [facility]ardeecarbon dioxide, venous tjlee6483-43-08 11:43:00 Test Item Value Reference Range Interpretation Comments carbon dioxide, venous blood (test 27 mmol/L 18-29 code = 2026-1) [facility] Healthchloride, faaau7803-41-37 11:43:00 Test Item Value Reference Range Interpretation Comments chloride, serum (test code = 96 mmol/L 97-108 L 2075-0) [facility] Healthpotassium, wqwuv6071-09-27 11:43:00 Test Item Value Reference Range Interpretation Comments potassium, serum (test code = 4.3 mmol/L 3.5-5.2 2823-3) [facility]eesodium, uwhck3132-65-94 11:43:00 Test Item Value Reference Range Interpretation Comments sodium, serum (test code = 2951-2) 138 mmol/L 134-144 [facility]eeurea nitrogen/creatinine ratio, ekijp2253-54-25 11:43:00 Test Item Value Reference Range Interpretation Comments urea nitrogen/creatinine 14 (unknown unit) 9-20 ratio, serum (test code = 3097-3) [facility] HealtheGFR if Tbrmnotw0363-31-27 11:43:00 Test Item Value Reference Range Interpretation Comments eGFR if 107 mL/min/{1.73 m2} >59 (test code = 53698-7) [facility]eeEstimated Glomerular Filtration Rate (calc)2015-08-06 11:43:00 Test Item Value Reference Range Interpretation Comments Estimated Glomerular 92 mL/min/{1.73 m2} >59 Filtration Rate (calc) (test code = 14720-6) [facility]ardeecreatinine, jwbpz1296-79-15 11:43:00 Test Item Value Reference Range Interpretation Comments creatinine, serum (test code = 1.00 mg/dL 0.76-1.27 2160-0) [facility]eeurea nitrogen, ejdyr3403-59-71 11:43:00 Test Item Value Reference Range Interpretation Comments urea nitrogen, blood (test code = 14 mg/dL 6-24 3094-0) [facility]eeblood glucose, mbfvrs7484-80-47 11:43:00 Test Item Value Reference Range Interpretation Comments blood glucose, random (test code = 99 mg/dL 65-99 2339-0) [facility]eeimmature granulocytes, percentage of total cells, blood 2015-08-06 11:43:00 Test Item Value Reference Range Interpretation Comments immature granulocytes, percentage of 0 % total cells, blood (test code = 43445-6) [facility]eebasophil count, mpfaxltq5922-41-39 11:43:00 Test Item Value Reference Range Interpretation Comments basophil count, absolute (test 0.0 x10E3/uL 0.0-0.2 code = 86977-8) [facility] HealthEosinophil Absolute Ihuck7235-61-78 11:43:00 Test Item Value Reference Range Interpretation Comments Eosinophil Absolute Count (test 0.0 X10E3/UL 0.0-0.4 code = 77287-0) [facility] Healthmonocyte count, blood, fushtzhfk5817-41-85 11:43:00 Test Item Value Reference Range Interpretation Comments monocyte count, blood, automated 0.4 X10E3/UL 0.1-0.9 (test code = 742-7) [facility]ardeelymphocyte count, blood, lajoxrjfm4780-49-92 11:43:00 Test Item Value Reference Range Interpretation Comments lymphocyte count, blood, 3.1 X10E3/UL 0.7-3.1 automated (test code = 731-0) [facility]eeAbsolute Oyrkqsxhvsj2319-52-90 11:43:00 Test Item Value Reference Range Interpretation Comments Absolute Neutrophils (test code 4.0 X10E3/UL 1.4-7.0 = 58587-1) [facility]eebasophils as percent of blood dowbsfyvld2648-04-00 11:43:00 Test Item Value Reference Range Interpretation Comments basophils as percent of blood 0 % leukocytes (test code = 707-0) [facility] Healtheosinophils as percent of blood ojxkbihbsa2295-19-48 11:43:00 Test Item Value Reference Range Interpretation Comments eosinophils as percent of blood 1 % leukocytes (test code = 713-8) [facility] Healthmonocytes as percent of blood evecwymplz4947-91-21 11:43:00 Test Item Value Reference Range Interpretation Comments monocytes as percent of blood 5 % leukocytes (test code = 5905-5) [facility]ardeelymphocytes as percent of blood gkjvnsnpaz7204-11-35 11:43:00 Test Item Value Reference Range Interpretation Comments lymphocytes as percent of blood 41 % leukocytes (test code = 736-9) [facility]utrophils as percent of blood vffspyzfaj6192-15-23 11:43:00 Test Item Value Reference Range Interpretation Comments neutrophils as percent of blood 53 % leukocytes (test code = 770-8) [facility]eeplatelet pursb5728-86-00 11:43:00 Test Item Value Reference Range Interpretation Comments platelet count (test code = 217 X10E3/UL 150-379 777-3) [facility] blood cell distribution hwcta1102-27-05 11:43:00 Test Item Value Reference Range Interpretation Comments red blood cell distribution width 13.1 % 12.3-15.4 (test code = 788-0) [facility] corpuscular hemoglobin concentration, [id number] 11:43:00 Test Item Value Reference Range Interpretation Comments mean corpuscular hemoglobin 34.1 G/DL 31.5-35.7 concentration, RBC (test code = 786-4) [facility] corpuscular hemoglobin, [id number] 11:43:00 Test Item Value Reference Range Interpretation Comments mean corpuscular hemoglobin, RBC 32.4 pg 26.6-33.0 (test code = 785-6) [facility] corpuscular volume, [id number] 11:43:00 Test Item Value Reference Range Interpretation Comments mean corpuscular volume, RBC (test code 95 fL 79-97 = 787-2) [facility]ocrit, [id number] 11:43:00 Test Item Value Reference Range Interpretation Comments hematocrit, blood (test code = 4544-3) 46.3 % 37.5-51.0 [facility]eehemoglobin, [id number] 11:43:00 Test Item Value Reference Range Interpretation Comments hemoglobin, blood (test code = 15.8 g/dL 12.6-17.7 718-7) [facility]ee[facility]throcyte (RBC) ntmab9962-62-52 11:43:00 Test Item Value Reference Range Interpretation Comments erythrocyte (RBC) count (test 4.87 X10E6/UL 4.14-5.80 code = 789-8) [facility]eeleukocyte count, ppsdt2613-08-25 11:43:00 Test Item Value Reference Range Interpretation Comments leukocyte count, blood (test 7.5 X10E3/UL 3.4-10.8 code = 6690-2) [facility] HealthT-helper cells (CD4) as percent of blood lymphocytes 2015-08-06 11:43:00 Test Item Value Reference Range Interpretation Comments T-helper cells (CD4) as percent of 26.9 % 30.8-58.5 L blood lymphocytes (test code = 8123-2) [facility] HealthT-helper cells (CD4) pteym8822-53-38 11:43:00 Test Item Value Reference Range Interpretation Comments T-helper cells (CD4) count (test code 834 /UL 359-1519 = 98804-5) [facility] HealthHIV-1RNA, serum, by PCR, zuzhkxkysali2964-73-12 11:43:00 Test Item Value Reference Range Interpretation Comments HIV-1RNA, serum, by PCR, quantitative 600 /mL (test code = 71491-9) [facility] HealthCD4/CD8 ccodv5404-77-39 11:43:00 Test Item Value Reference Range Interpretation Comments CD4/CD8 ratio (test code 0.88 (unknown unit) 0.92-3.72 L = 51687) [facility]eeT-suppressor cells (CD8) as percent of blood lymphocytes 2015-08-06 11:43:00 Test Item Value Reference Range Interpretation Comments T-suppressor cells (CD8) as percent of 30.6 % 12.0-35.5 blood lymphocytes (test code = 3517) [facility] Healthabsolute [id number] 11:43:00 Test Item Value Reference Range Interpretation Comments absolute CD8 (test code = 949 (unknown unit) 109-897 H 86625) [facility] HealthHIV-1RNA, serum, by PCR, wkvkrpdscwxw4887-23-94 11:43:00 Test Item Value Reference Range Interpretation Comments HIV-1RNA, serum, by PCR, quantitative 600 /mL (test code = 24136) [facility] HealthCD4/CD8 [id number] 11:43:00 Test Item Value Reference Range Interpretation Comments CD4/CD8 ratio (test code 0.88 (unknown unit) 0.92-3.72 L = 71314) [facility]eeT-suppressor cells (CD8) as percent of blood lymphocytes 2015-08-06 11:43:00 Test Item Value Reference Range Interpretation Comments T-suppressor cells (CD8) as percent of 30.6 % 12.0-35.5 blood lymphocytes (test code = 3517) [facility] Healthabsolute [id number] 11:43:00 Test Item Value Reference Range Interpretation Comments absolute CD8 (test code = 949 (unknown unit) 109-897 H 25947) [facility] plasma reagin antibody, [id number] 08:59:00 Test Item Value Reference Range Interpretation Comments rapid plasma reagin antibody, Non Reactive Non Reactive serum (test code = 5291-0) [facility]eeLDL cholesterol, [id number] 08:59:00 Test Item Value Reference Range Interpretation Comments LDL cholesterol, serum (test code = 85 mg/dL 0-99 2088-1) [facility]eevery low density jcgsukrfixus0416-96-05 08:59:00 Test Item Value Reference Range Interpretation Comments very low density lipoproteins (test 18 mg/dL 5-40 code = 1-7) [facility]eeHDL cholesterol, [id number] 08:59:00 Test Item Value Reference Range Interpretation Comments HDL cholesterol, serum (test code = 43 mg/dL >39 2084-9) [facility]etriglyceride, serum, tkfzpik1428-23-54 08:59:00 Test Item Value Reference Range Interpretation Comments triglyceride, serum, fasting (test 89 mg/dL 0-149 code = 2571-8) [facility]eecholesterol, [id number] 08:59:00 Test Item Value Reference Range Interpretation Comments cholesterol, serum (test code = 146 mg/dL 429-631 6985-3) [facility]eealanine aminotransferase (SGPT), zhhnl7127-97-64 08:59:00 Test Item Value Reference Range Interpretation Comments alanine aminotransferase (SGPT), 244 1/L 0-44 H serum (test code = 1742-6) [facility]eeaspartate aminotransferase (SGOT), ipjin3814-83-80 08:59:00 Test Item Value Reference Range Interpretation Comments aspartate aminotransferase (SGOT), 122 1/L 0-40 H serum (test code = 1920-8) [facility]eealkaline phosphatase, cljvg9253-38-93 08:59:00 Test Item Value Reference Range Interpretation Comments alkaline phosphatase, serum (test 104 1/L 39-117 code = 1783-0) [facility] Healthbilirubin, serum, [id number] 08:59:00 Test Item Value Reference Range Interpretation Comments bilirubin, serum, total (test code 0.7 mg/dL 0.0-1.2 = 1975-2) [facility] Healthalbumin/globulin ratio, [id number] 08:59:00 Test Item Value Reference Range Interpretation Comments albumin/globulin ratio, 1.4 (unknown unit) 1.1-2.5 serum (test code = 1759-0) [facility] Healthglobulin, [id number] 08:59:00 Test Item Value Reference Range Interpretation Comments globulin, serum (test code 3.1 (unknown unit) 1.5-4.5 = 2336-6) [facility] Healthalbumin, [id number] 08:59:00 Test Item Value Reference Range Interpretation Comments albumin, serum (test code = 1751-7) 4.4 g/dL 3.5-5.5 [facility]eprotein, total, [id number] 08:59:00 Test Item Value Reference Range Interpretation Comments protein, total, serum (test code = 7.5 g/dL 6.0-8.5 2885-2) [facility]ecalcium, [id number] 08:59:00 Test Item Value Reference Range Interpretation Comments calcium, serum (test code = 1999-8) 9.5 mg/dL 8.7-10.2 [facility]ecarbon dioxide, venous gcrdf8761-25-76 08:59:00 Test Item Value Reference Range Interpretation Comments carbon dioxide, venous blood (test 27 mmol/L 18-29 code = 2026-1) [facility] Healthchloride, ezlao2982-92-05 08:59:00 Test Item Value Reference Range Interpretation Comments chloride, serum (test code = 98 mmol/L 97-108 2074-0) [facility]epotassium, cueqs4052-85-62 08:59:00 Test Item Value Reference Range Interpretation Comments potassium, serum (test code = 4.5 mmol/L 3.5-5.2 2823-3) [facility]eesodium, [id number] 08:59:00 Test Item Value Reference Range Interpretation Comments sodium, serum (test code = 2951-2) 137 mmol/L 134-144 [facility]eeurea nitrogen/creatinine ratio, ifcva8910-81-98 08:59:00 Test Item Value Reference Range Interpretation Comments urea nitrogen/creatinine 16 (unknown unit) 9-20 ratio, serum (test code = 3097-3) [facility] HealtheGFR if Ikesybqq2652-59-63 08:59:00 Test Item Value Reference Range Interpretation Comments eGFR if 98 mL/min/{1.73 m2} >59 (test code = 19973-6) [facility]eeEstimated Glomerular Filtration Rate (calc)2015-04-08 08:59:00 Test Item Value Reference Range Interpretation Comments Estimated Glomerular 85 mL/min/{1.73 m2} >59 Filtration Rate (calc) (test code = 52307-4) [facility]ecreatinine, [id number] 08:59:00 Test Item Value Reference Range Interpretation Comments creatinine, serum (test code = 1.08 mg/dL 0.76-1.27 2160-0) [facility]eeurea nitrogen, gjair5255-35-69 08:59:00 Test Item Value Reference Range Interpretation Comments urea nitrogen, blood (test code = 17 mg/dL 6-24 3094-0) [facility]eeblood glucose, [id number] 08:59:00 Test Item Value Reference Range Interpretation Comments blood glucose, random (test code = 96 mg/dL 65-99 2339-0) [facility]eeimmature granulocytes, percentage of total cells, blood 2015-04-08 08:59:00 Test Item Value Reference Range Interpretation Comments immature granulocytes, percentage of 0 % total cells, blood (test code = 92606-2) [facility]eebasophil count, nvqoykrq7742-77-69 08:59:00 Test Item Value Reference Range Interpretation Comments basophil count, absolute (test 0.0 x10E3/uL 0.0-0.2 code = 17596-7) [facility]eeEosinophil Absolute Mbyqb9596-84-28 08:59:00 Test Item Value Reference Range Interpretation Comments Eosinophil Absolute Count (test 0.1 X10E3/UL 0.0-0.4 code = 16183-0) [facility]emonocyte count, blood, dbsjrhtik3527-92-48 08:59:00 Test Item Value Reference Range Interpretation Comments monocyte count, blood, automated 0.5 X10E3/UL 0.1-0.9 (test code = 742-7) [facility]ardeelymphocyte count, blood, mijufzuej5831-34-34 08:59:00 Test Item Value Reference Range Interpretation Comments lymphocyte count, blood, 2.6 X10E3/UL 0.7-3.1 automated (test code = 731-0) [facility]Absolute Eqaybhtzqzj2874-74-88 08:59:00 Test Item Value Reference Range Interpretation Comments Absolute Neutrophils (test code 3.4 X10E3/UL 1.4-7.0 = 12188-7) [facility]eebasophils as percent of blood odcdbgdgaw5374-14-57 08:59:00 Test Item Value Reference Range Interpretation Comments basophils as percent of blood 0 % leukocytes (test code = 707-0) [facility]eeeosinophils as percent of blood zluudhperc9144-28-50 08:59:00 Test Item Value Reference Range Interpretation Comments eosinophils as percent of blood 1 % leukocytes (test code = 713-8) [facility] Healthmonocytes as percent of blood rvygpalmky8155-95-70 08:59:00 Test Item Value Reference Range Interpretation Comments monocytes as percent of blood 7 % leukocytes (test code = 5905-5) [facility]ardeelymphocytes as percent of blood klzisztful5428-21-39 08:59:00 Test Item Value Reference Range Interpretation Comments lymphocytes as percent of blood 39 % leukocytes (test code = 736-9) [facility]ardeeneutrophils as percent of blood xvibectrie1171-49-38 08:59:00 Test Item Value Reference Range Interpretation Comments neutrophils as percent of blood 53 % leukocytes (test code = 770-8) [facility]eeplatelet wkyxz2679-88-69 08:59:00 Test Item Value Reference Range Interpretation Comments platelet count (test code = 204 X10E3/UL 150-379 777-3) [facility] cell distribution ynftu7736-61-67 08:59:00 Test Item Value Reference Range Interpretation Comments red blood cell distribution width 13.8 % 12.3-15.4 (test code = 788-0) [facility], [id number] 08:59:00 Test Item Value Reference Range Interpretation Comments mean corpuscular hemoglobin 34.4 G/DL 31.5-35.7 concentration, RBC (test code = 786-4) [facility] corpus[facility] hemoglobin, [id number] 08:59:00 Test Item Value Reference Range Interpretation Comments mean corpuscular hemoglobin, RBC 32.5 pg 26.6-33.0 (test code = 785-6) [facility], [id number] 08:59:00 Test Item Value Reference Range Interpretation Comments mean corpuscular volume, RBC (test code 95 fL 79-97 = 787-2) [facility]ocrit, [id number] 08:59:00 Test Item Value Reference Range Interpretation Comments hematocrit, blood (test code = 4544-3) 48.2 % 37.5-51.0 [facility]eehemoglobin, qrtog3033-07-78 08:59:00 Test Item Value Reference Range Interpretation Comments hemoglobin, blood (test code = 16.6 g/dL 12.6-17.7 718-7) [facility]eeerythrocyte (RBC) lnucm7659-67-02 08:59:00 Test Item Value Reference Range Interpretation Comments erythrocyte (RBC) count (test 5.10 X10E6/UL 4.14-5.80 code = 789-8) [facility]eeleukocyte count, cxzea6736-65-01 08:59:00 Test Item Value Reference Range Interpretation Comments leukocyte count, blood (test 6.5 X10E3/UL 3.4-10.8 code = 6690-2) [facility]eeT-helper cells (CD4) as percent of blood lymphocytes 2015-04-08 08:59:00 Test Item Value Reference Range Interpretation Comments T-helper cells (CD4) as percent of 25.2 % 30.8-58.5 L blood lymphocytes (test code = 8123-2) [facility]eeT-helper cells (CD4) nzzia6928-65-31 08:59:00 Test Item Value Reference Range Interpretation Comments T-helper cells (CD4) count (test code 655 /UL 359-9719 = 48790-9) [facility] HealthHIV-1 RNA (log 10)2015-04-08 08:59:00 Test Item Value Reference Range Interpretation Comments HIV-1 RNA (log 10) (test 1.699 ejj94pdhk/mL code = 14992-4) [facility] HealthHIV-1RNA, serum, by PCR, extixlahmlxv1399-67-62 08:59:00 Test Item Value Reference Range Interpretation Comments HIV-1RNA, serum, by PCR, quantitative 50 /mL (test code = 57140-7) [facility] HealthCD4/CD8 wtjae8117-25-98 08:59:00 Test Item Value Reference Range Interpretation Comments CD4/CD8 ratio (test code 0.72 (unknown unit) 0.92-3.72 L = 97359) [facility] HealthT-suppressor cells (CD8) as percent of blood lymphocytes 2015-04-08 08:59:00 Test Item Value Reference Range Interpretation Comments T-suppressor cells (CD8) as percent of 35.1 % 12.0-35.5 blood lymphocytes (test code = 3517) [facility] Healthabsolute [id number] 08:59:00 Test Item Value Reference Range Interpretation Comments absolute CD8 (test code = 913 (unknown unit) 109-897 H 99755) [facility]HIV-1 RNA (log 10)2015-04-08 08:59:00 Test Item Value Reference Range Interpretation Comments HIV-1 RNA (log 10) (test 1.699 uiv39hzaz/mL code = 04225) [facility] HealthHIV-1RNA, serum, by PCR, xozahacxkvov2488-44-00 08:59:00 Test Item Value Reference Range Interpretation Comments HIV-1RNA, serum, by PCR, quantitative 50 /mL (test code = 14504) [facility] HealthCD4/CD8 nvxxs9331-92-90 08:59:00 Test Item Value Reference Range Interpretation Comments CD4/CD8 ratio (test code 0.72 (unknown unit) 0.92-3.72 L = 17065) [facility]eeT-suppressor cells (CD8) as percent of blood lymphocytes 2015-04-08 08:59:00 Test Item Value Reference Range Interpretation Comments T-suppressor cells (CD8) as percent of 35.1 % 12.0-35.5 blood lymphocytes (test code = 3517) [facility] Healthabsolute [id number] 08:59:00 Test Item Value Reference Range Interpretation Comments absolute CD8 (test code = 913 (unknown unit) 109-897 H 37044) [facility] plasma reagin antibody, amira3433-96-43 09:09:00 Test Item Value Reference Range Interpretation Comments rapid plasma reagin antibody, Non Reactive Non Reactive serum (test code = 5291-0) [facility]eeLDL cholesterol, huyew0527-42-09 09:09:00 Test Item Value Reference Range Interpretation Comments LDL cholesterol, serum (test code = 67 mg/dL 0-99 2088-1) [facility]eevery low density qczvxtfogstz6092-37-78 09:09:00 Test Item Value Reference Range Interpretation Comments very low density lipoproteins (test 20 mg/dL 5-40 code = 2091-7) [facility]eeHDL cholesterol, ahxau9926-27-37 09:09:00 Test Item Value Reference Range Interpretation Comments HDL cholesterol, serum (test code = 40 mg/dL >39 2084-9) [facility]etriglyceride, serum, wamfubm3588-61-44 09:09:00 Test Item Value Reference Range Interpretation Comments triglyceride, serum, fasting (test 102 mg/dL 0-149 code = 2571-8) [facility]eecholesterol, ccopu6089-09-63 09:09:00 Test Item Value Reference Range Interpretation Comments cholesterol, serum (test code = 127 mg/dL 985-161 1210-3) [facility]eealanine aminotransferase (SGPT), mctsv9522-26-47 09:09:00 Test Item Value Reference Range Interpretation Comments alanine aminotransferase (SGPT), 164 1/L 0-44 H serum (test code = 1742-6) [facility]eeaspartate aminotransferase (SGOT), rwxln3937-91-72 09:09:00 Test Item Value Reference Range Interpretation Comments aspartate aminotransferase (SGOT), 73 1/L 0-40 H serum (test code = 1920-8) [facility]eealkaline phosphatase, hvrna8360-31-35 09:09:00 Test Item Value Reference Range Interpretation Comments alkaline phosphatase, serum (test code 90 1/L 39-117 = 1783-0) [facility] Healthbilirubin, serum, [id number] 09:09:00 Test Item Value Reference Range Interpretation Comments bilirubin, serum, total (test code 0.5 mg/dL 0.0-1.2 = 1975-2) [facility] Healthalbumin/globulin ratio, dzjfi3983-86-22 09:09:00 Test Item Value Reference Range Interpretation Comments albumin/globulin ratio, 1.3 (unknown unit) 1.1-2.5 serum (test code = 1759-0) [facility] Healthglobulin, gygbb0401-63-42 09:09:00 Test Item Value Reference Range Interpretation Comments globulin, serum (test code 3.4 (unknown unit) 1.5-4.5 = 2336-6) [facility] Healthalbumin, petgw2278-45-14 09:09:00 Test Item Value Reference Range Interpretation Comments albumin, serum (test code = 1751-7) 4.3 g/dL 3.5-5.5 [facility] Healthprotein, total, lmzqg9071-63-22 09:09:00 Test Item Value Reference Range Interpretation Comments protein, total, serum (test code = 7.7 g/dL 6.0-8.5 2885-2) [facility]ecalcium, chtlz0327-13-75 09:09:00 Test Item Value Reference Range Interpretation Comments calcium, serum (test code = 1999-8) 9.4 mg/dL 8.7-10.2 [facility]ecarbon dioxide, venous sheqx1976-81-65 09:09:00 Test Item Value Reference Range Interpretation Comments carbon dioxide, venous blood (test 29 mmol/L 18-29 code = 7-1) [facility]eechloride, kgyut6707-38-74 09:09:00 Test Item Value Reference Range Interpretation Comments chloride, serum (test code = 97 mmol/L 97-108 5-0) [facility]ardeepotassium, dwdzi3888-53-86 09:09:00 Test Item Value Reference Range Interpretation Comments potassium, serum (test code = 4.1 mmol/L 3.5-5.2 2823-3) [facility]eesodium, vtzqh8669-79-03 09:09:00 Test Item Value Reference Range Interpretation Comments sodium, serum (test code = 2951-2) 137 mmol/L 134-144 [facility]eeurea nitrogen/creatinine ratio, mwlos0832-35-99 09:09:00 Test Item Value Reference Range Interpretation Comments urea nitrogen/creatinine 16 (unknown unit) 9-20 ratio, serum (test code = 3097-3) [facility] HealtheGFR if Dttlqgyy2472-02-83 09:09:00 Test Item Value Reference Range Interpretation Comments eGFR if 109 mL/min/{1.73 m2} >59 (test code = 16983-3) [facility]eeEstimated Glomerular Filtration Rate (calc)2015-01-01 09:09:00 Test Item Value Reference Range Interpretation Comments Estimated Glomerular 94 mL/min/{1.73 m2} >59 Filtration Rate (calc) (test code = 21915-7) [facility]ecreatinine, kedjk9343-24-37 09:09:00 Test Item Value Reference Range Interpretation Comments creatinine, serum (test code = 0.99 mg/dL 0.76-1.27 2160-0) [facility]ee[facility]a nitrogen, wgkdt8620-48-02 09:09:00 Test Item Value Reference Range Interpretation Comments urea nitrogen, blood (test code = 16 mg/dL 6-24 3094-0) [facility]eeblood glucose, rokynd2676-93-40 09:09:00 Test Item Value Reference Range Interpretation Comments blood glucose, random (test code = 68 mg/dL 65-99 2339-0) [facility]eeimmature granulocytes, percentage of total cells, blood 2015-01-01 09:09:00 Test Item Value Reference Range Interpretation Comments immature granulocytes, percentage of 0 % total cells, blood (test code = 02413-9) [facility]eebasophil count, nikwycrp3072-56-70 09:09:00 Test Item Value Reference Range Interpretation Comments basophil count, absolute (test 0.0 x10E3/uL 0.0-0.2 code = 12858-8) [facility]eeEosinophil Absolute Qhoya2109-22-92 09:09:00 Test Item Value Reference Range Interpretation Comments Eosinophil Absolute Count (test 0.2 X10E3/UL 0.0-0.4 code = 11714-5) [facility]ardeemonocyte count, blood, knobadpjg7008-74-40 09:09:00 Test Item Value Reference Range Interpretation Comments monocyte count, blood, automated 0.6 X10E3/UL 0.1-0.9 (test code = 742-7) [facility]ardeelymphocyte count, blood, twfmmjnmi5529-11-57 09:09:00 Test Item Value Reference Range Interpretation Comments lymphocyte count, blood, 2.2 X10E3/UL 0.7-3.1 automated (test code = 731-0) [facility]Absolute Bhvmwvigaub3124-39-09 09:09:00 Test Item Value Reference Range Interpretation Comments Absolute Neutrophils (test code 5.2 X10E3/UL 1.4-7.0 = 58625-6) [facility]ee[facility]ophils as percent of blood tgglznbxcl7760-94-93 09:09:00 Test Item Value Reference Range Interpretation Comments basophils as percent of blood 0 % leukocytes (test code = 707-0) [facility]eeeosinophils as percent of blood kwdumubbxb0860-19-25 09:09:00 Test Item Value Reference Range Interpretation Comments eosinophils as percent of blood 2 % leukocytes (test code = 713-8) [facility] Healthmonocytes as percent of blood ktdizdlydp2666-62-25 09:09:00 Test Item Value Reference Range Interpretation Comments monocytes as percent of blood 7 % leukocytes (test code = 5905-5) [facility]ardeelymphocytes as percent of blood izilcxpzps8986-76-71 09:09:00 Test Item Value Reference Range Interpretation Comments lymphocytes as percent of blood 27 % leukocytes (test code = 736-9) [facility]ardeeneutrophils as percent of blood msgnwhakxd7633-45-25 09:09:00 Test Item Value Reference Range Interpretation Comments neutrophils as percent of blood 64 % leukocytes (test code = 770-8) [facility]ardeeplatelet aotua3974-41-74 09:09:00 Test Item Value Reference Range Interpretation Comments platelet count (test code = 182 X10E3/UL 150-379 777-3) [facility] cell distribution nrsyy6464-48-72 09:09:00 Test Item Value Reference Range Interpretation Comments red blood cell distribution width 12.7 % 12.3-15.4 (test code = 788-0) [facility] corpuscular hemoglobin concentration, [id number] 09:09:00 Test Item Value Reference Range Interpretation Comments mean corpuscular hemoglobin 35.4 G/DL 31.5-35.7 concentration, RBC (test code = 786-4) [facility], [id number] 09:09:00 Test Item Value Reference Range Interpretation Comments mean corpuscular hemoglobin, RBC 32.7 pg 26.6-33.0 (test code = 785-6) [facility] corpus[facility] volume, [id number] 09:09:00 Test Item Value Reference Range Interpretation Comments mean corpuscular volume, RBC (test code 92 fL 79-97 = 787-2) [facility]ee[facility]ocrit, yawvh8277-02-42 09:09:00 Test Item Value Reference Range Interpretation Comments hematocrit, blood (test code = 4544-3) 48.0 % 37.5-51.0 [facility]eehemoglobin, kbtnd8983-22-62 09:09:00 Test Item Value Reference Range Interpretation Comments hemoglobin, blood (test code = 17.0 g/dL 12.6-17.7 718-7) [facility]eeerythrocyte (RBC) gvolh3096-04-62 09:09:00 Test Item Value Reference Range Interpretation Comments erythrocyte (RBC) count (test 5.20 X10E6/UL 4.14-5.80 code = 789-8) [facility]eeleukocyte count, cdmow7466-22-72 09:09:00 Test Item Value Reference Range Interpretation Comments leukocyte count, blood (test 8.1 X10E3/UL 3.4-10.8 code = 6690-2) [facility]eeT-helper cells (CD4) as percent of blood lymphocytes 2015-01-01 09:09:00 Test Item Value Reference Range Interpretation Comments T-helper cells (CD4) as percent of 24.9 % 30.8-58.5 L blood lymphocytes (test code = 8123-2) [facility]eeT-helper cells (CD4) scwfl1528-43-48 09:09:00 Test Item Value Reference Range Interpretation Comments T-helper cells (CD4) count (test code 548 /UL 359-1519 = 96963-3) [facility] HealthHIV-1 RNA (log 10)2015-01-01 09:09:00 Test Item Value Reference Range Interpretation Comments HIV-1 RNA (log 10) (test 2.255 tsq46vhey/mL code = 52325-1) [facility] HealthHIV-1RNA, serum, by PCR, ftrjkodvvaww1219-17-41 09:09:00 Test Item Value Reference Range Interpretation Comments HIV-1RNA, serum, by PCR, quantitative 180 /mL (test code = 53612-1) [facility] HealthCD4/CD8 [id number] 09:09:00 Test Item Value Reference Range Interpretation Comments CD4/CD8 ratio (test code 0.70 (unknown unit) 0.92-3.72 L = 68396) [facility] HealthT-suppressor cells (CD8) as percent of blood lymphocytes 2015-01-01 09:09:00 Test Item Value Reference Range Interpretation Comments T-suppressor cells (CD8) as percent of 35.6 % 12.0-35.5 H blood lymphocytes (test code = 3517) [facility] Healthabsolute [id number] 09:09:00 Test Item Value Reference Range Interpretation Comments absolute CD8 (test code = 783 (unknown unit) [phone]) [facility] 10)2015-01-01 09:09:00 Test Item Value Reference Range Interpretation Comments HIV-1 RNA (log 10) (test 2.255 qme92hrpf/mL code = 67463) [facility] HealthHIV-1RNA, serum, by PCR, ixthifglitgh2639-24-05 09:09:00 Test Item Value Reference Range Interpretation Comments HIV-1RNA, serum, by PCR, quantitative 180 /mL (test code = 71482) [facility] HealthCD4/CD8 mbddi1039-81-81 09:09:00 Test Item Value Reference Range Interpretation Comments CD4/CD8 ratio (test code 0.70 (unknown unit) 0.92-3.72 L = 60100) [facility] cells (CD8) as percent of blood lymphocytes 2015-01-01 09:09:00 Test Item Value Reference Range Interpretation Comments T-suppressor cells (CD8) as percent of 35.6 % 12.0-35.5 H blood lymphocytes (test code = 3517) [facility] [id number] 09:09:00 Test Item Value Reference Range Interpretation Comments absolute CD8 (test code = 783 (unknown unit) [phone]) [facility]HIV genotype ohptzt4482-85-86 09:15:06 Test Item Value Reference Range Interpretation Comments HIV genotype result (test code = done 61008-4) [facility] auwmod8212-99-74 09:15:06 Test Item Value Reference Range Interpretation Comments HIV genotype result (test code = 94955) done [facility]eeQuantiferon Gold TB blood test for tuberculosis screening 2014 14:03:00 Test Item Value Reference Range Interpretation Comments Quantiferon Gold TB blood test for Negative Negative tuberculosis screening (test code = 75721-0) [facility]eeNeisseria gonorrhoeae DNA [id number] 14:03:00 Test Item Value Reference Range Interpretation Comments Neisseria gonorrhoeae DNA probe Negative Negative (test code = 48138-8) [facility]lamydia DNA [id number] 14:03:00 Test Item Value Reference Range Interpretation Comments chlamydia DNA probe (test code = Negative Negative 94724-9) [facility]er[facility] plasma reagin antibody, [id number] 14:03:00 Test Item Value Reference Range Interpretation Comments rapid plasma reagin antibody, Non Reactive Non Reactive serum (test code = 5291-0) [facility] cholesterol, ktdgs6272-16-97 14:03:00 Test Item Value Reference Range Interpretation Comments LDL cholesterol, serum (test code = 89 mg/dL 0-99 2088-1) [facility]eevery low density gwkwcxftaobp3422-82-76 14:03:00 Test Item Value Reference Range Interpretation Comments very low density lipoproteins (test 37 mg/dL 5-40 code = 2091-7) [facility]HDL cholesterol, jmcti8132-29-43 14:03:00 Test Item Value Reference Range Interpretation Comments HDL cholesterol, serum (test code = 49 mg/dL >39 5-9) [facility]etriglyceride, serum, geglwjt9920-82-11 14:03:00 Test Item Value Reference Range Interpretation Comments triglyceride, serum, fasting (test 183 mg/dL 0-149 H code = 2571-8) [facility]eecholesterol, zervf6183-00-10 14:03:00 Test Item Value Reference Range Interpretation Comments cholesterol, serum (test code = 175 mg/dL 812-811 1491-3) [facility]eealanine aminotransferase (SGPT), [id number] 14:03:00 Test Item Value Reference Range Interpretation Comments alanine aminotransferase (SGPT), 304 1/L 0-44 H serum (test code = 1742-6) [facility]eeaspartate aminotransferase (SGOT), deqdj7063-71-64 14:03:00 Test Item Value Reference Range Interpretation Comments aspartate aminotransferase (SGOT), 132 1/L 0-40 H serum (test code = 1920-8) [facility]eealkaline phosphatase, rkaos3595-57-47 14:03:00 Test Item Value Reference Range Interpretation Comments alkaline phosphatase, serum (test 104 1/L 39-117 code = 1783-0) [facility]irubin, serum, [id number] 14:03:00 Test Item Value Reference Range Interpretation Comments bilirubin, serum, total (test code 0.5 mg/dL 0.0-1.2 = 1975-2) [facility]eealbumin/globulin ratio, kcnrr3011-44-25 14:03:00 Test Item Value Reference Range Interpretation Comments albumin/globulin ratio, 1.2 (unknown unit) 1.1-2.5 serum (test code = 1759-0) [facility] Healthglobulin, dnfjz1941-54-81 14:03:00 Test Item Value Reference Range Interpretation Comments globulin, serum (test code 3.7 (unknown unit) 1.5-4.5 = 2336-6) [facility] Healthalbumin, jnrgg0495-74-85 14:03:00 Test Item Value Reference Range Interpretation Comments albumin, serum (test code = 1751-7) 4.3 g/dL 3.5-5.5 [facility]eprotein, total, [id number] 14:03:00 Test Item Value Reference Range Interpretation Comments protein, total, serum (test code = 8.0 g/dL 6.0-8.5 2885-2) [facility]ardeecalcium, [id number] 14:03:00 Test Item Value Reference Range Interpretation Comments calcium, serum (test code = 1999-8) 9.4 mg/dL 8.7-10.2 [facility]ardeecarbon dioxide, venous glldm8018-81-24 14:03:00 Test Item Value Reference Range Interpretation Comments carbon dioxide, venous blood (test 25 mmol/L 18-29 code = 7-1) [facility] Healthchloride, beykr1628-96-28 14:03:00 Test Item Value Reference Range Interpretation Comments chloride, serum (test code = 98 mmol/L 97-108 5-0) [facility] Healthpotassium, kxaop3994-91-68 14:03:00 Test Item Value Reference Range Interpretation Comments potassium, serum (test code = 4.1 mmol/L 3.5-5.2 2823-3) [facility]eesodium, xjbhs5034-16-89 14:03:00 Test Item Value Reference Range Interpretation Comments sodium, serum (test code = 2951-2) 138 mmol/L 134-144 [facility]eeurea nitrogen/creatinine ratio, cllbw7395-89-16 14:03:00 Test Item Value Reference Range Interpretation Comments urea nitrogen/creatinine 17 (unknown unit) 9-20 ratio, serum (test code = 3097-3) [facility] HealtheGFR if Ddbhemsf4244-56-06 14:03:00 Test Item Value Reference Range Interpretation Comments eGFR if 103 mL/min/{1.73 m2} >59 (test code = 61450-5) [facility]eeEstimated Glomerular Filtration Rate (calc)2014 14:03:00 Test Item Value Reference Range Interpretation Comments Estimated Glomerular 89 mL/min/{1.73 m2} >59 Filtration Rate (calc) (test code = 25634-1) [facility]ardeecreatinine, [id number] 14:03:00 Test Item Value Reference Range Interpretation Comments creatinine, serum (test code = 1.04 mg/dL 0.76-1.27 0-0) [facility]eeurea nitrogen, yncfj4115-57-12 14:03:00 Test Item Value Reference Range Interpretation Comments urea nitrogen, blood (test code = 18 mg/dL 6-24 3094-0) [facility]eeblood glucose, aorhyl8338-38-60 14:03:00 Test Item Value Reference Range Interpretation Comments blood glucose, random (test code = 85 mg/dL 65-99 2339-0) [facility]eeimmature granulocytes, percentage of total cells, blood 2014 14:03:00 Test Item Value Reference Range Interpretation Comments immature granulocytes, percentage of 0 % total cells, blood (test code = 67075-7) [facility] Healthbasophil count, dlqcvxjt5871-98-41 14:03:00 Test Item Value Reference Range Interpretation Comments basophil count, absolute (test 0.0 x10E3/uL 0.0-0.2 code = 59225-3) [facility] HealthEosinophil Absolute Pxdmw2188-58-04 14:03:00 Test Item Value Reference Range Interpretation Comments Eosinophil Absolute Count (test 0.1 X10E3/UL 0.0-0.4 code = 85901-2) [facility]ardeemonocyte count, blood, xfebhhekt9507-75-36 14:03:00 Test Item Value Reference Range Interpretation Comments monocyte count, blood, automated 0.5 X10E3/UL 0.1-0.9 (test code = 742-7) [facility]ardeelymphocyte count, blood, yxspjaluj0438-81-30 14:03:00 Test Item Value Reference Range Interpretation Comments lymphocyte count, blood, 2.3 X10E3/UL 0.7-3.1 automated (test code = 731-0) [facility]Absolute Ybkwhmbbkfs6686-75-59 14:03:00 Test Item Value Reference Range Interpretation Comments Absolute Neutrophils (test code 2.6 X10E3/UL 1.4-7.0 = 67015-3) [facility]eebasophils as percent of blood jbxbqlpsgb1533-16-92 14:03:00 Test Item Value Reference Range Interpretation Comments basophils as percent of blood 0 % leukocytes (test code = 707-0) [facility] Healtheosinophils as percent of blood aubvopyejr2158-83-57 14:03:00 Test Item Value Reference Range Interpretation Comments eosinophils as percent of blood 2 % leukocytes (test code = 713-8) [facility] Healthmonocytes as percent of blood acelopzidy0539-60-78 14:03:00 Test Item Value Reference Range Interpretation Comments monocytes as percent of blood 9 % leukocytes (test code = 5905-5) [facility]ardeelymphocytes as percent of blood xijsavhkpz6156-28-92 14:03:00 Test Item Value Reference Range Interpretation Comments lymphocytes as percent of blood 42 % leukocytes (test code = 736-9) [facility]ardeeneutrophils as percent of blood qzizazblxi5275-32-65 14:03:00 Test Item Value Reference Range Interpretation Comments neutrophils as percent of blood 47 % leukocytes (test code = 770-8) [facility]ardeeplatelet neqax0121-32-77 14:03:00 Test Item Value Reference Range Interpretation Comments platelet count (test code = 216 X10E3/UL 150-379 777-3) [facility] blood cell distribution frwid2959-51-04 14:03:00 Test Item Value Reference Range Interpretation Comments red blood cell distribution width 13.7 % 12.3-15.4 (test code = 788-0) [facility] corpuscular hemoglobin concentration, [id number] 14:03:00 Test Item Value Reference Range Interpretation Comments mean corpuscular hemoglobin 35.3 G/DL 31.5-35.7 concentration, RBC (test code = 786-4) [facility] corpuscular hemoglobin, [id number] 14:03:00 Test Item Value Reference Range Interpretation Comments mean corpuscular hemoglobin, RBC 31.9 pg 26.6-33.0 (test code = 785-6) [facility] corpuscular volume, [id number] 14:03:00 Test Item Value Reference Range Interpretation Comments mean corpuscular volume, RBC (test code 91 fL 79-97 = 787-2) [facility]eehematocrit, lwhfh3383-09-34 14:03:00 Test Item Value Reference Range Interpretation Comments hematocrit, blood (test code = 4544-3) 44.8 % 37.5-51.0 [facility]eehemoglobin, [id number] 14:03:00 Test Item Value Reference Range Interpretation Comments hemoglobin, blood (test code = 15.8 g/dL 12.6-17.7 718-7) [facility]eeerythrocyte (RBC) ducfv9812-96-86 14:03:00 Test Item Value Reference Range Interpretation Comments erythrocyte (RBC) count (test 4.95 X10E6/UL 4.14-5.80 code = 789-8) [facility]eeleukocyte count, xojyw8673-30-17 14:03:00 Test Item Value Reference Range Interpretation Comments leukocyte count, blood (test 5.4 X10E3/UL 3.4-10.8 code = 6690-2) [facility]eeT-helper cells (CD4) as percent of blood lymphocytes 2014 14:03:00 Test Item Value Reference Range Interpretation Comments T-helper cells (CD4) as percent of 25.8 % 30.8-58.5 L blood lymphocytes (test code = 8123-2) [facility]eeT-helper cells (CD4) yskry9150-35-68 14:03:00 Test Item Value Reference Range Interpretation Comments T-helper cells (CD4) count (test code 593 /UL 359-1519 = 96955-8) [facility]HIV-1 RNA (log 10)2014 14:03:00 Test Item Value Reference Range Interpretation Comments HIV-1 RNA (log 10) (test 4.470 fow54fatl/mL code = 42529-6) [facility]HIV-1RNA, serum, by PCR, isjvnebpefzc9848-47-01 14:03:00 Test Item Value Reference Range Interpretation Comments HIV-1RNA, serum, by PCR, 49444 /mL quantitative (test code = 55079-1) [facility]eeCD4/CD8 kuzkl3287-72-45 14:03:00 Test Item Value Reference Range Interpretation Comments CD4/CD8 ratio (test code 0.75 (unknown unit) 0.92-3.72 L = 47326) [facility]eeT-suppressor cells (CD8) as percent of blood lymphocytes 2014 14:03:00 Test Item Value Reference Range Interpretation Comments T-suppressor cells (CD8) as percent of 34.6 % 12.0-35.5 blood lymphocytes (test code = 3517) [facility]eeabsolute [id number] 14:03:00 Test Item Value Reference Range Interpretation Comments absolute CD8 (test code = 796 (unknown unit) 856-917 10441) [facility]HIV-1 RNA (log 10)2014 14:03:00 Test Item Value Reference Range Interpretation Comments HIV-1 RNA (log 10) (test 4.470 fpk83csqe/mL code = 36406) [facility]HIV-1RNA, serum, by PCR, plnfxbpgcajj4049-23-28 14:03:00 Test Item Value Reference Range Interpretation Comments HIV-1RNA, serum, by PCR, 34270 /mL quantitative (test code = 12334) [facility]eeCD4/CD8 kasfg6935-29-67 14:03:00 Test Item Value Reference Range Interpretation Comments CD4/CD8 ratio (test code 0.75 (unknown unit) 0.92-3.72 L = 98393) [facility]eeT-suppressor cells (CD8) as percent of blood lymphocytes 2014 14:03:00 Test Item Value Reference Range Interpretation Comments T-suppressor cells (CD8) as percent of 34.6 % 12.0-35.5 blood lymphocytes (test code = 3517) [facility]eeabsolute [id number] 14:03:00 Test Item Value Reference Range Interpretation Comments absolute CD8 (test code = 796 (unknown unit) 931-806 24853) [facility]erapid plasma reagin antibody, mgzls4214-60-21 14:59:00 Test Item Value Reference Range Interpretation Comments rapid plasma reagin antibody, Non Reactive Non Reactive serum (test code = 5291-0) [facility]eehepatitis C antibody, [id number] 14:59:00 Test Item Value Reference Range Interpretation Comments hepatitis C antibody, serum (test code >11.0 0.0-0.9 H = 5199-5) [facility]eeLDL cholesterol, [id number] 14:59:00 Test Item Value Reference Range Interpretation Comments LDL cholesterol, serum (test code = 116 mg/dL 0-99 H 2088-) [facility] hhfpprpebmnc8822-17-94 14:59:00 Test Item Value Reference Range Interpretation Comments very low density lipoproteins (test 30 mg/dL 5-40 code = 2091-7) [facility]eeHDL cholesterol, mdlnl5465-49-17 14:59:00 Test Item Value Reference Range Interpretation Comments HDL cholesterol, serum (test code = 45 mg/dL >39 5-9) [facility]etriglyceride, serum, rmpgtji0700-36-54 14:59:00 Test Item Value Reference Range Interpretation Comments triglyceride, serum, fasting (test 149 mg/dL 0-149 code = 2571-8) [facility]eecholesterol, lhhcy9525-85-94 14:59:00 Test Item Value Reference Range Interpretation Comments cholesterol, serum (test code = 191 mg/dL 132-618 8744-3) [facility]eealanine aminotransferase (SGPT), telgx5032-74-16 14:59:00 Test Item Value Reference Range Interpretation Comments alanine aminotransferase (SGPT), serum 44 1/L 0-44 (test code = 1742-6) [facility]eeaspartate aminotransferase (SGOT), amblu9336-57-25 14:59:00 Test Item Value Reference Range Interpretation Comments aspartate aminotransferase (SGOT), 33 1/L 0-40 serum (test code = 1920-8) [facility]eealkaline phosphatase, kwnjc1798-22-98 14:59:00 Test Item Value Reference Range Interpretation Comments alkaline phosphatase, serum (test 100 1/L 39-117 code = 1783-0) [facility]eebilirubin, serum, [id number] 14:59:00 Test Item Value Reference Range Interpretation Comments bilirubin, serum, total (test code 0.3 mg/dL 0.0-1.2 = 1975-2) [facility]eealbumin/globulin ratio, qchee1805-07-33 14:59:00 Test Item Value Reference Range Interpretation Comments albumin/globulin ratio, 1.5 (unknown unit) 1.1-2.5 serum (test code = 1759-0) [facility] Healthglobulin, umxcj2345-42-04 14:59:00 Test Item Value Reference Range Interpretation Comments globulin, serum (test code 3.1 (unknown unit) 1.5-4.5 = 2336-6) [facility] Healthalbumin, [id number] 14:59:00 Test Item Value Reference Range Interpretation Comments albumin, serum (test code = 1751-7) 4.6 g/dL 3.5-5.5 [facility]ardeeprotein, total, wmpsr9512-47-79 14:59:00 Test Item Value Reference Range Interpretation Comments protein, total, serum (test code = 7.7 g/dL 6.0-8.5 2885-2) [facility]ardeecalcium, jrjbj1288-96-04 14:59:00 Test Item Value Reference Range Interpretation Comments calcium, serum (test code = 2000-8) 9.5 mg/dL 8.7-10.2 [facility]ecarbon dioxide, venous efjpp4266-89-87 14:59:00 Test Item Value Reference Range Interpretation Comments carbon dioxide, venous blood (test 32 mmol/L 18-29 H code = 2026-1) [facility] Healthchloride, lnqah7793-93-24 14:59:00 Test Item Value Reference Range Interpretation Comments chloride, serum (test code = 99 mmol/L 97-108 2075-0) [facility]ardeepotassium, qokvy2893-56-12 14:59:00 Test Item Value Reference Range Interpretation Comments potassium, serum (test code = 4.2 mmol/L 3.5-5.2 2823-3) [facility]eesodium, qsjpj8817-14-22 14:59:00 Test Item Value Reference Range Interpretation Comments sodium, serum (test code = 2951-2) 139 mmol/L 134-144 [facility]eeurea nitrogen/creatinine ratio, ryska3713-93-30 14:59:00 Test Item Value Reference Range Interpretation Comments urea nitrogen/creatinine 11 (unknown unit) 9-20 ratio, serum (test code = 3097-3) [facility]eeeGFR if Tlnxydlh0365-93-46 14:59:00 Test Item Value Reference Range Interpretation Comments eGFR if 67 mL/min/{1.73 m2} >59 (test code = 17197-5) [facility]eeEstimated Glomerular Filtration Rate (calc)2014-04-04 14:59:00 Test Item Value Reference Range Interpretation Comments Estimated Glomerular 58 mL/min/{1.73 m2} >59 L Filtration Rate (calc) (test code = 94083-9) [facility] RNA (log 10)2014-04-04 14:59:00 Test Item Value Reference Range Interpretation Comments HIV-1 RNA (log 10) (test 2.301 ghe84mxbe/mL code = 83131-6) [facility]HIV-1RNA, serum, by PCR, jxighxotncsx5280-18-40 14:59:00 Test Item Value Reference Range Interpretation Comments HIV-1RNA, serum, by PCR, quantitative 200 /mL (test code = 44105-3) [facility]eehepatitis A antibody, hgldh7294-58-21 14:59:00 Test Item Value Reference Range Interpretation Comments hepatitis A antibody, total (test Positive Negative A code = 44162-9) [facility]eehepatitis B core antibody, ozrli5164-67-99 14:59:00 Test Item Value Reference Range Interpretation Comments hepatitis B core antibody, total Positive Negative A (test code = 15994-3) [facility] hgwlcvs0733-32-25 14:59:00 Test Item Value Reference Range Interpretation Comments hepatitis B surface antigen (test Negative Negative code = 21501-4) [facility] antibody, alcez0873-41-73 14:59:00 Test Item Value Reference Range Interpretation Comments hepatitis C antibody, serum (test code >11.0 0.0-0.9 H = 29841-6) [facility] surface ecpntvrm1006-32-38 14:59:00 Test Item Value Reference Range Interpretation Comments hepatitis B surface antibody (test Reactive code = 93603-0) [facility]eeCD4/CD8 uofir9476-18-56 14:59:00 Test Item Value Reference Range Interpretation Comments CD4/CD8 ratio (test code 0.82 (unknown unit) 0.92-3.72 L = 07384) [facility]eeT-suppressor cells (CD8) as percent of blood lymphocytes 2014-04-04 14:59:00 Test Item Value Reference Range Interpretation Comments T-suppressor cells (CD8) as percent of 32.0 % 12.0-35.5 blood lymphocytes (test code = 3517) [facility]eeabsolute [id number] 14:59:00 Test Item Value Reference Range Interpretation Comments absolute CD8 (test code = 1056 (unknown unit) 109-897 H 71931) [facility]HIV-[facility] RNA (log 10)2014-04-04 14:59:00 Test Item Value Reference Range Interpretation Comments HIV-1 RNA (log 10) (test 2.301 tbu77anml/mL code = 91849) [facility]eeHIV-1RNA, serum, by PCR, goohejihpkth3610-14-91 14:59:00 Test Item Value Reference Range Interpretation Comments HIV-1RNA, serum, by PCR, quantitative 200 /mL (test code = 91256) [facility] antibody, vlikm5991-12-57 14:59:00 Test Item Value Reference Range Interpretation Comments hepatitis A antibody, total (test Positive Negative A code = 75) [facility], uotgb9246-64-16 14:59:00 Test Item Value Reference Range Interpretation Comments hepatitis B core antibody, total Positive Negative A (test code = 77) [facility] B surface nflebns4528-96-00 14:59:00 Test Item Value Reference Range Interpretation Comments hepatitis B surface antigen (test Negative Negative code = 79) [facility] B surface gigtvwsb1517-74-33 14:59:00 Test Item Value Reference Range Interpretation Comments hepatitis B surface antibody (test Reactive code = 78) [facility]ardeecreatinine, iqmxf3744-17-42 14:59:00 Test Item Value Reference Range Interpretation Comments creatinine, serum (test code = 1.49 mg/dL 0.76-1.27 H 2160-0) [facility]eeurea nitrogen, cfsmc9074-62-23 14:59:00 Test Item Value Reference Range Interpretation Comments urea nitrogen, blood (test code = 16 mg/dL 6-24 3094-0) [facility]eeblood glucose, kcpsne5676-06-57 14:59:00 Test Item Value Reference Range Interpretation Comments blood glucose, random (test code = 92 mg/dL 65-99 2339-0) [facility]eeimmature granulocytes, percentage of total cells, blood 2014-04-04 14:59:00 Test Item Value Reference Range Interpretation Comments immature granulocytes, percentage of 0 % 0-2 total cells, blood (test code = 52728-0) [facility]eebasophil count, hafxliku2025-55-63 14:59:00 Test Item Value Reference Range Interpretation Comments basophil count, absolute (test 0.0 x10E3/uL 0.0-0.2 code = 04051-0) [facility]eeEosinophil Absolute Jyoqp1092-38-91 14:59:00 Test Item Value Reference Range Interpretation Comments Eosinophil Absolute Count (test 0.1 X10E3/UL 0.0-0.4 code = 42483-6) [facility]ardeemonocyte count, blood, ecfgihkwd1343-15-03 14:59:00 Test Item Value Reference Range Interpretation Comments monocyte count, blood, automated 0.4 X10E3/UL 0.1-0.9 (test code = 742-7) [facility]ardeelymphocyte count, blood, yihmxkufc2359-66-76 14:59:00 Test Item Value Reference Range Interpretation Comments lymphocyte count, blood, 3.3 X10E3/UL 0.7-3.1 H automated (test code = 731-0) [facility]Absolute Yogguttbzsk9522-05-08 14:59:00 Test Item Value Reference Range Interpretation Comments Absolute Neutrophils (test code 4.7 X10E3/UL 1.4-7.0 = 07943-6) [facility]eebasophils as percent of blood iuvuoebanc8663-82-13 14:59:00 Test Item Value Reference Range Interpretation Comments basophils as percent of blood 0 % 0-3 leukocytes (test code = 707-0) [facility]eeeosinophils as percent of blood vddsucnnpk4723-37-90 14:59:00 Test Item Value Reference Range Interpretation Comments eosinophils as percent of blood 1 % 0-5 leukocytes (test code = 713-8) [facility] Healthmonocytes as percent of blood getpczuhcx9438-45-40 14:59:00 Test Item Value Reference Range Interpretation Comments monocytes as percent of blood 5 % 4-12 leukocytes (test code = 5905-5) [facility]ardeelymphocytes as percent of blood opuudmryro6238-63-86 14:59:00 Test Item Value Reference Range Interpretation Comments lymphocytes as percent of blood 39 % 14-46 leukocytes (test code = 736-9) [facility]ardeeneutrophils as percent of blood qmrswsgvjh1032-21-31 14:59:00 Test Item Value Reference Range Interpretation Comments neutrophils as percent of blood 55 % 40-74 leukocytes (test code = 770-8) [facility]ardeeplatelet pzuki6229-90-56 14:59:00 Test Item Value Reference Range Interpretation Comments platelet count (test code = 226 X10E3/UL 150-379 777-3) [facility]eered blood cell distribution bfzwq7327-87-24 14:59:00 Test Item Value Reference Range Interpretation Comments red blood cell distribution width 13.7 % 12.3-15.4 (test code = 788-0) [facility] corpuscular hemoglobin concentration, [id number] 14:59:00 Test Item Value Reference Range Interpretation Comments mean corpuscular hemoglobin 34.2 G/DL 31.5-35.7 concentration, RBC (test code = 786-4) [facility] corpuscular hemoglobin, [id number] 14:59:00 Test Item Value Reference Range Interpretation Comments mean corpuscular hemoglobin, RBC 30.8 pg 26.6-33.0 (test code = 785-6) [facility] corpuscular volume, [id number] 14:59:00 Test Item Value Reference Range Interpretation Comments mean corpuscular volume, RBC (test code 90 fL 79-97 = 787-2) [facility] [id number] 14:59:00 Test Item Value Reference Range Interpretation Comments hematocrit, blood (test code = 4544-3) 48.9 % 37.5-51.0 [facility]eehemoglobin, [id number] 14:59:00 Test Item Value Reference Range Interpretation Comments hemoglobin, blood (test code = 16.7 g/dL 12.6-17.7 718-7) [facility]eeerythrocyte (RBC) [id number] 14:59:00 Test Item Value Reference Range Interpretation Comments erythrocyte (RBC) count (test 5.43 X10E6/UL 4.14-5.80 code = 789-8) [facility]eeleukocyte count, ieegr8831-00-21 14:59:00 Test Item Value Reference Range Interpretation Comments leukocyte count, blood (test 8.5 X10E3/UL 3.4-10.8 code = 6690-2) [facility]eeCD4/CD8 [id number] 14:59:00 Test Item Value Reference Range Interpretation Comments CD4/CD8 ratio (test code 0.82 (unknown unit) 0.92-3.72 L = 34865) [facility]eeT-suppressor cells (CD8) as percent of blood lymphocytes 2014-04-04 14:59:00 Test Item Value Reference Range Interpretation Comments T-suppressor cells (CD8) as percent of 32.0 % 12.0-35.5 blood lymphocytes (test code = 3517) [facility]eeabsolute [id number] 14:59:00 Test Item Value Reference Range Interpretation Comments absolute CD8 (test code = 1056 (unknown unit) 109-897 H 16786) [facility]eeT-helper cells (CD4) as percent of blood lymphocytes 2014-04-04 14:59:00 Test Item Value Reference Range Interpretation Comments T-helper cells (CD4) as percent of 26.3 % 30.8-58.5 L blood lymphocytes (test code = 8123-2) [facility]eeT-helper cells (CD4) rnjat0511-37-60 14:59:00 Test Item Value Reference Range Interpretation Comments T-helper cells (CD4) count (test code 868 /UL 359-1519 = 41907-3) [facility]eeHIV-1 RNA (log 10)2013-12-11 09:21:00 Test Item Value Reference Range Interpretation Comments HIV-1 RNA (log 10) (test 2.580 nub61jkaa/mL code = 85772-6) [facility]eeHIV-1RNA, serum, by PCR, enbeoovifwcp9438-15-64 09:21:00 Test Item Value Reference Range Interpretation Comments HIV-1RNA, serum, by PCR, quantitative 380 /mL (test code = 99507-1) [facility]eeCD4/CD8 gknmg0680-05-25 09:21:00 Test Item Value Reference Range Interpretation Comments CD4/CD8 ratio (test code 0.84 (unknown unit) 0.92-3.72 L = 96551) [facility]eeT-suppressor cells (CD8) as percent of blood lymphocytes 2013-12-11 09:21:00 Test Item Value Reference Range Interpretation Comments T-suppressor cells (CD8) as percent of 32.8 % 12.0-35.5 blood lymphocytes (test code = 3517) [facility]eeabsol[place] [id number] 09:21:00 Test Item Value Reference Range Interpretation Comments absolute CD8 (test code = 984 (unknown unit) 109-897 H 69514) [facility]HIV-1 RNA (log 10)2013-12-11 09:21:00 Test Item Value Reference Range Interpretation Comments HIV-1 RNA (log 10) (test 2.580 fvl86ubtq/mL code = 84970) [facility]HIV-1RNA, serum, by PCR, odviiaqkxtyz3542-40-28 09:21:00 Test Item Value Reference Range Interpretation Comments HIV-1RNA, serum, by PCR, quantitative 380 /mL (test code = 53282) [facility]eferritin, [id number] 09:21:00 Test Item Value Reference Range Interpretation Comments ferritin, serum (test code = 306 ng/mL 30-400 3946-4) [facility], himcl1025-47-55 09:21:00 Test Item Value Reference Range Interpretation Comments iron saturation percent, serum (test 41 % 15-55 code = 2502-3) [facility]eeiron, doxvo6514-55-27 09:21:00 Test Item Value Reference Range Interpretation Comments iron, serum (test code = 2498-4) 121 ug/dL 40-155 [facility], srkgizpvujy7174-14-71 09:21:00 Test Item Value Reference Range Interpretation Comments iron binding capacity, unsaturated 175 ug/dL 150-375 (test code = 2501-5) [facility], pfyuq6621-82-83 09:21:00 Test Item Value Reference Range Interpretation Comments iron binding capacity, total (test 296 ug/dL 250-450 code = 2500-7) [facility]erapid plasma reagin antibody, [id number] 09:21:00 Test Item Value Reference Range Interpretation Comments rapid plasma reagin antibody, Non Reactive Non Reactive serum (test code = 5291-0) [facility]eeLDL cholesterol, aoymt4135-29-05 09:21:00 Test Item Value Reference Range Interpretation Comments LDL cholesterol, serum (test code = 115 mg/dL 0-99 H 9-1) [facility] low density xdnpdkphcyqf0615-90-43 09:21:00 Test Item Value Reference Range Interpretation Comments very low density lipoproteins (test 33 mg/dL 5-40 code = 2091-7) [facility]eeHDL cholesterol, skrwx3091-40-47 09:21:00 Test Item Value Reference Range Interpretation Comments HDL cholesterol, serum (test code = 49 mg/dL >39 2084-9) [facility]etriglyceride, serum, [id number] 09:21:00 Test Item Value Reference Range Interpretation Comments triglyceride, serum, fasting (test 167 mg/dL 0-149 H code = 2571-8) [facility]eecholesterol, [id number] 09:21:00 Test Item Value Reference Range Interpretation Comments cholesterol, serum (test code = 197 mg/dL 024-675 5444-3) [facility]eealanine aminotransferase (SGPT), liimm5107-44-40 09:21:00 Test Item Value Reference Range Interpretation Comments alanine aminotransferase (SGPT), serum 51 1/L 0-44 H (test code = 1742-6) [facility]eeaspartate aminotransferase (SGOT), uwwud9353-66-84 09:21:00 Test Item Value Reference Range Interpretation Comments aspartate aminotransferase (SGOT), 34 1/L 0-40 serum (test code = 1920-8) [facility]eealkaline phosphatase, [id number] 09:21:00 Test Item Value Reference Range Interpretation Comments alkaline phosphatase, serum (test code 96 1/L 39-117 = 1783-0) [facility]eebilirubin, serum, pwkyt7679-28-61 09:21:00 Test Item Value Reference Range Interpretation Comments bilirubin, serum, total (test code 0.4 mg/dL 0.0-1.2 = 1975-2) [facility]eealbumin/globulin ratio, vdyfd4812-72-19 09:21:00 Test Item Value Reference Range Interpretation Comments albumin/globulin ratio, 1.2 (unknown unit) 1.1-2.5 serum (test code = 1759-0) [facility] Healthglobulin, [id number] 09:21:00 Test Item Value Reference Range Interpretation Comments globulin, serum (test code 3.6 (unknown unit) 1.5-4.5 = 2336-6) [facility]eealbumin, tuqhb4842-44-99 09:21:00 Test Item Value Reference Range Interpretation Comments albumin, serum (test code = 1751-7) 4.2 g/dL 3.5-5.5 [facility]ardeeprotein, total, [id number] 09:21:00 Test Item Value Reference Range Interpretation Comments protein, total, serum (test code = 7.8 g/dL 6.0-8.5 2885-2) [facility]ardeecalcium, [id number] 09:21:00 Test Item Value Reference Range Interpretation Comments calcium, serum (test code = 2000-8) 9.5 mg/dL 8.7-10.2 [facility]ecarbon dioxide, venous yjyfl3394-63-38 09:21:00 Test Item Value Reference Range Interpretation Comments carbon dioxide, venous blood (test 27 mmol/L code = 7-1) [facility]eechloride, seazj9598-28-24 09:21:00 Test Item Value Reference Range Interpretation Comments chloride, serum (test code = 102 mmol/L 97-108 5-0) [facility]ardeepotassium, mykca7034-81-27 09:21:00 Test Item Value Reference Range Interpretation Comments potassium, serum (test code = 4.1 mmol/L 3.5-5.2 2823-3) [facility]eesodium, csmmk8727-11-00 09:21:00 Test Item Value Reference Range Interpretation Comments sodium, serum (test code = 2951-2) 139 mmol/L 134-144 [facility]ardeeurea nitrogen/creatinine ratio, knent8423-39-87 09:21:00 Test Item Value Reference Range Interpretation Comments urea nitrogen/creatinine 20 (unknown unit) 9-20 ratio, serum (test code = 3097-3) [facility] HealtheGFR if Pssetwlr4517-17-85 09:21:00 Test Item Value Reference Range Interpretation Comments eGFR if 118 mL/min/{1.73 m2} >59 (test code = 09813-4) [facility]eeEstimated Glomerular Filtration Rate (calc)2013-12-11 09:21:00 Test Item Value Reference Range Interpretation Comments Estimated Glomerular 102 mL/min/{1.73 m2} >59 Filtration Rate (calc) (test code = 97536-3) [facility]ardeecreatinine, [id number] 09:21:00 Test Item Value Reference Range Interpretation Comments creatinine, serum (test code = 0.93 mg/dL 0.76-1.27 2160-0) [facility] Healthurea nitrogen, kfpwn0799-32-05 09:21:00 Test Item Value Reference Range Interpretation Comments urea nitrogen, blood (test code = 19 mg/dL 24 3094-0) [facility]eeblood glucose, mbbhue5323-35-53 09:21:00 Test Item Value Reference Range Interpretation Comments blood glucose, random (test code = 70 mg/dL 65-99 2339-0) [facility]eeimmature granulocytes, percentage of total cells, blood 2013-12-11 09:21:00 Test Item Value Reference Range Interpretation Comments immature granulocytes, percentage of 0 % 0-2 total cells, blood (test code = 68070-2) [facility]eebasophil count, rqjftnjc3527-99-05 09:21:00 Test Item Value Reference Range Interpretation Comments basophil count, absolute (test 0.0 x10E3/uL 0.0-0.2 code = 36294-2) [facility]eeEosinophil Absolute [id number] 09:21:00 Test Item Value Reference Range Interpretation Comments Eosinophil Absolute Count (test 0.2 X10E3/UL 0.0-0.4 code = 00711-7) [facility]ardeemonocyte count, blood, ldvcxemwz4001-29-77 09:21:00 Test Item Value Reference Range Interpretation Comments monocyte count, blood, automated 0.4 X10E3/UL 0.1-0.9 (test code = 742-7) [facility]ardeelymphocyte count, blood, lnrsdtakh2915-39-09 09:21:00 Test Item Value Reference Range Interpretation Comments lymphocyte count, blood, 3.0 X10E3/UL 0.7-3.1 automated (test code = 731-0) [facility]eeAbsolute Rsyongzvkto7706-87-76 09:21:00 Test Item Value Reference Range Interpretation Comments Absolute Neutrophils (test code 3.4 X10E3/UL 1.4-7.0 = 91134-2) [facility]eebasophils as percent of blood ojagpxtils1135-49-99 09:21:00 Test Item Value Reference Range Interpretation Comments basophils as percent of blood 0 % 0-3 leukocytes (test code = 707-0) [facility]eeeosinophils as percent of blood mznzqhemmd4302-85-44 09:21:00 Test Item Value Reference Range Interpretation Comments eosinophils as percent of blood 2 % 0-5 leukocytes (test code = 713-8) [facility] Healthmonocytes as percent of blood fejuhidcxv4263-96-68 09:21:00 Test Item Value Reference Range Interpretation Comments monocytes as percent of blood 6 % 4-12 leukocytes (test code = 5905-5) [facility]ardeelymphocytes as percent of blood xrlukkxyhb0883-18-62 09:21:00 Test Item Value Reference Range Interpretation Comments lymphocytes as percent of blood 43 % 14-46 leukocytes (test code = 736-9) [facility]ardeeneutrophils as percent of blood npqqofcjrw1169-83-01 09:21:00 Test Item Value Reference Range Interpretation Comments neutrophils as percent of blood 49 % 40-74 leukocytes (test code = 770-8) [facility]ardeeplatelet ztplq5980-28-75 09:21:00 Test Item Value Reference Range Interpretation Comments platelet count (test code = 227 X10E3/UL 155-379 777-3) [facility] blood cell distribution hgpfe4975-71-81 09:21:00 Test Item Value Reference Range Interpretation Comments red blood cell distribution width 12.1 % 12.3-15.4 L (test code = 788-0) [facility] corpuscular hemoglobin concentration, [id number] 09:21:00 Test Item Value Reference Range Interpretation Comments mean corpuscular hemoglobin 35.8 G/DL 31.5-35.7 H concentration, RBC (test code = 786-4) [facility], [id number] 09:21:00 Test Item Value Reference Range Interpretation Comments mean corpuscular hemoglobin, RBC 31.7 pg 26.6-33.0 (test code = 785-6) [facility] corpuscular volume, [id number] 09:21:00 Test Item Value Reference Range Interpretation Comments mean corpuscular volume, RBC (test code 89 fL 79-97 = 787-2) [facility]eehematocrit, ydsnx4991-06-22 09:21:00 Test Item Value Reference Range Interpretation Comments hematocrit, blood (test code = 4544-3) 46.4 % 37.5-51.0 [facility]eehemoglobin, [id number] 09:21:00 Test Item Value Reference Range Interpretation Comments hemoglobin, blood (test code = 16.6 g/dL 12.6-17.7 718-7) [facility]eeerythrocyte (RBC) [id number] 09:21:00 Test Item Value Reference Range Interpretation Comments erythrocyte (RBC) count (test 5.23 X10E6/UL 4.14-5.80 code = 789-8) [facility]eeleukocyte count, iaobs6848-31-80 09:21:00 Test Item Value Reference Range Interpretation Comments leukocyte count, blood (test 7.1 X10E3/UL 3.4-10.8 code = 6690-2) [facility]eeCD4/CD8 fkozz7382-50-00 09:21:00 Test Item Value Reference Range Interpretation Comments CD4/CD8 ratio (test code 0.84 (unknown unit) 0.92-3.72 L = 44666) [facility]eeT-suppressor cells (CD8) as percent of blood lymphocytes 2013-12-11 09:21:00 Test Item Value Reference Range Interpretation Comments T-suppressor cells (CD8) as percent of 32.8 % 12.0-35.5 blood lymphocytes (test code = 3517) [facility]eeabsolute [id number] 09:21:00 Test Item Value Reference Range Interpretation Comments absolute CD8 (test code = 984 (unknown unit) 109-897 H 84647) [facility]eeT-helper cells (CD4) as percent of blood lymphocytes 2013-12-11 09:21:00 Test Item Value Reference Range Interpretation Comments T-helper cells (CD4) as percent of 27.4 % 30.8-58.5 L blood lymphocytes (test code = 8123-2) [facility]eeT-helper cells (CD4) isrke9329-89-46 09:21:00 Test Item Value Reference Range Interpretation Comments T-helper cells (CD4) count (test code 822 /UL 359-1519 = 32898-2) [facility]eeHIV-1 RNA (log 10)2013-08-09 10:06:00 Test Item Value Reference Range Interpretation Comments HIV-1 RNA (log 10) (test 1.699 ypk69xvev/mL code = 94609-6) [facility]eeHIV-1RNA, serum, by PCR, fnvgxgubfvsj5739-05-63 10:06:00 Test Item Value Reference Range Interpretation Comments HIV-1RNA, serum, by PCR, quantitative 50 /mL (test code = 16552-7) [facility]eeCD4/CD8 icout3695-63-22 10:06:00 Test Item Value Reference Range Interpretation Comments CD4/CD8 ratio (test code 0.67 (unknown unit) 0.92-3.72 L = 40698) [facility]eeabsolute [id number] 10:06:00 Test Item Value Reference Range Interpretation Comments absolute CD8 (test code = 961 (unknown unit) 109-897 H 63380) [facility]eeHIV-1 RNA (log 10)2013-08-09 10:06:00 Test Item Value Reference Range Interpretation Comments HIV-1 RNA (log 10) (test 1.699 uxu99ulqv/mL code = 78934) [facility]eeHIV-1RNA, serum, by PCR, drnjimhefadp3648-45-54 10:06:00 Test Item Value Reference Range Interpretation Comments HIV-1RNA, serum, by PCR, quantitative 50 /mL (test code = 46222) [facility]ardeerapid plasma reagin antibody, [id number] 10:06:00 Test Item Value Reference Range Interpretation Comments rapid plasma reagin antibody, Non Reactive Non Reactive serum (test code = 5291-0) [facility]eeLDL cholesterol, asaog5155-41-53 10:06:00 Test Item Value Reference Range Interpretation Comments LDL cholesterol, serum (test code = 138 mg/dL 0-99 H 2088-09) [facility] cqcrdsyptzia5777-92-12 10:06:00 Test Item Value Reference Range Interpretation Comments very low density lipoproteins (test 26 mg/dL 5-40 code = 2091-7) [facility]eeHDL cholesterol, ifomk0276-38-37 10:06:00 Test Item Value Reference Range Interpretation Comments HDL cholesterol, serum (test code = 51 mg/dL >39 9) [facility]etriglyceride, serum, kmzctdw1928-35-72 10:06:00 Test Item Value Reference Range Interpretation Comments triglyceride, serum, fasting (test 130 mg/dL 0-149 code = 2571-8) [facility]eecholesterol, ovmcd1305-28-52 10:06:00 Test Item Value Reference Range Interpretation Comments cholesterol, serum (test code = 215 mg/dL 100-199 H 3-3) [facility]eealanine aminotransferase (SGPT), gxqmm3653-38-68 10:06:00 Test Item Value Reference Range Interpretation Comments alanine aminotransferase (SGPT), 119 1/L 0-44 H serum (test code = 1742-6) [facility]ardeeaspartate aminotransferase (SGOT), xmreg5448-27-80 10:06:00 Test Item Value Reference Range Interpretation Comments aspartate aminotransferase (SGOT), 69 1/L 0-40 H serum (test code = 1920-8) [facility]eealkaline phosphatase, nronk3390-12-31 10:06:00 Test Item Value Reference Range Interpretation Comments alkaline phosphatase, serum (test code 99 1/L 39-117 = 1783-0) [facility]eebilirubin, serum, vvcwq4444-32-62 10:06:00 Test Item Value Reference Range Interpretation Comments bilirubin, serum, total (test code 0.5 mg/dL 0.0-1.2 = 1975-2) [facility]eealbumin/globulin ratio, vzxym8969-14-98 10:06:00 Test Item Value Reference Range Interpretation Comments albumin/globulin ratio, 1.3 (unknown unit) 1.1-2.5 serum (test code = 1759-0) [facility] Healthglobulin, xlafj4812-16-87 10:06:00 Test Item Value Reference Range Interpretation Comments globulin, serum (test code 3.4 (unknown unit) 1.5-4.5 = 2336-6) [facility]eealbumin, ynbkm7806-88-45 10:06:00 Test Item Value Reference Range Interpretation Comments albumin, serum (test code = 1751-7) 4.5 g/dL 3.5-5.5 [facility]ardeeprotein, total, [id number] 10:06:00 Test Item Value Reference Range Interpretation Comments protein, total, serum (test code = 7.9 g/dL 6.0-8.5 2885-2) [facility]ardeecalcium, lecfp4526-17-17 10:06:00 Test Item Value Reference Range Interpretation Comments calcium, serum (test code = 1999-8) 9.7 mg/dL 8.7-10.2 [facility]ardeecarbon dioxide, venous dliwk8052-37-61 10:06:00 Test Item Value Reference Range Interpretation Comments carbon dioxide, venous blood (test 23 mmol/L code = 2026-1) [facility]eechloride, fwqih5287-20-97 10:06:00 Test Item Value Reference Range Interpretation Comments chloride, serum (test code = 100 mmol/L 97-108 2074-0) [facility]ardeepotassium, rychd8139-29-66 10:06:00 Test Item Value Reference Range Interpretation Comments potassium, serum (test code = 4.5 mmol/L 3.5-5.2 3-3) [facility]eesodium, lxjta0336-54-67 10:06:00 Test Item Value Reference Range Interpretation Comments sodium, serum (test code = 2951-2) 140 mmol/L 134-144 [facility]ardeeurea nitrogen/creatinine ratio, sfwlg9881-70-84 10:06:00 Test Item Value Reference Range Interpretation Comments urea nitrogen/creatinine 15 (unknown unit) 20 ratio, serum (test code = 3097-3) [facility] HealtheGFR if Fjhnzfbs0720-44-73 10:06:00 Test Item Value Reference Range Interpretation Comments eGFR if 112 mL/min/{1.73 m2} >59 (test code = 47469-5) [facility]ardeeEstimated Glomerular Filtration Rate (calc)2013-08-09 10:06:00 Test Item Value Reference Range Interpretation Comments Estimated Glomerular 97 mL/min/{1.73 m2} >59 Filtration Rate (calc) (test code = 05273-0) [facility]ardeecreatinine, dtcco7343-95-99 10:06:00 Test Item Value Reference Range Interpretation Comments creatinine, serum (test code = 0.97 mg/dL 0.76-1.27 0-0) [facility]eeurea nitrogen, [id number] 10:06:00 Test Item Value Reference Range Interpretation Comments urea nitrogen, blood (test code = 15 mg/dL 624 3094-0) [facility]eeblood glucose, asxtkh0314-03-05 10:06:00 Test Item Value Reference Range Interpretation Comments blood glucose, random (test code = 57 mg/dL 65-99 L 2339-0) [facility]eeimmature granulocytes, percentage of total cells, blood 2013-08-09 10:06:00 Test Item Value Reference Range Interpretation Comments immature granulocytes, percentage of 0 % 0-2 total cells, blood (test code = 68302-2) [facility]eebasophil count, dejxrcqo4387-52-52 10:06:00 Test Item Value Reference Range Interpretation Comments basophil count, absolute (test 0.0 x10E3/uL 0.0-0.2 code = 50476-0) [facility]ardeeEosinophil Absolute Tsbcb7207-10-71 10:06:00 Test Item Value Reference Range Interpretation Comments Eosinophil Absolute Count (test 0.1 X10E3/UL 0.0-0.4 code = 70047-6) [facility]ardeemonocyte count, blood, wgzueshsi9987-65-87 10:06:00 Test Item Value Reference Range Interpretation Comments monocyte count, blood, automated 0.7 X10E3/UL 0.1-0.9 (test code = 742-7) [facility]ardeelymphocyte count, blood, miblnkxny7259-30-73 10:06:00 Test Item Value Reference Range Interpretation Comments lymphocyte count, blood, 2.7 X10E3/UL 0.7-3.1 automated (test code = 731-0) [facility]eeAbsolute Fgqdlylweur9503-56-44 10:06:00 Test Item Value Reference Range Interpretation Comments Absolute Neutrophils (test code 3.9 X10E3/UL 1.4-7.0 = 65233-0) [facility]eebasophils as percent of blood fqovamclhy1885-68-25 10:06:00 Test Item Value Reference Range Interpretation Comments basophils as percent of blood 0 % 0-3 leukocytes (test code = 707-0) [facility]eeeosinophils as percent of blood rgbfabyvbl9897-83-21 10:06:00 Test Item Value Reference Range Interpretation Comments eosinophils as percent of blood 1 % 0-5 leukocytes (test code = 713-8) [facility] Healthmonocytes as percent of blood jxnkykyyfh4174-70-64 10:06:00 Test Item Value Reference Range Interpretation Comments monocytes as percent of blood 9 % 4-12 leukocytes (test code = 5905-5) [facility]ardeelymphocytes as percent of blood yijhrbxdoe9045-84-07 10:06:00 Test Item Value Reference Range Interpretation Comments lymphocytes as percent of blood 37 % 14-46 leukocytes (test code = 736-9) [facility]ardeeneutrophils as percent of blood cgtomvmmah3005-77-72 10:06:00 Test Item Value Reference Range Interpretation Comments neutrophils as percent of blood 53 % 40-74 leukocytes (test code = 770-8) [facility]ardeeplatelet ochxy5954-56-28 10:06:00 Test Item Value Reference Range Interpretation Comments platelet count (test code = 228 X10E3/UL 155-379 777-3) [facility]eered blood cell distribution ruaww6080-99-80 10:06:00 Test Item Value Reference Range Interpretation Comments red blood cell distribution width 13.3 % 12.3-15.4 (test code = 788-0) [facility] corpuscular hemoglobin concentration, [id number] 10:06:00 Test Item Value Reference Range Interpretation Comments mean corpuscular hemoglobin 34.8 G/DL 31.5-35.7 concentration, RBC (test code = 786-4) [facility] corpuscular hemoglobin, [id number] 10:06:00 Test Item Value Reference Range Interpretation Comments mean corpuscular hemoglobin, RBC 31.8 pg 26.6-33.0 (test code = 785-6) [facility] corpuscular volume, [id number] 10:06:00 Test Item Value Reference Range Interpretation Comments mean corpuscular volume, RBC (test code 91 fL 79-97 = 787-2) [facility]eehematocrit, qsffl0051-92-64 10:06:00 Test Item Value Reference Range Interpretation Comments hematocrit, blood (test code = 4544-3) 48.8 % 37.5-51.0 [facility]eehemoglobin, [id number] 10:06:00 Test Item Value Reference Range Interpretation Comments hemoglobin, blood (test code = 17.0 g/dL 12.6-17.7 718-7) [facility]eeerythrocyte (RBC) cjnxu4155-12-13 10:06:00 Test Item Value Reference Range Interpretation Comments erythrocyte (RBC) count (test 5.34 X10E6/UL 4.14-5.80 code = 789-8) [facility]eeleukocyte count, bvcos5877-75-21 10:06:00 Test Item Value Reference Range Interpretation Comments leukocyte count, blood (test 7.5 X10E3/UL 3.4-10.8 code = 6690-2) [facility]ardeeCD4/CD8 ozkkn6892-05-18 10:06:00 Test Item Value Reference Range Interpretation Comments CD4/CD8 ratio (test code 0.67 (unknown unit) 0.92-3.72 L = 08230) [facility] [id number] 10:06:00 Test Item Value Reference Range Interpretation Comments absolute CD8 (test code = 961 (unknown unit) 109-897 H 30187) [facility]-helper cells (CD4) as percent of blood lymphocytes 2013-08-09 10:06:00 Test Item Value Reference Range Interpretation Comments T-helper cells (CD4) as percent of 23.8 % 30.8-58.5 L blood lymphocytes (test code = 8123-2) [facility] cells (CD4) [id number] 10:06:00 Test Item Value Reference Range Interpretation Comments T-helper cells (CD4) count (test code 643 /UL 359-1519 = 75319-8) [facility]HIV-1RNA, serum, by PCR, usguqrbiuwgq4707-20-31 11:38:00 Test Item Value Reference Range Interpretation Comments HIV-1RNA, serum, by PCR, <20 copies/mL quantitative (test code = 88622-3) [facility]CD4/CD8 [id number] 11:38:00 Test Item Value Reference Range Interpretation Comments CD4/CD8 ratio (test code 0.63 (unknown unit) 0.92-3.72 L = 33711) [facility] [id number] 11:38:00 Test Item Value Reference Range Interpretation Comments absolute CD8 (test code = 1194 (unknown unit) 109-897 H 95282) [facility]-1RNA, serum, by PCR, [id number] 11:38:00 Test Item Value Reference Range Interpretation Comments HIV-1RNA, serum, by PCR, <20 copies/mL quantitative (test code = 79081) [facility] plasma reagin antibody, pnzns6024-40-08 11:38:00 Test Item Value Reference Range Interpretation Comments rapid plasma reagin antibody, Non Reactive Non Reactive serum (test code = 5291-0) [facility]LDL cholesterol, [id number] 11:38:00 Test Item Value Reference Range Interpretation Comments LDL cholesterol, serum (test code = 100 mg/dL 0-99 H 2088-09) [facility] low density gzlkjtiiwczy0790-57-52 11:38:00 Test Item Value Reference Range Interpretation Comments very low density lipoproteins (test 41 mg/dL 5-40 H code = 1-7) [facility] cholesterol, [id number] 11:38:00 Test Item Value Reference Range Interpretation Comments HDL cholesterol, serum (test code = 45 mg/dL >39 2084-9) [facility]etriglyceride, serum, [id number] 11:38:00 Test Item Value Reference Range Interpretation Comments triglyceride, serum, fasting (test 203 mg/dL 0-149 H code = 2571-8) [facility]olesterol, [id number] 11:38:00 Test Item Value Reference Range Interpretation Comments cholesterol, serum (test code = 186 mg/dL 416-620 4495-3) [facility] aminotransferase (SGPT), pluvj0525-52-91 11:38:00 Test Item Value Reference Range Interpretation Comments alanine aminotransferase (SGPT), 752 1/L 0-44 HH serum (test code = 1742-6) [facility]eeaspartate aminotransferase (SGOT), vaosh6150-78-27 11:38:00 Test Item Value Reference Range Interpretation Comments aspartate aminotransferase (SGOT), 278 1/L 0-40 H serum (test code = 1920-8) [facility] [id number] 11:38:00 Test Item Value Reference Range Interpretation Comments alkaline phosphatase, serum (test 154 1/L 44-102 H code = 1783-0) [facility] Healthbilirubin, serum, [id number] 11:38:00 Test Item Value Reference Range Interpretation Comments bilirubin, serum, total (test code 0.7 mg/dL 0.0-1.2 = 1975-2) [facility] Healthalbumin/globulin ratio, [id number] 11:38:00 Test Item Value Reference Range Interpretation Comments albumin/globulin ratio, 1.2 (unknown unit) 1.1-2.5 serum (test code = 1759-0) [facility] Healthglobulin, wftmf0570-40-59 11:38:00 Test Item Value Reference Range Interpretation Comments globulin, serum (test code 3.6 (unknown unit) 1.5-4.5 = 2336-6) [facility] Healthalbumin, [id number] 11:38:00 Test Item Value Reference Range Interpretation Comments albumin, serum (test code = 1751-7) 4.3 g/dL 3.5-5.5 [facility] Healthprotein, total, [id number] 11:38:00 Test Item Value Reference Range Interpretation Comments protein, total, serum (test code = 7.9 g/dL 6.0-8.5 2885-2) [facility], [id number] 11:38:00 Test Item Value Reference Range Interpretation Comments calcium, serum (test code = 1999-8) 9.3 mg/dL 8.7-10.2 [facility]ecarbon dioxide, venous dquvv1851-98-97 11:38:00 Test Item Value Reference Range Interpretation Comments carbon dioxide, venous blood (test 24 mmol/L 19-28 code = 7-1) [facility]eechloride, [id number] 11:38:00 Test Item Value Reference Range Interpretation Comments chloride, serum (test code = 100 mmol/L 97-108 5-0) [facility]epotassium, [id number] 11:38:00 Test Item Value Reference Range Interpretation Comments potassium, serum (test code = 4.1 mmol/L 3.5-5.2 2823-3) [facility]eesodium, wipwo0549-43-28 11:38:00 Test Item Value Reference Range Interpretation Comments sodium, serum (test code = 2951-2) 138 mmol/L 134-144 [facility]eeurea nitrogen/creatinine ratio, [id number] 11:38:00 Test Item Value Reference Range Interpretation Comments urea nitrogen/creatinine 16 (unknown unit) 8-19 ratio, serum (test code = 3097-3) [facility]eeEstimated Glomerular Filtration Rate (calc)2013-04-25 11:38:00 Test Item Value Reference Range Interpretation Comments Estimated Glomerular 106 mL/min/{1.73 m2} >59 Filtration Rate (calc) (test code = 86180-4) [facility]ecreatinine, [id number] 11:38:00 Test Item Value Reference Range Interpretation Comments creatinine, serum (test code = 0.91 mg/dL 0.76-1.27 2160-0) [facility] nitrogen, [id number] 11:38:00 Test Item Value Reference Range Interpretation Comments urea nitrogen, blood (test code = 15 mg/dL 6-20 3094-0) [facility] glucose, dcrnde3438-97-26 11:38:00 Test Item Value Reference Range Interpretation Comments blood glucose, random (test code = 84 mg/dL 65-99 2339-0) [facility]eeimmature granulocytes, percentage of total cells, blood 2013-04-25 11:38:00 Test Item Value Reference Range Interpretation Comments immature granulocytes, percentage of 0 % 0-2 total cells, blood (test code = 79597-8) [facility]eebasophil count, yoylwvrj3724-30-96 11:38:00 Test Item Value Reference Range Interpretation Comments basophil count, absolute (test 0.0 x10E3/uL 0.0-0.2 code = 25303-0) [facility]eeEosinophil Absolute [id number] 11:38:00 Test Item Value Reference Range Interpretation Comments Eosinophil Absolute Count (test 0.1 X10E3/UL 0.0-0.4 code = 74276-6) [facility]emonocyte count, blood, hezxfseet6739-29-04 11:38:00 Test Item Value Reference Range Interpretation Comments monocyte count, blood, automated 0.5 X10E3/UL 0.1-1.0 (test code = 742-7) [facility]ardeelymphocyte count, blood, vpvtddeqg3415-36-38 11:38:00 Test Item Value Reference Range Interpretation Comments lymphocyte count, blood, 3.2 X10E3/UL 0.7-4.5 automated (test code = 731-0) [facility] Pdjiavkafes9911-40-74 11:38:00 Test Item Value Reference Range Interpretation Comments Absolute Neutrophils (test code 2.6 X10E3/UL 1.8-7.8 = 08606-5) [facility]ophils as percent of blood oyvjcigqyi0818-48-67 11:38:00 Test Item Value Reference Range Interpretation Comments basophils as percent of blood 0 % 0-3 leukocytes (test code = 707-0) [facility]eeeosinophils as percent of blood fykuncatbp2673-31-16 11:38:00 Test Item Value Reference Range Interpretation Comments eosinophils as percent of blood 1 % 0-7 leukocytes (test code = 713-8) [facility]emonocytes as percent of blood xjabycplch4572-63-69 11:38:00 Test Item Value Reference Range Interpretation Comments monocytes as percent of blood 7 % 4-13 leukocytes (test code = 5905-5) [facility]elymphocytes as percent of blood rcplpymmjc4091-60-61 11:38:00 Test Item Value Reference Range Interpretation Comments lymphocytes as percent of blood 50 % 14-46 H leukocytes (test code = 736-9) [facility]eneutrophils as percent of blood kgaegwjwig8250-93-16 11:38:00 Test Item Value Reference Range Interpretation Comments neutrophils as percent of blood 42 % 40-74 leukocytes (test code = 770-8) [facility]eeplatelet ukfqb7816-19-48 11:38:00 Test Item Value Reference Range Interpretation Comments platelet count (test code = 194 X10E3/UL 140-415 777-3) [facility] cell distribution [id number] 11:38:00 Test Item Value Reference Range Interpretation Comments red blood cell distribution width 14.0 % 12.3-15.4 (test code = 788-0) [facility] corpuscular hemoglobin concentration, [id number] 11:38:00 Test Item Value Reference Range Interpretation Comments mean corpuscular hemoglobin 33.7 G/DL 31.5-35.7 concentration, RBC (test code = 786-4) [facility]em[facility] corpuscular hemoglobin, [id number] 11:38:00 Test Item Value Reference Range Interpretation Comments mean corpuscular hemoglobin, RBC 31.6 pg 26.6-33.0 (test code = 785-6) [facility] corpuscular volume, [id number] 11:38:00 Test Item Value Reference Range Interpretation Comments mean corpuscular volume, RBC (test code 94 fL 79-97 = 787-2) [facility]eehematocrit, rzmix3569-52-77 11:38:00 Test Item Value Reference Range Interpretation Comments hematocrit, blood (test code = 4544-3) 49.2 % 37.5-51.0 [facility]eehemoglobin, khcei6922-19-15 11:38:00 Test Item Value Reference Range Interpretation Comments hemoglobin, blood (test code = 16.6 g/dL 12.6-17.7 718-7) [facility]eeerythrocyte (RBC) bwynb7530-21-95 11:38:00 Test Item Value Reference Range Interpretation Comments erythrocyte (RBC) count (test 5.26 X10E6/UL 4.14-5.80 code = 789-8) [facility]eeleukocyte count, [id number] 11:38:00 Test Item Value Reference Range Interpretation Comments leukocyte count, blood (test 6.3 X10E3/UL 4.0-10.5 code = 6690-2) [facility]CD4/CD8 heiyw3367-99-23 11:38:00 Test Item Value Reference Range Interpretation Comments CD4/CD8 ratio (test code 0.63 (unknown unit) 0.92-3.72 L = 17238) [facility] [id number] 11:38:00 Test Item Value Reference Range Interpretation Comments absolute CD8 (test code = 1194 (unknown unit) 109-897 H 39893) [facility]-helper cells (CD4) as percent of blood lymphocytes 2013-04-25 11:38:00 Test Item Value Reference Range Interpretation Comments T-helper cells (CD4) as percent of 23.5 % 30.8-58.5 L blood lymphocytes (test code = 8123-2) [facility]T-helper cells (CD4) bqoqj0749-68-73 11:38:00 Test Item Value Reference Range Interpretation Comments T-helper cells (CD4) count (test code 752 /UL 359-1519 = 49232-8) [facility]eesource2013-06-06 15:54:00 Test Item Value Reference Range Interpretation Comments source (test code = 83815) ANAL [facility]ource2013-06-06 15:54:00 Test Item Value Reference Range Interpretation Comments source (test code = 90482) ANAL [facility]eeNeisseria gonorrhoeae DNA [id number] 11:50:00 Test Item Value Reference Range Interpretation Comments Neisseria gonorrhoeae DNA probe Negative Negative (test code = 12535-1) [facility]eechlamydia DNA olfhy1183-85-41 11:50:00 Test Item Value Reference Range Interpretation Comments chlamydia DNA probe (test code = Negative Negative 30919-7) [facility]-1 RNA (log 10)2012-12-26 09:28:00 Test Item Value Reference Range Interpretation Comments HIV-1 RNA (log 10) (test 1.699 wyu22fvvo/mL code = 14907-6) [facility]HIV-1RNA, serum, by PCR, gqrhbopvixny7881-99-63 09:28:00 Test Item Value Reference Range Interpretation Comments HIV-1RNA, serum, by PCR, quantitative 50 /mL (test code = 05904-2) [facility]eeCD4/CD8 ocoum1574-00-18 09:28:00 Test Item Value Reference Range Interpretation Comments CD4/CD8 ratio (test code 0.74 (unknown unit) 0.92-3.72 L = 36383) [facility] [id number] 09:28:00 Test Item Value Reference Range Interpretation Comments absolute CD8 (test code = 1165 (unknown unit) 109-897 H 50656) [facility]-1 RNA (log 10)2012-12-26 09:28:00 Test Item Value Reference Range Interpretation Comments HIV-1 RNA (log 10) (test 1.699 umf21ycbd/mL code = 34425) [facility]HIV-1RNA, serum, by PCR, vbwblgxedmvf1624-87-01 09:28:00 Test Item Value Reference Range Interpretation Comments HIV-1RNA, serum, by PCR, quantitative 50 /mL (test code = 85397) [facility] plasma reagin antibody, effeo9413-46-13 09:28:00 Test Item Value Reference Range Interpretation Comments rapid plasma reagin antibody, Non Reactive Non Reactive serum (test code = 5291-0) [facility]LDL cholesterol, [id number] 09:28:00 Test Item Value Reference Range Interpretation Comments LDL cholesterol, serum (test code = 130 mg/dL 0-99 H 2088-09) [facility]very low density rvaekjtqonmq3326-89-40 09:28:00 Test Item Value Reference Range Interpretation Comments very low density lipoproteins (test 32 mg/dL 5-40 code = 2090-7) [facility]HDL cholesterol, lgyie6379-29-24 09:28:00 Test Item Value Reference Range Interpretation Comments HDL cholesterol, serum (test code = 57 mg/dL >39 2085-05) [facility]etriglyceride, serum, lmolxwx4113-73-15 09:28:00 Test Item Value Reference Range Interpretation Comments triglyceride, serum, fasting (test 159 mg/dL 0-149 H code = 2571-8) [facility]eecholesterol, [id number] 09:28:00 Test Item Value Reference Range Interpretation Comments cholesterol, serum (test code = 219 mg/dL 100-199 H 2092-11) [facility]alanine aminotransferase (SGPT), meonf2575-29-77 09:28:00 Test Item Value Reference Range Interpretation Comments alanine aminotransferase (SGPT), 318 1/L 0-44 H serum (test code = 1742-6) [facility]eeaspartate aminotransferase (SGOT), [id number] 09:28:00 Test Item Value Reference Range Interpretation Comments aspartate aminotransferase (SGOT), 113 1/L 0-40 H serum (test code = 1920-8) [facility]eealkaline phosphatase, wtmqk1257-96-90 09:28:00 Test Item Value Reference Range Interpretation Comments alkaline phosphatase, serum (test 121 1/L 25-150 code = 1783-0) [facility] Healthbilirubin, serum, jutgg6549-11-49 09:28:00 Test Item Value Reference Range Interpretation Comments bilirubin, serum, total (test code 0.6 mg/dL 0.0-1.2 = 1975-2) [facility] Healthalbumin/globulin ratio, nkqjk4733-14-27 09:28:00 Test Item Value Reference Range Interpretation Comments albumin/globulin ratio, 1.2 (unknown unit) 1.1-2.5 serum (test code = 1759-0) [facility] Healthglobulin, [id number] 09:28:00 Test Item Value Reference Range Interpretation Comments globulin, serum (test code 3.7 (unknown unit) 1.5-4.5 = 2336-6) [facility] Healthalbumin, bpnen3154-14-07 09:28:00 Test Item Value Reference Range Interpretation Comments albumin, serum (test code = 1751-7) 4.5 g/dL 3.5-5.5 [facility]eprotein, total, [id number] 09:28:00 Test Item Value Reference Range Interpretation Comments protein, total, serum (test code = 8.2 g/dL 6.0-8.5 2885-2) [facility]ecalcium, aipdv1812-67-11 09:28:00 Test Item Value Reference Range Interpretation Comments calcium, serum (test code = 1999-8) 9.5 mg/dL 8.7-10.2 [facility]ecarbon dioxide, venous lebri5334-24-90 09:28:00 Test Item Value Reference Range Interpretation Comments carbon dioxide, venous blood (test 22 mmol/L 20-32 code = 7-1) [facility] Healthchloride, fhptj8363-24-96 09:28:00 Test Item Value Reference Range Interpretation Comments chloride, serum (test code = 99 mmol/L 97-108 5-0) [facility]epotassium, xilzu2318-95-23 09:28:00 Test Item Value Reference Range Interpretation Comments potassium, serum (test code = 4.0 mmol/L 3.5-5.2 2823-3) [facility]eesodium, jbnea1256-92-75 09:28:00 Test Item Value Reference Range Interpretation Comments sodium, serum (test code = 2951-2) 140 mmol/L 134-144 [facility]eeurea nitrogen/creatinine ratio, qbfhg1313-04-95 09:28:00 Test Item Value Reference Range Interpretation Comments urea nitrogen/creatinine 15 (unknown unit) 8-19 ratio, serum (test code = 3097-3) [facility]eeEstimated Glomerular Filtration Rate (calc)2012-12-26 09:28:00 Test Item Value Reference Range Interpretation Comments Estimated Glomerular 108 mL/min/{1.73 m2} >59 Filtration Rate (calc) (test code = 25706-9) [facility]ecreatinine, [id number] 09:28:00 Test Item Value Reference Range Interpretation Comments creatinine, serum (test code = 0.88 mg/dL 0.76-1.27 2160-0) [facility] nitrogen, wkzis7319-70-34 09:28:00 Test Item Value Reference Range Interpretation Comments urea nitrogen, blood (test code = 13 mg/dL 6-20 3094-0) [facility] glucose, txzdqw1765-18-65 09:28:00 Test Item Value Reference Range Interpretation Comments blood glucose, random (test code = 123 mg/dL 65-99 H 2339-0) [facility]eeimmature granulocytes, percentage of total cells, blood 2012-12-26 09:28:00 Test Item Value Reference Range Interpretation Comments immature granulocytes, percentage of 0 % 0-2 total cells, blood (test code = 88540-5) [facility]eebasophil count, bppflltt5227-90-37 09:28:00 Test Item Value Reference Range Interpretation Comments basophil count, absolute (test 0.0 x10E3/uL 0.0-0.2 code = 52697-7) [facility]eeEosinophil Absolute Waklk2684-38-08 09:28:00 Test Item Value Reference Range Interpretation Comments Eosinophil Absolute Count (test 0.1 X10E3/UL 0.0-0.4 code = 11184-6) [facility]emonocyte count, blood, sdggixbsn1564-93-69 09:28:00 Test Item Value Reference Range Interpretation Comments monocyte count, blood, automated 0.3 X10E3/UL 0.1-1.0 (test code = 742-7) [facility]elymphocyte count, blood, rdjipeagw1452-56-84 09:28:00 Test Item Value Reference Range Interpretation Comments lymphocyte count, blood, 3.2 X10E3/UL 0.7-4.5 automated (test code = 731-0) [facility] Slpvpkjjzlj9269-34-29 09:28:00 Test Item Value Reference Range Interpretation Comments Absolute Neutrophils (test code 3.5 X10E3/UL 1.8-7.8 = 64226-4) [facility]ee[facility]ophils as percent of blood fdvvxlxwlf1452-51-86 09:28:00 Test Item Value Reference Range Interpretation Comments basophils as percent of blood 0 % 0-3 leukocytes (test code = 707-0) [facility]ee[facility]osinophils as percent of blood bdfrxuwdlw1962-75-84 09:28:00 Test Item Value Reference Range Interpretation Comments eosinophils as percent of blood 1 % 0-7 leukocytes (test code = 713-8) [facility]ardeemonocytes as percent of blood yzkoxnpwtr8430-56-90 09:28:00 Test Item Value Reference Range Interpretation Comments monocytes as percent of blood 4 % 4-13 leukocytes (test code = 5905-5) [facility]elymphocytes as percent of blood zdbzpejlyc1359-99-34 09:28:00 Test Item Value Reference Range Interpretation Comments lymphocytes as percent of blood 45 % 14-46 leukocytes (test code = 736-9) [facility]eneutrophils as percent of blood ieotkzxmek7367-16-62 09:28:00 Test Item Value Reference Range Interpretation Comments neutrophils as percent of blood 50 % 40-74 leukocytes (test code = 770-8) [facility]ardeeplatelet oddcd8459-94-35 09:28:00 Test Item Value Reference Range Interpretation Comments platelet count (test code = 213 X10E3/UL 140-415 777-3) [facility] cell distribution uwaxw7861-50-16 09:28:00 Test Item Value Reference Range Interpretation Comments red blood cell distribution width 14.4 % 12.3-15.4 (test code = 788-0) [facility] corpuscular hemoglobin concentration, [id number] 09:28:00 Test Item Value Reference Range Interpretation Comments mean corpuscular hemoglobin 34.0 G/DL 31.5-35.7 concentration, RBC (test code = 786-4) [facility] corpuscular hemoglobin, [id number] 09:28:00 Test Item Value Reference Range Interpretation Comments mean corpuscular hemoglobin, RBC 30.5 pg 26.6-33.0 (test code = 785-6) [facility], [id number] 09:28:00 Test Item Value Reference Range Interpretation Comments mean corpuscular volume, RBC (test code 90 fL 79-97 = 787-2) [facility]eehematocrit, [id number] 09:28:00 Test Item Value Reference Range Interpretation Comments hematocrit, blood (test code = 4544-3) 47.9 % 37.5-51.0 [facility]eehemoglobin, [id number] 09:28:00 Test Item Value Reference Range Interpretation Comments hemoglobin, blood (test code = 16.3 g/dL 12.6-17.7 718-7) [facility]eeerythrocyte (RBC) cnfqb3199-89-68 09:28:00 Test Item Value Reference Range Interpretation Comments erythrocyte (RBC) count (test 5.35 X10E6/UL 4.14-5.80 code = 789-8) [facility]eeleukocyte count, [id number] 09:28:00 Test Item Value Reference Range Interpretation Comments leukocyte count, blood (test 7.1 X10E3/UL 4.0-10.5 code = 6690-2) [facility]eeCD4/CD8 kvmyy0888-37-59 09:28:00 Test Item Value Reference Range Interpretation Comments CD4/CD8 ratio (test code 0.74 (unknown unit) 0.92-3.72 L = 63479) [facility] [id number] 09:28:00 Test Item Value Reference Range Interpretation Comments absolute CD8 (test code = 1165 (unknown unit) 109-897 H 88201) [facility]eeT-helper cells (CD4) as percent of blood lymphocytes 2012-12-26 09:28:00 Test Item Value Reference Range Interpretation Comments T-helper cells (CD4) as percent of 26.8 % 30.8-58.5 L blood lymphocytes (test code = 8123-2) [facility]eeT-helper cells (CD4) ovkkw1971-52-99 09:28:00 Test Item Value Reference Range Interpretation Comments T-helper cells (CD4) count (test code 858 /UL 359-1519 = 91089-3) [facility]eeHIV-1RNA, serum, by PCR, jyusuryzeina9040-65-88 14:12:00 Test Item Value Reference Range Interpretation Comments HIV-1RNA, serum, by PCR, <20 copies/mL quantitative (test code = 43526-2) [facility]eeCD4/CD8 [id number] 14:12:00 Test Item Value Reference Range Interpretation Comments CD4/CD8 ratio (test code 0.79 (unknown unit) 0.92-3.72 L = 01290) [facility] [id number] 14:12:00 Test Item Value Reference Range Interpretation Comments absolute CD8 (test code = 1041 (unknown unit) 109-897 H 07706) [facility]eeHIV-1RNA, serum, by PCR, pzdkvgrnmhvw4457-78-78 14:12:00 Test Item Value Reference Range Interpretation Comments HIV-1RNA, serum, by PCR, <20 copies/mL quantitative (test code = 81192) [facility] plasma reagin antibody, [id number] 14:12:00 Test Item Value Reference Range Interpretation Comments rapid plasma reagin antibody, Non Reactive Non Reactive serum (test code = 5291-0) [facility]eeLDL cholesterol, [id number] 14:12:00 Test Item Value Reference Range Interpretation Comments LDL cholesterol, serum (test code = 128 mg/dL 0-99 H 2088-1) [facility] vqkcnfmxvpzk7141-08-71 14:12:00 Test Item Value Reference Range Interpretation Comments very low density lipoproteins (test 48 mg/dL 5-40 H code = 2091-7) [facility]eeHDL cholesterol, dvbus0584-64-67 14:12:00 Test Item Value Reference Range Interpretation Comments HDL cholesterol, serum (test code = 51 mg/dL >39 5-9) [facility]etriglyceride, serum, auhtqff8799-10-28 14:12:00 Test Item Value Reference Range Interpretation Comments triglyceride, serum, fasting (test 242 mg/dL 0-149 H code = 2571-8) [facility]eecholesterol, pceum2772-80-34 14:12:00 Test Item Value Reference Range Interpretation Comments cholesterol, serum (test code = 227 mg/dL 100-199 H 2093-3) [facility]eealanine aminotransferase (SGPT), yowle0175-94-34 14:12:00 Test Item Value Reference Range Interpretation Comments alanine aminotransferase (SGPT), serum 53 1/L 0-44 H (test code = 1742-6) [facility]eeaspartate aminotransferase (SGOT), zpbho5053-32-92 14:12:00 Test Item Value Reference Range Interpretation Comments aspartate aminotransferase (SGOT), 37 1/L 0-40 serum (test code = 1920-8) [facility]eealkaline phosphatase, kumin1751-42-57 14:12:00 Test Item Value Reference Range Interpretation Comments alkaline phosphatase, serum (test code 93 1/L 25-150 = 1783-0) [facility]eebilirubin, serum, famkr3024-30-81 14:12:00 Test Item Value Reference Range Interpretation Comments bilirubin, serum, total (test code 0.4 mg/dL 0.0-1.2 = 1975-2) [facility] [id number] 14:12:00 Test Item Value Reference Range Interpretation Comments albumin/globulin ratio, 1.5 (unknown unit) 1.1-2.5 serum (test code = 1759-0) [facility] Healthglobulin, [id number] 14:12:00 Test Item Value Reference Range Interpretation Comments globulin, serum (test code 3.0 (unknown unit) 1.5-4.5 = 2336-6) [facility], [id number] 14:12:00 Test Item Value Reference Range Interpretation Comments albumin, serum (test code = 1751-7) 4.5 g/dL 3.5-5.5 [facility]rotein, total, knvlq4557-03-98 14:12:00 Test Item Value Reference Range Interpretation Comments protein, total, serum (test code = 7.5 g/dL 6.0-8.5 2885-2) [facility] Healthcalcium, [id number] 14:12:00 Test Item Value Reference Range Interpretation Comments calcium, serum (test code = 1999-8) 9.5 mg/dL 8.7-10.2 [facility]ecarbon dioxide, venous awbyj3352-99-90 14:12:00 Test Item Value Reference Range Interpretation Comments carbon dioxide, venous blood (test 27 mmol/L code = 2026-1) [facility] Healthchloride, wkwft1837-20-91 14:12:00 Test Item Value Reference Range Interpretation Comments chloride, serum (test code = 99 mmol/L 97-108 5-0) [facility] Healthpotassium, [id number] 14:12:00 Test Item Value Reference Range Interpretation Comments potassium, serum (test code = 4.0 mmol/L 3.5-5.2 2823-3) [facility]eesodium, [id number] 14:12:00 Test Item Value Reference Range Interpretation Comments sodium, serum (test code = 2951-2) 138 mmol/L 134-144 [facility] nitrogen/creatinine ratio, bfwbf1147-81-19 14:12:00 Test Item Value Reference Range Interpretation Comments urea nitrogen/creatinine 14 (unknown unit) 8-19 ratio, serum (test code = 3097-3) [facility]Estimated Glomerular Filtration Rate (calc)2012-08-30 14:12:00 Test Item Value Reference Range Interpretation Comments Estimated Glomerular 104 mL/min/{1.73 m2} >59 Filtration Rate (calc) (test code = 84226-6) [facility]ecreatinine, vpsvq1276-28-20 14:12:00 Test Item Value Reference Range Interpretation Comments creatinine, serum (test code = 0.92 mg/dL 0.76-1.27 0-0) [facility] nitrogen, zeuac4291-65-44 14:12:00 Test Item Value Reference Range Interpretation Comments urea nitrogen, blood (test code = 13 mg/dL 6-20 3094-0) [facility] glucose, [id number] 14:12:00 Test Item Value Reference Range Interpretation Comments blood glucose, random (test code = 111 mg/dL 65-99 H 2339-0) [facility]eeimmature granulocytes, percentage of total cells, blood 2012-08-30 14:12:00 Test Item Value Reference Range Interpretation Comments immature granulocytes, percentage of 0 % 0-2 total cells, blood (test code = 52819-2) [facility] Healthbasophil count, elqmpxle8306-96-12 14:12:00 Test Item Value Reference Range Interpretation Comments basophil count, absolute (test 0.0 x10E3/uL 0.0-0.2 code = 46255-1) [facility] HealthEosinophil Absolute Vnlbc3475-14-53 14:12:00 Test Item Value Reference Range Interpretation Comments Eosinophil Absolute Count (test 0.1 X10E3/UL 0.0-0.4 code = 08114-6) [facility]emonocyte count, blood, vfexhulvd4573-56-72 14:12:00 Test Item Value Reference Range Interpretation Comments monocyte count, blood, automated 0.4 X10E3/UL 0.1-1.0 (test code = 742-7) [facility]elymphocyte count, blood, bcksnfowz2975-71-72 14:12:00 Test Item Value Reference Range Interpretation Comments lymphocyte count, blood, 3.0 X10E3/UL 0.7-4.5 automated (test code = 731-0) [facility] HealthAbsolute Wbnybpxumdo1013-82-65 14:12:00 Test Item Value Reference Range Interpretation Comments Absolute Neutrophils (test code 3.6 X10E3/UL 1.8-7.8 = 78650-7) [facility] Healthbasophils as percent of blood qrgtanafax6869-78-23 14:12:00 Test Item Value Reference Range Interpretation Comments basophils as percent of blood 0 % 0-3 leukocytes (test code = 707-0) [facility] Healtheosinophils as percent of blood xkqjmhulua5704-54-85 14:12:00 Test Item Value Reference Range Interpretation Comments eosinophils as percent of blood 1 % 0-7 leukocytes (test code = 713-8) [facility] Healthmonocytes as percent of blood gfkpbvozof5210-21-41 14:12:00 Test Item Value Reference Range Interpretation Comments monocytes as percent of blood 6 % 4-13 leukocytes (test code = 5905-5) [facility]elymphocytes as percent of blood eypqwhlwvr8430-36-22 14:12:00 Test Item Value Reference Range Interpretation Comments lymphocytes as percent of blood 42 % 14-46 leukocytes (test code = 736-9) [facility]ardeeneutrophils as percent of blood thusolhzjk8230-99-64 14:12:00 Test Item Value Reference Range Interpretation Comments neutrophils as percent of blood 51 % 40-74 leukocytes (test code = 770-8) [facility]eeplatelet tzequ6966-54-04 14:12:00 Test Item Value Reference Range Interpretation Comments platelet count (test code = 217 X10E3/UL 140-415 777-3) [facility] cell distribution dmrsf8797-12-62 14:12:00 Test Item Value Reference Range Interpretation Comments red blood cell distribution width 13.2 % 12.3-15.4 (test code = 788-0) [facility] corpuscular hemoglobin concentration, [id number] 14:12:00 Test Item Value Reference Range Interpretation Comments mean corpuscular hemoglobin 35.3 G/DL 31.5-35.7 concentration, RBC (test code = 786-4) [facility] corpuscular hemoglobin, [id number] 14:12:00 Test Item Value Reference Range Interpretation Comments mean corpuscular hemoglobin, RBC 30.9 pg 26.6-33.0 (test code = 785-6) [facility] corpuscular volume, [id number] 14:12:00 Test Item Value Reference Range Interpretation Comments mean corpuscular volume, RBC (test code 88 fL 79-97 = 787-2) [facility]hematocrit, ligfm9250-83-06 14:12:00 Test Item Value Reference Range Interpretation Comments hematocrit, blood (test code = 4544-3) 46.5 % 37.5-51.0 [facility]eehemoglobin, qehze4069-55-74 14:12:00 Test Item Value Reference Range Interpretation Comments hemoglobin, blood (test code = 16.4 g/dL 12.6-17.7 718-7) [facility]eeerythrocyte (RBC) tiatq6547-22-06 14:12:00 Test Item Value Reference Range Interpretation Comments erythrocyte (RBC) count (test 5.31 X10E6/UL 4.14-5.80 code = 789-8) [facility]eeleukocyte count, vkmnh6093-34-55 14:12:00 Test Item Value Reference Range Interpretation Comments leukocyte count, blood (test 7.0 X10E3/UL 4.0-10.5 code = 6690-2) [facility]eeCD4/CD8 slrcf1331-15-59 14:12:00 Test Item Value Reference Range Interpretation Comments CD4/CD8 ratio (test code 0.79 (unknown unit) 0.92-3.72 L = 00596) [facility]eeabsolute [id number] 14:12:00 Test Item Value Reference Range Interpretation Comments absolute CD8 (test code = 1041 (unknown unit) 109-897 H 49351) [facility]eeT-helper cells (CD4) as percent of blood lymphocytes 2012-08-30 14:12:00 Test Item Value Reference Range Interpretation Comments T-helper cells (CD4) as percent of 27.3 % 30.8-58.5 L blood lymphocytes (test code = 8123-2) [facility]eeT-helper cells (CD4) szthu9888-24-69 14:12:00 Test Item Value Reference Range Interpretation Comments T-helper cells (CD4) count (test code 819 /UL 359-1519 = 71931-7) [facility]HIV-1 RNA (log 10)2012-01-04 10:50:00 Test Item Value Reference Range Interpretation Comments HIV-1 RNA (log 10) (test 1.699 snq01ahoy/mL code = 21781-8) [facility]eeHIV-1RNA, serum, by PCR, hqzoqpikwiqu7342-59-81 10:50:00 Test Item Value Reference Range Interpretation Comments HIV-1RNA, serum, by PCR, quantitative 50 /mL (test code = 28539-8) [facility]HIV-[facility] RNA (log 10)2012-01-04 10:50:00 Test Item Value Reference Range Interpretation Comments HIV-1 RNA (log 10) (test 1.699 ocv01idot/mL code = 68667) [facility]HIV-1RNA, serum, by PCR, uiveruphdvlp2912-40-57 10:50:00 Test Item Value Reference Range Interpretation Comments HIV-1RNA, serum, by PCR, quantitative 50 /mL (test code = 56717) [facility]eeCD4/CD8 rxngr7270-15-80 10:49:00 Test Item Value Reference Range Interpretation Comments CD4/CD8 ratio (test code 0.73 (unknown unit) 0.92-3.72 L = 38588) [facility]eeabsolute [id number] 10:49:00 Test Item Value Reference Range Interpretation Comments absolute CD8 (test code = 1085 (unknown unit) 109-897 H 16712) [facility]eeTreponema pallidum particle agglutination assay (TPPA test)2012-01-04 10:49:00 Test Item Value Reference Range Interpretation Comments Treponema pallidum particle Positive Negative A agglutination assay (TPPA test) (test code = 41604-4) [facility]erapid plasma reagin antibody, ipyld7203-30-29 10:49:00 Test Item Value Reference Range Interpretation Comments rapid plasma reagin 1:1 See_Comment H [Automa pepe message] The antibody, serum (test system which generated code = 5291-0) this result t ransmitted reference range : NonRea<1:1. The reference range was not u sed to interpret this result as normal/abnormal . [facility]eeLDL cholesterol, jorxr4121-13-60 10:49:00 Test Item Value Reference Range Interpretation Comments LDL cholesterol, serum (test code = 130 mg/dL 0-99 H 2088-09) [facility]eevery low density eebzqdspuvmb9210-41-94 10:49:00 Test Item Value Reference Range Interpretation Comments very low density lipoproteins (test 20 mg/dL 5-40 code = 2090-7) [facility]eeHDL cholesterol, gaxmv9105-27-92 10:49:00 Test Item Value Reference Range Interpretation Comments HDL cholesterol, serum (test code = 50 mg/dL >39 2084-) [facility]etriglyceride, serum, kdyrwxs1322-80-10 10:49:00 Test Item Value Reference Range Interpretation Comments triglyceride, serum, fasting (test 102 mg/dL 0-149 code = 2571-8) [facility]eecholesterol, [id number] 10:49:00 Test Item Value Reference Range Interpretation Comments cholesterol, serum (test code = 200 mg/dL 100-199 H 2093-3) [facility]eealanine aminotransferase (SGPT), siyul3305-12-45 10:49:00 Test Item Value Reference Range Interpretation Comments alanine aminotransferase (SGPT), serum 68 1/L 0-55 H (test code = 1742-6) [facility]eeaspartate aminotransferase (SGOT), stakb1558-11-84 10:49:00 Test Item Value Reference Range Interpretation Comments aspartate aminotransferase (SGOT), 47 1/L 0-40 H serum (test code = 1920-8) [facility]eealkaline phosphatase, ygxtq3070-16-48 10:49:00 Test Item Value Reference Range Interpretation Comments alkaline phosphatase, serum (test 122 1/L 25-150 code = 1783-0) [facility]bilirubin, serum, weiwo2011-88-91 10:49:00 Test Item Value Reference Range Interpretation Comments bilirubin, serum, total (test code 0.3 mg/dL 0.0-1.2 = 1975-2) [facility]albumin/globulin ratio, merhk1481-88-67 10:49:00 Test Item Value Reference Range Interpretation Comments albumin/globulin ratio, 1.4 (unknown unit) 1.1-2.5 serum (test code = 1759-0) [facility] Healthglobulin, [id number] 10:49:00 Test Item Value Reference Range Interpretation Comments globulin, serum (test code 3.3 (unknown unit) 1.5-4.5 = 2336-6) [facility] Healthalbumin, hghhj1702-31-81 10:49:00 Test Item Value Reference Range Interpretation Comments albumin, serum (test code = 1751-7) 4.6 g/dL 3.5-5.5 [facility]eprotein, total, qtqsw8313-14-11 10:49:00 Test Item Value Reference Range Interpretation Comments protein, total, serum (test code = 7.9 g/dL 6.0-8.5 2885-2) [facility] Healthcalcium, uiotn8439-62-00 10:49:00 Test Item Value Reference Range Interpretation Comments calcium, serum (test code = 1999-8) 9.3 mg/dL 8.7-10.2 [facility]ecarbon dioxide, venous mmkun9136-33-61 10:49:00 Test Item Value Reference Range Interpretation Comments carbon dioxide, venous blood (test 26 mmol/L 20-32 code = 2026-1) [facility]eechloride, ebkph7019-83-32 10:49:00 Test Item Value Reference Range Interpretation Comments chloride, serum (test code = 101 mmol/L 97-108 5-0) [facility] Healthpotassium, dmvea0035-16-05 10:49:00 Test Item Value Reference Range Interpretation Comments potassium, serum (test code = 4.1 mmol/L 3.5-5.2 2823-3) [facility]eesodium, jlzvr0113-74-92 10:49:00 Test Item Value Reference Range Interpretation Comments sodium, serum (test code = 2951-2) 139 mmol/L 134-144 [facility]eeurea nitrogen/creatinine ratio, nread1640-05-59 10:49:00 Test Item Value Reference Range Interpretation Comments urea nitrogen/creatinine 16 (unknown unit) 8-19 ratio, serum (test code = 3097-3) [facility] HealtheGFR if Xdyftric6897-90-49 10:49:00 Test Item Value Reference Range Interpretation Comments eGFR if 125 mL/min/{1.73 m2} >59 (test code = 71539-2) [facility]eeEstimated Glomerular Filtration Rate (calc)2012-01-04 10:49:00 Test Item Value Reference Range Interpretation Comments Estimated Glomerular 108 mL/min/{1.73 m2} >59 Filtration Rate (calc) (test code = 34408-2) [facility]ecreatinine, vmcpq0757-71-65 10:49:00 Test Item Value Reference Range Interpretation Comments creatinine, serum (test code = 0.89 mg/dL 0.76-1.27 2160-0) [facility]a nitrogen, brevd6873-06-50 10:49:00 Test Item Value Reference Range Interpretation Comments urea nitrogen, blood (test code = 14 mg/dL 6-20 3094-0) [facility] glucose, vivjhf2595-07-23 10:49:00 Test Item Value Reference Range Interpretation Comments blood glucose, random (test code = 93 mg/dL 65-99 2339-0) [facility]eeimmature granulocytes, percentage of total cells, blood 2012-01-04 10:49:00 Test Item Value Reference Range Interpretation Comments immature granulocytes, percentage of 0 % 0-2 total cells, blood (test code = 51842-9) [facility] Healthbasophil count, aodytigo2781-14-31 10:49:00 Test Item Value Reference Range Interpretation Comments basophil count, absolute (test 0.0 x10E3/uL 0.0-0.2 code = 81857-7) [facility] HealthEosinophil Absolute Ywulv6055-29-21 10:49:00 Test Item Value Reference Range Interpretation Comments Eosinophil Absolute Count (test 0.1 X10E3/UL 0.0-0.4 code = 65433-9) [facility]emonocyte count, blood, lgmpvpolj7457-45-01 10:49:00 Test Item Value Reference Range Interpretation Comments monocyte count, blood, automated 0.5 X10E3/UL 0.1-1.0 (test code = 742-7) [facility]elymphocyte count, blood, wfkkjzdze2380-71-48 10:49:00 Test Item Value Reference Range Interpretation Comments lymphocyte count, blood, 3.1 X10E3/UL 0.7-4.5 automated (test code = 731-0) [facility] HealthAbsolute Egryjmglyay0560-74-35 10:49:00 Test Item Value Reference Range Interpretation Comments Absolute Neutrophils (test code 5.0 X10E3/UL 1.8-7.8 = 62029-8) [facility]eebasophils as percent of blood vyfpdfmdjy6094-24-02 10:49:00 Test Item Value Reference Range Interpretation Comments basophils as percent of blood 0 % 0-3 leukocytes (test code = 707-0) [facility] Healtheosinophils as percent of blood wkkkhdigpv8646-22-22 10:49:00 Test Item Value Reference Range Interpretation Comments eosinophils as percent of blood 1 % 0-7 leukocytes (test code = 713-8) [facility] Healthmonocytes as percent of blood rfrostxqrb8605-42-80 10:49:00 Test Item Value Reference Range Interpretation Comments monocytes as percent of blood 6 % 4-13 leukocytes (test code = 5905-5) [facility]elymphocytes as percent of blood jrsjuzudsw4098-98-85 10:49:00 Test Item Value Reference Range Interpretation Comments lymphocytes as percent of blood 36 % 14-46 leukocytes (test code = 736-9) [facility]ardeeneutrophils as percent of blood wiobtjrcub1499-41-56 10:49:00 Test Item Value Reference Range Interpretation Comments neutrophils as percent of blood 57 % 40-74 leukocytes (test code = 770-8) [facility]eeplatelet vzglv5790-31-73 10:49:00 Test Item Value Reference Range Interpretation Comments platelet count (test code = 247 X10E3/UL 140-415 777-3) [facility] cell distribution jnvku2782-98-31 10:49:00 Test Item Value Reference Range Interpretation Comments red blood cell distribution width 13.7 % 11.7-15.0 (test code = 788-0) [facility], YNU1684-74-29 10:49:00 Test Item Value Reference Range Interpretation Comments mean corpuscular hemoglobin 34.7 G/DL 32.0-36.0 concentration, RBC (test code = 786-4) [facility] hemoglobin, OML2314-90-69 10:49:00 Test Item Value Reference Range Interpretation Comments mean corpuscular hemoglobin, RBC 31.7 pg 27.0-34.0 (test code = 785-6) [facility] corpuscular volume, [id number] 10:49:00 Test Item Value Reference Range Interpretation Comments mean corpuscular volume, RBC (test code 91 fL 80-98 = 787-2) [facility]eehematocrit, kslkn3621-96-33 10:49:00 Test Item Value Reference Range Interpretation Comments hematocrit, blood (test code = 4544-3) 47.9 % 36.0-50.0 [facility]eehemoglobin, hhcuu4498-73-51 10:49:00 Test Item Value Reference Range Interpretation Comments hemoglobin, blood (test code = 16.6 g/dL 12.5-17.0 718-7) [facility]ee[facility]throcyte (RBC) lqmwa1204-58-62 10:49:00 Test Item Value Reference Range Interpretation Comments erythrocyte (RBC) count (test 5.24 X10E6/UL 4.10-5.60 code = 789-8) [facility]eeleukocyte count, qeqel7664-94-34 10:49:00 Test Item Value Reference Range Interpretation Comments leukocyte count, blood (test 8.8 X10E3/UL 4.0-10.5 code = 6690-2) [facility]eeCD4/CD8 pnfxr9962-97-44 10:49:00 Test Item Value Reference Range Interpretation Comments CD4/CD8 ratio (test code 0.73 (unknown unit) 0.92-3.72 L = 40813) [facility]eeabsolute [id number] 10:49:00 Test Item Value Reference Range Interpretation Comments absolute CD8 (test code = 1085 (unknown unit) 109-897 H 15613) [facility]eeT-helper cells (CD4) as percent of blood lymphocytes 2012-01-04 10:49:00 Test Item Value Reference Range Interpretation Comments T-helper cells (CD4) as percent of 25.7 % 30.8-58.5 L blood lymphocytes (test code = 8123-2) [facility]eeT-helper cells (CD4) luivn0387-32-19 10:49:00 Test Item Value Reference Range Interpretation Comments T-helper cells (CD4) count (test code 797 /UL 359-1519 = 32424-4) [facility]HIV-1 RNA (log 10)2011-09-17 20:52:00 Test Item Value Reference Range Interpretation Comments HIV-1 RNA (log 10) (test 1.778 der42klxh/mL code = 95438-5) [facility]eeHIV-1RNA, serum, by PCR, byynynydlena5027-03-63 20:52:00 Test Item Value Reference Range Interpretation Comments HIV-1RNA, serum, by PCR, quantitative 60 /mL (test code = 62913-0) [facility] RNA (log 10)2011-09-17 20:52:00 Test Item Value Reference Range Interpretation Comments HIV-1 RNA (log 10) (test 1.778 msm53acak/mL code = 32971) [facility]HIV-1RNA, serum, by PCR, oqfitvcsancf8684-00-45 20:52:00 Test Item Value Reference Range Interpretation Comments HIV-1RNA, serum, by PCR, quantitative 60 /mL (test code = 81502) [facility]eeTreponema pallidum particle agglutination assay (TPPA test)2011-09-17 20:04:00 Test Item Value Reference Range Interpretation Comments Treponema pallidum particle Positive Negative A agglutination assay (TPPA test) (test code = 76961-7) [facility]eeCD4/CD8 mqndb1694-85-28 13:16:00 Test Item Value Reference Range Interpretation Comments CD4/CD8 ratio (test code 0.72 (unknown unit) 0.92-3.72 L = 80270) [facility]eeabsolute CT34090-00-31 13:16:00 Test Item Value Reference Range Interpretation Comments absolute CD8 (test code = 945 (unknown unit) 109-897 H 66034) [facility]eeCD4/CD8 ifqkc9154-93-63 13:16:00 Test Item Value Reference Range Interpretation Comments CD4/CD8 ratio (test code 0.72 (unknown unit) 0.92-3.72 L = 98671) [facility]eeabsol[id number] 13:16:00 Test Item Value Reference Range Interpretation Comments absolute CD8 (test code = 945 (unknown unit) 109-897 H 14570) [facility]eeT-helper cells (CD4) as percent of blood lymphocytes 2011-09-16 13:16:00 Test Item Value Reference Range Interpretation Comments T-helper cells (CD4) as percent of 29.5 % 30.8-58.5 L blood lymphocytes (test code = 8123-2) [facility]eeT-helper cells (CD4) hylma9792-24-81 13:16:00 Test Item Value Reference Range Interpretation Comments T-helper cells (CD4) count (test code 679 /UL 359-1519 = 44650-3) [facility]ardeerapid plasma reagin antibody, fhmxk0658-79-66 10:34:00 Test Item Value Reference Range Interpretation Comments rapid plasma reagin 1:1 See_Comment H [Automa pepe message] The antibody, serum (test system which generated code = 5291-0) this result t ransmitted reference range : NonRea<1:1. The reference range was not u sed to interpret this result as normal/abnormal . [facility]erapid plasma reagin antibody, owecp4916-97-35 09:57:00 Test Item Value Reference Range Interpretation Comments rapid plasma reagin antibody, serum Reactive Non Reactive A (test code = 5291-0) [facility]eeLDL cholesterol, lmaog3193-78-11 01:12:00 Test Item Value Reference Range Interpretation Comments LDL cholesterol, serum (test code = 81 mg/dL 0-99 2088-1) [facility]eevery low density tyhejxloppci2579-10-05 01:12:00 Test Item Value Reference Range Interpretation Comments very low density lipoproteins (test 35 mg/dL 5-40 code = 1-7) [facility]eeHDL cholesterol, ptwpj5045-46-92 01:12:00 Test Item Value Reference Range Interpretation Comments HDL cholesterol, serum (test code = 38 mg/dL >39 L 2084-9) [facility]etriglyceride, serum, zjqvmmc6688-26-21 01:12:00 Test Item Value Reference Range Interpretation Comments triglyceride, serum, fasting (test 174 mg/dL 0-149 H code = 2571-8) [facility]eecholesterol, oogje2382-43-18 01:12:00 Test Item Value Reference Range Interpretation Comments cholesterol, serum (test code = 154 mg/dL 369-891 9710-3) [facility]eealanine aminotransferase (SGPT), rmlyr5353-55-33 01:12:00 Test Item Value Reference Range Interpretation Comments alanine aminotransferase (SGPT), 167 1/L 0-55 H serum (test code = 1742-6) [facility]eeaspartate aminotransferase (SGOT), uuvwq5357-01-42 01:12:00 Test Item Value Reference Range Interpretation Comments aspartate aminotransferase (SGOT), 94 1/L 0-40 H serum (test code = 1920-8) [facility]eealkaline phosphatase, culhi2308-20-75 01:12:00 Test Item Value Reference Range Interpretation Comments alkaline phosphatase, serum (test 128 1/L 25-150 code = 1783-0) [facility]eebilirubin, serum, pdrjx7179-58-89 01:12:00 Test Item Value Reference Range Interpretation Comments bilirubin, serum, total (test code 0.5 mg/dL 0.0-1.2 = 1975-2) [facility] Healthalbumin/globulin ratio, zergv0346-39-39 01:12:00 Test Item Value Reference Range Interpretation Comments albumin/globulin ratio, 1.2 (unknown unit) 1.1-2.5 serum (test code = 1759-0) [facility] Healthglobulin, dwcaa0985-01-37 01:12:00 Test Item Value Reference Range Interpretation Comments globulin, serum (test code 3.6 (unknown unit) 1.5-4.5 = 2336-6) [facility] Healthalbumin, oifui4400-49-65 01:12:00 Test Item Value Reference Range Interpretation Comments albumin, serum (test code = 1751-7) 4.2 g/dL 3.5-5.5 [facility] Healthprotein, total, diqqi9206-71-71 01:12:00 Test Item Value Reference Range Interpretation Comments protein, total, serum (test code = 7.8 g/dL 6.0-8.5 2885-2) [facility] Healthcalcium, dtnfg9516-37-84 01:12:00 Test Item Value Reference Range Interpretation Comments calcium, serum (test code = 1999-8) 9.1 mg/dL 8.7-10.2 [facility]ardeecarbon dioxide, venous ajklr8198-23-87 01:12:00 Test Item Value Reference Range Interpretation Comments carbon dioxide, venous blood (test 27 mmol/L 20-32 code = 2026-1) [facility] Healthchloride, wtzwa6685-19-70 01:12:00 Test Item Value Reference Range Interpretation Comments chloride, serum (test code = 98 mmol/L 97-108 5-0) [facility] Healthpotassium, dadxn3556-60-34 01:12:00 Test Item Value Reference Range Interpretation Comments potassium, serum (test code = 4.1 mmol/L 3.5-5.2 2823-3) [facility], [id number] 01:12:00 Test Item Value Reference Range Interpretation Comments sodium, serum (test code = 2951-2) 138 mmol/L 134-144 [facility]eeurea nitrogen/creatinine ratio, orkeo6841-34-38 01:12:00 Test Item Value Reference Range Interpretation Comments urea nitrogen/creatinine 11 (unknown unit) 8-19 ratio, serum (test code = 3097-3) [facility]eeeGFR if Dfjgmuyl0750-65-53 01:12:00 Test Item Value Reference Range Interpretation Comments eGFR if 105 mL/min/{1.73 m2} >59 (test code = 91173-1) [facility]eeEstimated Glomerular Filtration Rate (calc)2011-09-16 01:12:00 Test Item Value Reference Range Interpretation Comments Estimated Glomerular 91 mL/min/{1.73 m2} >59 Filtration Rate (calc) (test code = 74219-4) [facility]ardeecreatinine, [id number] 01:12:00 Test Item Value Reference Range Interpretation Comments creatinine, serum (test code = 1.04 mg/dL 0.76-1.27 2160-0) [facility]ee[facility]a nitrogen, sctge5091-34-23 01:12:00 Test Item Value Reference Range Interpretation Comments urea nitrogen, blood (test code = 11 mg/dL 6-20 3094-0) [facility]eeblood glucose, [id number] 01:12:00 Test Item Value Reference Range Interpretation Comments blood glucose, random (test code = 162 mg/dL 65-99 H 2339-0) [facility]eeimmature granulocytes, percentage of total cells, blood 2011-09-16 00:05:00 Test Item Value Reference Range Interpretation Comments immature granulocytes, percentage of 0 % 0-2 total cells, blood (test code = 93914-5) [facility]eebasophil count, sryhlbdu4847-79-25 00:05:00 Test Item Value Reference Range Interpretation Comments basophil count, absolute (test 0.0 x10E3/uL 0.0-0.2 code = 55768-9) [facility]eeEosinophil Absolute Sdctu0348-31-33 00:05:00 Test Item Value Reference Range Interpretation Comments Eosinophil Absolute Count (test 0.0 X10E3/UL 0.0-0.4 code = 79410-2) [facility]ardeemonocyte count, blood, [id number] 00:05:00 Test Item Value Reference Range Interpretation Comments monocyte count, blood, automated 0.3 X10E3/UL 0.1-1.0 (test code = 742-7) [facility]ardeelymphocyte count, blood, [id number] 00:05:00 Test Item Value Reference Range Interpretation Comments lymphocyte count, blood, 2.3 X10E3/UL 0.7-4.5 automated (test code = 731-0) [facility]eeAbsolute Qsaqbrdtbtv1689-32-84 00:05:00 Test Item Value Reference Range Interpretation Comments Absolute Neutrophils (test code 3.0 X10E3/UL 1.8-7.8 = 80364-8) [facility]ee[facility]ophils as percent of blood hoirdnwfit7101-10-58 00:05:00 Test Item Value Reference Range Interpretation Comments basophils as percent of blood 0 % 0-3 leukocytes (test code = 707-0) [facility]eeeosinophils as percent of blood iuhflizjzi6567-17-89 00:05:00 Test Item Value Reference Range Interpretation Comments eosinophils as percent of blood 1 % 0-7 leukocytes (test code = 713-8) [facility]ardeemonocytes as percent of blood jnwsgwaacs6898-06-39 00:05:00 Test Item Value Reference Range Interpretation Comments monocytes as percent of blood 5 % 4-13 leukocytes (test code = 5905-5) [facility]elymphocytes as percent of blood wdxwdzbnfp1633-49-32 00:05:00 Test Item Value Reference Range Interpretation Comments lymphocytes as percent of blood 41 % 14-46 leukocytes (test code = 736-9) [facility]ardeeneutrophils as percent of blood zlxftqyauy6571-49-30 00:05:00 Test Item Value Reference Range Interpretation Comments neutrophils as percent of blood 53 % 40-74 leukocytes (test code = 770-8) [facility]eeplatelet hopdf3726-10-18 00:05:00 Test Item Value Reference Range Interpretation Comments platelet count (test code = 219 X10E3/UL 140-415 777-3) [facility] blood cell distribution ncfqp9988-46-64 00:05:00 Test Item Value Reference Range Interpretation Comments red blood cell distribution width 12.6 % 11.7-15.0 (test code = 788-0) [facility]emean corpuscular hemoglobin concentration, [id number] 00:05:00 Test Item Value Reference Range Interpretation Comments mean corpuscular hemoglobin 34.9 G/DL 32.0-36.0 concentration, RBC (test code = 786-4) [facility]emean corpuscular hemoglobin, [id number] 00:05:00 Test Item Value Reference Range Interpretation Comments mean corpuscular hemoglobin, RBC 31.4 pg 27.0-34.0 (test code = 785-6) [facility] corpus[facility], [id number] 00:05:00 Test Item Value Reference Range Interpretation Comments mean corpuscular volume, RBC (test code 90 fL 80-98 = 787-2) [facility]eehematocrit, mgzav7968-44-35 00:05:00 Test Item Value Reference Range Interpretation Comments hematocrit, blood (test code = 4544-3) 46.1 % 36.0-50.0 [facility]eehemoglobin, slzvu8527-09-02 00:05:00 Test Item Value Reference Range Interpretation Comments hemoglobin, blood (test code = 16.1 g/dL 12.5-17.0 718-7) [facility]eeerythrocyte (RBC) qkvmm0004-87-05 00:05:00 Test Item Value Reference Range Interpretation Comments erythrocyte (RBC) count (test 5.13 X10E6/UL 4.10-5.60 code = 789-8) [facility]eeleukocyte count, vnmyf3647-00-35 00:05:00 Test Item Value Reference Range Interpretation Comments leukocyte count, blood (test 5.8 X10E3/UL 4.0-10.5 code = 6690-2) [facility]ardeerapid plasma reagin antibody, nhdgd0845-39-06 12:36:48 Test Item Value Reference Range Interpretation Comments rapid plasma reagin antibody, 06/02/2011 serum (test code = 5291-0) [facility]eeTreponema pallidum particle agglutination assay (TPPA test)2011-06-06 00:27:00 Test Item Value Reference Range Interpretation Comments Treponema pallidum Positive See_Comment A [Automat ed message] particle agglutination The s te which assay (TPPA test) (test gene rated this result code = 95673-9) transmitted reference range: (Negativ e). The reference r chandler was not used to interpret this result as normal/abnor mal. [facility]eeHIV-1 RNA (log 10)2011-06-05 00:19:00 Test Item Value Reference Range Interpretation Comments HIV-1 RNA (log 10) (test 2.643 hij46geuv/mL code = 74495-5) [facility]eeHIV-1RNA, serum, by PCR, fkrqzhzchoem3091-43-60 00:19:00 Test Item Value Reference Range Interpretation Comments HIV-1RNA, serum, by PCR, quantitative 440 /mL (test code = 00996-0) [facility]eeHIV-1 RNA (log 10)2011-06-05 00:19:00 Test Item Value Reference Range Interpretation Comments HIV-1 RNA (log 10) (test 2.643 rjv62tmth/mL code = 70527) [facility]eeHIV-1RNA, serum, by PCR, qzfvqahfeazt4598-38-57 00:19:00 Test Item Value Reference Range Interpretation Comments HIV-1RNA, serum, by PCR, quantitative 440 /mL (test code = 00955) [facility] UL21537-00-03 13:48:00 Test Item Value Reference Range Interpretation Comments absolute CD8 (test 1318 (unknown See_Comment H [Automa pepe message] code = 31503) unit) The system [employer] generated this result transmitted ref erence range: (109-897 ). The reference range was not used to int erpret this result as normal/abnormal . [facility] [id number] 13:48:00 Test Item Value Reference Range Interpretation Comments absolute CD8 (test 1318 (unknown See_Comment H [Automa pepe message] code = 91490) unit) The system [employer] generated this result transmitted ref erence range: (109-897 ). The reference range was not used to int erpret this result as normal/abnormal . [facility]eeT-helper cells (CD4) as percent of blood lymphocytes 2011-06-03 13:48:00 Test Item Value Reference Range Interpretation Comments T-helper cells (CD4) as 21.4 % See_Comment L [Au tomated message] percent of blood The system which lymphocytes (test code = gen erated this result 8123-2) transmitted ref erence range: (30.8-58 .5). The reference range was not used to interpr et this result as normal/abnormal . [facility]eeT-helper cells (CD4) bknga1441-79-56 13:48:00 Test Item Value Reference Range Interpretation Comments T-helper cells (CD4) 578 /UL See_Comment [Autom ated message] The count (test code = system [employer] generated 13702-0) this result tra nsmitted reference range : (359-1519). The reference range was not u sed to interpret this result as normal/abnormal . [facility]agin [facility], gidos1421-75-97 12:52:00 Test Item Value Reference Range Interpretation Comments rapid plasma reagin 1:1 See_Comment H [Automa pepe message] The antibody, serum (test system which generated code = 5291-0) this result t ransmitted reference range : (NonRea<1:1). T he reference range was not used to interpr et this result as linette l/abnormal. [facility] plasma reagin antibody, lyvsg0433-70-57 12:37:00 Test Item Value Reference Range Interpretation Comments rapid plasma reagin Reactive See_Comment A [Automa pepe message] The antibody, serum system which generated (test code = 5291-0) this re sult transmitted reference range : (Non Reactive). The reference range was not u sed to interpret this result as normal/abnormal . [facility]eeLDL cholesterol, exkng4785-30-83 01:22:00 Test Item Value Reference Range Interpretation Comments LDL cholesterol, 117 mg/dL See_Comment H [Automated message] The serum (test code = system [employer] generated 2088-1) this result tra nsmitted reference range : (0-99). The reference r chandler was not used to int erpret this result as normal/abnormal . [facility] ykbnauhyaifi8914-99-12 01:22:00 Test Item Value Reference Range Interpretation Comments very low density 32 mg/dL See_Comment [Automated message] lipoproteins (test code The system which = 2090-) generated this result transmitted ref erence range: (5-40). The reference range was not used to int erpret this result as normal/abnormal . [facility]eeHDL cholesterol, oxdpd1400-82-33 01:22:00 Test Item Value Reference Range Interpretation Comments HDL cholesterol, 52 mg/dL See_Comment [Automated message] The serum (test code = system wh ich generated 2084-9) this result tra nsmitted reference range : (>39). The reference r chandler was not used to int erpret this result as normal/abnormal . [facility]etriglyceride, serum, rmjcwvm5486-93-62 01:22:00 Test Item Value Reference Range Interpretation Comments triglyceride, serum, 162 mg/dL See_Comment H [Autom ated message] The fasting (test code = system which generated 1691-8) this result tra nsmitted reference range : (0-149). The re ference range was not u sed to interpret this result as normal/abnormal . [facility]eecholesterol, [id number] 01:22:00 Test Item Value Reference Range Interpretation Comments cholesterol, serum 201 mg/dL See_Comment H [Automat ed message] The (test code = system which ge nerated 2092-3) this result tra nsmitted reference range : (100-199). The reference range was not u sed to interpret this result as normal/abnormal . [facility]eealanine aminotransferase (SGPT), jenzh9581-18-03 01:22:00 Test Item Value Reference Range Interpretation Comments alanine aminotransferase 437 1/L See_Comment H [A utomated message] (SGPT), serum (test code = [employer] system which 5822-6) generated this result transmit pepe reference range : (0-55). The reference range was not used to interpret this result as normal/abnormal . [facility]eeaspartate aminotransferase (SGOT), wvlol0818-23-94 01:22:00 Test Item Value Reference Range Interpretation Comments aspartate aminotransferase 195 1/L See_Comment H [Automated message] (SGOT), serum (test code = [employer] system which 1920-8) generated this result transmit pepe reference range : (0-40). The reference range was not used to interpret this result as normal/abnormal . [facility]eealkaline phosphatase, [id number] 01:22:00 Test Item Value Reference Range Interpretation Comments alkaline phosphatase, 161 1/L See_Comment H [Auto mated message] The serum (test code = [employer] generated 1783-0) this result tra nsmitted reference range : (25-150). The r eference range was not u sed to interpret this result as normal/abnormal . [facility]eebilirubin, serum, hyrbt6978-48-82 01:22:00 Test Item Value Reference Range Interpretation Comments bilirubin, serum, 0.5 mg/dL See_Comment [Automate d message] The total (test code = [employer] generated 1975-2) this result tra nsmitted reference range : (0.0-1.2). The reference range was not u sed to interpret this result as normal/abnormal . [facility] Healthalbumin/globulin ratio, tqmfb9757-60-24 01:22:00 Test Item Value Reference Range Interpretation Comments albumin/globulin 1.1 (unknown See_Comment [Automated message] ratio, serum unit) The system [employer] (test code = generated this result 1759-0) transmitted ref erence range: (1.1-2.5 ). The reference range was not used to int erpret this result as normal/abnormal . [facility]eglobulin, [id number] 01:22:00 Test Item Value Reference Range Interpretation Comments globulin, serum 4.0 (unknown See_Comment [Automated message] (test code = unit) The system [employer] 2336-6) generated this result transmitted ref erence range: (1.5-4.5 ). The reference range was not used to int erpret this result as normal/abnormal . [facility]eealbumin, adnri5855-87-55 01:22:00 Test Item Value Reference Range Interpretation Comments albumin, serum (test 4.5 g/dL See_Comment [Autom ated message] The code = 1751-7) system which generated this result tra nsmitted reference range : (3.5-5.5). The reference range was not u sed to interpret this result as normal/abnormal . [facility]eprotein, total, zctge3074-22-13 01:22:00 Test Item Value Reference Range Interpretation Comments protein, total, 8.5 g/dL See_Comment [Automated message] The serum (test code = [employer] generated 2885-2) this result tra nsmitted reference range : (6.0-8.5). The reference range was not u sed to interpret this result as normal/abnormal . [facility] Healthcalcium, [id number] 01:22:00 Test Item Value Reference Range Interpretation Comments calcium, serum 9.5 mg/dL See_Comment [Automated m essage] The (test code = system which ge nerated 1999-) this result tra nsmitted reference range : (8.7-10.2). The reference range was not u sed to interpret this result as normal/abnormal . [facility]ecarbon dioxide, venous mlvqh6340-13-95 01:22:00 Test Item Value Reference Range Interpretation Comments carbon dioxide, 26 mmol/L See_Comment [Automated message] The venous blood (test system [facility] generated code = 2026-) this result t ransmitted reference range : (20-32). The re ference range was not u sed to interpret this result as normal/abnormal . [facility] Healthchloride, [id number] 01:22:00 Test Item Value Reference Range Interpretation Comments chloride, serum 99 mmol/L See_Comment [Automated message] The (test code = system which ge nerated 5-0) this result tra nsmitted reference range : (97-108). The r eference range was not u sed to interpret this result as normal/abnormal . [facility]ardeepotassium, jkzbc7675-20-34 01:22:00 Test Item Value Reference Range Interpretation Comments potassium, serum 4.0 mmol/L See_Comment [Automated message] The (test code = system which ge nerated 2823-3) this result tra nsmitted reference range : (3.5-5.2). The reference range was not u sed to interpret this result as normal/abnormal . [facility] Healthsodium, [id number] 01:22:00 Test Item Value Reference Range Interpretation Comments sodium, serum (test 138 mmol/L See_Comment [Automa pepe message] The code = 2951-2) system which generated this result tra nsmitted reference range : (135-145). The reference range was not u sed to interpret this result as normal/abnormal . [facility]eeurea nitrogen/creatinine ratio, [id number] 01:22:00 Test Item Value Reference Range Interpretation Comments urea 17 (unknown See_Comment [Automated mes jesika] nitrogen/creatin unit) The system which ine ratio, serum generated t his result (test code = transmitted ref erence 3097-3) range: (8-19). The reference range was not used to int erpret this result as normal/abnormal . [facility]eeeGFR if Dgiojkzt8666-09-34 01:22:00 Test Item Value Reference Range Interpretation Comments eGFR if 116 See_Comment [Automated message] Ghanaian (test mL/min/{1.73 The system wh ich code = 64416-5) m2} generated th is result transmitted ref erence range: ( >59). The reference range was not used to int erpret this result as normal/abnormal . [facility]eeEstimated Glomerular Filtration Rate (calc)2011-06-03 01:22:00 Test Item Value Reference Range Interpretation Comments Estimated Glomerular 101 See_Comment [Autom ated message] Filtration Rate mL/min/{1.73 The system [facility] (calc) (test code = m2} generate d this 67547-6) result transmit pepe reference range : ( >59). The refer ence range was not u sed to interpret th is result as normal/abnormal . [facility]ardeecreatinine, [id number] 01:22:00 Test Item Value Reference Range Interpretation Comments creatinine, serum 0.96 mg/dL See_Comment [Automate d message] The (test code = system which ge nerated 2160-0) this result tra nsmitted reference range : (0.76-1.27). Th e reference range was not used to interpr et this result as normal/abnormal . [facility]eeurea nitrogen, [id number] 01:22:00 Test Item Value Reference Range Interpretation Comments urea nitrogen, blood 16 mg/dL See_Comment [Autom ated message] The (test code = 3094-0) system which generated this result tra nsmitted reference range : (6-20). The reference r chandler was not used to int erpret this result as normal/abnormal . [facility]eeblood glucose, qgwjpp2389-93-50 01:22:00 Test Item Value Reference Range Interpretation Comments blood glucose, 78 mg/dL See_Comment [Automated m essage] The random (test code = system [facility] generated 2339-0) this result tra nsmitted reference range : (65-99). The reference r chandler was not used to int erpret this result as normal/abnormal . [facility]eeimmature granulocytes, percentage of total cells, blood 2011-06-02 23:45:00 Test Item Value Reference Range Interpretation Comments immature granulocytes, 0 % See_Comment [Aut omated message] The percentage of total system w [facility] generated cells, blood (test code this result transmitted = 46257-7) reference range : (0-2). The reference r chandler was not used to int erpret this result as normal/abnormal . [facility]eebasophil count, ifibhfcg1788-52-48 23:45:00 Test Item Value Reference Range Interpretation Comments basophil count, 0.0 x10E3/uL See_Comment [Automated message] absolute (test code The syst em which = 24676-9) generated this result transmitted ref erence range: (0.0-0.2 ). The reference range was not used to int erpret this result as normal/abnormal . [facility]ardeeEosinophil Absolute [id number] 23:45:00 Test Item Value Reference Range Interpretation Comments Eosinophil Absolute 0.1 X10E3/UL See_Comment [Automa pepe message] Count (test code = The syste m which 62554-7) generated this result transmitted ref erence range: (0.0-0.4 ). The reference range was not used to int erpret this result as normal/abnormal . [facility]ardeemonocyte count, blood, vbvrjhndo2170-12-75 23:45:00 Test Item Value Reference Range Interpretation Comments monocyte count, 0.5 X10E3/UL See_Comment [Automated message] blood, automated The system which (test code = 742-7) generate d this result transmitted ref erence range: (0.1-1.0 ). The reference range was not used to int erpret this result as normal/abnormal . [facility]ardeelymphocyte count, blood, freruuqwt4003-56-94 23:45:00 Test Item Value Reference Range Interpretation Comments lymphocyte count, 2.7 X10E3/UL See_Comment [Automate d message] blood, automated The system which (test code = 731-0) generate d this result transmitted ref erence range: (0.7-4.5 ). The reference range was not used to int erpret this result as normal/abnormal . [facility] HealthAbsolute Jnpysylciht7762-12-82 23:45:00 Test Item Value Reference Range Interpretation Comments Absolute Neutrophils 3.0 X10E3/UL See_Comment [Autom ated message] (test code = 35127-8) The sy stem which generated this result transmit pepe reference range : (1.8-7.8). The reference range was not used to interpret this result as normal/abnormal . [facility] Healthbasophils as percent of blood eofarazdmk5404-12-96 23:45:00 Test Item Value Reference Range Interpretation Comments basophils as percent of 0 % See_Comment [Au tomated message] The blood leukocytes (test syste m which generated code = 707-0) this result tr ansmitted reference range : (0-3). The reference r chandler was not used to int erpret this result as normal/abnormal . [facility] Worksurferseosinophils as percent of blood tbwraalyak9156-41-21 23:45:00 Test Item Value Reference Range Interpretation Comments eosinophils as percent 1 % See_Comment [Aut omated message] The of blood leukocytes system [facility] generated (test code = 713-8) this res ult transmitted reference range : (0-7). The reference r chandler was not used to int erpret this result as normal/abnormal . [facility] Healthmonocytes as percent of blood skqgqublzq9091-56-66 23:45:00 Test Item Value Reference Range Interpretation Comments monocytes as percent of 9 % See_Comment [Au tomated message] The blood leukocytes (test syste m which generated code = 5905-5) this result t ransmitted reference range : (4-13). The reference r chandler was not used to int erpret this result as normal/abnormal . [facility] Worksurferslymphocytes as percent of blood afuyueudjz0297-31-35 23:45:00 Test Item Value Reference Range Interpretation Comments lymphocytes as percent 43 % See_Comment [Aut omated message] The of blood leukocytes system w [employer] generated (test code = 736-9) this res ult transmitted reference range : (14-46). The re ference range was not u sed to interpret this result as normal/abnormal . [facility]ardeeneutrophils as percent of blood srvqwwvmrp1921-96-17 23:45:00 Test Item Value Reference Range Interpretation Comments neutrophils as percent 47 % See_Comment [Aut omated message] The of blood leukocytes system w hich generated (test code = 770-8) this res ult transmitted reference range : (40-74). The re ference range was not u sed to interpret this result as normal/abnormal . [facility]ardeeplatelet [id number] 23:45:00 Test Item Value Reference Range Interpretation Comments platelet count 226 X10E3/UL See_Comment [Automated m essage] (test code = 777-3) The syst em which generated this result transmitted ref erence range: (140-415 ). The reference range was not used to int erpret this result as normal/abnormal . [facility] blood cell distribution kkmzq2056-64-27 23:45:00 Test Item Value Reference Range Interpretation Comments red blood cell 13.4 % See_Comment [Automated m essage] distribution width (test The system which code = 788-0) generated this result transmitted ref erence range: (11.7-15 .0). The reference range was not used to interpr et this result as normal/abnormal . [facility] corpuscular hemoglobin concentration, [id number] 23:45:00 Test Item Value Reference Range Interpretation Comments mean corpuscular 33.9 G/DL See_Comment [Automated message] hemoglobin The system whic h concentration, RBC generated this result (test code = 786-4) transmit pepe reference range: (32.0-36 .0). The reference r chandler was not used to interpret this result as normal/abnor mal. [facility] corpuscular hemoglobin, [id number] 23:45:00 Test Item Value Reference Range Interpretation Comments mean corpuscular 30.6 pg See_Comment [Automated message] hemoglobin, RBC (test The sy stem which code = 785-6) generated this result transmitted ref erence range: (27.0-34 .0). The reference range was not used to interpr et this result as normal/abnormal . [facility], [id number] 23:45:00 Test Item Value Reference Range Interpretation Comments mean corpuscular volume, 90 fL See_Comment [A utomated message] The RBC (test code = 787-2) syst em which generated this result tra nsmitted reference range : (80-98). The re ference range was not u sed to interpret this result as normal/abnormal . [facility]eehematocrit, [id number] 23:45:00 Test Item Value Reference Range Interpretation Comments hematocrit, blood 47.8 % See_Comment [Automate d message] The (test code = 4544-3) system which generated this result tra nsmitted reference range : (36.0-50.0). Th e reference range was not u sed to interpret this result as normal/abnormal . [facility]oglobin, [id number] 23:45:00 Test Item Value Reference Range Interpretation Comments hemoglobin, blood 16.2 g/dL See_Comment [Automate d message] The (test code = 718-7) system w hich generated this result tra nsmitted reference range : (12.5-17.0). Th e reference range was not used to interpr et this result as normal/abnormal . [facility]eeerythrocyte (RBC) [id number] 23:45:00 Test Item Value Reference Range Interpretation Comments erythrocyte (RBC) 5.29 X10E6/UL See_Comment [Automat ed message] count (test code = The syste m which 789-8) generated this result transmit pepe reference range : (4.10-5.60). Th e reference range was not used to interpret this result as normal/abnormal . [facility]eeleukocyte count, [id number] 23:45:00 Test Item Value Reference Range Interpretation Comments leukocyte count, 6.3 X10E3/UL See_Comment [Automated message] blood (test code = The syste m which 6690-2) generated this result transmitted ref erence range: (4.0-10. 5). The reference r chandler was not used to interpret this result as normal/abnor mal. [facility]HIV genotype [id number] 15:44:00 Test Item Value Reference Range Interpretation Comments HIV genotype result The HIV-1 GenoSure(TM) (test code = 18754-8) MG for this specimen has been completed. [facility]HIV genotype [id number] 15:44:00 Test Item Value Reference Range Interpretation Comments HIV genotype result The HIV-1 GenoSure(TM) (test code = 52839) MG for this specimen has been completed. [facility]eeNeisseria gonorrhoeae DNA [id number] 09:49:00 Test Item Value Reference Range Interpretation Comments Neisseria gonorrhoeae Negative See_Comment [Auto mated message] DNA probe (test code = The s ystem which 33314-1) generated this result transmitted ref erence range: (Negativ e). The reference range was not used to int erpret this result as normal/abnormal . [facility]eechlamydia DNA [id number] 09:49:00 Test Item Value Reference Range Interpretation Comments chlamydia DNA probe Negative See_Comment [Automa pepe message] (test code = 17041-2) The sy stem which generated this result transmitted ref erence range: (Negativ e). The reference range was not used to interpr et this result as normal/abnormal . [facility]eehepatitis C virus, RNA, [id number] 15:37:00 Test Item Value Reference Range Interpretation Comments hepatitis C virus, RNA, See Final Results quantitative (test code = IU/mL 00874-5) [facility], RNA, [id number] 15:37:00 Test Item Value Reference Range Interpretation Comments hepatitis C virus, RNA, See Final Results quantitative (test code = IU/mL 09213) [facility] leukocyte antigen [id number] 14:15:00 Test Item Value Reference Range Interpretation Comments human leukocyte antigen B57 (test negative code = 736993) [facility] [id number] 14:15:00 Test Item Value Reference Range Interpretation Comments HIV genotype result (test code = done 79110-1) [facility] leukocyte antigen [id number] 14:15:00 Test Item Value Reference Range Interpretation Comments human leukocyte antigen B57 (test negative code = 051349) [facility] [id number] 14:15:00 Test Item Value Reference Range Interpretation Comments HIV genotype result (test code = 86394) done [facility]lamydia DNA [id number] 12:39:48 Test Item Value Reference Range Interpretation Comments chlamydia DNA probe (test code = Completed 84584-5) [facility]eeNeisseria gonorrhoeae DNA [id number] 12:39:48 Test Item Value Reference Range Interpretation Comments Neisseria gonorrhoeae DNA probe Completed (test code = 51748-1) [facility]eeTreponema pallidum particle agglutination assay (TPPA test)2011-01-12 22:24:00 Test Item Value Reference Range Interpretation Comments Treponema pallidum Positive See_Comment A [Automat ed message] particle agglutination The s ystem which assay (TPPA test) (test gene rated this result code = 37918-5) transmitted reference range: (Negativ e). The reference r chandler was not used to interpret this result as normal/abnor mal. [facility]HIV-1 RNA (log 10)2011-01-10 20:04:00 Test Item Value Reference Range Interpretation Comments HIV-1 RNA (log 10) (test 4.758 fmt44qmxr/mL code = 03660-5) [facility]HIV-1RNA, serum, by PCR, [id number] 20:04:00 Test Item Value Reference Range Interpretation Comments HIV-1RNA, serum, by PCR, 85111 /mL quantitative (test code = 09335-5) [facility]HIV-[facility] RNA (log 10)2011-01-10 20:04:00 Test Item Value Reference Range Interpretation Comments HIV-1 RNA (log 10) (test 4.758 rct06vxrm/mL code = 30777) [facility]HIV-1RNA, serum, by PCR, [id number] 20:04:00 Test Item Value Reference Range Interpretation Comments HIV-1RNA, serum, by PCR, 74774 /mL quantitative (test code = 92007) [facility]etoxoplasma gondii antibody, [id number] 09:33:00 Test Item Value Reference Range Interpretation Comments toxoplasma gondii <6.5 See_Comment [Automate d message] The antibody, IgG (test code sys tem which generated = 5389-2) this result tra nsmitted reference range : (0.0-6.4). The reference range was not u sed to interpret this result as normal/abnormal . [facility]etoxoplasma gondii antibody, [id number] 09:33:00 Test Item Value Reference Range Interpretation Comments toxoplasma gondii <6.5 See_Comment [Automate d message] The antibody, IgG (test code sys tem which generated = 2430) this result tra nsmitted reference range : (0.0-6.4). The reference range was not u sed to interpret this result as normal/abnormal . [facility], [id number] 15:15:00 Test Item Value Reference Range Interpretation Comments hepatitis B core Positive See_Comment A [Automated message] antibody, total (test The sy stem which code = 98612-3) generated th is result transmitted ref erence range: (Negativ e). The reference range was not used to interpr et this result as normal/abnormal . [facility]ee[facility]patitis B core antibody, [id number] 15:15:00 Test Item Value Reference Range Interpretation Comments hepatitis B core Positive See_Comment A [Automated message] antibody, total (test The sy stem which code = 77) generated this result transmitted ref erence range: (Negativ e). The reference range was not used to interpr et this result as normal/abnormal . [facility]eeabsolute [id number] 14:19:00 Test Item Value Reference Range Interpretation Comments absolute CD8 (test 721 (unknown See_Comment [Automat ed message] code = 50869) unit) The system [facility] generated this result transmitted ref erence range: (109-897 ). The reference range was not used to int erpret this result as normal/abnormal . [facility]eeabsolute [id number] 14:19:00 Test Item Value Reference Range Interpretation Comments absolute CD8 (test 721 (unknown See_Comment [Automat ed message] code = 71191) unit) The system [facility] generated this result transmitted ref erence range: (109-897 ). The reference range was not used to int erpret this result as normal/abnormal . [facility]eeT-helper cells (CD4) as percent of blood lymphocytes 2011-01-09 14:19:00 Test Item Value Reference Range Interpretation Comments T-helper cells (CD4) as 25.8 % See_Comment L [Au tomated message] percent of blood The system which lymphocytes (test code = gen erated this result 8123-2) transmitted ref erence range: (30.8-58 .5). The reference range was not used to interpr et this result as normal/abnormal . [facility]eeT-helper cells (CD4) [id number] 14:19:00 Test Item Value Reference Range Interpretation Comments T-helper cells (CD4) 439 /UL See_Comment [Autom ated message] The count (test code = system wh ich generated 26569-3) this result tra nsmitted reference range : (359-1519). The reference range was not u sed to interpret this result as normal/abnormal . [facility]er[facility] plasma reagin antibody, [id number] 12:21:00 Test Item Value Reference Range Interpretation Comments rapid plasma reagin 1:1 See_Comment H [Automa pepe message] The antibody, serum (test system which generated code = 5291-0) this result t ransmitted reference range : (NonRea<1:1). T he reference range was not used to interpr et this result as linette l/abnormal. [facility] plasma reagin antibody, [id number] 11:55:00 Test Item Value Reference Range Interpretation Comments rapid plasma reagin Reactive See_Comment A [Automa pepe message] The antibody, serum system which generated (test code = 5291-0) this re sult transmitted reference range : (Non Reactive). The reference range was not u sed to interpret this result as normal/abnormal . [facility]eehepatitis A antibody, [id number] 05:58:00 Test Item Value Reference Range Interpretation Comments hepatitis A antibody, Positive See_Comment A [Auto mated message] total (test code = The syste m which 82810-1) generated this result transmitted ref erence range: (Negativ e). The reference range was not used to interpr et this result as normal/abnormal . [facility] Healthhepatitis B surface [id number] 05:58:00 Test Item Value Reference Range Interpretation Comments hepatitis B surface Negative See_Comment [Automa pepe message] antigen (test code = The sys tem which 60651-4) generated this result transmitted ref erence range: (Negativ e). The reference range was not used to interpr et this result as normal/abnormal . [facility] Healthhepatitis C antibody, [id number] 05:58:00 Test Item Value Reference Range Interpretation Comments hepatitis C antibody, >11.0 See_Comment H [Auto mated message] The serum (test code = system [facility] generated 62219-2) this result tra nsmitted reference range : (0.0-0.9). The reference range was not u sed to interpret this result as normal/abnormal . [facility] Healthhepatitis B surface [id number] 05:58:00 Test Item Value Reference Range Interpretation Comments hepatitis B surface 6.42 (unknown See_Comment H [Autom ated message] antibody (test code unit) The syst em which = 62326-2) generated this result transmit pepe reference range : (0.00-0.99). Th e reference range was not used to interpret this result as normal/abnormal . [facility] Healthhepatitis A antibody, [id number] 05:58:00 Test Item Value Reference Range Interpretation Comments hepatitis A antibody, Positive See_Comment A [Auto mated message] total (test code = 75) The ystem which generated this result transmitted ref erence range: (Negativ e). The reference range was not used to interpr et this result as normal/abnormal . [facility] Healthhepatitis B surface [id number] 05:58:00 Test Item Value Reference Range Interpretation Comments hepatitis B surface Negative See_Comment [Automa pepe message] antigen (test code = The [facility] tem which 79) generated this result transmitted ref erence range: (Negativ e). The reference range was not used to interpr et this result as normal/abnormal . [facility] Healthhepatitis C antibody, [id number] 05:58:00 Test Item Value Reference Range Interpretation Comments hepatitis C antibody, >11.0 See_Comment H [Auto mated message] The serum (test code = [employer] generated 5199-5) this result tra nsmitted reference range : (0.0-0.9). The reference range was not u sed to interpret this result as normal/abnormal . [facility] surface [id number] 05:58:00 Test Item Value Reference Range Interpretation Comments hepatitis B surface 6.42 (unknown See_Comment H [Autom ated message] antibody (test code unit) The syst em which = 78) generated this result transmit pepe reference range : (0.00-0.99). Th e reference range was not used to interpret this result as normal/abnormal . [facility]eeLDL cholesterol, [id number] 05:23:00 Test Item Value Reference Range Interpretation Comments LDL cholesterol, 155 mg/dL See_Comment H [Automated message] The serum (test code = [employer] generated 2088-) this result tra nsmitted reference range : (0-99). The reference r chandler was not used to int erpret this result as normal/abnormal . [facility]eevery low density feafwyownizt8327-19-52 05:23:00 Test Item Value Reference Range Interpretation Comments very low density 20 mg/dL See_Comment [Automated message] lipoproteins (test code The system which = 2090-) generated this result transmitted ref erence range: (5-40). The reference range was not used to int erpret this result as normal/abnormal . [facility]eeHDL cholesterol, [id number] 05:23:00 Test Item Value Reference Range Interpretation Comments HDL cholesterol, 44 mg/dL See_Comment [Automated message] The serum (test code = [employer] generated 2084-) this result tra nsmitted reference range : (>39). The reference r chandler was not used to int erpret this result as normal/abnormal . [facility]etriglyceride, serum, [id number] 05:23:00 Test Item Value Reference Range Interpretation Comments triglyceride, serum, 101 mg/dL See_Comment [Autom ated message] The fasting (test code = system which generated 2570-8) this result tra nsmitted reference range : (0-149). The re ference range was not u sed to interpret this result as normal/abnormal . [facility]eecholesterol, [id number] 05:23:00 Test Item Value Reference Range Interpretation Comments cholesterol, serum 219 mg/dL See_Comment H [Automat ed message] The (test code = system which ge nerated 2092-) this result tra nsmitted reference range : (100-199). The reference range was not u sed to interpret this result as normal/abnormal . [facility]eealanine aminotransferase (SGPT), [id number] 05:23:00 Test Item Value Reference Range Interpretation Comments alanine aminotransferase 78 1/L See_Comment H [A utomated message] (SGPT), serum (test code = [employer] system which 1741-) generated this result transmitted ref erence range: (0-55). The reference range was not used to int erpret this result as normal/abnormal . [facility]eeaspartate aminotransferase (SGOT), [id number] 05:23:00 Test Item Value Reference Range Interpretation Comments aspartate aminotransferase 49 1/L See_Comment H [Automated message] (SGOT), serum (test code = [employer] system which 1920-04) generated this result transmitted ref erence range: (0-40). The reference range was not used to int erpret this result as normal/abnormal . [facility]eealkaline phosphatase, [id number] 05:23:00 Test Item Value Reference Range Interpretation Comments alkaline phosphatase, 85 1/L See_Comment [Auto mated message] The serum (test code = [employer] generated 1783-0) this result tra nsmitted reference range : (25-150). The r eference range was not u sed to interpret this result as normal/abnormal . [facility]eebilirubin, serum, [id number] 05:23:00 Test Item Value Reference Range Interpretation Comments bilirubin, serum, 0.4 mg/dL See_Comment [Automate d message] The total (test code = [employer] generated 1974-2) this result tra nsmitted reference range : (0.0-1.2). The reference range was not u sed to interpret this result as normal/abnormal . [facility], [id number] 05:23:00 Test Item Value Reference Range Interpretation Comments albumin/globulin 1.2 (unknown See_Comment [Automated message] ratio, serum unit) The system [employer] (test code = generated this result 1759-0) transmitted ref erence range: (1.1-2.5 ). The reference range was not used to int erpret this result as normal/abnormal . [facility]eglobulin, [id number] 05:23:00 Test Item Value Reference Range Interpretation Comments globulin, serum 3.6 (unknown See_Comment [Automated message] (test code = unit) The system [employer] 9186-6) generated this result transmitted ref erence range: (1.5-4.5 ). The reference range was not used to int erpret this result as normal/abnormal . [facility]eealbumin, [id number] 05:23:00 Test Item Value Reference Range Interpretation Comments albumin, serum (test 4.2 g/dL See_Comment [Autom ated message] The code = 1751-7) system which generated this result tra nsmitted reference range : (3.5-5.5). The reference range was not u sed to interpret this result as normal/abnormal . [facility]eprotein, total, [id number] 05:23:00 Test Item Value Reference Range Interpretation Comments protein, total, 7.8 g/dL See_Comment [Automated message] The serum (test code = system [facility] generated 2885-2) this result tra nsmitted reference range : (6.0-8.5). The reference range was not u sed to interpret this result as normal/abnormal . [facility] Healthcalcium, [id number] 05:23:00 Test Item Value Reference Range Interpretation Comments calcium, serum 9.6 mg/dL See_Comment [Automated m essage] The (test code = system which ge nerated 2000-04) this result tra nsmitted reference range : (8.7-10.2). The reference range was not u sed to interpret this result as normal/abnormal . [facility]ecarbon dioxide, venous [id number] 05:23:00 Test Item Value Reference Range Interpretation Comments carbon dioxide, 30 mmol/L See_Comment [Automated message] The venous blood (test system wh ich generated code = 2026-1) this result t ransmitted reference range : (20-32). The re ference range was not u sed to interpret this result as normal/abnormal . [facility] Healthchloride, [id number] 05:23:00 Test Item Value Reference Range Interpretation Comments chloride, serum 99 mmol/L See_Comment [Automated message] The (test code = system which ge nerated 5-0) this result tra nsmitted reference range : (97-108). The r eference range was not u sed to interpret this result as normal/abnormal . [facility]ardeepotassium, [id number] 05:23:00 Test Item Value Reference Range Interpretation Comments potassium, serum 4.2 mmol/L See_Comment [Automated message] The (test code = system which ge nerated 2823-3) this result tra nsmitted reference range : (3.5-5.2). The reference range was not u sed to interpret this result as normal/abnormal . [facility]eesodium, [id number] 05:23:00 Test Item Value Reference Range Interpretation Comments sodium, serum (test 139 mmol/L See_Comment [Automa pepe message] The code = 2951-2) system which generated this result tra nsmitted reference range : (135-145). The reference range was not u sed to interpret this result as normal/abnormal . [facility]ardeeurea nitrogen/creatinine ratio, [id number] 05:23:00 Test Item Value Reference Range Interpretation Comments urea 14 (unknown See_Comment [Automated mes jesika] nitrogen/creatin unit) The system which ine ratio, serum generated t his result (test code = transmitted ref erence 3097-3) range: (8-19). The reference range was not used to int erpret this result as normal/abnormal . [facility]ardeecreatinine, [id number] 05:23:00 Test Item Value Reference Range Interpretation Comments creatinine, serum 1.23 mg/dL See_Comment [Automate d message] The (test code = system which ge nerated 2160-0) this result tra nsmitted reference range : (0.76-1.27). Th e reference range was not used to interpr et this result as normal/abnormal . [facility]eeurea nitrogen, [id number] 05:23:00 Test Item Value Reference Range Interpretation Comments urea nitrogen, blood 17 mg/dL See_Comment [Autom ated message] The (test code = 3094-0) system which generated this result tra nsmitted reference range : (6-20). The reference r chandler was not used to int erpret this result as normal/abnormal . [facility]eeblood glucose, [id number] 05:23:00 Test Item Value Reference Range Interpretation Comments blood glucose, 125 mg/dL See_Comment H [Automated m essage] The random (test code = system [facility] generated 2339-0) this result tra nsmitted reference range : (65-99). The re ference range was not u sed to interpret this result as normal/abnormal . [facility], percentage of total cells, blood 2011-01-09 04:50:00 Test Item Value Reference Range Interpretation Comments immature granulocytes, 0 % See_Comment [Aut omated message] The percentage of total system w [facility] generated cells, blood (test code this result transmitted = 58455-1) reference range : (0-1). The reference r chandler was not used to int erpret this result as normal/abnormal . [facility]eebasophil count, [id number] 04:50:00 Test Item Value Reference Range Interpretation Comments basophil count, 0.0 x10E3/uL See_Comment [Automated message] absolute (test code The syst em which = 10048-5) generated this result transmitted ref erence range: (0.0-0.2 ). The reference range was not used to int erpret this result as normal/abnormal . [facility]eeEosinophil Absolute Fjxze2808-47-07 04:50:00 Test Item Value Reference Range Interpretation Comments Eosinophil Absolute 0.0 X10E3/UL See_Comment [Automa pepe message] Count (test code = The syste m which 91229-5) generated this result transmitted ref erence range: (0.0-0.4 ). The reference range was not used to int erpret this result as normal/abnormal . [facility]emonocyte count, blood, [id number] 04:50:00 Test Item Value Reference Range Interpretation Comments monocyte count, 0.4 X10E3/UL See_Comment [Automated message] blood, automated The system which (test code = 742-7) generate d this result transmitted ref erence range: (0.1-1.0 ). The reference range was not used to int erpret this result as normal/abnormal . [facility]elymphocyte count, blood, [id number] 04:50:00 Test Item Value Reference Range Interpretation Comments lymphocyte count, 1.7 X10E3/UL See_Comment [Automate d message] blood, automated The system which (test code = 731-0) generate d this result transmitted ref erence range: (0.7-4.5 ). The reference range was not used to int erpret this result as normal/abnormal . [facility]eeAbsolute Zkbzhuwofnt2403-68-08 04:50:00 Test Item Value Reference Range Interpretation Comments Absolute Neutrophils 3.6 X10E3/UL See_Comment [Autom ated message] (test code = 72810-4) The sy stem which generated this result transmit pepe reference range : (1.8-7.8). The reference range was not used to interpret this result as normal/abnormal . [facility]eebasophils as percent of blood yyoloyzteh4521-84-08 04:50:00 Test Item Value Reference Range Interpretation Comments basophils as percent of 0 % See_Comment [Au tomated message] The blood leukocytes (test syste m which generated code = 707-0) this result tr ansmitted reference range : (0-3). The reference r chandler was not used to int erpret this result as normal/abnormal . [facility]eeeosinophils as percent of blood jsjtcyjgdv2810-24-07 04:50:00 Test Item Value Reference Range Interpretation Comments eosinophils as percent 1 % See_Comment [Aut omated message] The of blood leukocytes system [facility] generated (test code = 713-8) this res ult transmitted reference range : (0-7). The reference r chandler was not used to int erpret this result as normal/abnormal . [facility] as percent of blood [id number] 04:50:00 Test Item Value Reference Range Interpretation Comments monocytes as percent of 6 % See_Comment [Au tomated message] The blood leukocytes (test syste m which generated code = 5905-5) this result t ransmitted reference range : (4-13). The reference r chandler was not used to int erpret this result as normal/abnormal . [facility]ardeelymphocytes as percent of blood [id number] 04:50:00 Test Item Value Reference Range Interpretation Comments lymphocytes as percent 29 % See_Comment [Aut omated message] The of blood leukocytes system w [facility] generated (test code = 736-9) this res ult transmitted reference range : (14-46). The re ference range was not u sed to interpret this result as normal/abnormal . [facility]ardeeneutrophils as percent of blood [id number] 04:50:00 Test Item Value Reference Range Interpretation Comments neutrophils as percent 64 % See_Comment [Aut omated message] The of blood leukocytes system w [facility] generated (test code = 770-8) this res ult transmitted reference range : (40-74). The re ference range was not u sed to interpret this result as normal/abnormal . [facility]ardeeplatelet [id number] 04:50:00 Test Item Value Reference Range Interpretation Comments platelet count 200 X10E3/UL See_Comment [Automated m essage] (test code = 777-3) The syst em which generated this result transmitted ref erence range: (140-415 ). The reference range was not used to int erpret this result as normal/abnormal . [facility] blood cell distribution [id number] 04:50:00 Test Item Value Reference Range Interpretation Comments red blood cell 14.0 % See_Comment [Automated m essage] distribution width (test The system which code = 788-0) generated this result transmitted ref erence range: (11.7-15 .0). The reference range was not used to interpr et this result as normal/abnormal . [facility] corpuscular hemoglobin concentration, [id number] 04:50:00 Test Item Value Reference Range Interpretation Comments mean corpuscular 33.5 G/DL See_Comment [Automated message] hemoglobin The system whic h concentration, RBC generated this result (test code = 786-4) transmit pepe reference range: (32.0-36 .0). The reference r chandler was not used to interpret this result as normal/abnor mal. [facility] corpuscular hemoglobin, [id number] 04:50:00 Test Item Value Reference Range Interpretation Comments mean corpuscular 30.5 pg See_Comment [Automated message] hemoglobin, RBC (test The sy stem which code = 785-6) generated this result transmitted ref erence range: (27.0-34 .0). The reference range was not used to interpr et this result as normal/abnormal . [facility] corpuscular volume, [id number] 04:50:00 Test Item Value Reference Range Interpretation Comments mean corpuscular volume, 91 fL See_Comment [A utomated message] The RBC (test code = 787-2) syst em which generated this result tra nsmitted reference range : (80-98). The re ference range was not u sed to interpret this result as normal/abnormal . [facility]eehematocrit, [id number] 04:50:00 Test Item Value Reference Range Interpretation Comments hematocrit, blood 45.7 % See_Comment [Automate d message] The (test code = 4544-3) system which generated this result tra nsmitted reference range : (36.0-50.0). Th e reference range was not u sed to interpret this result as normal/abnormal . [facility]eehemoglobin, [id number] 04:50:00 Test Item Value Reference Range Interpretation Comments hemoglobin, blood 15.3 g/dL See_Comment [Automate d message] The (test code = 718-7) system w hich generated this result tra nsmitted reference range : (12.5-17.0). Th e reference range was not used to interpr et this result as normal/abnormal . [facility]ee[facility]throcyte (RBC) [id number] 04:50:00 Test Item Value Reference Range Interpretation Comments erythrocyte (RBC) 5.02 X10E6/UL See_Comment [Automat ed message] count (test code = The syste m which 789-8) generated this result transmit pepe reference range : (4.10-5.60). Th e reference range was not used to interpret this result as normal/abnormal . [facility]eeleukocyte count, [id number] 04:50:00 Test Item Value Reference Range Interpretation Comments leukocyte count, 5.7 X10E3/UL See_Comment [Automated message] blood (test code = The syste m which 6690-2) generated this result transmitted ref erence range: (4.0-10. 5). The reference r chandler was not used to interpret this result as normal/abnor mal. [facility]
[2022-10-28 21:17] LABS: Potassium 3.5 mmol/L (3.5-5.1)
[2022-10-28] MEDS ORDERED: PIPERACIL/TAZO 3.375 GM VIAL IV ONE (21:22)
[2022-10-28] MEDS ORDERED: NA CHLORIDE 0.9% 100 ML ONE (21:22)
[2022-10-28 21:27] LABS: SARS-CoV-2 Antigen Rapid Res Negative (Negative)
[2022-10-28] MEDS ORDERED: METHYLPREDNISOLONE 125 MG INJ ONE (22:46)
[2022-10-28] MEDS ORDERED: DIPHENHYDRAMINE 50 MG/ML VIAL ONE (22:47)
[2022-10-28] MEDS ORDERED: FAMOTIDINE 20 MG/2 ML VIAL IV ONE (22:47)
[2022-10-28 23:09] LABS: Absolute Lymphocytes (CBC) 2.2 K/uL (0.7-4.9); Hematocrit 39.6 % (39.6-49.0); Lymphocytes % 13.6 % (15.3-44.8); MCV 92.2 fL (80-100); MPV 8.6 fL (7.6-11.3); RBC Red Blood Cell Count 4.29 M/uL (4.33-5.43)
--- NOTE | 2022-10-28 23:50 | ER ---
Nurse's Notes [facility] Name: Clifford Age: 47 yrs Sex: Male : 1975 Arrival Date: 10/28/2022 Time: 20:16 Bed 20 Private MD: Diagnosis: GI Bleed/ Gastrointestinal hemorrhage, unspecified Presentation: 10/28 20:34 Chief complaint: Patient states: I had a colonoscopy yesterday, since 5 pm today I have kr3 been passing bright red blood several times. Coronavirus screen: Vaccine status: Patient reports receiving the 2nd dose of the covid vaccine. Ebola Screen: Patient denies travel to an Ebola-affected area in the 21 days before illness onset. Initial Sepsis Screen: Does the patient meet any 2 criteria? No. Patient's initial sepsis screen is negative. Does the patient have a suspected source of infection? No. Patient's initial sepsis screen is negative. Risk Assessment: Do you want to hurt yourself or someone else? Patient reports no desire to harm self or others. Onset of symptoms was October 28, 2022. 20:34 Method Of Arrival: Ambulatory kr3 20:34 Acuity: WENDI 3 kr3 Triage Assessment: 10/29 03:38 Pain: Denies pain. aa9 Historical: - Allergies: 10/28 20:41 No Known Allergies; kr3 - PMHx: 20:41 None; kr3 - PSHx: 20:41 colonoscopy; kr3 - Immunization history:: Adult Immunizations not up to date. - Social history:: Smoking status: Patient denies any tobacco usage or history of. Screenin:07 [facility] ED Fall Risk Assessment (Adult) History of falling in the last 3 months, aa9 including since admission No falls in past 3 months (0 pts) Confusion or Disorientation No (0 pts) Intoxicated or Sedated No (0 pts) Impaired Gait No (0 pts) Mobility Assist Device Used No (0 pt) Altered Elimination No (0 pt) Score/Fall Risk Level 0 - 2 = Low Risk Maintained a safe environment, Educated pt \T\ family on fall prevention, incl call for assistance when getting out of bed. Abuse screen: Denies threats or abuse. Denies injuries from another. Nutritional screening: No deficits noted. Tuberculosis screening: No symptoms or risk factors identified. Assessment: 21:30 General: Appears uncomfortable, Behavior is calm, cooperative. aa9 21:30 Cardiovascular: Pulses are all present. Chest pain is denied. Respiratory: Airway is aa9 patent Respiratory effort is even, unlabored. GI: Reports rectal bleeding. Derm: Skin is intact, is healthy with good turgor, Skin is pale. Derm: Skin is dry, Skin temperature is cool. 22:30 Derm: Rash noted that is itchy, red, raised, on right arm and left arm Reports itching. aa9 22:30 General: notified Valdemar NUDE MODEL. Respiratory: Denies shortness of breath. aa9 10/29 00:00 Reassessment: Patient appears in no apparent distress at this time. Patient and/or aa9 family updated on plan of care and expected duration. Pain level reassessed. Patient is alert, oriented x 3, equal unlabored respirations, skin warm/dry/pink. 01:48 Reassessment: Patient appears in no apparent distress at this time. Patient is alert, aa9 oriented x 3, equal unlabored respirations, skin warm/dry/pink. Patient denies pain at this time. 03:18 Reassessment: Patient appears in no apparent distress at this time. report provided to gunnar Rose RN at receiving facility. 03:35 Reassessment: Patient appears in no apparent distress at this time. Patient and/or aa9 family updated on plan of care and expected duration. Pain level reassessed. Patient is alert, oriented x 3, equal unlabored respirations, skin warm/dry/pink. report provided to [facility] transport service, pt and significant other understand need for transfer, denies concerns. Vital Signs: 10/28 20:34 BP 76 / 62; Pulse 87; Resp 18; Pulse Ox 98% on R/A; Weight 79.38 kg; Height 5 ft. 7 in. kr3 (170.18 cm); Pain 0/10; 20:41 Temp 97.7(TE); kr3 21:03 BP 100 / 71; Pulse 76; Resp 14; Pulse Ox 100% on R/A; aa9 21:30 BP 104 / 66; Pulse 79; Resp 19; Pulse Ox 100% on R/A; aa9 22:00 BP 102 / 61; Pulse 81; Resp 17; Pulse Ox 100% on R/A; aa9 22:26 BP 124 / 85; Pulse 79; Resp 22 S; Pulse Ox 99% on R/A; aa9 22:36 BP 98 / 56; Pulse 84; Resp 22; Pulse Ox 100% on R/A; aa9 22:47 BP 97 / 51; Pulse 90; Resp 23 S; Pulse Ox 98% on R/A; aa9 23:00 BP 108 / 52; Pulse 90; Resp 22 S; Pulse Ox 99% on R/A; aa9 23:15 BP 105 / 48; Pulse 86; Resp 20 S; Pulse Ox 94% on R/A; aa9 02 00:00 BP 101 / 49; Pulse 82; Resp 22 S; Pulse Ox 100% on R/A; aa9 00:15 BP 90 / 44; Pulse 88; Resp 21 S; Pulse Ox 92% on R/A; aa9 00:45 BP 87 / 66; Pulse 92; Resp 20 S; Pulse Ox 100% on R/A; aa9 01:30 BP 124 / 61; Pulse 86; Resp 20 S; Pulse Ox 97% on R/A; aa9 02:45 BP 130 / 69; Pulse 80; Resp 23 S; Pulse Ox 99% on R/A; aa9 10/28 20:34 Body Mass Index 27.41 (79.38 kg, 170.18 cm) kr3 ED Course: 10/28 20:16 Patient arrived in ED. as 20:35 Ruthann Aldrich FNP-C is PHCP. kb 20:35 Dimitry Gutierrez MD is Attending Physician. kb 20:40 Triage completed. kr3 20:41 Adelaida Cruz, RN is Primary Nurse. aa9 20:42 Patient placed in an exam room, on a stretcher. kr3 20:56 Initial lab(s) drawn, by az, sent to lab. COVID swab sent to lab. Inserted saline lock: tw5 20 gauge in right antecubital area, using aseptic technique. Blood collected. 20:56 SARS RAPID Sent. tw5 20:56 CBC with Diff Sent. tw5 20:56 Type And Screen Sent. tw5 20:56 Basic Metabolic Panel Sent. tw5 21:03 SARS RAPID Sent. aa9 21:15 Glucose, Ancillary Testing Sent. 10/29 03:38 Arm band placed on. aa9 03:38 Patient has correct armband on for positive identification. Bed in low position. Side aa9 rails up X2. Adult w/ patient. 03:38 No provider procedures requiring assistance completed. Patient transferred, IV remains aa9 in place. Administered Medications: 10/28 20:56 Drug: NS 0.9% 1000 ml Route: IV; Rate: 1000 ml; Site: right antecubital; tw5 21:33 Drug: NS 0.9% 1000 ml Route: IV; Rate: 1000 ml; Site: right antecubital; aa9 21:33 Drug: Zosyn (piperacillin-tazobactam) 3.375 grams Route: IVPB; Infused Over: 60 mins; aa9 Site: right antecubital; 23:04 Follow up: Response: Adverse reaction, Physician notified; IV Status: Completed aa9 infusion; IV Intake: 100ml 22:43 Drug: Pepcid (famotidine) 20 mg Route: IVP; Site: right antecubital; aa9 22:45 Drug: Benadryl (diphenhydrAMINE) 12.5 mg Route: IVP; Site: right antecubital; aa9 22:48 Drug: SOLU-Medrol (methylPrednisoLONE) 125 mg Route: IVP; Site: right antecubital; aa9 23:04 Drug: NS 0.9% 1000 ml Route: IV; Rate: 125 ml/hr; Site: right antecubital; aa9 23:23 Drug: NS 0.9% 1000 ml Route: IV; Rate: 1000 ml; Site: right antecubital; aa9 Medication: 10/29 03:38 VIS not applicable for this client. aa9 Intake: 10/28 23:04 IV: 100ml; Total: 100ml. aa9 Outcome: 23:49 ER care complete, transfer ordered by MD. sanchez 10/29 03:38 [facility]red by ground EMS to [facility], Transfer form completed. aa9 Condition: stable Instructed on the need for transfer. 03:39 Patient left the ED. aa9 Signatures: Ruthann Aldrich, SHERRY MARTINSP-Nhi Otero Tiffany tw5 Adelaida Cruz, RN RN aa9 Michelle Pena RN RN kr3
--- NOTE | 2022-10-28 23:50 | EDPHYS ---
Physician Documentation [facility] Name: Clifford Age: 47 yrs Sex: Male : 1975 Arrival Date: 10/28/2022 Time: 20:16 Bed 20 Private MD: ED Physician Dimitry Gutierrez HPI: 10/28 22:13 This 47 yrs old Male presents to ER via Ambulatory with complaints of Rectal kb Bleeding - colonoscopy 10/27, Dizziness. 23:15 The patient presents to the emergency department with bleeding from the rectum/anus, kb that is moderate. Onset: The symptoms/episode began/occurred at 16:00. Context: the patient is post surgical, colonoscopy, on October 27, 2022. Modifying factors: The symptoms are alleviated by nothing, The symptoms are aggravated by bowel movement. Associate signs and symptoms: Pertinent positives: lower GI bleeding, bright red. The patient has not experienced similar symptoms in the past. The patient has not recently seen a physician. Pt reports he had a colonoscopy yesterday and started having bright red rectal bleeding today at 1600. States he was unable to get in touch with the dr that did the colonoscopy so he came here. Reports dizziness and feels like he is going to pass out. Historical: - Allergies: 20:41 No Known Allergies; kr3 - PMHx: 20:41 None; kr3 - PSHx: 20:41 colonoscopy; kr3 - Immunization history:: Adult Immunizations not up to date. - Social history:: Smoking status: Patient denies any tobacco usage or history of. ROS: 21:50 Constitutional: Negative for fever, chills, and weight loss. kb 21:50 Abdomen/GI: Positive for rectal bleeding. 22:09 Neuro: Positive for dizziness, near syncope, weakness. kb 22:09 All other systems are negative. Exam: 22:13 Head/Face: Normocephalic, atraumatic. ENT: Moist Mucous membranes Cardiovascular: kb Regular rate and rhythm with a normal S1 and S2. No gallops, murmurs, or rubs. No pulse deficits. Respiratory: Respirations even and unlabored. No increased work of breathing. Talking in full sentences Abdomen/GI: Soft, non-tender. No distention MS/ Extremity: Pulses equal, no cyanosis. Neurovascular intact. Full, normal range of motion. Neuro: Awake and alert, GCS 15, oriented to person, place, time, and situation. Moves all extremities. Normal gait. 22:13 Constitutional: The patient appears alert, awake, diaphoretic, pale. 22:13 ECG was reviewed by the Attending Physician. 22:13 Skin: Appearance: Color: pale. Vital Signs: 20:34 BP 76 / 62; Pulse 87; Resp 18; Pulse Ox 98% on R/A; Weight 79.38 kg; Height 5 ft. 7 in. kr3 (170.18 cm); Pain 0/10; 20:41 Temp 97.7(TE); kr3 21:03 BP 100 / 71; Pulse 76; Resp 14; Pulse Ox 100% on R/A; aa9 21:30 BP 104 / 66; Pulse 79; Resp 19; Pulse Ox 100% on R/A; aa9 22:00 BP 102 / 61; Pulse 81; Resp 17; Pulse Ox 100% on R/A; aa9 22:26 BP 124 / 85; Pulse 79; Resp 22 S; Pulse Ox 99% on R/A; aa9 22:36 BP 98 / 56; Pulse 84; Resp 22; Pulse Ox 100% on R/A; aa9 22:47 BP 97 / 51; Pulse 90; Resp 23 S; Pulse Ox 98% on R/A; aa9 23:00 BP 108 / 52; Pulse 90; Resp 22 S; Pulse Ox 99% on R/A; aa9 23:15 BP 105 / 48; Pulse 86; Resp 20 S; Pulse Ox 94% on R/A; aa9 09 00:00 BP 101 / 49; Pulse 82; Resp 22 S; Pulse Ox 100% on R/A; aa9 00:15 BP 90 / 44; Pulse 88; Resp 21 S; Pulse Ox 92% on R/A; aa9 00:45 BP 87 / 66; Pulse 92; Resp 20 S; Pulse Ox 100% on R/A; aa9 01:30 BP 124 / 61; Pulse 86; Resp 20 S; Pulse Ox 97% on R/A; aa9 02:45 BP 130 / 69; Pulse 80; Resp 23 S; Pulse Ox 99% on R/A; aa9 10/28 20:34 Body Mass Index 27.41 (79.38 kg, 170.18 cm) kr3 MDM: 10/28 20:41 Patient medically screened. kb 21:30 ED course: When pt moved onto stretcher he became pale, diaphoretic, dizzy and drowsy; kb bp was 73 systolic. I placed pt in Trendelenburg and discussed case with Dr Gutierrez who recommended 2 units O- blood and 2 FFP stat. Blood and FFP ordered. Dr Gutierrez went to bedside. Pt symptoms mildly improved and systolic bp into the 80s. Dr Gutierrez recommended 2L of NS, zosyn and hold the blood and FFP at this time. Currently pt is awake, alert and symptoms have improved further. Pt states he is feeling much better. Systolic bp 100. Will consult pt's GI, Dr Smith.. ED course: Pt's colonoscopy was done yesterday at [facility]. No answer at surgical center when called. Dr Smith is affiliated with [facility]. Transfer initiated to [facility] . 22:03 Data reviewed: vital signs, nurses notes. kb 22:06 ED course: I discussed case with Dr Juan, who is registration representative for Dr Smith. He reports kb their practice does not see inpatients. States they do have privileges at [facility], but normally consult to give information about the procedures they did. [facility] updated on this information. Awaiting callback regarding bed availability. . 22:52 Differential diagnosis: hemorrhoids, post procedure bleeding. Consideration of kb Admission/Observation pt will be transferred due to lack of GI coverage at this facility. Management of patient was discussed with the following: Customer Specialist: Dr Oliver, hospitalist at [facility]. She wants repeat H\T\H results to determine bed placement, but will accept pt after that. Also requests third liter of NS be given. 23:49 Counseling: I had a detailed discussion with the patient and/or guardian regarding: the kb historical points, exam findings, and any diagnostic results supporting the discharge/admit diagnosis, lab results, radiology results, the need to transfer to another facility. 23:54 Management of patient was discussed with the following: Customer Specialist: Dr Oliver accepts pt for transfer. 10/29 01:29 ED course: Pt developed hives and itching after zosyn administration. solumedrol, kb pepcid and benadryl given. Symptoms resolved after treatment. Pt resting comfortably now. Denies any dizziness or any other symptoms at this time. 10/28 20:41 Order name: CBC with Diff; Complete Time: 21:14 kb 10/28 20:41 Order name: Basic Metabolic Panel; Complete Time: 21:24 kb 10/28 20:41 Order name: Type And Screen; Complete Time: 22:06 kb 10/28 20:46 Order name: SARS RAPID; Complete Time: 21:29 aa9 10/28 21:06 Order name: Glucose, Ancillary Testing; Complete Time: 21:10 EDMS 10/28 21:11 Order name: Packed RBC Leukored EDMS 10/28 21:11 Order name: Glucose, Ancillary Testing EDMS 10/28 22:04 Order name: ABO/RH no charge; Complete Time: 22:06 EDMS 10/28 22:10 Order name: CBC with Diff; Complete Time: 23:36 kb 10/28 22:51 Order name: PT-INR; Complete Time: 01:30 kb 10/28 22:51 Order name: Ptt, Activated; Complete Time: 01:30 kb 10/28 20:41 Order name: IV Start; Complete Time: 20:56 kb 10/28 20:44 Order name: EKG; Complete Time: 20:44 kr3 10/28 20:44 Order name: EKG - Nurse/Tech; Complete Time: 22:26 kr3 EC/08 22:13 Rate is 81 beats/min. Rhythm is regular. QRS [place] is Normal. AR interval is normal at kb 134 msec. QRS interval is normal at 78 msec. QT interval is normal at 376 msec. Administered Medications: 20:56 Drug: NS 0.9% 1000 ml Route: IV; Rate: 1000 ml; Site: right antecubital; tw5 21:33 Drug: NS 0.9% 1000 ml Route: IV; Rate: 1000 ml; Site: right antecubital; aa9 21:33 Drug: Zosyn (piperacillin-tazobactam) 3.375 grams Route: IVPB; Infused Over: 60 mins; aa9 Site: right antecubital; 23:04 Follow up: Response: Adverse reaction, Physician notified; IV Status: Completed aa9 infusion; IV Intake: 100ml 22:43 Drug: Pepcid (famotidine) 20 mg Route: IVP; Site: right antecubital; aa9 22:45 Drug: Benadryl (diphenhydrAMINE) 12.5 mg Route: IVP; Site: right antecubital; aa9 22:48 Drug: SOLU-Medrol (methylPrednisoLONE) 125 mg Route: IVP; Site: right antecubital; aa9 23:04 Drug: NS 0.9% 1000 ml Route: IV; Rate: 125 ml/hr; Site: right antecubital; aa9 23:23 Drug: NS 0.9% 1000 ml Route: IV; Rate: 1000 ml; Site: right antecubital; aa9 Disposition Summary: 10/28/22 23:49 Transfer Ordered Transfer Location: [facility] kb Reason: Higher level of care kb Condition: Stable kb Problem: new kb Symptoms: are unchanged kb Accepting Physician: Dr Oliver(10/29/22 03:39) aa9 Diagnosis - GI Bleed/ Gastrointestinal hemorrhage, unspecified kb Forms: - Medication Reconciliation Form kb - SBAR form kb Signatures: Dispatcher [employer] EDMS Ruthann Aldrich, GEORGEC FERNANDA-Brenda Barksdale tw5 Adelaida Cruz, RN RN aa9 Michelle Pena RN RN kr3 Corrections: (The following items were deleted from the chart) 22:10 21:50 Abdomen/GI: Positive for kb kb 10/29 03:39 10/28 23:49 Dr Oliver kb aa9
[2022-10-29 00:40] LABS: Protime INR 1.1
[2022-10-29 03:43] VITALS: TEMP 97.7
[2022-10-29 03:58] VITALS: BP 130/69; O2SAT 99
== END 2022-10-29 03:39 | disposition short-term general hospital (02) ==
LOC: ER 20:13
DX: K92.2 Gastrointestinal hemorrhage, unspecified (principal); R42 Dizziness and giddiness; Z98.890 Other specified postprocedural states; Z20.822 Contact with and (suspected) exposure to COVID-19
CPT/HCPCS: 96365; 93005; 85025 ×2; 80048; 36415; 86900; 86850; 85610; 86901; 82947; 85730; 96375; 99285; 96366; 87811; J1200; J2543; J7030 ×4; J2930

== ENCOUNTER 2024-11-25 23:55 | Emergency (ER) | payer OTHER ==
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
[2024-11-26 01:25] VITALS: BP 167/82; TEMP 97.6; O2SAT 96
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
== END 2024-11-26 01:06 | disposition home or self-care (01) ==
LOC: ER 23:55
DX: S09.90XA Unspecified injury of head, initial encounter (principal)
CPT/HCPCS: 70250; 99282